=== PATIENT | male | born 1955 | race Caucasian/White ===

== ENCOUNTER 2017-04-14 12:42 | Inpatient (IN) | payer OTHER ==
[~2017-04-14] VITALS: Ht 170.2 cm; Wt 95.7 kg
[~2017-04-14 12:42] MED LIST: AMIT100T PO; AMIT50TA PO; ASPI-482 PO; ASPI325T8 PO; ATOR40TA PO; BUPR150T11 PO; CEFP100T PO; CLOP75TA PO; DIAZ5ORA PO; DOXY100T PO; ESOM40CA PO; FENO54TA6 PO; FURO-68 PO; GEMF600T3 PO; HYDR-2766 PO; METO50TA6 PO; MORP10DI10 PO; MORP30TA83 PO; Metoprolol Tartrate PO; OXYC10TA PO; PANT40TA3 PO; POTA20TA12 PO; PRAV40TA2 PO; PRED20TA PO; RAMI5CAP PO; SIMV80TA3 PO; SUCR1ORA11 PO; VALIUM10 MG PO; WARF-78 PO; WARF5TAB7 PO
[2017-04-14] MEDS ORDERED: NITROGLYCERIN SUBLINGUAL 0.4 MG BOTTLE OF 25. SL PRN (13:00)
[2017-04-14] MEDS ORDERED: ASPIRIN ENTERIC COATED 325 MG TABLET.DR. PO ONE (13:00)
[2017-04-14 13:04] LABS: BASO # 0.1 x10^3/uL (0.0-0.2); BASO % 1 % (0-3); EOS % 6 % (0-3); HEMATOCRIT 50.7 % (39.0-53.0); HEMOGLOBIN 16.8 g/dL (13.0-17.5); LYMPH # 2.8 x10^3/uL (1.0-4.8); LYMPH % 39 % (24-48); MEAN CORPUSCULAR HEMOGLOBIN 31 pg (25-35); MEAN CORPUSCULAR HGB CONC 33 g/dL (31-37); MEAN CORPUSCULAR VOLUME 94 fL (79-100); MONO % 12 % (0-9); NEUT % 41 % (31-73); PLATELET COUNT 219 x10^3/uL (140-400); RED BLOOD COUNT 5.41 x10^6/uL (4.30-5.70); RED CELL DISTRIBUTION WIDTH 13.1 % (11.5-14.5); WHITE BLOOD COUNT 7.2 x10^3/uL (4.0-11.0)
[2017-04-14 13:12] LABS: CALCIUM 9.9 mg/dL (8.5-10.1); CREATININE 0.9 mg/dL (0.7-1.3); GFR 86.1; POTASSIUM 3.5 mmol/L (3.5-5.1)
[2017-04-14 13:14] LABS: INR 3.3 (0.8-1.1); PROTHROMBIN TIME PATIENT 31.2 SEC (11.7-14.0)
[2017-04-14 13:18] LABS: MAGNESIUM 1.9 mg/dL (1.8-2.4); TOTAL BILIRUBIN 0.2 mg/dL (0.2-1.0)
--- NOTE | 2017-04-14 13:22 | RAD ---
PORTABLE CHEST 1V Clinical Indication: chest pain, SINCE THIS MORNING Comparison: Chest radiograph dated 07/31/2016 Findings: Low lung volume. No focal consolidation. Stable pulmonary vasculature. No pleural effusion or pneumothorax. Stable heart size. The great vessels of the thorax are stable. Median sternotomy. Incompletely visualized cervical fusion hardware. No acute osseous abnormality. IMPRESSION: No acute cardiopulmonary process.
--- NOTE | 2017-04-14 13:35 | EKG ---
[facility] [address] [place] [address] Test Date: 2017-04-14 Test Time: 12:49:47 Pat Name: JOHN AVILA Department: Room: Gender: M [employer] Worker: : 1955 Requested By: SAHRA DICK Order Number: [id number] Reading MD: Yandel Marsh Measurements Intervals [place] Rate: 76 P: 137 CO: 156 QRS: 152 QRSD: 106 T: -140 QT: 352 QTc: 400 Interpretive Statements SR SUSPECT LEAD MISPLACEMENT Electronically Signed On 05-06-2017 14:28:55 CDT by Yandel Marsh
[2017-04-14] MEDS ORDERED: MORPHINE SULFATE 4 MG/ML DISP.SYRIN. IV PRN (14:30)
--- NOTE | 2017-04-14 14:38 | PHYS DOC ---
Past Medical History Past Medical History: CAD, Cancer, COPD, High Cholesterol, Heart Disease, Hypertension, CT, Other Additional Past Medical Histor: TESTICLE CANCER, chronic back pain, PE Past Surgical History: Coronary Bypass Surgery, Other Additional Past Surgical Histo: ORECECTOMY,BACK, JAW, cardiac stents Alcohol Use: None Drug Use: None Adult General Chief Complaint Chief Complaint: CHEST PAIN HPI HPI Patient is a 61 year old male who presents with chest pain. It started yesterday evening, pressure like pain, radiating to left arm. Associated SOB, no diaphoresis. Similar pain in past when pt told "I need another stent". Pt with significant CAD and multiple MIs in the past. No recent cough or fevers. Symptoms are still occurring. Dolly Operator is Dr. Borja Review of Systems Review of Systems Constitutional: Denies fever or chills [] Eyes: Denies change in visual acuity, redness, or eye pain [] HENT: Denies nasal congestion or sore throat [] Respiratory: Denies cough Cardiovascular: No additional information not addressed in HPI [] GI: Denies abdominal pain, nausea, vomiting, bloody stools or diarrhea [] : Denies dysuria or hematuria [] Musculoskeletal: Denies back pain or joint pain [] Integument: Denies rash or skin lesions [] Neurologic: Denies headache, focal weakness or sensory changes [] Current Medications Current Medications Current Medications Medications (Trade) Dose Ordered Sig/Adan Start Time Stop Time Status Last Admin Dose Admin Aspirin (Ecotrin) 325 mg 1X ONCE 04/14/17 13:00 04/14/17 13:02 DC 04/14/17 13:20 325 MG Nitroglycerin (Nitrostat) 0.4 mg PRN Q5MIN PRN 04/14/17 13:00 04/15/17 19:23 DC 04/14/17 13:20 0.4 MG Allergies Allergies Allergies Coded Allergies Type Severity Reaction Last Updated Verified Iodinated Contrast- Oral and IV Dye Allergy Intermediate 03/07/14 Yes NSAIDS (Non-Steroidal Anti-Inflamma Allergy Intermediate GI 12/01/14 Yes ketorolac Allergy Intermediate GI 12/01/14 Yes tramadol Allergy Intermediate 11/11/15 Yes venom-honey bee Allergy Intermediate 03/07/14 Yes I S O L A T I O N *CONTACT* Allergy Unknown 12/01/14 Yes Physical Exam Physical Exam Constitutional: Well developed, well nourished, no acute distress, non-toxic appearance. [] HENT: Normocephalic, atraumatic, bilateral external ears normal, oropharynx moist, no oral exudates, nose normal. [] Eyes: PERRLA, EOMI, conjunctiva normal, no discharge. [] Neck: Normal range of motion, no tenderness, supple, no stridor. [] Cardiovascular:Heart rate regular with regular rhythm Lungs & Thorax: Bilateral breath sounds clear to auscultation , no wheeze or crackles Abdomen: Bowel sounds normal, soft, no tenderness, no masses, no pulsatile masses. [] Skin: Warm, dry, no erythema, no rash. [] Back: No tenderness, no CVA tenderness. [] Extremities: No tenderness, no cyanosis, no clubbing, ROM intact, no edema. neg homens' Neurologic: Alert and oriented X 3, normal motor function, normal sensory function, no focal deficits noted. [] Psychologic: Affect normal, judgement normal, mood normal. [] Current Patient Data Vital Signs Vital Signs Date Time Temp Pulse Resp B/P (MAP) Pulse Ox O2 Delivery O2 Flow Rate FiO2 04/14/17 13:48 68 105/57 (73) 94 Nasal Cannula 2.0 04/14/17 12:47 97.7 22 97.7 Lab Values Laboratory Tests Test 04/14/17 13:00 White Blood Count 7.2 x10^3/uL (4.0-11.0) Red Blood Count 5.41 x10^6/uL (4.30-5.70) Hemoglobin 16.8 g/dL (13.0-17.5) Hematocrit 50.7 % (39.0-53.0) Mean Corpuscular Volume 94 fL (79-100) Mean Corpuscular Hemoglobin 31 pg (25-35) Mean Corpuscular Hemoglobin Concent 33 g/dL (31-37) Red Cell Distribution Width 13.1 % (11.5-14.5) Platelet Count 219 x10^3/uL (140-400) Neutrophils (%) (Auto) 41 % (31-73) Lymphocytes (%) (Auto) 39 % (24-48) Monocytes (%) (Auto) 12 % (0-9) H Eosinophils (%) (Auto) 6 % (0-3) H Basophils (%) (Auto) 1 % (0-3) Neutrophils # (Auto) 3.0 x10^3uL (1.8-7.7) Lymphocytes # (Auto) 2.8 x10^3/uL (1.0-4.8) Monocytes # (Auto) 0.9 x10^3/uL (0.0-1.1) Eosinophils # (Auto) 0.4 x10^3/uL (0.0-0.7) Basophils # (Auto) 0.1 x10^3/uL (0.0-0.2) Prothrombin Time 31.2 SEC (11.7-14.0) H Prothrombin Time INR 3.3 (0.8-1.1) H Sodium Level 141 mmol/L (136-145) Potassium Level 3.5 mmol/L (3.5-5.1) Chloride Level 99 mmol/L (98-107) Carbon Dioxide Level 39 mmol/L (21-32) H Anion Gap 3 (6-14) L Blood Urea Nitrogen 8 mg/dL (8-26) Creatinine 0.9 mg/dL (0.7-1.3) Estimated GFR (Cockcroft-Gault) 86.1 BUN/Creatinine Ratio 9 (6-20) Glucose Level 123 mg/dL (70-99) H Calcium Level 9.9 mg/dL (8.5-10.1) Magnesium Level 1.9 mg/dL (1.8-2.4) Total Bilirubin 0.2 mg/dL (0.2-1.0) Aspartate Amino Transferase (AST) 20 U/L (15-37) Alanine Aminotransferase (ALT) 18 U/L (16-63) Alkaline Phosphatase 139 U/L (46-116) H Troponin I Quantitative < 0.017 ng/mL (0.000-0.055) Total Protein 8.0 g/dL (6.4-8.2) Albumin 4.0 g/dL (3.4-5.0) Albumin/Globulin Ratio 1.0 (1.0-1.7) Laboratory Tests 04/14/17 13:00 Laboratory Tests 04/14/17 13:00 EKG EKG []76 bpm, sinus, rightward axis but limb leads appear to be likely switch, normal intervals, no ST elevation or depression, biphasic T-wave in V5, inversion in V4 and aVF, 1, 2, 3 , interpreted by me Radiology/Procedures Radiology/Procedures cxr: IMPRESSION: No acute cardiopulmonary process. Course & Med Decision Making Course & Med Decision Making Pertinent Labs and Imaging studies reviewed. (See chart for details) pt given asp and nitro with some improvement. No acute findings on ED workup. Consulted Dr. Borja by phone, admitted to Dr. Vázquez. Porsche Disclaimer Porsche Disclaimer This electronic medical record was generated, in whole or in part, using a voice recognition dictation system. Departure Departure Impression: Primary Impression: Unstable angina Disposition: ADMITTED INPATIENT Condition: STABLE Referrals: YOSSI RECIO MD (PCP) SAHRA DICK MD Apr 14, 2017 14:38
--- NOTE | 2017-04-14 16:47 | PDOC2 ---
CONSULT Date of Consult Date of Consult DATE: 04/14/17 TIME: 16:43 Reason for Consult Reason for Consult: Chest pain Referring Physician Referring Physician: Dr Vázquez Identification/Chief Complaint Chief Complaint Chest pain Problems: History of Present Illness Reason for Visit: Patient is a 61-year-old gentleman that has a known history of coronary artery disease and bypass surgery. He also has hypertension COPD arthritis and a multitude of medical problems. He has had some problems with GERD in the past. The patient felt that he was having some heartburn and had some nausea and vomiting with it. No diarrhea, no fever. He has had a variety of chest pain syndrome past some related to angina some related to GERD some related to other issues. At the time that I saw him he was sent and they're comfortably and denies having any ongoing chest pains. The first set of enzymes was negative and the EKG did not show any acute abnormality. Past Medical History Cardiovascular: CAD, HTN, CT, Hyperlipidemia Pulmonary: COPD, Pulmonary embolus CENTRAL NERVOUS SYSTEM: Other GI: GERD Heme/Onc: Cancer Hepatobiliary: No pertinent hx Psych: Anxiety, Depression Musculoskeletal: low back pain, Osteoarthritis Rheumatologic: No pertinent hx Infectious disease: No pertinent hx Renal/: No pertinent hx Endocrine: No pertinent hx Past Surgical History Past Surgical History: CABG, Other Family History Family History: Heart Disease, Hypertension, Family History Unknown Social History ALCOHOL: none Drugs: None Lives: with Family Domestic Violence: Neg Current Problem List Problem List Problems Medical Problems: (1) Unstable angina Status: Acute Current Medications Current Medications Current Medications Aspirin (Ecotrin) 325 mg 1X ONCE PO Last administered on 04/14/17 13:20; Start 04/14/17 at 13:00; Stop 04/14/17 at 13:02; Status DC Nitroglycerin (Nitrostat) 0.4 mg PRN Q5MIN PRN SL chest pain Last administered on 04/14/17 13:20; Start 04/14/17 at 13:00 Morphine Sulfate 2 mg PRN Q2HR PRN IV PAIN; Start 04/14/17 at 14:30; Stop 04/15 at 14:29 Active Scripts Active Prednisone 20 Mg Tablet 40 Mg PO DAILY Doxycycline Hyclate 100 Mg Tablet 100 Mg PO BID 4 Days Reported Clopidogrel (Clopidogrel Bisulfate) 75 Mg Tablet 1 Tab PO DAILY Gave this morning Take tomorrow morning Aspir 81 (Aspirin) 81 Mg Tablet. 1 Tab PO DAILY Gave this morning Take tomorrow morning Amitriptyline Hcl 100 Mg Tablet 1 Tab PO QHS Gave last night Take tonight Coumadin (Warfarin Sodium) 5 Mg Tablet 1 Tab PO DAILY Gave yesterday Take this evening Metoprolol Tartrate 50 Mg Tablet 50 Mg PO BID Gave this morning Take tonight Valium (Diazepam) 10 Mg Tablet 10 Mg PO QID Not given on this admission Take when needed Oxycodone Hcl 10 Mg Tablet 1 Tab PO PRN QID PRN Gave dose at 10:10 May take again when you get home Bupropion Hcl Sr (Bupropion Hcl) 150 Mg Tablet.er 1 Tab PO BID Gave this morning Take tonight Ms Contin (Morphine Sulfate) 30 Mg Tablet.er 30 Mg PO TID Gave at 1:56 Take again tonight Potassium Chloride 20 Meq Tab.er.prt 20 Meq PO DAILY Gave this morning Take again tomorrow Lasix (Furosemide) 40 Mg Tablet 40 Mg PO DAILY Gave this morning Take tomorrow morning Allergies Allergies: Coded Allergies: Iodinated Contrast- Oral and IV Dye (Verified Allergy, Intermediate, ) NSAIDS (Non-Steroidal Anti-Inflamma (Verified Allergy, Intermediate, GI, ) ketorolac (Verified Allergy, Intermediate, GI, 12/01/14) tramadol (Verified Allergy, Intermediate, 11/11/15) tolerates oxycodone and morphine venom-honey bee (Verified Allergy, Intermediate, 03/07/14) I S O L A T I O N *CONTACT* (Verified Allergy, Unknown, 12/01/14) mrsa + Physical Exam General: Alert, Oriented X3, Cooperative HEENT: Atraumatic, PERRLA Lungs: Clear to auscultation Heart: Regular rate, Normal S1, Normal S2 Abdomen: Normal bowel sounds, Soft Extremities: Other (1+ edema) Psych/Mental Status: Mental status NL Vitals VITALS Vital Signs Date Time Temp Pulse Resp B/P (MAP) Pulse Ox O2 Delivery O2 Flow Rate FiO2 04/14/17 14:48 78 135/90 (105) 96 Nasal Cannula 2.0 04/14/17 12:47 97.7 22 97.7 Labs Labs Laboratory Tests Test 04/14/17 13:00 White Blood Count 7.2 x10^3/uL (4.0-11.0) Red Blood Count 5.41 x10^6/uL (4.30-5.70) Hemoglobin 16.8 g/dL (13.0-17.5) Hematocrit 50.7 % (39.0-53.0) Mean Corpuscular Volume 94 fL (79-100) Mean Corpuscular Hemoglobin 31 pg (25-35) Mean Corpuscular Hemoglobin Concent 33 g/dL (31-37) Red Cell Distribution Width 13.1 % (11.5-14.5) Platelet Count 219 x10^3/uL (140-400) Neutrophils (%) (Auto) 41 % (31-73) Lymphocytes (%) (Auto) 39 % (24-48) Monocytes (%) (Auto) 12 % (0-9) Eosinophils (%) (Auto) 6 % (0-3) Basophils (%) (Auto) 1 % (0-3) Neutrophils # (Auto) 3.0 x10^3uL (1.8-7.7) Lymphocytes # (Auto) 2.8 x10^3/uL (1.0-4.8) Monocytes # (Auto) 0.9 x10^3/uL (0.0-1.1) Eosinophils # (Auto) 0.4 x10^3/uL (0.0-0.7) Basophils # (Auto) 0.1 x10^3/uL (0.0-0.2) Prothrombin Time 31.2 SEC (11.7-14.0) Prothromb Time International Ratio 3.3 (0.8-1.1) Sodium Level 141 mmol/L (136-145) Potassium Level 3.5 mmol/L (3.5-5.1) Chloride Level 99 mmol/L (98-107) Carbon Dioxide Level 39 mmol/L (21-32) Anion Gap 3 (6-14) Blood Urea Nitrogen 8 mg/dL (8-26) Creatinine 0.9 mg/dL (0.7-1.3) Estimated GFR (Cockcroft-Gault) 86.1 BUN/Creatinine Ratio 9 (6-20) Glucose Level 123 mg/dL (70-99) Calcium Level 9.9 mg/dL (8.5-10.1) Magnesium Level 1.9 mg/dL (1.8-2.4) Total Bilirubin 0.2 mg/dL (0.2-1.0) Aspartate Amino Transf (AST/SGOT) 20 U/L (15-37) Alanine Aminotransferase (ALT/SGPT) 18 U/L (16-63) Alkaline Phosphatase 139 U/L (46-116) Troponin I Quantitative < 0.017 ng/mL (0.000-0.055) Total Protein 8.0 g/dL (6.4-8.2) Albumin 4.0 g/dL (3.4-5.0) Albumin/Globulin Ratio 1.0 (1.0-1.7) Laboratory Tests Test 04/14/17 13:00 White Blood Count 7.2 x10^3/uL (4.0-11.0) Red Blood Count 5.41 x10^6/uL (4.30-5.70) Hemoglobin 16.8 g/dL (13.0-17.5) Hematocrit 50.7 % (39.0-53.0) Mean Corpuscular Volume 94 fL (79-100) Mean Corpuscular Hemoglobin 31 pg (25-35) Mean Corpuscular Hemoglobin Concent 33 g/dL (31-37) Red Cell Distribution Width 13.1 % (11.5-14.5) Platelet Count 219 x10^3/uL (140-400) Neutrophils (%) (Auto) 41 % (31-73) Lymphocytes (%) (Auto) 39 % (24-48) Monocytes (%) (Auto) 12 % (0-9) Eosinophils (%) (Auto) 6 % (0-3) Basophils (%) (Auto) 1 % (0-3) Neutrophils # (Auto) 3.0 x10^3uL (1.8-7.7) Lymphocytes # (Auto) 2.8 x10^3/uL (1.0-4.8) Monocytes # (Auto) 0.9 x10^3/uL (0.0-1.1) Eosinophils # (Auto) 0.4 x10^3/uL (0.0-0.7) Basophils # (Auto) 0.1 x10^3/uL (0.0-0.2) Prothrombin Time 31.2 SEC (11.7-14.0) Prothromb Time International Ratio 3.3 (0.8-1.1) Sodium Level 141 mmol/L (136-145) Potassium Level 3.5 mmol/L (3.5-5.1) Chloride Level 99 mmol/L (98-107) Carbon Dioxide Level 39 mmol/L (21-32) Anion Gap 3 (6-14) Blood Urea Nitrogen 8 mg/dL (8-26) Creatinine 0.9 mg/dL (0.7-1.3) Estimated GFR (Cockcroft-Gault) 86.1 BUN/Creatinine Ratio 9 (6-20) Glucose Level 123 mg/dL (70-99) Calcium Level 9.9 mg/dL (8.5-10.1) Magnesium Level 1.9 mg/dL (1.8-2.4) Total Bilirubin 0.2 mg/dL (0.2-1.0) Aspartate Amino Transf (AST/SGOT) 20 U/L (15-37) Alanine Aminotransferase (ALT/SGPT) 18 U/L (16-63) Alkaline Phosphatase 139 U/L (46-116) Troponin I Quantitative < 0.017 ng/mL (0.000-0.055) Total Protein 8.0 g/dL (6.4-8.2) Albumin 4.0 g/dL (3.4-5.0) Albumin/Globulin Ratio 1.0 (1.0-1.7) Assessment/Plan Assessment/Plan This patient with a known history of coronary artery disease comes in with chest pains as well as nausea and vomiting. The present issues may be GI in nature but in view of his known history I would suggest to do a Lexiscan MPI on this patient. Depending on the results of the tests will then decide about further workup and treatment. Thank you very much for asking me to participate in the care of this patient JANINA ORTIZ MD Apr 14, 2017 16:47
--- NOTE | 2017-04-14 17:25 | PDOC1 ---
History and Physical Date of Admission Date of Admission 04/14/17 Identification/Chief Complaint Chief Complaint chest pain Problems: Source Source: Chart review, Patient History of Present Illness History of Present Illness HPI HPI Patient is a 61 year old male with h/o CABG who presents with chest pain today. Pt is very lethargic in ER when i saw him, arousable, but fell asleep during conversation. most history got from ERP. The chest pain started from yesterday evening, pressure like, radiating to left arm, no tenderness. Associated SOB, no diaphoresis. Similar pain in past when pt told "I need another stent". when i saw him in ER, chest pain almost gone, he c/o chronic severe back pain and hip pain. no N/V, fever, chills, cough ,diarrhea. troponin and EKG in ER neg. Past Medical History Cardiovascular: CAD, HTN, [place], Hyperlipidemia Pulmonary: COPD, Pulmonary embolus CENTRAL NERVOUS SYSTEM: Other GI: GERD Heme/Onc: Cancer Hepatobiliary: No pertinent hx Psych: Anxiety, Depression Rheumatologic: No pertinent hx Infectious disease: No pertinent hx Renal/: No pertinent hx Endocrine: No pertinent hx Past Surgical History Past Surgical History: CABG, Other Family History Family History: Heart Disease, Hypertension, Family History Unknown Social History Smoke: No ALCOHOL: none Drugs: None Current Problem List Problem List Problems Medical Problems: (1) Unstable angina Status: Acute Current Medications Current Medications Current Medications Medications (Trade) Dose Ordered Sig/Adan Start Time Stop Time Status Last Admin Dose Admin Aspirin (Ecotrin) 325 mg 1X ONCE 04/14/17 13:00 04/14/17 13:02 DC 04/14/17 13:20 325 MG Morphine Sulfate 2 mg PRN Q2HR PRN 04/14/17 14:30 04/15/17 14:29 Nitroglycerin (Nitrostat) 0.4 mg PRN Q5MIN PRN 04/14/17 13:00 04/14/17 13:20 0.4 MG Allergies Allergies Allergies Coded Allergies Type Severity Reaction Last Updated Verified Iodinated Contrast- Oral and IV Dye Allergy Intermediate 03/07/14 Yes NSAIDS (Non-Steroidal Anti-Inflamma Allergy Intermediate GI 12/01/14 Yes ketorolac Allergy Intermediate GI 12/01/14 Yes tramadol Allergy Intermediate 11/11/15 Yes venom-honey bee Allergy Intermediate 03/07/14 Yes I S O L A T I O N *CONTACT* Allergy Unknown 12/01/14 Yes ROS Review of System CONSTITUTIONAL: No fever or chills EYES: No recent changes SKIN: No rash or itching CARDIOVASCULAR: No chest pain, syncope, palpitations, or edema RESPIRATORY: No SOB or cough GASTROINTESTINAL: No nausea, vomiting or abdominal pain NEUROLOGICAL: No headaches or weakness ENDOCRINE: No cold or heat intolerance GENITOURINARY: No urgency or frequency of urination MUSCULOSKELETAL: No back pain or joint pain LYMPHATICS: No enlarged lymph nodes PSYCHIATRIC: No anxiety or depression Physical Exam Physical Exam GEN.: No apparent distress, very sleepy. HEENT: Head is normocephalic, atraumatic NECK: Supple. LUNGS: Clear to auscultation. no chest wall tenderness. HEART: RRR, S1, S2 present. Peripheral pulses intact ABDOMEN: Soft, nontender. Positive bowel sounds. EXTREMITIES: Without any cyanosis. NEUROLOGIC: Normal speech, normal tone PSYCHIATRIC: Normal affect, normal mood. SKIN: No ulcerations Vitals Vitals Vital Signs Date Time Temp Pulse Resp B/P (MAP) Pulse Ox O2 Delivery O2 Flow Rate FiO2 04/14/17 14:48 78 135/90 (105) 96 Nasal Cannula 2.0 04/14/17 12:47 97.7 22 97.7 Labs Labs Laboratory Tests Test 04/14/17 13:00 White Blood Count 7.2 x10^3/uL (4.0-11.0) Red Blood Count 5.41 x10^6/uL (4.30-5.70) Hemoglobin 16.8 g/dL (13.0-17.5) Hematocrit 50.7 % (39.0-53.0) Mean Corpuscular Volume 94 fL (79-100) Mean Corpuscular Hemoglobin 31 pg (25-35) Mean Corpuscular Hemoglobin Concent 33 g/dL (31-37) Red Cell Distribution Width 13.1 % (11.5-14.5) Platelet Count 219 x10^3/uL (140-400) Neutrophils (%) (Auto) 41 % (31-73) Lymphocytes (%) (Auto) 39 % (24-48) Monocytes (%) (Auto) 12 % (0-9) Eosinophils (%) (Auto) 6 % (0-3) Basophils (%) (Auto) 1 % (0-3) Neutrophils # (Auto) 3.0 x10^3uL (1.8-7.7) Lymphocytes # (Auto) 2.8 x10^3/uL (1.0-4.8) Monocytes # (Auto) 0.9 x10^3/uL (0.0-1.1) Eosinophils # (Auto) 0.4 x10^3/uL (0.0-0.7) Basophils # (Auto) 0.1 x10^3/uL (0.0-0.2) Prothrombin Time 31.2 SEC (11.7-14.0) Prothromb Time International Ratio 3.3 (0.8-1.1) Sodium Level 141 mmol/L (136-145) Potassium Level 3.5 mmol/L (3.5-5.1) Chloride Level 99 mmol/L (98-107) Carbon Dioxide Level 39 mmol/L (21-32) Anion Gap 3 (6-14) Blood Urea Nitrogen 8 mg/dL (8-26) Creatinine 0.9 mg/dL (0.7-1.3) Estimated GFR (Cockcroft-Gault) 86.1 BUN/Creatinine Ratio 9 (6-20) Glucose Level 123 mg/dL (70-99) Calcium Level 9.9 mg/dL (8.5-10.1) Magnesium Level 1.9 mg/dL (1.8-2.4) Total Bilirubin 0.2 mg/dL (0.2-1.0) Aspartate Amino Transf (AST/SGOT) 20 U/L (15-37) Alanine Aminotransferase (ALT/SGPT) 18 U/L (16-63) Alkaline Phosphatase 139 U/L (46-116) Troponin I Quantitative < 0.017 ng/mL (0.000-0.055) Total Protein 8.0 g/dL (6.4-8.2) Albumin 4.0 g/dL (3.4-5.0) Albumin/Globulin Ratio 1.0 (1.0-1.7) Laboratory Tests Test 04/14/17 13:00 White Blood Count 7.2 x10^3/uL (4.0-11.0) Red Blood Count 5.41 x10^6/uL (4.30-5.70) Hemoglobin 16.8 g/dL (13.0-17.5) Hematocrit 50.7 % (39.0-53.0) Mean Corpuscular Volume 94 fL (79-100) Mean Corpuscular Hemoglobin 31 pg (25-35) Mean Corpuscular Hemoglobin Concent 33 g/dL (31-37) Red Cell Distribution Width 13.1 % (11.5-14.5) Platelet Count 219 x10^3/uL (140-400) Neutrophils (%) (Auto) 41 % (31-73) Lymphocytes (%) (Auto) 39 % (24-48) Monocytes (%) (Auto) 12 % (0-9) Eosinophils (%) (Auto) 6 % (0-3) Basophils (%) (Auto) 1 % (0-3) Neutrophils # (Auto) 3.0 x10^3uL (1.8-7.7) Lymphocytes # (Auto) 2.8 x10^3/uL (1.0-4.8) Monocytes # (Auto) 0.9 x10^3/uL (0.0-1.1) Eosinophils # (Auto) 0.4 x10^3/uL (0.0-0.7) Basophils # (Auto) 0.1 x10^3/uL (0.0-0.2) Prothrombin Time 31.2 SEC (11.7-14.0) Prothromb Time International Ratio 3.3 (0.8-1.1) Sodium Level 141 mmol/L (136-145) Potassium Level 3.5 mmol/L (3.5-5.1) Chloride Level 99 mmol/L (98-107) Carbon Dioxide Level 39 mmol/L (21-32) Anion Gap 3 (6-14) Blood Urea Nitrogen 8 mg/dL (8-26) Creatinine 0.9 mg/dL (0.7-1.3) Estimated GFR (Cockcroft-Gault) 86.1 BUN/Creatinine Ratio 9 (6-20) Glucose Level 123 mg/dL (70-99) Calcium Level 9.9 mg/dL (8.5-10.1) Magnesium Level 1.9 mg/dL (1.8-2.4) Total Bilirubin 0.2 mg/dL (0.2-1.0) Aspartate Amino Transf (AST/SGOT) 20 U/L (15-37) Alanine Aminotransferase (ALT/SGPT) 18 U/L (16-63) Alkaline Phosphatase 139 U/L (46-116) Troponin I Quantitative < 0.017 ng/mL (0.000-0.055) Total Protein 8.0 g/dL (6.4-8.2) Albumin 4.0 g/dL (3.4-5.0) Albumin/Globulin Ratio 1.0 (1.0-1.7) VTE Prophylaxis Ordered VTE Prophylaxis Devices: Contraindicated VTE Pharmacological Prophylaxi: No Assessment/Plan Assessment/Plan chest pain, 2/2 unstable angina vs. GERD h/o CAD post CABG 2000 and PCI last year copd htn hld chronic back pain, hip pain, with OA h/o testicle Ca . h/o PE, vtach, not sure afib or not, on Coumadin metabolic encephalopathy, on pain meds, valium plan; fu with card cont home meds, change valium to prn ptot cycle CE add pepcid on warfarin, INR daily fu with pt's mental status tmr MPI as per Card admit 2nNISH Ridley MD Apr 14, 2017 17:25
[2017-04-14] MEDS ORDERED: hydrALAZINE 20 MG/ML VIAL. IVP PRN (17:30)
[2017-04-14] MEDS ORDERED: DOCUSATE SODIUM 100 MG CAPSULE. PO PRN (17:30)
[2017-04-14] MEDS ORDERED: ONDANSETRON PF 4 MG/2 ML VIAL. IV PRN (17:30)
[2017-04-14] MEDS ORDERED: ACETAMINOPHEN 325 MG TABLET. PO PRN (17:30)
[2017-04-14 18:06] VITALS: BP 121/72
[2017-04-14] MEDS: oxyCODONE IR 5 MG TABLET PO PRN (18:45)
[2017-04-14 19:37] VITALS: BP 119/78
[2017-04-14] MEDS: buPROPion SR 150 MG TABLET.SA PO SCH (20:42)
[2017-04-14] MEDS: METOPROLOL TART IMMED RELEASE 50 MG TABLET. PO SCH (20:42)
[2017-04-14] MEDS: FAMOTIDINE 20 MG TABLET. PO SCH (20:42)
[2017-04-14] MEDS: MORPHINE ER 30 MG TABLET.ER PO SCH (20:44)
[2017-04-14] MEDS ORDERED: AMITRIPTYLINE HCL 50 MG TABLET PO SCH (21:00)
[2017-04-14] MEDS ORDERED: diazePAM 5 MG TABLET PO SCH (21:00)
[2017-04-14] MEDS ORDERED: diazePAM 5 MG TABLET PO PRN (21:00)
[2017-04-14 22:20] VITALS: BP 114/68
[2017-04-15 03:24] VITALS: BP 101/52
[2017-04-15 04:35] LABS: BASO # 0.1 x10^3/uL (0.0-0.2); BASO % 1 % (0-3); EOS % 6 % (0-3); HEMATOCRIT 46.4 % (39.0-53.0); HEMOGLOBIN 15.7 g/dL (13.0-17.5); LYMPH # 2.5 x10^3/uL (1.0-4.8); LYMPH % 35 % (24-48); MEAN CORPUSCULAR HEMOGLOBIN 31 pg (25-35); MEAN CORPUSCULAR HGB CONC 34 g/dL (31-37); MEAN CORPUSCULAR VOLUME 93 fL (79-100); MONO % 9 % (0-9); NEUT % 50 % (31-73); PLATELET COUNT 200 x10^3/uL (140-400); RED BLOOD COUNT 4.99 x10^6/uL (4.30-5.70); RED CELL DISTRIBUTION WIDTH 13.7 % (11.5-14.5); WHITE BLOOD COUNT 7.3 x10^3/uL (4.0-11.0)
[2017-04-15 04:49] LABS: CREATININE 0.9 mg/dL (0.7-1.3); GFR 86.1; POTASSIUM 4.2 mmol/L (3.5-5.1)
[2017-04-15 06:36] LABS: PROTHROMBIN TIME PATIENT 29.6 SEC (11.7-14.0)
[2017-04-15 07:00] VITALS: BP 146/76
[2017-04-15] MEDS ORDERED: POTASSIUM CHLORIDE 20 MEQ TABLET.ER. PO SCH (08:00)
[2017-04-15] MEDS ORDERED: ASPIRIN ENTERIC COATED 81 MG TABLET.DR. PO SCH (09:00)
[2017-04-15] MEDS ORDERED: REGADENOSON 0.4 MG/5 ML DISP.SYRIN. IV ONE (09:00)
[2017-04-15] MEDS ORDERED: CLOPIDOGREL BISULFATE 75 MG TABLET PO SCH (09:00)
[2017-04-15] MEDS ORDERED: FUROSEMIDE 40 MG TABLET. PO SCH (09:00)
[2017-04-15] MEDS ORDERED: ACETAMINOPHEN 325 MG TABLET. PO PRN (09:30)
[2017-04-15] MEDS: FAMOTIDINE 20 MG TABLET. PO SCH (10:58)
[2017-04-15] MEDS: oxyCODONE IR 5 MG TABLET PO PRN (10:59)
[2017-04-15] MEDS: buPROPion SR 150 MG TABLET.SA PO SCH (10:59)
[2017-04-15] MEDS: MORPHINE ER 30 MG TABLET.ER PO SCH ×3 (10:59→17:36)
[2017-04-15 11:00] VITALS: BP 142/69
--- NOTE | 2017-04-15 11:56 | PDOC ---
PROGRESS NOTES Chief Complaint Chief Complaint chest pain, 2/2 unstable angina vs. GERD h/o CAD post CABG 2000 and PCI last year copd htn hld chronic back pain, hip pain, with OA h/o testicle Ca . h/o PE, vtach, not sure afib or not, on Coumadin metabolic encephalopathy, on pain meds, valium History of Present Illness History of Present Illness No CP, or SOA HAd the first part of stress test today Watching tv So far no changes in meds PLAN: Ok to dc later if MPI neg and ok also with cards Dw him my plan - he agrees Vitals Vitals Vital Signs Date Time Temp Pulse Resp B/P (MAP) Pulse Ox O2 Delivery O2 Flow Rate FiO2 04/15/17 11:00 98.3 82 20 142/69 (93) 93 Nasal Cannula 3.0 98.3 Physical Exam General: Alert, Oriented X3, Cooperative Heart: Regular rate, Normal S1, Normal S2 Lungs: Wheezing Abdomen: Normal bowel sounds, Soft Extremities: Other (1+ edema) Labs LABS Laboratory Tests Test 04/14/17 13:00 04/14/17 20:00 04/14/17 22:15 04/15/17 04:14 White Blood Count 7.2 x10^3/uL (4.0-11.0) 7.3 x10^3/uL (4.0-11.0) Red Blood Count 5.41 x10^6/uL (4.30-5.70) 4.99 x10^6/uL (4.30-5.70) Hemoglobin 16.8 g/dL (13.0-17.5) 15.7 g/dL (13.0-17.5) Hematocrit 50.7 % (39.0-53.0) 46.4 % (39.0-53.0) Mean Corpuscular Volume 94 fL (79-100) 93 fL (79-100) Mean Corpuscular Hemoglobin 31 pg (25-35) 31 pg (25-35) Mean Corpuscular Hemoglobin Concent 33 g/dL (31-37) 34 g/dL (31-37) Red Cell Distribution Width 13.1 % (11.5-14.5) 13.7 % (11.5-14.5) Platelet Count 219 x10^3/uL (140-400) 200 x10^3/uL (140-400) Neutrophils (%) (Auto) 41 % (31-73) 50 % (31-73) Lymphocytes (%) (Auto) 39 % (24-48) 35 % (24-48) Monocytes (%) (Auto) 12 % (0-9) 9 % (0-9) Eosinophils (%) (Auto) 6 % (0-3) 6 % (0-3) Basophils (%) (Auto) 1 % (0-3) 1 % (0-3) Neutrophils # (Auto) 3.0 x10^3uL (1.8-7.7) 3.6 x10^3uL (1.8-7.7) Lymphocytes # (Auto) 2.8 x10^3/uL (1.0-4.8) 2.5 x10^3/uL (1.0-4.8) Monocytes # (Auto) 0.9 x10^3/uL (0.0-1.1) 0.7 x10^3/uL (0.0-1.1) Eosinophils # (Auto) 0.4 x10^3/uL (0.0-0.7) 0.4 x10^3/uL (0.0-0.7) Basophils # (Auto) 0.1 x10^3/uL (0.0-0.2) 0.1 x10^3/uL (0.0-0.2) Prothrombin Time 31.2 SEC (11.7-14.0) Prothromb Time International Ratio 3.3 (0.8-1.1) Sodium Level 141 mmol/L (136-145) 140 mmol/L (136-145) Potassium Level 3.5 mmol/L (3.5-5.1) 4.2 mmol/L (3.5-5.1) Chloride Level 99 mmol/L (98-107) 100 mmol/L (98-107) Carbon Dioxide Level 39 mmol/L (21-32) 40 mmol/L (21-32) Anion Gap 3 (6-14) 0 (6-14) Blood Urea Nitrogen 8 mg/dL (8-26) 11 mg/dL (8-26) Creatinine 0.9 mg/dL (0.7-1.3) 0.9 mg/dL (0.7-1.3) Estimated GFR (Cockcroft-Gault) 86.1 86.1 BUN/Creatinine Ratio 9 (6-20) Glucose Level 123 mg/dL (70-99) 116 mg/dL (70-99) Calcium Level 9.9 mg/dL (8.5-10.1) 9.0 mg/dL (8.5-10.1) Magnesium Level 1.9 mg/dL (1.8-2.4) Total Bilirubin 0.2 mg/dL (0.2-1.0) Aspartate Amino Transf (AST/SGOT) 20 U/L (15-37) Alanine Aminotransferase (ALT/SGPT) 18 U/L (16-63) Alkaline Phosphatase 139 U/L (46-116) Troponin I Quantitative < 0.017 ng/mL (0.000-0.055) < 0.017 ng/mL (0.000-0.055) < 0.017 ng/mL (0.000-0.055) Total Protein 8.0 g/dL (6.4-8.2) Albumin 4.0 g/dL (3.4-5.0) Albumin/Globulin Ratio 1.0 (1.0-1.7) Test 04/15/17 05:56 Prothrombin Time 29.6 SEC (11.7-14.0) Prothromb Time International Ratio 3.0 (0.8-1.1) Review of Systems Review of Systems neg 14 pt reviewed Assessment and Plan Assessmemt and Plan Problems Medical Problems: (1) Unstable angina Status: Acute Problems: Comment Review of Relevant I have reviewed the following items arya (where applicable) has been applied. Labs Laboratory Tests Test 04/14/17 13:00 04/14/17 20:00 04/14/17 22:15 04/15/17 04:14 White Blood Count 7.2 x10^3/uL (4.0-11.0) 7.3 x10^3/uL (4.0-11.0) Red Blood Count 5.41 x10^6/uL (4.30-5.70) 4.99 x10^6/uL (4.30-5.70) Hemoglobin 16.8 g/dL (13.0-17.5) 15.7 g/dL (13.0-17.5) Hematocrit 50.7 % (39.0-53.0) 46.4 % (39.0-53.0) Mean Corpuscular Volume 94 fL (79-100) 93 fL (79-100) Mean Corpuscular Hemoglobin 31 pg (25-35) 31 pg (25-35) Mean Corpuscular Hemoglobin Concent 33 g/dL (31-37) 34 g/dL (31-37) Red Cell Distribution Width 13.1 % (11.5-14.5) 13.7 % (11.5-14.5) Platelet Count 219 x10^3/uL (140-400) 200 x10^3/uL (140-400) Neutrophils (%) (Auto) 41 % (31-73) 50 % (31-73) Lymphocytes (%) (Auto) 39 % (24-48) 35 % (24-48) Monocytes (%) (Auto) 12 % (0-9) 9 % (0-9) Eosinophils (%) (Auto) 6 % (0-3) 6 % (0-3) Basophils (%) (Auto) 1 % (0-3) 1 % (0-3) Neutrophils # (Auto) 3.0 x10^3uL (1.8-7.7) 3.6 x10^3uL (1.8-7.7) Lymphocytes # (Auto) 2.8 x10^3/uL (1.0-4.8) 2.5 x10^3/uL (1.0-4.8) Monocytes # (Auto) 0.9 x10^3/uL (0.0-1.1) 0.7 x10^3/uL (0.0-1.1) Eosinophils # (Auto) 0.4 x10^3/uL (0.0-0.7) 0.4 x10^3/uL (0.0-0.7) Basophils # (Auto) 0.1 x10^3/uL (0.0-0.2) 0.1 x10^3/uL (0.0-0.2) Prothrombin Time 31.2 SEC (11.7-14.0) Prothromb Time International Ratio 3.3 (0.8-1.1) Sodium Level 141 mmol/L (136-145) 140 mmol/L (136-145) Potassium Level 3.5 mmol/L (3.5-5.1) 4.2 mmol/L (3.5-5.1) Chloride Level 99 mmol/L (98-107) 100 mmol/L (98-107) Carbon Dioxide Level 39 mmol/L (21-32) 40 mmol/L (21-32) Anion Gap 3 (6-14) 0 (6-14) Blood Urea Nitrogen 8 mg/dL (8-26) 11 mg/dL (8-26) Creatinine 0.9 mg/dL (0.7-1.3) 0.9 mg/dL (0.7-1.3) Estimated GFR (Cockcroft-Gault) 86.1 86.1 BUN/Creatinine Ratio 9 (6-20) Glucose Level 123 mg/dL (70-99) 116 mg/dL (70-99) Calcium Level 9.9 mg/dL (8.5-10.1) 9.0 mg/dL (8.5-10.1) Magnesium Level 1.9 mg/dL (1.8-2.4) Total Bilirubin 0.2 mg/dL (0.2-1.0) Aspartate Amino Transf (AST/SGOT) 20 U/L (15-37) Alanine Aminotransferase (ALT/SGPT) 18 U/L (16-63) Alkaline Phosphatase 139 U/L (46-116) Troponin I Quantitative < 0.017 ng/mL (0.000-0.055) < 0.017 ng/mL (0.000-0.055) < 0.017 ng/mL (0.000-0.055) Total Protein 8.0 g/dL (6.4-8.2) Albumin 4.0 g/dL (3.4-5.0) Albumin/Globulin Ratio 1.0 (1.0-1.7) Test 04/15/17 05:56 Prothrombin Time 29.6 SEC (11.7-14.0) Prothromb Time International Ratio 3.0 (0.8-1.1) Laboratory Tests Test 04/14/17 13:00 04/14/17 20:00 04/14/17 22:15 10/3/17 04:14 White Blood Count 7.2 x10^3/uL (4.0-11.0) 7.3 x10^3/uL (4.0-11.0) Red Blood Count 5.41 x10^6/uL (4.30-5.70) 4.99 x10^6/uL (4.30-5.70) Hemoglobin 16.8 g/dL (13.0-17.5) 15.7 g/dL (13.0-17.5) Hematocrit 50.7 % (39.0-53.0) 46.4 % (39.0-53.0) Mean Corpuscular Volume 94 fL (79-100) 93 fL (79-100) Mean Corpuscular Hemoglobin 31 pg (25-35) 31 pg (25-35) Mean Corpuscular Hemoglobin Concent 33 g/dL (31-37) 34 g/dL (31-37) Red Cell Distribution Width 13.1 % (11.5-14.5) 13.7 % (11.5-14.5) Platelet Count 219 x10^3/uL (140-400) 200 x10^3/uL (140-400) Neutrophils (%) (Auto) 41 % (31-73) 50 % (31-73) Lymphocytes (%) (Auto) 39 % (24-48) 35 % (24-48) Monocytes (%) (Auto) 12 % (0-9) 9 % (0-9) Eosinophils (%) (Auto) 6 % (0-3) 6 % (0-3) Basophils (%) (Auto) 1 % (0-3) 1 % (0-3) Neutrophils # (Auto) 3.0 x10^3uL (1.8-7.7) 3.6 x10^3uL (1.8-7.7) Lymphocytes # (Auto) 2.8 x10^3/uL (1.0-4.8) 2.5 x10^3/uL (1.0-4.8) Monocytes # (Auto) 0.9 x10^3/uL (0.0-1.1) 0.7 x10^3/uL (0.0-1.1) Eosinophils # (Auto) 0.4 x10^3/uL (0.0-0.7) 0.4 x10^3/uL (0.0-0.7) Basophils # (Auto) 0.1 x10^3/uL (0.0-0.2) 0.1 x10^3/uL (0.0-0.2) Prothrombin Time 31.2 SEC (11.7-14.0) Prothromb Time International Ratio 3.3 (0.8-1.1) Sodium Level 141 mmol/L (136-145) 140 mmol/L (136-145) Potassium Level 3.5 mmol/L (3.5-5.1) 4.2 mmol/L (3.5-5.1) Chloride Level 99 mmol/L (98-107) 100 mmol/L (98-107) Carbon Dioxide Level 39 mmol/L (21-32) 40 mmol/L (21-32) Anion Gap 3 (6-14) 0 (6-14) Blood Urea Nitrogen 8 mg/dL (8-26) 11 mg/dL (8-26) Creatinine 0.9 mg/dL (0.7-1.3) 0.9 mg/dL (0.7-1.3) Estimated GFR (Cockcroft-Gault) 86.1 86.1 BUN/Creatinine Ratio 9 (6-20) Glucose Level 123 mg/dL (70-99) 116 mg/dL (70-99) Calcium Level 9.9 mg/dL (8.5-10.1) 9.0 mg/dL (8.5-10.1) Magnesium Level 1.9 mg/dL (1.8-2.4) Total Bilirubin 0.2 mg/dL (0.2-1.0) Aspartate Amino Transf (AST/SGOT) 20 U/L (15-37) Alanine Aminotransferase (ALT/SGPT) 18 U/L (16-63) Alkaline Phosphatase 139 U/L (46-116) Troponin I Quantitative < 0.017 ng/mL (0.000-0.055) < 0.017 ng/mL (0.000-0.055) < 0.017 ng/mL (0.000-0.055) Total Protein 8.0 g/dL (6.4-8.2) Albumin 4.0 g/dL (3.4-5.0) Albumin/Globulin Ratio 1.0 (1.0-1.7) Test 04/15/17 05:56 Prothrombin Time 29.6 SEC (11.7-14.0) Prothromb Time International Ratio 3.0 (0.8-1.1) Medications Current Medications Aspirin (Ecotrin) 325 mg 1X ONCE PO Last administered on 04/14/17 13:20; Start 04/14/17 at 13:00; Stop 04/14/17 at 13:02; Status DC Nitroglycerin (Nitrostat) 0.4 mg PRN Q5MIN PRN SL chest pain Last administered on 04/14/17 13:20; Start 04/14/17 at 13:00 Morphine Sulfate 2 mg PRN Q2HR PRN IV PAIN; Start 04/14/17 at 14:30; Stop 04/15 at 14:29 Aspirin (Ecotrin) 81 mg DAILY PO Last administered on 04/15/17 10:59; Start 04/15/17 at 09:00 Bupropion HCl (Wellbutrin Sr) 150 mg BID PO Last administered on 04/15/17 10: 59; Start 04/14/17 at 21:00 Clopidogrel Bisulfate (Plavix) 75 mg DAILY PO Last administered on 04/15/17 10 :59; Start 04/15/17 at 09:00 Furosemide (Lasix) 40 mg DAILY PO Last administered on 04/15/17 10:58; Start 04/15/17 at 09:00 Metoprolol Tartrate (Lopressor) 50 mg BID PO Last administered on 04/14/17 20: 42; Start 04/14/17 at 21:00 Morphine Sulfate (Ms Contin) 30 mg TID PO Last administered on 04/15/17 10:59 ; Start 04/14/17 at 21:00 Potassium Chloride (Klor-Con) 20 meq [id number] PO Last administered on 10:59; Start 04/15/17 at 08:00 Warfarin Sodium (Coumadin) 5 mg DAILY16 PO ; Start 04/15/17 at 16:00; Stop 04/15 at 16:00; Status DC Amitriptyline HCl (Amitriptyline HCl) 100 mg QHS PO Last administered on 10/2/ 17at 20:42; Start 04/14/17 at 21:00 Diazepam (Valium) 10 mg QID PO ; Start 04/14/17 at 21:00; Stop 04/14/17 at 21:00 ; Status DC Oxycodone HCl (Roxicodone) 10 mg PRN QID PRN PO PAIN Last administered on 10:59; Start 04/14/17 at 17:30 Acetaminophen (Tylenol) 650 mg PRN Q6HRS PRN PO FEVER; Start 04/14/17 at 17:30 ; Stop 04/15/17 at 10:19; Status DC Ondansetron HCl (Zofran) 4 mg PRN Q6HRS PRN IV NAUSEA/VOMITING; Start 04/14/17 at 17:30 Hydralazine HCl (Apresoline) 10 mg PRN Q4HRS PRN IVP ELEVATED BP, SEE COMMENTS ; Start 04/14/17 at 17:30 Docusate Sodium (Colace) 100 mg PRN DAILY PRN PO CONSTIPATION; Start 04/14/17 at 17:30 Warfarin Sodium (Coumadin Per Pharmacy) 1 each PRN DAILY PRN MC SEE COMMENTS Last administered on 04/15/17 10:24; Start 04/14/17 at 17:30 Diazepam (Valium) 10 mg PRN QID PRN PO ANXIETY / AGITATION; Start 04/14/17 at 21:00 Famotidine (Pepcid) 20 mg BID PO Last administered on 04/15/17 10:58; Start 04/14/17 at 21:00 Regadenoson (Lexiscan) 0.4 mg 1X ONCE IV Last administered on 04/15/17 10:40 ; Start 04/15/17 at 09:00; Stop 04/15/17 at 09:05; Status DC Acetaminophen (Tylenol) 650 mg PRN Q6HRS PRN PO pain; Start 04/15/17 at 09:30 Warfarin Sodium (Coumadin) 4 mg 1X WARF ONCE PO ; Start 04/15/17 at 16:00; Stop 04/15/17 at 16:01 Active Scripts Active Prednisone 20 Mg Tablet 40 Mg PO DAILY Doxycycline Hyclate 100 Mg Tablet 100 Mg PO BID 4 Days Reported Clopidogrel (Clopidogrel Bisulfate) 75 Mg Tablet 1 Tab PO DAILY Gave this morning Take tomorrow morning Aspir 81 (Aspirin) 81 Mg Tablet. 1 Tab PO DAILY Gave this morning Take tomorrow morning Amitriptyline Hcl 100 Mg Tablet 1 Tab PO QHS Gave last night Take tonight Coumadin (Warfarin Sodium) 5 Mg Tablet 1 Tab PO DAILY Gave yesterday Take this evening Metoprolol Tartrate 50 Mg Tablet 50 Mg PO BID Gave this morning Take tonight Valium (Diazepam) 10 Mg Tablet 10 Mg PO PRN QID PRN Not given on this admission Take when needed Oxycodone Hcl 10 Mg Tablet 1 Tab PO PRN QID PRN Gave dose at 10:10 May take again when you get home Bupropion Hcl Sr (Bupropion Hcl) 150 Mg Tablet.er 1 Tab PO BID Gave this morning Take tonight Ms Contin (Morphine Sulfate) 30 Mg Tablet.er 30 Mg PO TID Gave at 1:56 Take again tonight Potassium Chloride 20 Meq Tab.er.prt 20 Meq PO DAILY Gave this morning Take again tomorrow Lasix (Furosemide) 40 Mg Tablet 40 Mg PO DAILY Gave this morning Take tomorrow morning Vitals/I & O Vital Sign - Last 24 Hours 04/14/17 04/14/17 04/14/17 04/14/17 12:47 13:20 13:48 14:48 Temp 97.7 97.7 Pulse 76 78 68 78 Resp 22 B/P (MAP) 155/68 (97) 155/68 105/57 (73) 135/90 (105) Pulse Ox 98 94 96 O2 Delivery Nasal Cannula Nasal Cannula Nasal Cannula O2 Flow Rate 2.0 2.0 2.0 04/14/17 04/14/17 04/14/17 04/14/17 15:48 16:48 18:06 18:20 Temp 97.9 97.9 Pulse 76 74 72 Resp 20 B/P (MAP) 167/72 (103) 134/72 (92) 121/72 (88) Pulse Ox 96 94 92 O2 Delivery Nasal Cannula Nasal Cannula Room Air Nasal Cannula O2 Flow Rate 2.0 2.0 2.0 2.0 04/14/17 04/14/17 04/14/17 04/14/17 18:45 19:30 19:37 20:42 Temp 98.4 98.4 Pulse 81 78 Resp 16 B/P (MAP) 119/78 (92) 119/78 Pulse Ox 91 O2 Delivery Nasal Cannula Nasal Cannula Nasal Cannula O2 Flow Rate 2.0 2.0 2.0 04/14/17 04/14/17 04/15/17 04/15/17 20:44 22:20 03:24 07:00 Temp 98.4 99.5 98.7 98.4 99.5 98.7 Pulse 72 75 81 Resp 12 14 14 19 B/P (MAP) 114/68 (83) 101/52 (68) 146/76 (99) Pulse Ox 90 93 90 O2 Delivery Nasal Cannula Nasal Cannula Nasal Cannula Nasal Cannula O2 Flow Rate 2.0 2.0 2.0 3.0 04/15/17 04/15/17 04/15/17 04/15/17 08:00 10:59 10:59 11:00 Temp 98.3 98.3 Pulse 82 Resp 20 B/P (MAP) 142/69 (93) Pulse Ox 93 O2 Delivery Nasal Cannula Nasal Cannula Nasal Cannula Nasal Cannula O2 Flow Rate 3.0 3.0 3.0 3.0 HAMMAD WRIGHT MD Apr 15, 2017 11:56
--- NOTE | 2017-04-15 11:59 | PDOC3 ---
Discharge Summary Visit Information Date of Admission: Apr 14, 2017 Date of Discharge: Apr 15, 2017 Admitting Diagnosis Comment: chest pain, likely GERD vs [facility] h/o CAD post CABG 2000 and PCI last year copd htn hld chronic back pain, hip pain, with OA h/o testicle Ca . h/o PE, vtach, not sure afib or not, on Coumadin metabolic encephalopathy, on pain meds, valium Final Diagnosis Problems Medical Problems: (1) Unstable angina Status: Acute Brief Hospital Course Allergies Allergies Coded Allergies Type Severity Reaction Last Updated Verified Iodinated Contrast- Oral and IV Dye Allergy Intermediate 03/07/14 Yes NSAIDS (Non-Steroidal Anti-Inflamma Allergy Intermediate GI 12/01/14 Yes ketorolac Allergy Intermediate GI 12/01/14 Yes tramadol Allergy Intermediate 11/11/15 Yes venom-honey bee Allergy Intermediate 03/07/14 Yes I S O L A T I O N *CONTACT* Allergy Unknown 12/01/14 Yes Vital Signs Vital Signs Date Time Temp Pulse Resp B/P (MAP) Pulse Ox O2 Delivery O2 Flow Rate FiO2 04/15/17 11:00 98.3 82 20 142/69 (93) 93 Nasal Cannula 3.0 98.3 Lab Results Laboratory Tests Test 04/14/17 13:00 04/14/17 20:00 04/14/17 22:15 04/15/17 04:14 White Blood Count 7.2 x10^3/uL (4.0-11.0) 7.3 x10^3/uL (4.0-11.0) Red Blood Count 5.41 x10^6/uL (4.30-5.70) 4.99 x10^6/uL (4.30-5.70) Hemoglobin 16.8 g/dL (13.0-17.5) 15.7 g/dL (13.0-17.5) Hematocrit 50.7 % (39.0-53.0) 46.4 % (39.0-53.0) Mean Corpuscular Volume 94 fL (79-100) 93 fL (79-100) Mean Corpuscular Hemoglobin 31 pg (25-35) 31 pg (25-35) Mean Corpuscular Hemoglobin Concent 33 g/dL (31-37) 34 g/dL (31-37) Red Cell Distribution Width 13.1 % (11.5-14.5) 13.7 % (11.5-14.5) Platelet Count 219 x10^3/uL (140-400) 200 x10^3/uL (140-400) Neutrophils (%) (Auto) 41 % (31-73) 50 % (31-73) Lymphocytes (%) (Auto) 39 % (24-48) 35 % (24-48) Monocytes (%) (Auto) 12 % (0-9) 9 % (0-9) Eosinophils (%) (Auto) 6 % (0-3) 6 % (0-3) Basophils (%) (Auto) 1 % (0-3) 1 % (0-3) Neutrophils # (Auto) 3.0 x10^3uL (1.8-7.7) 3.6 x10^3uL (1.8-7.7) Lymphocytes # (Auto) 2.8 x10^3/uL (1.0-4.8) 2.5 x10^3/uL (1.0-4.8) Monocytes # (Auto) 0.9 x10^3/uL (0.0-1.1) 0.7 x10^3/uL (0.0-1.1) Eosinophils # (Auto) 0.4 x10^3/uL (0.0-0.7) 0.4 x10^3/uL (0.0-0.7) Basophils # (Auto) 0.1 x10^3/uL (0.0-0.2) 0.1 x10^3/uL (0.0-0.2) Prothrombin Time 31.2 SEC (11.7-14.0) Prothromb Time International Ratio 3.3 (0.8-1.1) Sodium Level 141 mmol/L (136-145) 140 mmol/L (136-145) Potassium Level 3.5 mmol/L (3.5-5.1) 4.2 mmol/L (3.5-5.1) Chloride Level 99 mmol/L (98-107) 100 mmol/L (98-107) Carbon Dioxide Level 39 mmol/L (21-32) 40 mmol/L (21-32) Anion Gap 3 (6-14) 0 (6-14) Blood Urea Nitrogen 8 mg/dL (8-26) 11 mg/dL (8-26) Creatinine 0.9 mg/dL (0.7-1.3) 0.9 mg/dL (0.7-1.3) Estimated GFR (Cockcroft-Gault) 86.1 86.1 BUN/Creatinine Ratio 9 (6-20) Glucose Level 123 mg/dL (70-99) 116 mg/dL (70-99) Calcium Level 9.9 mg/dL (8.5-10.1) 9.0 mg/dL (8.5-10.1) Magnesium Level 1.9 mg/dL (1.8-2.4) Total Bilirubin 0.2 mg/dL (0.2-1.0) Aspartate Amino Transf (AST/SGOT) 20 U/L (15-37) Alanine Aminotransferase (ALT/SGPT) 18 U/L (16-63) Alkaline Phosphatase 139 U/L (46-116) Troponin I Quantitative < 0.017 ng/mL (0.000-0.055) < 0.017 ng/mL (0.000-0.055) < 0.017 ng/mL (0.000-0.055) Total Protein 8.0 g/dL (6.4-8.2) Albumin 4.0 g/dL (3.4-5.0) Albumin/Globulin Ratio 1.0 (1.0-1.7) Test 04/15/17 05:56 Prothrombin Time 29.6 SEC (11.7-14.0) Prothromb Time International Ratio 3.0 (0.8-1.1) Laboratory Tests Test 04/14/17 13:00 04/14/17 20:00 04/14/17 22:15 04/15/17 04:14 White Blood Count 7.2 x10^3/uL (4.0-11.0) 7.3 x10^3/uL (4.0-11.0) Red Blood Count 5.41 x10^6/uL (4.30-5.70) 4.99 x10^6/uL (4.30-5.70) Hemoglobin 16.8 g/dL (13.0-17.5) 15.7 g/dL (13.0-17.5) Hematocrit 50.7 % (39.0-53.0) 46.4 % (39.0-53.0) Mean Corpuscular Volume 94 fL (79-100) 93 fL (79-100) Mean Corpuscular Hemoglobin 31 pg (25-35) 31 pg (25-35) Mean Corpuscular Hemoglobin Concent 33 g/dL (31-37) 34 g/dL (31-37) Red Cell Distribution Width 13.1 % (11.5-14.5) 13.7 % (11.5-14.5) Platelet Count 219 x10^3/uL (140-400) 200 x10^3/uL (140-400) Neutrophils (%) (Auto) 41 % (31-73) 50 % (31-73) Lymphocytes (%) (Auto) 39 % (24-48) 35 % (24-48) Monocytes (%) (Auto) 12 % (0-9) 9 % (0-9) Eosinophils (%) (Auto) 6 % (0-3) 6 % (0-3) Basophils (%) (Auto) 1 % (0-3) 1 % (0-3) Neutrophils # (Auto) 3.0 x10^3uL (1.8-7.7) 3.6 x10^3uL (1.8-7.7) Lymphocytes # (Auto) 2.8 x10^3/uL (1.0-4.8) 2.5 x10^3/uL (1.0-4.8) Monocytes # (Auto) 0.9 x10^3/uL (0.0-1.1) 0.7 x10^3/uL (0.0-1.1) Eosinophils # (Auto) 0.4 x10^3/uL (0.0-0.7) 0.4 x10^3/uL (0.0-0.7) Basophils # (Auto) 0.1 x10^3/uL (0.0-0.2) 0.1 x10^3/uL (0.0-0.2) Prothrombin Time 31.2 SEC (11.7-14.0) Prothromb Time International Ratio 3.3 (0.8-1.1) Sodium Level 141 mmol/L (136-145) 140 mmol/L (136-145) Potassium Level 3.5 mmol/L (3.5-5.1) 4.2 mmol/L (3.5-5.1) Chloride Level 99 mmol/L (98-107) 100 mmol/L (98-107) Carbon Dioxide Level 39 mmol/L (21-32) 40 mmol/L (21-32) Anion Gap 3 (6-14) 0 (6-14) Blood Urea Nitrogen 8 mg/dL (8-26) 11 mg/dL (8-26) Creatinine 0.9 mg/dL (0.7-1.3) 0.9 mg/dL (0.7-1.3) Estimated GFR (Cockcroft-Gault) 86.1 86.1 BUN/Creatinine Ratio 9 (6-20) Glucose Level 123 mg/dL (70-99) 116 mg/dL (70-99) Calcium Level 9.9 mg/dL (8.5-10.1) 9.0 mg/dL (8.5-10.1) Magnesium Level 1.9 mg/dL (1.8-2.4) Total Bilirubin 0.2 mg/dL (0.2-1.0) Aspartate Amino Transf (AST/SGOT) 20 U/L (15-37) Alanine Aminotransferase (ALT/SGPT) 18 U/L (16-63) Alkaline Phosphatase 139 U/L (46-116) Troponin I Quantitative < 0.017 ng/mL (0.000-0.055) < 0.017 ng/mL (0.000-0.055) < 0.017 ng/mL (0.000-0.055) Total Protein 8.0 g/dL (6.4-8.2) Albumin 4.0 g/dL (3.4-5.0) Albumin/Globulin Ratio 1.0 (1.0-1.7) Test 04/15/17 05:56 Prothrombin Time 29.6 SEC (11.7-14.0) Prothromb Time International Ratio 3.0 (0.8-1.1) Brief Hospital Course Mr. Medina is a 61 old with risk factors admitted for CP, NOn cardiac, MPI neg, His CP likely from GERD or MSK in nature NO change in meds On long and short acting narcs at home Seen and examined Dw RADHA Parmar Discharge Information Condition at Discharge: Improved, Stable Disposition/Orders: D/C to Home Scheduled Amitriptyline Hcl (Amitriptyline Hcl), 1 TAB PO QHS, (Reported) Aspirin (Aspir 81), 1 TAB PO DAILY, (Reported) Bupropion Hcl (Bupropion Hcl Sr), 1 TAB PO BID, (Reported) Clopidogrel Bisulfate (Clopidogrel), 1 TAB PO DAILY, (Reported) Doxycycline Hyclate (Doxycycline Hyclate), 100 MG PO BID Furosemide (Lasix), 40 MG PO DAILY, (Reported) Metoprolol Tartrate (Metoprolol Tartrate), 50 MG PO BID, (Reported) Morphine Sulfate Er (Ms Contin), 30 MG PO TID, (Reported) Potassium Chloride (Potassium Chloride), 20 MEQ PO DAILY, (Reported) Prednisone (Prednisone), 40 MG PO DAILY Warfarin Sodium (Coumadin), 1 TAB PO DAILY, (Reported) Scheduled PRN Diazepam (Valium), 10 MG PO PRN QID PRN for ANXIETY / AGITATION, (Reported) Oxycodone Hcl (Oxycodone Hcl), 1 TAB PO PRN QID PRN for P, (Reported) HAMMAD WRIGHT MD Apr 15, 2017 11:59
[2017-04-15] MEDS: METOPROLOL TART IMMED RELEASE 50 MG TABLET. PO SCH (14:31)
[2017-04-15 15:00] VITALS: BP 121/61
[2017-04-15] MEDS ORDERED: WARFARIN 5 MG TABLET. PO SCH (16:00)
[2017-04-15] MEDS ORDERED: WARFARIN 4 MG TABLET. PO ONE (16:00)
[2017-04-15] MEDS ORDERED: ISOS30TA4 PO (17:50)
--- NOTE | 2017-04-15 17:57 | PDOC ---
PROGRESS NOTES Subjective Subjective Episodes of chest pains. The MPI was done. It showed some areas of nonreversible ischemia, these appear to be old scars very mild reversibility. Objective Objective Vital Signs Date Time Temp Pulse Resp B/P (MAP) Pulse Ox O2 Delivery O2 Flow Rate FiO2 04/15/17 17:36 Nasal Cannula 2.0 04/15/17 15:00 97.5 86 19 121/61 (81) 90 97.5 Intake and Output 04/16/17 07:00 Intake Total 824 ml Balance 824 ml Intake Oral 824 ml # Voids 3 Physical Exam Physical Exam No significant changes in cardiac exam Assessment Assessment Discussed with the patient the results of the MPI and he wants to attempt medical treatment for now. If he has further problems he may then consider a heart catheterization. May go home to be followed as an outpatient. Problems Medical Problems: (1) Unstable angina Status: Acute Comment Review of Relevant I have reviewed the following items arya (where applicable) has been applied. Labs Laboratory Tests Test 04/14/17 13:00 04/14/17 20:00 04/14/17 22:15 04/15/17 04:14 White Blood Count 7.2 x10^3/uL (4.0-11.0) 7.3 x10^3/uL (4.0-11.0) Red Blood Count 5.41 x10^6/uL (4.30-5.70) 4.99 x10^6/uL (4.30-5.70) Hemoglobin 16.8 g/dL (13.0-17.5) 15.7 g/dL (13.0-17.5) Hematocrit 50.7 % (39.0-53.0) 46.4 % (39.0-53.0) Mean Corpuscular Volume 94 fL (79-100) 93 fL (79-100) Mean Corpuscular Hemoglobin 31 pg (25-35) 31 pg (25-35) Mean Corpuscular Hemoglobin Concent 33 g/dL (31-37) 34 g/dL (31-37) Red Cell Distribution Width 13.1 % (11.5-14.5) 13.7 % (11.5-14.5) Platelet Count 219 x10^3/uL (140-400) 200 x10^3/uL (140-400) Neutrophils (%) (Auto) 41 % (31-73) 50 % (31-73) Lymphocytes (%) (Auto) 39 % (24-48) 35 % (24-48) Monocytes (%) (Auto) 12 % (0-9) 9 % (0-9) Eosinophils (%) (Auto) 6 % (0-3) 6 % (0-3) Basophils (%) (Auto) 1 % (0-3) 1 % (0-3) Neutrophils # (Auto) 3.0 x10^3uL (1.8-7.7) 3.6 x10^3uL (1.8-7.7) Lymphocytes # (Auto) 2.8 x10^3/uL (1.0-4.8) 2.5 x10^3/uL (1.0-4.8) Monocytes # (Auto) 0.9 x10^3/uL (0.0-1.1) 0.7 x10^3/uL (0.0-1.1) Eosinophils # (Auto) 0.4 x10^3/uL (0.0-0.7) 0.4 x10^3/uL (0.0-0.7) Basophils # (Auto) 0.1 x10^3/uL (0.0-0.2) 0.1 x10^3/uL (0.0-0.2) Prothrombin Time 31.2 SEC (11.7-14.0) Prothromb Time International Ratio 3.3 (0.8-1.1) Sodium Level 141 mmol/L (136-145) 140 mmol/L (136-145) Potassium Level 3.5 mmol/L (3.5-5.1) 4.2 mmol/L (3.5-5.1) Chloride Level 99 mmol/L (98-107) 100 mmol/L (98-107) Carbon Dioxide Level 39 mmol/L (21-32) 40 mmol/L (21-32) Anion Gap 3 (6-14) 0 (6-14) Blood Urea Nitrogen 8 mg/dL (8-26) 11 mg/dL (8-26) Creatinine 0.9 mg/dL (0.7-1.3) 0.9 mg/dL (0.7-1.3) Estimated GFR (Cockcroft-Gault) 86.1 86.1 BUN/Creatinine Ratio 9 (6-20) Glucose Level 123 mg/dL (70-99) 116 mg/dL (70-99) Calcium Level 9.9 mg/dL (8.5-10.1) 9.0 mg/dL (8.5-10.1) Magnesium Level 1.9 mg/dL (1.8-2.4) Total Bilirubin 0.2 mg/dL (0.2-1.0) Aspartate Amino Transf (AST/SGOT) 20 U/L (15-37) Alanine Aminotransferase (ALT/SGPT) 18 U/L (16-63) Alkaline Phosphatase 139 U/L (46-116) Troponin I Quantitative < 0.017 ng/mL (0.000-0.055) < 0.017 ng/mL (0.000-0.055) < 0.017 ng/mL (0.000-0.055) Total Protein 8.0 g/dL (6.4-8.2) Albumin 4.0 g/dL (3.4-5.0) Albumin/Globulin Ratio 1.0 (1.0-1.7) Test 04/15/17 05:56 Prothrombin Time 29.6 SEC (11.7-14.0) Prothromb Time International Ratio 3.0 (0.8-1.1) Laboratory Tests Test 04/14/17 20:00 04/14/17 22:15 04/15/17 04:14 04/15/17 05:56 Troponin I Quantitative < 0.017 ng/mL (0.000-0.055) < 0.017 ng/mL (0.000-0.055) White Blood Count 7.3 x10^3/uL (4.0-11.0) Red Blood Count 4.99 x10^6/uL (4.30-5.70) Hemoglobin 15.7 g/dL (13.0-17.5) Hematocrit 46.4 % (39.0-53.0) Mean Corpuscular Volume 93 fL (79-100) Mean Corpuscular Hemoglobin 31 pg (25-35) Mean Corpuscular Hemoglobin Concent 34 g/dL (31-37) Red Cell Distribution Width 13.7 % (11.5-14.5) Platelet Count 200 x10^3/uL (140-400) Neutrophils (%) (Auto) 50 % (31-73) Lymphocytes (%) (Auto) 35 % (24-48) Monocytes (%) (Auto) 9 % (0-9) Eosinophils (%) (Auto) 6 % (0-3) Basophils (%) (Auto) 1 % (0-3) Neutrophils # (Auto) 3.6 x10^3uL (1.8-7.7) Lymphocytes # (Auto) 2.5 x10^3/uL (1.0-4.8) Monocytes # (Auto) 0.7 x10^3/uL (0.0-1.1) Eosinophils # (Auto) 0.4 x10^3/uL (0.0-0.7) Basophils # (Auto) 0.1 x10^3/uL (0.0-0.2) Sodium Level 140 mmol/L (136-145) Potassium Level 4.2 mmol/L (3.5-5.1) Chloride Level 100 mmol/L (98-107) Carbon Dioxide Level 40 mmol/L (21-32) Anion Gap 0 (6-14) Blood Urea Nitrogen 11 mg/dL (8-26) Creatinine 0.9 mg/dL (0.7-1.3) Estimated GFR (Cockcroft-Gault) 86.1 Glucose Level 116 mg/dL (70-99) Calcium Level 9.0 mg/dL (8.5-10.1) Prothrombin Time 29.6 SEC (11.7-14.0) Prothromb Time International Ratio 3.0 (0.8-1.1) Medications Current Medications Aspirin (Ecotrin) 325 mg 1X ONCE PO Last administered on 04/14/17 13:20; Start 04/14/17 at 13:00; Stop 04/14/17 at 13:02; Status DC Nitroglycerin (Nitrostat) 0.4 mg PRN Q5MIN PRN SL chest pain Last administered on 04/14/17 13:20; Start 04/14/17 at 13:00 Morphine Sulfate 2 mg PRN Q2HR PRN IV PAIN; Start 04/14/17 at 14:30; Stop 04/15 at 14:29; Status DC Aspirin (Ecotrin) 81 mg DAILY PO Last administered on 04/15/17 10:59; Start 04/15/17 at 09:00 Bupropion HCl (Wellbutrin Sr) 150 mg BID PO Last administered on 04/15/17 10: 59; Start 04/14/17 at 21:00 Clopidogrel Bisulfate (Plavix) 75 mg DAILY PO Last administered on 04/15/17 10 :59; Start 04/15/17 at 09:00 Furosemide (Lasix) 40 mg DAILY PO Last administered on 04/15/17 10:58; Start 04/15/17 at 09:00 Metoprolol Tartrate (Lopressor) 50 mg BID PO Last administered on 04/15/17 14: 31; Start 04/14/17 at 21:00 Morphine Sulfate (Ms Contin) 30 mg TID PO Last administered on 04/15/17 17:36 ; Start 04/14/17 at 21:00 Potassium Chloride (Klor-Con) 20 meq DAILYWBKFT PO Last administered on 10:59; Start 04/15/17 at 08:00 Warfarin Sodium (Coumadin) 5 mg DAILY16 PO ; Start 04/15/17 at 16:00; Stop 04/15 at 16:00; Status DC Amitriptyline HCl (Amitriptyline HCl) 100 mg QHS PO Last administered on 20:42; Start 04/14/17 at 21:00 Diazepam (Valium) 10 mg QID PO ; Start 04/14/17 at 21:00; Stop 04/14/17 at 21:00 ; Status DC Oxycodone HCl (Roxicodone) 10 mg PRN QID PRN PO PAIN Last administered on 10:59; Start 04/14/17 at 17:30 Acetaminophen (Tylenol) 650 mg PRN Q6HRS PRN PO FEVER; Start 04/14/17 at 17:30 ; Stop 04/15/17 at 10:19; Status DC Ondansetron HCl (Zofran) 4 mg PRN Q6HRS PRN IV NAUSEA/VOMITING; Start 04/14/17 at 17:30 Hydralazine HCl (Apresoline) 10 mg PRN Q4HRS PRN IVP ELEVATED BP, SEE COMMENTS ; Start 04/14/17 at 17:30 Docusate Sodium (Colace) 100 mg PRN DAILY PRN PO CONSTIPATION; Start 04/14/17 at 17:30 Warfarin Sodium (Coumadin Per Pharmacy) 1 each PRN DAILY PRN MC SEE COMMENTS Last administered on 04/15/17 10:24; Start 04/14/17 at 17:30 Diazepam (Valium) 10 mg PRN QID PRN PO ANXIETY / AGITATION; Start 04/14/17 at 21:00 Famotidine (Pepcid) 20 mg BID PO Last administered on 04/15/17 10:58; Start 04/14/17 at 21:00 Regadenoson (Lexiscan) 0.4 mg 1X ONCE IV Last administered on 04/15/17 10:40 ; Start 04/15/17 at 09:00; Stop 04/15/17 at 09:05; Status DC Acetaminophen (Tylenol) 650 mg PRN Q6HRS PRN PO pain; Start 04/15/17 at 09:30 Warfarin Sodium (Coumadin) 4 mg 1X WARF ONCE PO Last administered on 17:35; Start 04/15/17 at 16:00; Stop 04/15/17 at 16:01; Status DC Active Scripts Active Prednisone 20 Mg Tablet 40 Mg PO DAILY Doxycycline Hyclate 100 Mg Tablet 100 Mg PO BID 4 Days Reported Isosorbide Mononitrate Er (Isosorbide Mononitrate) 30 Mg Tab.er.24h 1 Tab PO DAILYWBKFT Clopidogrel (Clopidogrel Bisulfate) 75 Mg Tablet 1 Tab PO DAILY Gave this morning Take tomorrow morning Aspir 81 (Aspirin) 81 Mg Tablet.dr 1 Tab PO DAILY Gave this morning Take tomorrow morning Amitriptyline Hcl 100 Mg Tablet 1 Tab PO QHS Gave last night Take tonight Coumadin (Warfarin Sodium) 5 Mg Tablet 1 Tab PO DAILY Gave yesterday Take this evening Metoprolol Tartrate 50 Mg Tablet 50 Mg PO BID Gave this morning Take tonight Valium (Diazepam) 10 Mg Tablet 10 Mg PO PRN QID PRN Not given on this admission Take when needed Oxycodone Hcl 10 Mg Tablet 1 Tab PO PRN QID PRN Gave dose at 10:10 May take again when you get home Bupropion Hcl Sr (Bupropion Hcl) 150 Mg Tablet.er 1 Tab PO BID Gave this morning Take tonight Ms Contin (Morphine Sulfate) 30 Mg Tablet.er 30 Mg PO TID Gave at 1:56 Take again tonight Potassium Chloride 20 Meq Tab.er.prt 20 Meq PO DAILY Gave this morning Take again tomorrow Lasix (Furosemide) 40 Mg Tablet 40 Mg PO DAILY Gave this morning Take tomorrow morning Vitals/I & O Vital Sign - Last 24 Hours 04/14/17 04/14/17 04/14/17 04/14/17 18:06 18:20 18:45 19:30 Temp 97.9 97.9 Pulse 72 Resp 20 B/P (MAP) 121/72 (88) Pulse Ox 92 O2 Delivery Room Air Nasal Cannula Nasal Cannula Nasal Cannula O2 Flow Rate 2.0 2.0 2.0 2.0 04/14/17 04/14/17 04/14/17 04/14/17 19:37 20:42 20:44 22:20 Temp 98.4 98.4 98.4 98.4 Pulse 81 78 72 Resp 16 12 14 B/P (MAP) 119/78 (92) 119/78 114/68 (83) Pulse Ox 91 90 O2 Delivery Nasal Cannula Nasal Cannula Nasal Cannula O2 Flow Rate 2.0 2.0 2.0 04/15/17 04/15/17 04/15/17 04/15/17 03:24 07:00 08:00 10:59 Temp 99.5 98.7 99.5 98.7 Pulse 75 81 Resp 14 19 B/P (MAP) 101/52 (68) 146/76 (99) Pulse Ox 93 90 O2 Delivery Nasal Cannula Nasal Cannula Nasal Cannula Nasal Cannula O2 Flow Rate 2.0 3.0 3.0 3.0 04/15/17 04/15/17 04/15/17 04/15/17 10:59 11:00 14:02 14:30 Temp 98.3 98.3 Pulse 82 Resp 20 B/P (MAP) 142/69 (93) Pulse Ox 93 O2 Delivery Nasal Cannula Nasal Cannula Nasal Cannula Room Air O2 Flow Rate 3.0 3.0 3.0 04/15/17 04/15/17 04/15/17 04/15/17 14:31 15:00 15:16 17:36 Temp 97.5 97.5 Pulse 82 86 Resp 19 B/P (MAP) 142/69 121/61 (81) Pulse Ox 90 O2 Delivery Nasal Cannula Room Air Nasal Cannula O2 Flow Rate 2.0 2.0 Intake and Output 04/15/17 04/15/17 04/16/17 15:00 23:00 07:00 Intake Total 824 ml Balance 824 ml JANINA ORTIZ MD Apr 15, 2017 17:57
--- NOTE | 2017-04-15 18:42 | RAD ---
APPROVED REPORT Test Type: Pharmacological Stress Nurse/Tech: RADHA Lopez Test Indications: arrythmia Cardiac History: HTN, CAD, Stents, See EMR Medications: See EMR Medical History: COPD, current smoker 1 pack per week, home O2 Resting ECG: SR Resting Heart Rate: 79 bpm Resting Blood Pressure: 119/63mmHg Pretest Chest Pain: No chest pain Nurse/Tech Notes S1,S2, Lungs diminished @ bases, O2 @ 3L per NC, denies CP or SOA Consent: The procedure was explained to the patient in lay terms. Informed consent was witnessed. Kwan eout was entered into [employer]. History and Stress Test performed by [facility]. Details Pharmacologic stress testing was performed using 0.4mg per 5ml of regadenoson given intravenously ove r 7-10 seconds. Stress Symptoms Pt c/o SOA, subsided quickly, denied CP POST EXERCISE Reason for Termination: Infusion complete Max HR: 102 bpm Max Blood Pressure: 130/69mmHg Blood Pressure response to exercise: Normal blood pressure response during stress. Heart Rate response to exercise: WNL Chest Pain: No. Arrhythmia: No. ST Change: . Pt had slight ST depression on baseline, no significant changes noted INTERPRETATION Stress EKG Conclusion: No acute changes were noted. Imaging Protocol IMAGE PROTOCOL: Rest Tc-99m/stress Tc-99m 1 day Rest: Stress: Viability: Radiopharm.Tc99m [id number] Sestamibi Dose10.3mCi 32mCi Duration 15min. 10min. Img Date 04/15/2017 04/15/2017 Inj-Img [id number] 60min. Rest Admin Site:IV - Left AntecubitalAdministrator:REBEL Araya Stress Admin Site: IV - Left AntecubitalAdministrator: RT Kulwinder (R)(N) STRESS DATA End Diast. Vol.114.0mlAv. Heart Rate79.0bpm End Syst. Vol.32.0mlCO Index BSA0.0L/min Myocardial Stzq934.0gEject. Ygycwayf09.0% Stress Rates Pk. Fill Rate2.69EDV/secLVtime Pk. Fill 125.09msec Pk. Empty Rate3.47ESV/secLVtime Pk. Nuoac910.75msec 1/3 Pk. Fill1.69EDV/sec Stress Scores Regional WT0.00Summed WT7.00 Regional WM0.00Summed WM7.00 LV Perf. Quant 17 Seg. SSS11.00 17 Seg. SRS9.00 17 Seg. SDS4.00 Stress Defect Extent (% LAD)15.00Rest Defect Extent (% LAD)25.60Rev. Defect Extent (% LAD)5.60 Stress Defect Extent (% LCX) 20.00Rest Defect Extent (% LCX)8.80Rev. Defect Extent (% LCX)20.00 Stress Defect Extent (% RCA)31.10Rest Defect Extent (% RCA)20.00Rev. Defect Extent (% RCA)27.80 Stress Defect Extent (% CAMMIE)19.10Rest Defect Extent (% CAMMIE)18.00Rev. Defect Extent (% CAMMIE)15.00 Conclusion 1. The baseline electrocardiogram showed ST-T wave changes in the inferolateral leads. 2. There were no further changes with myocardial oncologic with stress 3. A moderate sized defect is seen in the inferior wall prominent with stress than with rest. 4. The small mixed defect is seen in the anteroapical wall again more prominent with stress than with rest. 5. The baseline cardiac electrocardiogram shows ST Twave changes over the inferolateral leads. 6. There were no further changes with pharmacological stress. 7. A moderate sized mixed perfusion defect was seen in the inferior wall more prominent with stress than with rest. 8. A small mixed perfusion defect was seen on the anteroapical wall again more prominent with stress than with rest. 9. The ejection fraction was calculated to be than 72%. 10. Scan indicates moderate risk for future cardiac events.
== END 2017-04-15 19:00 | disposition home or self-care (01) | DRG 391 ==
LOC: ER 12:42 → 2 NORTH 14:00
PROVIDERS: ADMIT Internal Medicine; ATTEND Internal Medicine
DX: K21.9 Gastro-esophageal reflux disease without esophagitis (principal); G93.41 Metabolic encephalopathy; J96.10 Chronic respiratory failure, unspecified whether with hypoxia or hypercapnia; I25.110 Atherosclerotic heart disease of native coronary artery with unstable angina pectoris; E78.00 Pure hypercholesterolemia, unspecified; E78.5 Hyperlipidemia, unspecified; F41.9 Anxiety disorder, unspecified; G89.29 Other chronic pain; I10 Essential (primary) hypertension; I25.2 Old myocardial infarction; J44.9 Chronic obstructive pulmonary disease, unspecified; M19.90 Unspecified osteoarthritis, unspecified site; Z85.47 Personal history of malignant neoplasm of testis; Z86.711 Personal history of pulmonary embolism; Z95.1 Presence of aortocoronary bypass graft; Z95.5 Presence of coronary angioplasty implant and graft; F32.9 Major depressive disorder, single episode, unspecified; Z88.8 Allergy status to other drugs, medicaments and biological substances; Z91.041 Radiographic dye allergy status; R07.89 Other chest pain
CPT/HCPCS: 36415; 71010; 78452; 80048; 80053; 83735; 84484; 85025; 85610; 93005; 93017; 96374; 96375; 96376; A9500; J2785; 99285-25

== ENCOUNTER 2018-05-07 16:20 | Inpatient (IN) | payer OTHER ==
[~2018-05-07] VITALS: Ht 170.2 cm; Wt 93.9 kg
[~2018-05-07 16:20] MED LIST changes: -GEMF600T3 PO; +GEMF600T4 PO; +ISOS30TA4 PO; -RAMI5CAP PO; +RAMI5CAP50 PO; -SIMV80TA3 PO; +SIMV80TA7 PO; +WARF-31 PO; -WARF5TAB7 PO
[2018-05-07 17:15] LABS: BASO # 0.1 x10^3/uL (0.0-0.2); BASO % 1 % (0-3); EOS # 0.2 x10^3/uL (0.0-0.7); EOS % 3 % (0-3); HEMATOCRIT 49.3 % (39.0-53.0); HEMOGLOBIN 16.7 g/dL (13.0-17.5); LYMPH # 1.4 x10^3/uL (1.0-4.8); LYMPH % 22 % (24-48); MEAN CORPUSCULAR HEMOGLOBIN 32 pg (25-35); MEAN CORPUSCULAR HGB CONC 34 g/dL (31-37); MEAN CORPUSCULAR VOLUME 96 fL (79-100); MONO # 0.7 x10^3/uL (0.0-1.1); MONO % 11 % (0-9); NEUT # 4.2 x10^3uL (1.8-7.7); NEUT % 64 % (31-73); PLATELET COUNT 253 x10^3/uL (140-400); RED BLOOD COUNT 5.16 x10^6/uL (4.30-5.70); RED CELL DISTRIBUTION WIDTH 14.4 % (11.5-14.5); WHITE BLOOD COUNT 6.5 x10^3/uL (4.0-11.0)
[2018-05-07 17:24] LABS: BLOOD UREA NITROGEN 11 mg/dL (8-26); BUN/CREATININE RATIO 12 (6-20); CALCIUM 9.6 mg/dL (8.5-10.1); CARBON DIOXIDE 38 mmol/L (21-32); CHLORIDE 100 mmol/L (98-107); CREATININE 0.9 mg/dL (0.7-1.3); GFR 85.8; GLUCOSE 118 mg/dL (70-99); POTASSIUM 3.8 mmol/L (3.5-5.1); SODIUM 136 mmol/L (136-145)
[2018-05-07 17:30] LABS: ALBUMIN 3.6 g/dL (3.4-5.0); ALBUMIN/GLOBULIN RATIO 0.9 (1.0-1.7); ALK PHOS 185 U/L (46-116); ALT (SGPT) 20 U/L (16-63); AST (SGOT) 22 U/L (15-37); TOTAL BILIRUBIN 0.7 mg/dL (0.2-1.0); TOTAL PROTEIN 7.7 g/dL (6.4-8.2)
--- NOTE | 2018-05-07 17:35 | RAD ---
PQRS Compliance statement: One or more of the following individualized dose reduction techniques were utilized for this examination: 1. Automated exposure control. 2. Adjustment of the mA and/or kV according to patient size. 3. Use of iterative reconstruction technique. Indication:AMS, PRIOR SENT TECHNIQUE: CT head without IV contrast COMPARISON:11/03/2013 FINDINGS: No pathologic extra-axial or intra-axial fluid collection. The ventricles and basal cisterns are within normal limits. No acute intracranial bleed. No focal loss of dasilva-white differentiation. Visualized orbits within normal limits. Atherosclerotic plaque seen in the bilateral cavernous segments of the ICA. No suspicious calvarial lesion. Visualized paranasal sinuses and mastoid air cells are clear. IMPRESSION: No acute intracranial process. If concern for acute ischemic stroke is high, please consider MRI brain. Electronically signed by: Isaiah Valles DO (05/07/2018 5:32 PM) [facility]
--- NOTE | 2018-05-07 17:40 | PHYS DOC ---
Past Medical History Past Medical History: CAD, Cancer, COPD, High Cholesterol, Heart Disease, Hypertension, NV, Other Additional Past Medical Histor: TESTICLE CANCER, chronic back pain, PE Past Surgical History: Coronary Bypass Surgery, Other Additional Past Surgical Histo: ORECECTOMY,BACK, JAW, cardiac stents Alcohol Use: None Drug Use: None Adult General Chief Complaint Chief Complaint: ALTERED MENTAL STATUS HPI HPI Patient is a 62 year old with history of CAD, NV, PE, chronic back pain, multiple back surgeries, COPD on oxygen you recall presents with altered mental status with decreased LOC since this morning. Patient reports patient is hypersomnolent, drooling, with mild slurring of speech and difficulty staying alert during conversation. Patient was seen at PCPs office prior to ED arrival. Blood sugar was checked and was normal. Patient referred to the ED for further evaluation. Headache, falls, recent traumas. No fever chills, nausea vomiting or sweats. No other acute symptoms or complaints. No new medications or recent change in medications. Patient takes morphine, oxycodone and Valium for his chronic neck and back pain. He takes Elavil at bedtime for sleep aid. Denies accidental or intentional overdose. No drugs or alcohol. Patient is a current smoker.[] Review of Systems Review of Systems Review symptoms as per history of present illness. All other review symptoms are negative. All other systems were reviewed and found to be within normal limits, except as documented in this note. Allergies Allergies Allergies Coded Allergies Type Severity Reaction Last Updated Verified Iodinated Contrast- Oral and IV Dye Allergy Intermediate 03/07/14 Yes NSAIDS (Non-Steroidal Anti-Inflamma Allergy Intermediate GI 12/01/14 Yes ketorolac Allergy Intermediate GI 12/01/14 Yes tramadol Allergy Intermediate 11/11/15 Yes venom-honey bee Allergy Intermediate 03/07/14 Yes I S O L A T I O N *CONTACT* Allergy Unknown 12/01/14 Yes Physical Exam Physical Exam Constitutional: Well developed, well nourished, no acute distress. [] HENT: Normocephalic, atraumatic, bilateral external ears normal, oropharynx moist, nose normal. [] Eyes: PERRLA, EOMI, conjunctiva normal. [] Neck: Normal range of motion, no tenderness. [] Cardiovascular:Heart rate regular rhythm, no murmur [] Lungs & Thorax: Bilateral breath sounds clear to auscultation [] Abdomen: Bowel sounds normal, soft, no tenderness. [] Skin: Warm, dry, no erythema, no rash. [] Back: No tenderness [] Extremities: No tenderness.[] Neurologic: Somnolent, alerts to tactile stimulation, answers 1-2 questions before going to sleep, and oriented 2, normal motor function, normal sensory function, no focal deficits noted. [] Current Patient Data Vital Signs Vital Signs Date Time Temp Pulse Resp B/P (MAP) Pulse Ox O2 Delivery O2 Flow Rate FiO2 05/07/18 16:41 97.5 60 16 124/59 (80) 94 97.5 Lab Values Laboratory Tests Test 05/07/18 16:48 White Blood Count 6.5 x10^3/uL (4.0-11.0) Red Blood Count 5.16 x10^6/uL (4.30-5.70) Hemoglobin 16.7 g/dL (13.0-17.5) Hematocrit 49.3 % (39.0-53.0) Mean Corpuscular Volume 96 fL (79-100) Mean Corpuscular Hemoglobin 32 pg (25-35) Mean Corpuscular Hemoglobin Concent 34 g/dL (31-37) Red Cell Distribution Width 14.4 % (11.5-14.5) Platelet Count 253 x10^3/uL (140-400) Neutrophils (%) (Auto) 64 % (31-73) Lymphocytes (%) (Auto) 22 % (24-48) L Monocytes (%) (Auto) 11 % (0-9) H Eosinophils (%) (Auto) 3 % (0-3) Basophils (%) (Auto) 1 % (0-3) Neutrophils # (Auto) 4.2 x10^3uL (1.8-7.7) Lymphocytes # (Auto) 1.4 x10^3/uL (1.0-4.8) Monocytes # (Auto) 0.7 x10^3/uL (0.0-1.1) Eosinophils # (Auto) 0.2 x10^3/uL (0.0-0.7) Basophils # (Auto) 0.1 x10^3/uL (0.0-0.2) Sodium Level 136 mmol/L (136-145) Potassium Level 3.8 mmol/L (3.5-5.1) Chloride Level 100 mmol/L (98-107) Carbon Dioxide Level 38 mmol/L (21-32) H Anion Gap (6-14) Blood Urea Nitrogen 11 mg/dL (8-26) Creatinine 0.9 mg/dL (0.7-1.3) Estimated GFR (Cockcroft-Gault) 85.8 BUN/Creatinine Ratio 12 (6-20) Glucose Level 118 mg/dL (70-99) H Calcium Level 9.6 mg/dL (8.5-10.1) Total Bilirubin 0.7 mg/dL (0.2-1.0) Aspartate Amino Transferase (AST) 22 U/L (15-37) Alanine Aminotransferase (ALT) 20 U/L (16-63) Alkaline Phosphatase 185 U/L (46-116) H Total Protein 7.7 g/dL (6.4-8.2) Albumin 3.6 g/dL (3.4-5.0) Albumin/Globulin Ratio 0.9 (1.0-1.7) L Ethyl Alcohol Level < 10 mg/dL (0-10) Laboratory Tests 05/07/18 16:48 Laboratory Tests 05/07/18 16:48 EKG EKG [] Radiology/Procedures Radiology/Procedures [CT head:] Course & Med Decision Making Course & Med Decision Making Pertinent Labs and Imaging studies reviewed. (See chart for details) [Altered mental status with increased somnolence, etiology unclear. Although, component of polypharmacy is suspected. Lab, CT head imaging pending. Anticipate hospital admission for further monitoring and anticipated neurology consult.] Dragon Disclaimer Dragon Disclaimer This electronic medical record was generated, in whole or in part, using a voice recognition dictation system. Departure Departure Impression: Primary Impression: Altered mental status Additional Impression: At risk for polypharmacy Admitting Physician: Ady Perez Condition: STABLE Referrals: YOSSI RECIO MD (PCP) Problem Qualifiers SONJA NGUYEN DO May 07, 2018 17:40
[2018-05-07] MEDS ORDERED: ONDANSETRON PF 4 MG/2 ML VIAL. IV PRN (17:45)
--- NOTE | 2018-05-07 17:57 | PDOC1 ---
History and Physical Date of Admission Date of Admission DATE: 05/07/18 TIME: 17:56 Identification/Chief Complaint Chief Complaint SEEN IN ER 62 year old with history of CAD, MN, PE, chronic back pain, multiple back surgeries, COPD on oxygen presents with altered mental status with decreased LOC since this morning. reports patient is hypersomnolent, drooling, with mild slurring of speech and difficulty staying alert during conversation. Patient was seen at PCPs office prior to ED arrival. Blood sugar was checked and was normal. Patient referred to the ED for further evaluation. NO Headache , falls, recent traumas. No fever chills, nausea vomiting or sweats. No other acute symptoms or complaints. No new medications or recent change in medications , takes morphine, oxycodone and Valium for his chronic neck and back pain. He takes Elavil at bedtime for sleep aid. Denies accidental or intentional overdose. DR Rodríguez feels pt unsafe for er discharge due to narcosis Past Medical History Past Medical History Past Medical History Past Medical History: CAD, Cancer, COPD, High Cholesterol, Heart Disease, Hypertension, MN, Other Additional Past Medical Histor: TESTICLE CANCER, chronic back pain, PE Past Surgical History: Coronary Bypass Surgery, Other Additional Past Surgical Histo: ORECECTOMY,BACK, JAW, cardiac stents Alcohol Use: None Drug Use: None family hcx copd, htn Cardiovascular: CAD, HTN, MN, Hyperlipidemia Pulmonary: COPD, Pulmonary embolus CENTRAL NERVOUS SYSTEM: Other GI: GERD Heme/Onc: Cancer Hepatobiliary: No pertinent hx Psych: Anxiety, Depression Musculoskeletal: low back pain, Osteoarthritis Rheumatologic: No pertinent hx Infectious disease: No pertinent hx Renal/: No pertinent hx Endocrine: No pertinent hx Past Surgical History Past Surgical History: CABG, Other Family History Family History: Chronic Bronchitis, Heart Disease, Hypertension, Family History Unknown Social History Smoke: <1 pack per day ALCOHOL: none Drugs: None Current Problem List Problem List Problems Medical Problems: (1) Altered mental status Status: Acute (2) At risk for polypharmacy Status: Acute Current Medications Current Medications Current Medications Ondansetron HCl (Zofran) 4 mg PRN Q8HRS PRN IV NAUSEA/VOMITING; Start at 17:45; Stop 05/08/18 at 17:44 Sodium Chloride 1,000 ml @ 75 mls/hr [id number] IV ; Start 05/07/18 at 17:40; Stop 05/08/18 at 17:39 Active Scripts Active Prednisone 20 Mg Tablet 40 Mg PO DAILY Doxycycline Hyclate 100 Mg Tablet 100 Mg PO BID 4 Days Reported Isosorbide Mononitrate Er (Isosorbide Mononitrate) 30 Mg Tab.er.24h 1 Tab PO DAILYWBKFT Clopidogrel (Clopidogrel Bisulfate) 75 Mg Tablet 1 Tab PO DAILY Gave this morning Take tomorrow morning Aspir 81 (Aspirin) 81 Mg Tablet.dr 1 Tab PO DAILY Gave this morning Take tomorrow morning Amitriptyline Hcl 100 Mg Tablet 1 Tab PO QHS Gave last night Take tonight Coumadin (Warfarin Sodium) 5 Mg Tablet 1 Tab PO DAILY Gave yesterday Take this evening Metoprolol Tartrate 50 Mg Tablet 50 Mg PO BID Gave this morning Take tonight Valium (Diazepam) 10 Mg Tablet 10 Mg PO PRN QID PRN Not given on this admission Take when needed Oxycodone Hcl 10 Mg Tablet 1 Tab PO PRN QID PRN Gave dose at 10:10 May take again when you get home Bupropion Hcl Sr (Bupropion Hcl) 150 Mg Tablet.er 1 Tab PO BID Gave this morning Take tonight Ms Contin (Morphine Sulfate) 30 Mg Tablet.er 30 Mg PO TID Gave at 1:56 Take again tonight Potassium Chloride 20 Meq Tab.er.prt 20 Meq PO DAILY Gave this morning Take again tomorrow Lasix (Furosemide) 40 Mg Tablet 40 Mg PO DAILY Gave this morning Take tomorrow morning Allergies Allergies: Coded Allergies: Iodinated Contrast- Oral and IV Dye (Verified Allergy, Intermediate, ) NSAIDS (Non-Steroidal Anti-Inflamma (Verified Allergy, Intermediate, GI, ) ketorolac (Verified Allergy, Intermediate, GI, 12/01/14) tramadol (Verified Allergy, Intermediate, 11/11/15) tolerates oxycodone and morphine venom-honey bee (Verified Allergy, Intermediate, 03/07/14) I S O L A T I O N *CONTACT* (Verified Allergy, Unknown, 12/01/14) mrsa + ROS Review of System 14 pt ros otherwise neg General: YES: Fatigue; No: Chills, Night Sweats, Malaise, Appetite, Other PSYCHOLOGICAL ROS: YES: Anxiety, Concentration difficultie Eyes: No Blurry vision, No Decreased vision, No Double vision, No Dry eyes, No Excessive tearing, No Eye Pain, No Itchy Eyes, No Loss of vision, No Photophobia , No Scotomata, No Uses contacts, No Uses glasses, No Other HEENT: No: Heacaches, Visual Changes, Hearing change, Nasal congestion, Nasal discharge, Oral lesions, Sinus pain, Sore Throat, Epistaxis, Sneezing, Snoring, Tinnitus, Vertigo, Vocal changes, Other Hematological and Lymphatic: No: Bleeding Problems, Blood Clots, Blood Transfusions, Brusing, Night Sweats, Pallor, Swollen Lymph Nodes, Other Respiratory: No: Cough, Hemoptysis, Orthopnea, Pleuritic Pain, Shortness of breath, SOB with excertion, Sputum Changes, Stridor, Tachypnea, Wheezing, Other Cardiovascular: No Chest Pain, No Palpitations, No Orthopnea, No Paroxysmal Noc. Dyspnea, No Edema, No Lt Headedness, No Other Neurological: Yes Confusion Vitals Vitals Vital Signs Date Time Temp Pulse Resp B/P (MAP) Pulse Ox O2 Delivery O2 Flow Rate FiO2 05/07/18 16:41 97.5 60 16 124/59 (80) 94 97.5 Labs Labs Laboratory Tests Test 05/07/18 16:48 White Blood Count 6.5 x10^3/uL (4.0-11.0) Red Blood Count 5.16 x10^6/uL (4.30-5.70) Hemoglobin 16.7 g/dL (13.0-17.5) Hematocrit 49.3 % (39.0-53.0) Mean Corpuscular Volume 96 fL (79-100) Mean Corpuscular Hemoglobin 32 pg (25-35) Mean Corpuscular Hemoglobin Concent 34 g/dL (31-37) Red Cell Distribution Width 14.4 % (11.5-14.5) Platelet Count 253 x10^3/uL (140-400) Neutrophils (%) (Auto) 64 % (31-73) Lymphocytes (%) (Auto) 22 % (24-48) Monocytes (%) (Auto) 11 % (0-9) Eosinophils (%) (Auto) 3 % (0-3) Basophils (%) (Auto) 1 % (0-3) Neutrophils # (Auto) 4.2 x10^3uL (1.8-7.7) Lymphocytes # (Auto) 1.4 x10^3/uL (1.0-4.8) Monocytes # (Auto) 0.7 x10^3/uL (0.0-1.1) Eosinophils # (Auto) 0.2 x10^3/uL (0.0-0.7) Basophils # (Auto) 0.1 x10^3/uL (0.0-0.2) Sodium Level 136 mmol/L (136-145) Potassium Level 3.8 mmol/L (3.5-5.1) Chloride Level 100 mmol/L (98-107) Carbon Dioxide Level 38 mmol/L (21-32) Anion Gap (6-14) Blood Urea Nitrogen 11 mg/dL (8-26) Creatinine 0.9 mg/dL (0.7-1.3) Estimated GFR (Cockcroft-Gault) 85.8 BUN/Creatinine Ratio 12 (6-20) Glucose Level 118 mg/dL (70-99) Calcium Level 9.6 mg/dL (8.5-10.1) Total Bilirubin 0.7 mg/dL (0.2-1.0) Aspartate Amino Transf (AST/SGOT) 22 U/L (15-37) Alanine Aminotransferase (ALT/SGPT) 20 U/L (16-63) Alkaline Phosphatase 185 U/L (46-116) Total Protein 7.7 g/dL (6.4-8.2) Albumin 3.6 g/dL (3.4-5.0) Albumin/Globulin Ratio 0.9 (1.0-1.7) Thyroid Stimulating Hormone (TSH) 1.165 uIU/mL (0.358-3.74) Ethyl Alcohol Level < 10 mg/dL (0-10) Laboratory Tests Test 05/07/18 16:48 White Blood Count 6.5 x10^3/uL (4.0-11.0) Red Blood Count 5.16 x10^6/uL (4.30-5.70) Hemoglobin 16.7 g/dL (13.0-17.5) Hematocrit 49.3 % (39.0-53.0) Mean Corpuscular Volume 96 fL (79-100) Mean Corpuscular Hemoglobin 32 pg (25-35) Mean Corpuscular Hemoglobin Concent 34 g/dL (31-37) Red Cell Distribution Width 14.4 % (11.5-14.5) Platelet Count 253 x10^3/uL (140-400) Neutrophils (%) (Auto) 64 % (31-73) Lymphocytes (%) (Auto) 22 % (24-48) Monocytes (%) (Auto) 11 % (0-9) Eosinophils (%) (Auto) 3 % (0-3) Basophils (%) (Auto) 1 % (0-3) Neutrophils # (Auto) 4.2 x10^3uL (1.8-7.7) Lymphocytes # (Auto) 1.4 x10^3/uL (1.0-4.8) Monocytes # (Auto) 0.7 x10^3/uL (0.0-1.1) Eosinophils # (Auto) 0.2 x10^3/uL (0.0-0.7) Basophils # (Auto) 0.1 x10^3/uL (0.0-0.2) Sodium Level 136 mmol/L (136-145) Potassium Level 3.8 mmol/L (3.5-5.1) Chloride Level 100 mmol/L (98-107) Carbon Dioxide Level 38 mmol/L (21-32) Anion Gap (6-14) Blood Urea Nitrogen 11 mg/dL (8-26) Creatinine 0.9 mg/dL (0.7-1.3) Estimated GFR (Cockcroft-Gault) 85.8 BUN/Creatinine Ratio 12 (6-20) Glucose Level 118 mg/dL (70-99) Calcium Level 9.6 mg/dL (8.5-10.1) Total Bilirubin 0.7 mg/dL (0.2-1.0) Aspartate Amino Transf (AST/SGOT) 22 U/L (15-37) Alanine Aminotransferase (ALT/SGPT) 20 U/L (16-63) Alkaline Phosphatase 185 U/L (46-116) Total Protein 7.7 g/dL (6.4-8.2) Albumin 3.6 g/dL (3.4-5.0) Albumin/Globulin Ratio 0.9 (1.0-1.7) Thyroid Stimulating Hormone (TSH) 1.165 uIU/mL (0.358-3.74) Ethyl Alcohol Level < 10 mg/dL (0-10) VTE Prophylaxis Ordered VTE Prophylaxis Devices: Yes VTE Pharmacological Prophylaxi: Yes Assessment/Plan Assessment/Plan impression 1. polypharmacy with excessive sedation 2. AMS sec #1 3. chronic pain syndrome plan admit hold sedating meds tele sq lovenox dvt prophylaxis ct head PATIENT: JOHN AVILA WACCOUNT: [id number]#: [id number] : 1955 LOCATION: ER AGE: 62 SEX: M EXAM STATUS: REG ER ORD. PHYSICIAN: SONJA RODRÍGUEZ DO REASON: AMS PROCEDURE: CT HEAD WO CONTRAST PQRS Compliance statement: One or more of the following individualized dose reduction techniques were utilized for this examination: 1. Automated exposure control. 2. Adjustment of the mA and/or kV according to patient size. 3. Use of iterative reconstruction technique. Indication:AMS, PRIOR SENT TECHNIQUE: CT head without IV contrast COMPARISON:11/03/2013 FINDINGS: No pathologic extra-axial or intra-axial fluid collection. The ventricles and basal cisterns are within normal limits. No acute intracranial bleed. No focal loss of dasilva-white differentiation. Visualized orbits within normal limits. Atherosclerotic plaque seen in the bilateral cavernous segments of the ICA. No suspicious calvarial lesion. Visualized paranasal sinuses and mastoid air cells are clear. IMPRESSION: No acute intracranial process. If concern for acute ischemic stroke is high, please consider MRI brain. Electronically signed by: Isaiah Valles DO (05/07/2018 5:32 PM) [facility] AMARJIT TERRY MD May 07, 2018 17:57
[2018-05-07 18:16] LABS: BASE EXCESS ABG 1 mmol/L (-3-3); HCO3 ABG 31 mmol/L (21-28); PO2 ABG 85 mmHg (65-108); SAT O2 ABG 95 % (92-99)
[2018-05-07 18:34] LABS: PCO2 ABG 79 mmHg (35-46)
[2018-05-07 19:55] VITALS: BP 110/67
[2018-05-07] MEDS ORDERED: DOXYCYCLINE HYCLATE 100 MG TABLET PO SCH (21:00)
[2018-05-07] MEDS: IV NORMAL SALINE 1000ML BAG 1,000 ML IV SCH (21:44)
[2018-05-07 22:31] VITALS: BP 116/66
--- NOTE | 2018-05-08 00:11 | EKG ---
[facility] [address] [place] [address] Test Date: 2018-05-07 Test Time: 17:10:32 Pat Name: JOHN AVILA Department: Room: 266 1 Gender: M [employer]st: : 1955 Requested By: SONJA NGUYEN Order Number: [id number] Reading MD: Yandel Marsh MD Measurements Intervals [place] Rate: 59 P: 43 TX: 164 QRS: 40 QRSD: 116 T: 3 QT: 552 QTc: 552 Interpretive Statements SINUS RHYTHM QRS(T) CONTOUR ABNORMALITY CONSISTENT WITH INFERIOR INFARCT PROBABLY OLD ABNORMAL ECG Electronically Signed On 05-11-2018 11:03:02 CDT by Yandel Marsh MD
[2018-05-08] MEDS ORDERED: GEMF600T4 PO (00:35)
[2018-05-08] MEDS ORDERED: OMEP40CA5 PO (00:35)
[2018-05-08] MEDS ORDERED: FLUT1DIS IH (00:35)
[2018-05-08] MEDS ORDERED: ATOR40TA PO (00:35)
[2018-05-08 03:20] VITALS: BP 112/64
[2018-05-08 07:00] VITALS: BP 123/60
[2018-05-08] MEDS: IV NORMAL SALINE 1000ML BAG 1,000 ML IV SCH (07:00)
[2018-05-08] MEDS ORDERED: ASPIRIN ENTERIC COATED 81 MG TABLET.DR. PO SCH (07:00)
[2018-05-08] MEDS ORDERED: CLOPIDOGREL BISULFATE 75 MG TABLET PO SCH (07:00)
[2018-05-08] MEDS ORDERED: ISOSORBIDE MONONITRATE ER 30 MG TAB.ER.24H PO SCH (08:00)
[2018-05-08] MEDS ORDERED: POTASSIUM CHLORIDE 20 MEQ TABLET.ER. PO SCH (08:00)
[2018-05-08] MEDS ORDERED: predniSONE 20 MG TABLET PO SCH (09:00)
[2018-05-08] MEDS ORDERED: ACETAMINOPHEN 500 MG TABLET PO PRN (10:00)
[2018-05-08] MEDS ORDERED: ONDANSETRON PF 4 MG/2 ML VIAL. IV PRN (10:00)
[2018-05-08 10:13] LABS: CALCIUM 8.8 mg/dL (8.5-10.1); CREATININE 0.8 mg/dL (0.7-1.3); GFR 98.3; POTASSIUM 3.8 mmol/L (3.5-5.1)
[2018-05-08 10:16] LABS: PROTHROMBIN TIME PATIENT 14.2 SEC (11.7-14.0)
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
[2018-05-08] MEDS ORDERED: oxyCODONE/APAP 10/325 1 TAB TABLET PO PRN (10:45)
[2018-05-08 11:00] VITALS: BP 107/51
[2018-05-08] MEDS ORDERED: FUROSEMIDE 40 MG TABLET. PO SCH (11:00)
[2018-05-08] MEDS ORDERED: BUDESONIDE 0.5 MG/2 ML NEBU. NEB SCH (11:00)
[2018-05-08] MEDS ORDERED: METOPROLOL TART IMMED RELEASE 50 MG TABLET. PO SCH (11:00)
[2018-05-08] MEDS ORDERED: GEMFIBROZIL 600 MG TABLET. PO SCH (11:00)
[2018-05-08] MEDS ORDERED: PANTOPRAZOLE 40 MG TABLET.DR. PO SCH (11:00)
[2018-05-08] MEDS ORDERED: buPROPion SR 150 MG TABLET.SA PO SCH (11:30)
[2018-05-08] MEDS ORDERED: MORPHINE ER 15 MG TABLET.ER PO SCH (11:30)
[2018-05-08 11:47] LABS: BASO # 0.1 x10^3/uL (0.0-0.2); BASO % 1 % (0-3); EOS # 0.1 x10^3/uL (0.0-0.7); EOS % 2 % (0-3); HEMATOCRIT 48.6 % (39.0-53.0); LYMPH # 1.4 x10^3/uL (1.0-4.8); LYMPH % 23 % (24-48); MEAN CORPUSCULAR HEMOGLOBIN 32 pg (25-35); MEAN CORPUSCULAR HGB CONC 33 g/dL (31-37); MEAN CORPUSCULAR VOLUME 96 fL (79-100); MONO # 0.5 x10^3/uL (0.0-1.1); MONO % 8 % (0-9); NEUT # 4.1 x10^3uL (1.8-7.7); NEUT % 66 % (31-73); PLATELET COUNT 231 x10^3/uL (140-400); RED BLOOD COUNT 5.08 x10^6/uL (4.30-5.70); RED CELL DISTRIBUTION WIDTH 14.6 % (11.5-14.5); WHITE BLOOD COUNT 6.2 x10^3/uL (4.0-11.0)
[2018-05-08] MEDS: ALBUTEROL SULFATE 2.5 MG/3 ML NEBU. NEB SCH ×2 (11:56→15:46)
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
--- NOTE | 2018-05-08 14:22 | RAD ---
MRI of the brain without contrast 05/08/2018 Clinical History: Mental status changes. Slurred speech. Weakness. Technique: Unenhanced T1-weighted sagittal and axial, T2-weighted axial and coronal and FLAIR, gradient echo and diffusion-weighted axial images of the brain were obtained. Findings: Comparison is made to the patient's CT scan of the head dated 05/07/2018. There is generalized parenchymal atrophy. Patchy and a few small scattered areas of increased signal intensity are seen within the periventricular and subcortical white matter of both cerebral hemispheres on the FLAIR and T2-weighted images consistent with areas of minimal small vessel ischemic disease. No acute parenchymal abnormality is seen. No extra-axial fluid collection is seen. There is no MRI evidence of acute ischemia/infarction. The paranasal sinuses are essentially clear. There is a small right mastoid effusion. Normal flow voids are seen within the major vascular structures surrounding the brain parenchyma. Impression: No acute parenchymal abnormality is seen. Electronically signed by: Rk Brown MD (05/08/2018 2:19 PM) [id number]
[2018-05-08 15:00] VITALS: BP 151/72
--- NOTE | 2018-05-08 15:06 | PDOC ---
PULMONARY PROGRESS NOTES Vitals Vital Signs Date Time Temp Pulse Resp B/P (MAP) Pulse Ox O2 Delivery O2 Flow Rate FiO2 05/08/18 14:32 88 127/63 05/08/18 14:31 18 Nasal Cannula 05/08/18 12:02 92 3.0 05/08/18 11:00 98.1 98.1 Labs Laboratory Tests Test 05/07/18 16:48 05/07/18 17:03 05/07/18 19:25 05/08/18 09:07 White Blood Count 6.5 x10^3/uL (4.0-11.0) 6.2 x10^3/uL (4.0-11.0) Red Blood Count 5.16 x10^6/uL (4.30-5.70) 5.08 x10^6/uL (4.30-5.70) Hemoglobin 16.7 g/dL (13.0-17.5) 16.0 g/dL (13.0-17.5) Hematocrit 49.3 % (39.0-53.0) 48.6 % (39.0-53.0) Mean Corpuscular Volume 96 fL (79-100) 96 fL (79-100) Mean Corpuscular Hemoglobin 32 pg (25-35) 32 pg (25-35) Mean Corpuscular Hemoglobin Concent 34 g/dL (31-37) 33 g/dL (31-37) Red Cell Distribution Width 14.4 % (11.5-14.5) 14.6 % (11.5-14.5) Platelet Count 253 x10^3/uL (140-400) 231 x10^3/uL (140-400) Neutrophils (%) (Auto) 64 % (31-73) 66 % (31-73) Lymphocytes (%) (Auto) 22 % (24-48) 23 % (24-48) Monocytes (%) (Auto) 11 % (0-9) 8 % (0-9) Eosinophils (%) (Auto) 3 % (0-3) 2 % (0-3) Basophils (%) (Auto) 1 % (0-3) 1 % (0-3) Neutrophils # (Auto) 4.2 x10^3uL (1.8-7.7) 4.1 x10^3uL (1.8-7.7) Lymphocytes # (Auto) 1.4 x10^3/uL (1.0-4.8) 1.4 x10^3/uL (1.0-4.8) Monocytes # (Auto) 0.7 x10^3/uL (0.0-1.1) 0.5 x10^3/uL (0.0-1.1) Eosinophils # (Auto) 0.2 x10^3/uL (0.0-0.7) 0.1 x10^3/uL (0.0-0.7) Basophils # (Auto) 0.1 x10^3/uL (0.0-0.2) 0.1 x10^3/uL (0.0-0.2) Sodium Level 136 mmol/L (136-145) 142 mmol/L (136-145) Potassium Level 3.8 mmol/L (3.5-5.1) 3.8 mmol/L (3.5-5.1) Chloride Level 100 mmol/L (98-107) 101 mmol/L (98-107) Carbon Dioxide Level 38 mmol/L (21-32) 36 mmol/L (21-32) Anion Gap (6-14) 5 (6-14) Blood Urea Nitrogen 11 mg/dL (8-26) 8 mg/dL (8-26) Creatinine 0.9 mg/dL (0.7-1.3) 0.8 mg/dL (0.7-1.3) Estimated GFR (Cockcroft-Gault) 85.8 98.3 BUN/Creatinine Ratio 12 (6-20) Glucose Level 118 mg/dL (70-99) 120 mg/dL (70-99) Calcium Level 9.6 mg/dL (8.5-10.1) 8.8 mg/dL (8.5-10.1) Total Bilirubin 0.7 mg/dL (0.2-1.0) Aspartate Amino Transf (AST/SGOT) 22 U/L (15-37) Alanine Aminotransferase (ALT/SGPT) 20 U/L (16-63) Alkaline Phosphatase 185 U/L (46-116) Total Protein 7.7 g/dL (6.4-8.2) Albumin 3.6 g/dL (3.4-5.0) Albumin/Globulin Ratio 0.9 (1.0-1.7) Thyroid Stimulating Hormone (TSH) 1.165 uIU/mL (0.358-3.74) Ethyl Alcohol Level < 10 mg/dL (0-10) O2 Saturation 95 % (92-99) Arterial Blood pH 7.22 (7.35-7.45) Arterial Blood pCO2 at Patient Temp 79 mmHg (35-46) Arterial Blood pO2 at Patient Temp 85 mmHg (65-108) Arterial Blood HCO3 31 mmol/L (21-28) Arterial Blood Base Excess 1 mmol/L (-3-3) FiO2 24.0 Ammonia 42 mcmol/L (11-34) Prothrombin Time 14.2 SEC (11.7-14.0) Prothromb Time International Ratio 1.2 (0.8-1.1) Vitamin B12 Level 463 pg/mL (247-911) Laboratory Tests Test 05/07/18 16:48 05/07/18 17:03 05/07/18 19:25 05/08/18 09:07 White Blood Count 6.5 x10^3/uL (4.0-11.0) 6.2 x10^3/uL (4.0-11.0) Red Blood Count 5.16 x10^6/uL (4.30-5.70) 5.08 x10^6/uL (4.30-5.70) Hemoglobin 16.7 g/dL (13.0-17.5) 16.0 g/dL (13.0-17.5) Hematocrit 49.3 % (39.0-53.0) 48.6 % (39.0-53.0) Mean Corpuscular Volume 96 fL (79-100) 96 fL (79-100) Mean Corpuscular Hemoglobin 32 pg (25-35) 32 pg (25-35) Mean Corpuscular Hemoglobin Concent 34 g/dL (31-37) 33 g/dL (31-37) Red Cell Distribution Width 14.4 % (11.5-14.5) 14.6 % (11.5-14.5) Platelet Count 253 x10^3/uL (140-400) 231 x10^3/uL (140-400) Neutrophils (%) (Auto) 64 % (31-73) 66 % (31-73) Lymphocytes (%) (Auto) 22 % (24-48) 23 % (24-48) Monocytes (%) (Auto) 11 % (0-9) 8 % (0-9) Eosinophils (%) (Auto) 3 % (0-3) 2 % (0-3) Basophils (%) (Auto) 1 % (0-3) 1 % (0-3) Neutrophils # (Auto) 4.2 x10^3uL (1.8-7.7) 4.1 x10^3uL (1.8-7.7) Lymphocytes # (Auto) 1.4 x10^3/uL (1.0-4.8) 1.4 x10^3/uL (1.0-4.8) Monocytes # (Auto) 0.7 x10^3/uL (0.0-1.1) 0.5 x10^3/uL (0.0-1.1) Eosinophils # (Auto) 0.2 x10^3/uL (0.0-0.7) 0.1 x10^3/uL (0.0-0.7) Basophils # (Auto) 0.1 x10^3/uL (0.0-0.2) 0.1 x10^3/uL (0.0-0.2) Sodium Level 136 mmol/L (136-145) 142 mmol/L (136-145) Potassium Level 3.8 mmol/L (3.5-5.1) 3.8 mmol/L (3.5-5.1) Chloride Level 100 mmol/L (98-107) 101 mmol/L (98-107) Carbon Dioxide Level 38 mmol/L (21-32) 36 mmol/L (21-32) Anion Gap (6-14) 5 (6-14) Blood Urea Nitrogen 11 mg/dL (8-26) 8 mg/dL (8-26) Creatinine 0.9 mg/dL (0.7-1.3) 0.8 mg/dL (0.7-1.3) Estimated GFR (Cockcroft-Gault) 85.8 98.3 BUN/Creatinine Ratio 12 (6-20) Glucose Level 118 mg/dL (70-99) 120 mg/dL (70-99) Calcium Level 9.6 mg/dL (8.5-10.1) 8.8 mg/dL (8.5-10.1) Total Bilirubin 0.7 mg/dL (0.2-1.0) Aspartate Amino Transf (AST/SGOT) 22 U/L (15-37) Alanine Aminotransferase (ALT/SGPT) 20 U/L (16-63) Alkaline Phosphatase 185 U/L (46-116) Total Protein 7.7 g/dL (6.4-8.2) Albumin 3.6 g/dL (3.4-5.0) Albumin/Globulin Ratio 0.9 (1.0-1.7) Thyroid Stimulating Hormone (TSH) 1.165 uIU/mL (0.358-3.74) Ethyl Alcohol Level < 10 mg/dL (0-10) O2 Saturation 95 % (92-99) Arterial Blood pH 7.22 (7.35-7.45) Arterial Blood pCO2 at Patient Temp 79 mmHg (35-46) Arterial Blood pO2 at Patient Temp 85 mmHg (65-108) Arterial Blood HCO3 31 mmol/L (21-28) Arterial Blood Base Excess 1 mmol/L (-3-3) FiO2 24.0 Ammonia 42 mcmol/L (11-34) Prothrombin Time 14.2 SEC (11.7-14.0) Prothromb Time International Ratio 1.2 (0.8-1.1) Vitamin B12 Level 463 pg/mL (247-911) Medications Active Scripts Medications Dose Route/Sig Max Daily Dose Days Date Category Dose Instructions Advair 100-50 Diskus (Fluticasone/Salmeterol) 1 Each Disk.w.dev 1 Puff IH BID 05/08/18 Reported Gemfibrozil 600 Mg Tablet 1 Tab PO BID 05/08/18 Reported Omeprazole 40 Mg Capsule.dr 1 Cap PO DAILY 05/08/18 Reported Lipitor (Atorvastatin Calcium) 40 Mg Tablet 1 Tab PO DAILY 05/08/18 Reported Isosorbide Mononitrate Er (Isosorbide Mononitrate) 30 Mg Tab.er.24h 1 Tab PO DAILYWBKFT 04/15/17 Reported Aspir 81 (Aspirin) 81 Mg Tablet.dr 1 Tab PO DAILY 05/17/16 Reported Gave this morning Take tomorrow morning Amitriptyline Hcl 100 Mg Tablet 1 Tab PO QHS 11/10/15 Reported Gave last night Take tonight Coumadin (Warfarin Sodium) 5 Mg Tablet 1 Tab PO DAILY 11/10/15 Reported Gave yesterday Take this evening Metoprolol Tartrate 50 Mg Tablet 50 Mg PO BID 03/29/15 Reported Gave this morning Take tonight Valium (Diazepam) 10 Mg Tablet 10 Mg PO PRN QID PRN 11/30/14 Reported Not given on this admission Take when needed Oxycodone Hcl 10 Mg Tablet 1 Tab PO Q6HRS PRN 11/30/14 Reported Gave dose at 10:10 May take again when you get home Bupropion Hcl Sr (Bupropion Hcl) 150 Mg Tablet.er 1 Tab PO BID 11/30/14 Reported Gave this morning Take tonight Ms Contin (Morphine Sulfate) 30 Mg Tablet.er 15 Mg PO BID 11/04/13 Reported Gave at 1:56 Take again tonight Potassium Chloride 20 Meq Tab.er.prt 20 Meq PO DAILY 11/03/13 Reported Gave this morning Take again tomorrow Lasix (Furosemide) 40 Mg Tablet 40 Mg PO DAILY 11/03/13 Reported Gave this morning Take tomorrow morning Impression . NOTE DICTATED ACUTE HYPERCAPNIA RESP FAILURE SEC TO MED OK TO D/C DECREASE VALIUM AND MS CONTIN THANKS DENICE GUSMAN MD May 08, 2018 15:06
[2018-05-08] MEDS ORDERED: WARFARIN 5 MG TABLET. PO SCH (16:00)
[2018-05-08 16:39] LABS: BILIRUBIN,URINE NEGATIVE (NEG); COLOR,URINE YELLOW; NITRITE,URINE NEGATIVE (NEG); PH,URINE 6.5; PROTEIN,URINE NEGATIVE (NEG-TRACE)
[2018-05-08 16:44] LABS: BARBITURATES NEG (NEG); BENZODIAZEPINES POS (NEG); CANNABINOIDS NEG (NEG); COCAINE NEG (NEG); METHADONE NEG (NEG); OPIATES POS (NEG); PHENCYCLIDINE NEG (NEG)
[2018-05-08 16:53] LABS: AMPHETAMINE/METHAMPHETAMINE NEG (NEG)
[2018-05-08 16:53] LABS: BACTERIA,URINE 0 /HPF (0-FEW); CLARITY,URINE CLEAR; RBC,URINE 0 /HPF (0-2); SQUAMOUS EPITHELIAL CELL,UR OCC /LPF; WBC,URINE 0 /HPF (0-4)
--- NOTE | 2018-05-08 17:12 | PDOC2 ---
NEUROLOGY CONSULT Date of Admission Date of Admission DATE: 05/08/18 TIME: 16:59 Reason for Consult Reason for Consult: IMPRESSION: Metabolic encephalopathy. Slurred speech. 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 CAD s/p CABG. TN Hx. HTN. HLD. Obesity. No evidence of acute stroke this time. RECOMMENDATIONS/PLAN: Continue Plavix 75 mg daily. Continue ASA 81 mg daily. Continue Lipitor HS. Brain MRI performed, negative. Avoid Narcotics as possible. Weight reduction. HISTORY OF THE PRESENT ILLNESS: 62-y-old male patient with above medical diseases was reportedly to have MS changes, drooling and slurred speech on 05/07/18. He stated he did not realize that. No focalized sensory of motor deficits. Past Medical History CAD, Cancer, COPD, High Cholesterol, Heart Disease, Hypertension, TN, TESTICLE CANCER, chronic back pain, PE Cardiovascular: CAD, HTN, TN, Hyperlipidemia Pulmonary: COPD, Pulmonary embolus CENTRAL NERVOUS SYSTEM: Other GI: GERD Heme/Onc: Cancer Hepatobiliary: No pertinent hx Psych: Anxiety, Depression Musculoskeletal: low back pain, Osteoarthritis Rheumatologic: No pertinent hx Infectious disease: No pertinent hx Renal/: No pertinent hx Endocrine: No pertinent hx Past Surgical History CABG, ORECECTOMY,BACK, JAW, cardiac stents Family History Chronic Bronchitis, Heart Disease, Hypertension Allergies Coded Allergies: Iodinated Contrast- Oral and IV Dye (Verified Allergy, Intermediate, ) NSAIDS (Non-Steroidal Anti-Inflamma (Verified Allergy, Intermediate, GI, ) ketorolac (Verified Allergy, Intermediate, GI, 12/01/14) tramadol (Verified Allergy, Intermediate, 11/11/15) tolerates oxycodone and morphine venom-honey bee (Verified Allergy, Intermediate, 03/07/14) I S O L A T I O N *CONTACT* (Verified Allergy, Unknown, 12/01/14) MEDICATIONS: Refer to [facility] SOCIAL HISTORY: Lives at home. Denies drinking, and illicit drug use. He smokes < 1 pack of cigarettes a day for many years. REVIEW OF SYSTEMS: Constitutional: Obesity. Head: No traumatic brain or head injury. Skin: No edema, or rash. Ear: No infection. Eyes: No vision loss or color blindness. Nose: No bleeding or purulent discharges. Hearing: No hearing decrease. Neck: No injury. Cardiac: TN, CAD, s/p CABG, HTN, HLD. Pulmonary: No COPD. GI: No GI ulcer, GI bleeding. Urinary/genital: No dysuria, incontinence, urinary retention. Endocrinologic: Obesity. Skeletomuscular: No muscular atrophy, deformity. Neurological: see HP. Psychiatric: Denies drug use/abuse. Otherwise, not [id number] review of systems. PHYSICAL EXAMINATION: General appearance is in subacute distress. HEENT: Normocephalic and nontraumatic. Eyes, nose, ears, and throat are unremarkable. Neck is supple. No lymphadenopathy. No crepitus. Cardiovascular: S1, S2, regular rate and rhythm. Pulmonary: Clear to auscultation bilaterally. Abdomen: Bowel sounds are positive. Abdomen is soft, nontender, and nondistended. Extremities: No rash, lesions, or edema. No restriction of range of motion NEUROLOGICAL EXAMINATION: Alert Oriented to time, place and person. PERRL. EOMI. CN: no focal findings. Muscle tone: within normal. Muscle strength: 5 DTR: 2 Plantar reflex: Flexor response bilaterally Gait: not examined in bed. Sensory exam: no abnormal findings. No cerebellar signs elicited. F-T-N test accurate. Current Medications Current Medications Current Medications Ondansetron HCl (Zofran) 4 mg PRN Q8HRS PRN IV NAUSEA/VOMITING; Start at 17:45; Stop 05/08/18 at 09:55; Status DC Sodium Chloride 1,000 ml @ 75 mls/hr [id number] IV Last administered on at 21:44; Start 05/07/18 at 17:40; Stop 05/08/18 at 17:39 Aspirin (Ecotrin) 81 mg DAILY07 PO Last administered on 05/08/18at 08:49; Start 05/08/18 at 07:00 Clopidogrel Bisulfate (Plavix) 75 mg DAILY07 PO ; Start 05/08/18 at 07:00 Doxycycline Hyclate (Vibra-Tab) 100 mg BID PO ; Start 05/07/18 at 21:00; Status UNV Isosorbide Mononitrate (Imdur) 30 mg DAILYWBKFT PO Last administered on at 08:50; Start 05/08/18 at 08:00 Potassium Chloride (Klor-Con) 20 meq DAILY08 PO Last administered on at 08:48; Start 05/08/18 at 08:00 Prednisone (Prednisone) 40 mg DAILY PO ; Start 05/08/18 at 09:00; Stop at 09:00; Status DC Warfarin Sodium (Coumadin) 5 mg DAILY16 PO Last administered on 05/08/18at 16: 13; Start 05/08/18 at 16:00 Warfarin Sodium (Coumadin Per Physician) 1 each PRN DAILY PRN MC SEE COMMENTS Last administered on 05/08/18at 10:58; Start 05/07/18 at 19:15 Ondansetron HCl (Zofran) 4 mg PRN Q6HRS PRN IV NAUSEA/VOMITING; Start at 10:00 Acetaminophen (Tylenol) 500 mg PRN Q6HRS PRN PO MILD PAIN / TEMP; Start at 10:00 Atorvastatin Calcium (Lipitor) 40 mg QHS PO ; Start 05/08/18 at 21:00 Furosemide (Lasix) 40 mg DAILY PO Last administered on 05/08/18at 14:32; Start 05/08/18 at 11:00 Gemfibrozil (Lopid) 600 mg BID PO Last administered on 05/08/18at 14:31; Start 05/08/18 at 11:00 Metoprolol Tartrate (Lopressor) 50 mg BID PO Last administered on 05/08/18at 14 :32; Start 05/08/18 at 11:00 Non-Formulary Medication (Fluticasone/ Salmeterol (Advair 100-50 Diskus)) 1 puff BID IH ; Start 05/08/18 at 21:00; Status UNV Pantoprazole Sodium (Protonix) 40 mg DAILYAC PO Last administered on at 14:31; Start 05/08/18 at 11:00 Budesonide (Pulmicort) 0.5 mg RTBID NEB Last administered on 05/08/18at 11:55; Start 05/08/18 at 11:00 Albuterol Sulfate (Ventolin Neb Soln) 2.5 mg RTQID NEB Last administered on at 15:46; Start 05/08/18 at 11:00 Bupropion HCl (Wellbutrin Sr) 150 mg BID PO Last administered on 05/08/18at 14: 31; Start 05/08/18 at 11:30 Morphine Sulfate (Ms Contin) 15 mg BID PO Last administered on 05/08/18at 14:31 ; Start 05/08/18 at 11:30 Amitriptyline HCl (Elavil) 100 mg QHS PO ; Start 05/08/18 at 21:00 Oxycodone/ Acetaminophen (Percocet 10/325) 1 tab PRN Q6HRS PRN PO MODERATE- SEVERE PAIN; Start 05/08/18 at 10:45 Active Scripts Active Reported Advair 100-50 Diskus (Fluticasone/Salmeterol) 1 Each Disk.w.dev 1 Puff IH BID Gemfibrozil 600 Mg Tablet 1 Tab PO BID Omeprazole 40 Mg Capsule.dr 1 Cap PO DAILY Lipitor (Atorvastatin Calcium) 40 Mg Tablet 1 Tab PO DAILY Isosorbide Mononitrate Er (Isosorbide Mononitrate) 30 Mg Tab.er.24h 1 Tab PO DAILYWBKFT Aspir 81 (Aspirin) 81 Mg Tablet.dr 1 Tab PO DAILY Gave this morning Take tomorrow morning Amitriptyline Hcl 100 Mg Tablet 1 Tab PO QHS Gave last night Take tonight Coumadin (Warfarin Sodium) 5 Mg Tablet 1 Tab PO DAILY Gave yesterday Take this evening Metoprolol Tartrate 50 Mg Tablet 50 Mg PO BID Gave this morning Take tonight Valium (Diazepam) 10 Mg Tablet 10 Mg PO PRN QID PRN Not given on this admission Take when needed Oxycodone Hcl 10 Mg Tablet 1 Tab PO Q6HRS PRN Gave dose at 10:10 May take again when you get home Bupropion Hcl Sr (Bupropion Hcl) 150 Mg Tablet.er 1 Tab PO BID Gave this morning Take tonight Ms Contin (Morphine Sulfate) 30 Mg Tablet.er 15 Mg PO BID Gave at 1:56 Take again tonight Potassium Chloride 20 Meq Tab.er.prt 20 Meq PO DAILY Gave this morning Take again tomorrow Lasix (Furosemide) 40 Mg Tablet 40 Mg PO DAILY Gave this morning Take tomorrow morning Allergies Allergies: Allergies Coded Allergies Type Severity Reaction Last Updated Verified Iodinated Contrast- Oral and IV Dye Allergy Intermediate 03/07/14 Yes NSAIDS (Non-Steroidal Anti-Inflamma Allergy Intermediate GI 12/01/14 Yes ketorolac Allergy Intermediate GI 12/01/14 Yes tramadol Allergy Intermediate 11/11/15 Yes venom-honey bee Allergy Intermediate 03/07/14 Yes I S O L A T I O N *CONTACT* Allergy Unknown 12/01/14 Yes ROS Review of System The patient denies any associated fevers, chills, headache, ear pain, rhinorrhea , sore throat, stiff neck, productive cough, chest pain, shortness of breath, back or flank pain, abdominal pain, nausea, vomiting, diarrhea, constipation, dysuria, rash, numbness, weakness, tingling, incontinence, difficulty ambulating, or diaphoresis. Physical Exam Physical Exam General: Well developed, well nourished, no acute distress, well appearing HEENT: Pupils equally round and reactive to light, EOMI, no discharge, normal conjunctiva Neck: Supple, no nuchal rigidity, no JVD, trachea midline, no tenderness Cardiac: RRR, no murmurs, no gallops, no rubs Chest/Lungs: CTAB, no wheeze, no rhonchi, no crackles Abdomen: soft, non-distended, no guarding, no peritoneal signs, non-tender Back: No tenderness Extremities: no edema, pulses intact, non-tender,capillary refill <3 sec bilateral upper and lower extremities, Neuro: Alert and oriented x 4, no focal deficits, normal speech Vitals Vitals: Vital Signs Date Time Temp Pulse Resp B/P (MAP) Pulse Ox O2 Delivery O2 Flow Rate FiO2 05/08/18 15:46 92 Nasal Cannula 3.0 05/08/18 15:00 98.7 85 20 151/72 (98) 98.7 Labs Labs Laboratory Tests Test 05/07/18 16:48 05/07/18 17:03 05/07/18 19:25 05/08/18 09:07 White Blood Count 6.5 x10^3/uL (4.0-11.0) 6.2 x10^3/uL (4.0-11.0) Red Blood Count 5.16 x10^6/uL (4.30-5.70) 5.08 x10^6/uL (4.30-5.70) Hemoglobin 16.7 g/dL (13.0-17.5) 16.0 g/dL (13.0-17.5) Hematocrit 49.3 % (39.0-53.0) 48.6 % (39.0-53.0) Mean Corpuscular Volume 96 fL (79-100) 96 fL (79-100) Mean Corpuscular Hemoglobin 32 pg (25-35) 32 pg (25-35) Mean Corpuscular Hemoglobin Concent 34 g/dL (31-37) 33 g/dL (31-37) Red Cell Distribution Width 14.4 % (11.5-14.5) 14.6 % (11.5-14.5) Platelet Count 253 x10^3/uL (140-400) 231 x10^3/uL (140-400) Neutrophils (%) (Auto) 64 % (31-73) 66 % (31-73) Lymphocytes (%) (Auto) 22 % (24-48) 23 % (24-48) Monocytes (%) (Auto) 11 % (0-9) 8 % (0-9) Eosinophils (%) (Auto) 3 % (0-3) 2 % (0-3) Basophils (%) (Auto) 1 % (0-3) 1 % (0-3) Neutrophils # (Auto) 4.2 x10^3uL (1.8-7.7) 4.1 x10^3uL (1.8-7.7) Lymphocytes # (Auto) 1.4 x10^3/uL (1.0-4.8) 1.4 x10^3/uL (1.0-4.8) Monocytes # (Auto) 0.7 x10^3/uL (0.0-1.1) 0.5 x10^3/uL (0.0-1.1) Eosinophils # (Auto) 0.2 x10^3/uL (0.0-0.7) 0.1 x10^3/uL (0.0-0.7) Basophils # (Auto) 0.1 x10^3/uL (0.0-0.2) 0.1 x10^3/uL (0.0-0.2) Sodium Level 136 mmol/L (136-145) 142 mmol/L (136-145) Potassium Level 3.8 mmol/L (3.5-5.1) 3.8 mmol/L (3.5-5.1) Chloride Level 100 mmol/L (98-107) 101 mmol/L (98-107) Carbon Dioxide Level 38 mmol/L (21-32) 36 mmol/L (21-32) Anion Gap (6-14) 5 (6-14) Blood Urea Nitrogen 11 mg/dL (8-26) 8 mg/dL (8-26) Creatinine 0.9 mg/dL (0.7-1.3) 0.8 mg/dL (0.7-1.3) Estimated GFR (Cockcroft-Gault) 85.8 98.3 BUN/Creatinine Ratio 12 (6-20) Glucose Level 118 mg/dL (70-99) 120 mg/dL (70-99) Calcium Level 9.6 mg/dL (8.5-10.1) 8.8 mg/dL (8.5-10.1) Total Bilirubin 0.7 mg/dL (0.2-1.0) Aspartate Amino Transf (AST/SGOT) 22 U/L (15-37) Alanine Aminotransferase (ALT/SGPT) 20 U/L (16-63) Alkaline Phosphatase 185 U/L (46-116) Total Protein 7.7 g/dL (6.4-8.2) Albumin 3.6 g/dL (3.4-5.0) Albumin/Globulin Ratio 0.9 (1.0-1.7) Thyroid Stimulating Hormone (TSH) 1.165 uIU/mL (0.358-3.74) Ethyl Alcohol Level < 10 mg/dL (0-10) O2 Saturation 95 % (92-99) Arterial Blood pH 7.22 (7.35-7.45) Arterial Blood pCO2 at Patient Temp 79 mmHg (35-46) Arterial Blood pO2 at Patient Temp 85 mmHg (65-108) Arterial Blood HCO3 31 mmol/L (21-28) Arterial Blood Base Excess 1 mmol/L (-3-3) FiO2 24.0 Ammonia 42 mcmol/L (11-34) Prothrombin Time 14.2 SEC (11.7-14.0) Prothromb Time International Ratio 1.2 (0.8-1.1) Vitamin B12 Level 463 pg/mL (247-911) Test 05/08/18 16:07 05/08/18 16:30 Urine Collection Type Unknown Urine Color Yellow Urine Clarity Clear Urine pH 6.5 Urine Specific [place] <=1.005 Urine Protein Negative mg/dL (NEG-TRACE) Urine Glucose (UA) Negative mg/dL (NEG) Urine Ketones (Stick) Negative mg/dL (NEG) Urine Blood Negative (NEG) Urine Nitrite Negative (NEG) Urine Bilirubin Negative (NEG) Urine Urobilinogen Dipstick 1.0 mg/dL (0.2 mg/dL) Urine Leukocyte Esterase Negative (NEG) Urine RBC 0 /HPF (0-2) Urine WBC 0 /HPF (0-4) Urine Squamous Epithelial Cells Occ /LPF Urine Bacteria 0 /HPF (0-FEW) Urine Opiates Screen Pos (NEG) Urine Methadone Screen Neg (NEG) Urine Barbiturates Neg (NEG) Urine Phencyclidine Screen Neg (NEG) Urine Amphetamine/Methamphetamine Neg (NEG) Urine Benzodiazepines Screen Pos (NEG) Urine Cocaine Screen Neg (NEG) Urine Cannabinoids Screen Neg (NEG) Urine Ethyl Alcohol Neg (NEG) Laboratory Tests Test 05/07/18 17:03 05/07/18 19:25 05/08/18 09:07 05/08/18 16:07 O2 Saturation 95 % (92-99) Arterial Blood pH 7.22 (7.35-7.45) Arterial Blood pCO2 at Patient Temp 79 mmHg (35-46) Arterial Blood pO2 at Patient Temp 85 mmHg (65-108) Arterial Blood HCO3 31 mmol/L (21-28) Arterial Blood Base Excess 1 mmol/L (-3-3) FiO2 24.0 Ammonia 42 mcmol/L (11-34) White Blood Count 6.2 x10^3/uL (4.0-11.0) Red Blood Count 5.08 x10^6/uL (4.30-5.70) Hemoglobin 16.0 g/dL (13.0-17.5) Hematocrit 48.6 % (39.0-53.0) Mean Corpuscular Volume 96 fL (79-100) Mean Corpuscular Hemoglobin 32 pg (25-35) Mean Corpuscular Hemoglobin Concent 33 g/dL (31-37) Red Cell Distribution Width 14.6 % (11.5-14.5) Platelet Count 231 x10^3/uL (140-400) Neutrophils (%) (Auto) 66 % (31-73) Lymphocytes (%) (Auto) 23 % (24-48) Monocytes (%) (Auto) 8 % (0-9) Eosinophils (%) (Auto) 2 % (0-3) Basophils (%) (Auto) 1 % (0-3) Neutrophils # (Auto) 4.1 x10^3uL (1.8-7.7) Lymphocytes # (Auto) 1.4 x10^3/uL (1.0-4.8) Monocytes # (Auto) 0.5 x10^3/uL (0.0-1.1) Eosinophils # (Auto) 0.1 x10^3/uL (0.0-0.7) Basophils # (Auto) 0.1 x10^3/uL (0.0-0.2) Prothrombin Time 14.2 SEC (11.7-14.0) Prothromb Time International Ratio 1.2 (0.8-1.1) Sodium Level 142 mmol/L (136-145) Potassium Level 3.8 mmol/L (3.5-5.1) Chloride Level 101 mmol/L (98-107) Carbon Dioxide Level 36 mmol/L (21-32) Anion Gap 5 (6-14) Blood Urea Nitrogen 8 mg/dL (8-26) Creatinine 0.8 mg/dL (0.7-1.3) Estimated GFR (Cockcroft-Gault) 98.3 Glucose Level 120 mg/dL (70-99) Calcium Level 8.8 mg/dL (8.5-10.1) Vitamin B12 Level 463 pg/mL (247-911) Urine Collection Type Unknown Urine Color Yellow Urine Clarity Clear Urine pH 6.5 Urine Specific [place] <=1.005 Urine Protein Negative mg/dL (NEG-TRACE) Urine Glucose (UA) Negative mg/dL (NEG) Urine Ketones (Stick) Negative mg/dL (NEG) Urine Blood Negative (NEG) Urine Nitrite Negative (NEG) Urine Bilirubin Negative (NEG) Urine Urobilinogen Dipstick 1.0 mg/dL (0.2 mg/dL) Urine Leukocyte Esterase Negative (NEG) Urine RBC 0 /HPF (0-2) Urine WBC 0 /HPF (0-4) Urine Squamous Epithelial Cells Occ /LPF Urine Bacteria 0 /HPF (0-FEW) Test 05/08/18 16:30 Urine Opiates Screen Pos (NEG) Urine Methadone Screen Neg (NEG) Urine Barbiturates Neg (NEG) Urine Phencyclidine Screen Neg (NEG) Urine Amphetamine/Methamphetamine Neg (NEG) Urine Benzodiazepines Screen Pos (NEG) Urine Cocaine Screen Neg (NEG) Urine Cannabinoids Screen Neg (NEG) Urine Ethyl Alcohol Neg (NEG) ROXANA KELLEY MD May 08, 2018 17:12
[2018-05-08] MEDS ORDERED: AMITRIPTYLINE HCL 50 MG TABLET PO SCH (21:00)
[2018-05-08] MEDS ORDERED: NON FORMULARY ITEM (Fluticasone/Salmeterol (Advair 100-50 Diskus) 1 PUFF) IH SCH (21:00)
[2018-05-08] MEDS ORDERED: ATORVASTATIN CALCIUM 40 MG TABLET. PO SCH (21:00)
--- NOTE | 2018-05-09 00:24 | CONS ---
DATE OF CONSULTATION: 05/08/2018 ATTENDING PHYSICIAN: Dr. Sellers. REASON FOR CONSULTATION: The patient seen in pulmonary consultation at the request of Dr. Banda for abnormal arterial blood gas revealing a pH of 7.22, PaCO2 of 79, paO2 of 85 on 24% FiO2. The patient is a 62-year-old with chronic pain normally takes Valium at home, MS Contin, hydrocodone and Elavil. He became sleepy at home. noticed some confusion. He presented to the Emergency Department. Arterial blood gas revealed a pH of 7.22, PaCO2 of 79. The patient was placed on BiPAP. I was asked to see him in consultation. He is currently off the BiPAP. He is awake, alert, following commands and has no complaints. He used to smoke, quit a year ago, normally wears 2 liters of oxygen at home. He has been on oxygen for the past 2 years, also. The patient denies any progressive dyspnea, tachypnea. No fever, chills or night sweats. Chest x-ray was reviewed. I do not appreciate any acute cardiopulmonary process. MRI of the brain was obtained, which revealed no acute abnormalities. Head CT likewise was normal. PAST MEDICAL HISTORY: Remarkable for coronary artery disease status post coronary artery bypass grafting, COPD, chronic respiratory failure, hyperlipidemia, hypertension, previous myocardial infarction, testicular cancer. He has had previous coronary artery bypass grafting, orchiectomy. There is a history of depression and anxiety. PAST SURGICAL HISTORY: As above. FAMILY HISTORY: Bronchitis, heart disease, hypertension. SOCIAL HISTORY: He states that he quit tobacco a year ago. MEDICATIONS: List was reviewed. ALLERGIES: Please see the list. REVIEW OF SYSTEMS: As indicated above, otherwise, a 10-point system was reviewed and negative. PHYSICAL EXAMINATION: GENERAL: The patient was awake, alert, following commands. No oxygen supplementation, sitting up in a chair. HEENT: Eyes, the sclerae were nonicteric. NECK: Jugular venous distention was not elevated. No lymphadenopathy. CHEST: Full expansion. LUNGS: Adequate airway flow, no wheezes. CARDIOVASCULAR: Regular rate and rhythm with S1, S2, no S3. ABDOMEN: Soft, nontender, nondistended. EXTREMITIES: No clubbing, cyanosis or edema. NEUROLOGIC: The patient was awake, alert, following commands. A detailed neuro exam was not performed. LABORATORY DATA: Labs were reviewed. Arterial blood gas noted. White count normal, hemoglobin and hematocrit were normal. Toxicology screen for ethyl alcohol was negative. IMPRESSION: 1. Acute hypercapnic respiratory failure. 2. Chronic hypoxemic respiratory failure. 3. Chronic obstructive pulmonary disease. 4. Acute encephalopathy secondary to #1. 5. Chronic pain syndrome. 6. Morbid obesity. 7. Coronary artery disease with previous coronary artery bypass grafting. PLAN: 1. The patient has done well with BiPAP. He is now back to baseline, okay to discharge home. 2. I would avoid sedating medication. 2. Decrease use of Valium. 3. Decrease MS Contin per Dr. Mahmood. 4. Continue nebulized treatments at home. I do appreciate the privilege in sharing this patient's care. DENICE GUSMAN MD DR: ALEJANDRO/palma JOB#: [id number] / [id number] John Low MD
[2018-05-25] MEDS ORDERED: AMIT50TA PO (08:12)
[2018-05-25] MEDS ORDERED: BUPR150T15 PO (08:13)
== END 2018-05-08 18:35 | disposition home or self-care (01) | DRG 91 ==
LOC: ER 16:20 → 6 SOUTH 17:35 → CVICU 18:50
PROVIDERS: ADMIT Family Medicine; ATTEND Family Medicine
PROC: 5A09357 Assistance with Respiratory Ventilation, Less than 24 Consecutive Hours, Continuous Positive Airway Pressure (ICD-10-PCS; principal; 2018-05-07)
DX: G92 Toxic encephalopathy (principal); J96.22 Acute and chronic respiratory failure with hypercapnia; J96.21 Acute and chronic respiratory failure with hypoxia; E66.01 Morbid (severe) obesity due to excess calories; E78.00 Pure hypercholesterolemia, unspecified; E78.5 Hyperlipidemia, unspecified; F17.210 Nicotine dependence, cigarettes, uncomplicated; G47.10 Hypersomnia, unspecified; G89.4 Chronic pain syndrome; T40.2X5A Adverse effect of other opioids, initial encounter; T43.015A Adverse effect of tricyclic antidepressants, initial encounter; I10 Essential (primary) hypertension; I25.10 Atherosclerotic heart disease of native coronary artery without angina pectoris; I25.2 Old myocardial infarction; F32.9 Major depressive disorder, single episode, unspecified; F41.9 Anxiety disorder, unspecified; M54.5 Low back pain; J44.9 Chronic obstructive pulmonary disease, unspecified; K21.9 Gastro-esophageal reflux disease without esophagitis; Z68.33 Body mass index [BMI] 33.0-33.9, adult; Z79.01 Long term (current) use of anticoagulants; Z79.02 Long term (current) use of antithrombotics/antiplatelets; Z79.82 Long term (current) use of aspirin; Z82.49 Family history of ischemic heart disease and other diseases of the circulatory system; Z82.5 Family history of asthma and other chronic lower respiratory diseases; Z85.47 Personal history of malignant neoplasm of testis; Z86.711 Personal history of pulmonary embolism; Z95.1 Presence of aortocoronary bypass graft; Z95.5 Presence of coronary angioplasty implant and graft; Z99.81 Dependence on supplemental oxygen; Y92.89 Other specified places as the place of occurrence of the external cause
CPT/HCPCS: 36415; 36600; 70450; 70551; 80048; 80053; 80307; 81001; 82140; 82607; 82805; 84443; 85025; 85610; 93005; 94640; 94660; 94760; G0480; J7030; J7613; J7626; 99285-25; G0479

== ENCOUNTER 2018-10-04 16:34 | Inpatient (IN) | payer OTHER ==
[~2018-10-04] VITALS: Ht 170.2 cm; Wt 82.3 kg
[~2018-10-04 16:34] MED LIST changes: +BUPR150T15 PO; +FLUT1DIS IH; -GEMF600T4 PO; +GEMF600T8 PO; -HYDR-2766 PO; +HYDR-2769 PO; +OMEP40CA5 PO; +SIMV80TA17 PO; -SIMV80TA7 PO
[2018-10-04 17:00] LABS: BASO % 0 % (0-3); EOS # 0.1 x10^3/uL (0.0-0.7); EOS % 1 % (0-3); HEMATOCRIT 56.5 % (39.0-53.0); HEMOGLOBIN 18.9 g/dL (13.0-17.5); LYMPH % 9 % (24-48); MEAN CORPUSCULAR HEMOGLOBIN 32 pg (25-35); MEAN CORPUSCULAR HGB CONC 34 g/dL (31-37); MEAN CORPUSCULAR VOLUME 95 fL (79-100); MONO # 0.5 x10^3/uL (0.0-1.1); MONO % 5 % (0-9); NEUT # 8.5 x10^3uL (1.8-7.7); NEUT % 84 % (31-73); PLATELET COUNT 266 x10^3/uL (140-400); RED BLOOD COUNT 5.97 x10^6/uL (4.30-5.70); RED CELL DISTRIBUTION WIDTH 13.8 % (11.5-14.5); WHITE BLOOD COUNT 10.2 x10^3/uL (4.0-11.0)
--- NOTE | 2018-10-04 17:07 | PHYS DOC ---
Past Medical History Past Medical History: CAD, Cancer, COPD, High Cholesterol, Heart Disease, Hypertension, TN, Other Additional Past Medical Histor: TESTICLE CANCER, chronic back pain, PE Past Surgical History: Coronary Bypass Surgery, Other Additional Past Surgical Histo: ORECECTOMY,BACK, JAW, cardiac stents Alcohol Use: None Drug Use: None Adult General Chief Complaint Chief Complaint: SHORTNESS OF BREATH HPI HPI 63-year-old male with a history of COPD and pulmonary embolism presenting the emergency department today with shortness of breath and productive cough for the past 3 days. His is sharp mild to moderate pain with his cough with exertional dyspnea associated. Review of systems is negative for abdominal pain nausea vomiting diaphoresis fevers or chills. All other review of systems is negative unless otherwise noted in history of present illness. ED course: 63-year-old male presenting with shortness of breath and dyspnea found to be hypoxic in the emergency department. He is placed on nasal cannula which improved his oxygen saturations. He has diffuse wheezing bilaterally with prolonged at for a phase. We will give the patient IV Solu-Medrol and nebulizers. He is allergic to IV contrast and thus we cannot pursue CT angiography. He is on warfarin therapy for his previous pulmonary embolisms. We will get blood work and studies along with a chest x-ray and EKG. EKG obtained and reviewed by myself shows sinus rhythm with a tachycardic rate. ST segments show mild repolarization abnormalities in lead V2. T wave inversions in the inferior leads. Mild ST depression in lead 5 and the high lateral leads 1 and aVL. These are new compared to previous. Blood work shows normal white blood cell count. INR is within therapeutic range. On reexamination after nebulizers and steroids the patient is breathing much more comfortably on nasal cannula. We will admit the patient for COPD exacerbation. I spoke with Dr. Garcia who accepts patient for admission. Review of Systems Review of Systems SEE ABOVE. Current Medications Current Medications Current Medications Medications (Trade) Dose Ordered Sig/Adan Start Time Stop Time Status Last Admin Dose Admin Albuterol/ Ipratropium (Duoneb) 3 ml 1X ONCE 10/04/18 17:30 10/04/18 17:31 DC 10/04/18 17:04 3 ML Methylprednisolone Sodium Succinate (SOLU-Medrol 125MG VIAL) 125 mg 1X ONCE 10/04/18 17:30 10/04/18 17:31 DC 10/04/18 17:25 125 MG Allergies Allergies Allergies Coded Allergies Type Severity Reaction Last Updated Verified Iodinated Contrast- Oral and IV Dye Allergy Intermediate 03/07/14 Yes NSAIDS (Non-Steroidal Anti-Inflamma Allergy Intermediate GI 12/01/14 Yes ketorolac Allergy Intermediate GI 12/01/14 Yes tramadol Allergy Intermediate 11/11/15 Yes venom-honey bee Allergy Intermediate 03/07/14 Yes I S O L A T I O N *CONTACT* Allergy Unknown 12/01/14 Yes Physical Exam Physical Exam SEE ABOVE Constitutional: Well developed, well nourished, mild increased work of breathing which improved with NC HENT: Normocephalic, atraumatic, bilateral external ears normal, oropharynx moist, no oral exudates, nose normal. [] Eyes: PERRLA, EOMI, conjunctiva normal, no discharge. Neck: Normal range of motion, no tenderness, supple, no stridor. [] Cardiovascular:Heart rate regular rhythm, no murmur Lungs & Thorax: diffuse wheezing as above. Abdomen: Bowel sounds normal, soft, no tenderness, no masses, no pulsatile masses. [] Skin: Warm, dry, no erythema, no rash. [] Back: No tenderness, no CVA tenderness. Extremities: No tenderness, no cyanosis, no clubbing, ROM intact, no edema. [] Neurologic: Alert and oriented X 3, normal motor function, normal sensory function, no focal deficits noted. [] Psychologic: Affect normal, judgement normal, mood normal. [] Current Patient Data Vital Signs Vital Signs Date Time Temp Pulse Resp B/P (MAP) Pulse Ox O2 Delivery O2 Flow Rate FiO2 10/04/18 17:04 93 10/04/18 16:40 97.8 103 22 140/77 (98) 2.0 97.8 Lab Values Laboratory Tests Test 10/04/18 16:50 White Blood Count 10.2 x10^3/uL (4.0-11.0) Red Blood Count 5.97 x10^6/uL (4.30-5.70) H Hemoglobin 18.9 g/dL (13.0-17.5) H Hematocrit 56.5 % (39.0-53.0) H Mean Corpuscular Volume 95 fL (79-100) Mean Corpuscular Hemoglobin 32 pg (25-35) Mean Corpuscular Hemoglobin Concent 34 g/dL (31-37) Red Cell Distribution Width 13.8 % (11.5-14.5) Platelet Count 266 x10^3/uL (140-400) Neutrophils (%) (Auto) 84 % (31-73) H Lymphocytes (%) (Auto) 9 % (24-48) L Monocytes (%) (Auto) 5 % (0-9) Eosinophils (%) (Auto) 1 % (0-3) Basophils (%) (Auto) 0 % (0-3) Neutrophils # (Auto) 8.5 x10^3uL (1.8-7.7) H Lymphocytes # (Auto) 1.0 x10^3/uL (1.0-4.8) Monocytes # (Auto) 0.5 x10^3/uL (0.0-1.1) Eosinophils # (Auto) 0.1 x10^3/uL (0.0-0.7) Basophils # (Auto) 0.0 x10^3/uL (0.0-0.2) Prothrombin Time 28.6 SEC (11.7-14.0) H Prothrombin Time INR 2.7 (0.8-1.1) H PTT 40 SEC (24-38) H Sodium Level 142 mmol/L (136-145) Potassium Level 3.6 mmol/L (3.5-5.1) Chloride Level 99 mmol/L (98-107) Carbon Dioxide Level 36 mmol/L (21-32) H Anion Gap 7 (6-14) Blood Urea Nitrogen 9 mg/dL (8-26) Creatinine 1.2 mg/dL (0.7-1.3) Estimated GFR (Cockcroft-Gault) 61.3 Glucose Level 131 mg/dL (70-99) H Calcium Level 9.5 mg/dL (8.5-10.1) Total Bilirubin 0.5 mg/dL (0.2-1.0) Direct Bilirubin 0.2 mg/dL (0.0-0.2) Aspartate Amino Transferase (AST) 33 U/L (15-37) Alanine Aminotransferase (ALT) 21 U/L (16-63) Alkaline Phosphatase 133 U/L (46-116) H Troponin I Quantitative 0.018 ng/mL (0.000-0.055) HV-Tiv-S-Type Natriuretic Peptide 686 pg/mL (0-124) H Total Protein 8.7 g/dL (6.4-8.2) H Albumin 4.1 g/dL (3.4-5.0) Lipase 65 U/L (73-393) L Laboratory Tests 10/04/18 16:50 Laboratory Tests 10/04/18 16:50 EKG EKG [] Radiology/Procedures Radiology/Procedures [] Course & Med Decision Making Course & Med Decision Making Pertinent Labs and Imaging studies reviewed. (See chart for details) [] Dragon Disclaimer Dragon Disclaimer This electronic medical record was generated, in whole or in part, using a voice recognition dictation system. Departure Departure Impression: Primary Impression: COPD exacerbation Additional Impression: Hypoxia Disposition: ADMITTED INPATIENT Admitting Physician: Ady Perez Condition: IMPROVED Referrals: YOSSI RECIO MD (PCP) Problem Qualifiers ANDRES NAVARRO MD Oct 04, 2018 17:07
[2018-10-04 17:10] LABS: PROTHROMBIN TIME PATIENT 28.6 SEC (11.7-14.0)
[2018-10-04 17:14] LABS: CALCIUM 9.5 mg/dL (8.5-10.1); CREATININE 1.2 mg/dL (0.7-1.3); GFR 61.3; POTASSIUM 3.6 mmol/L (3.5-5.1)
[2018-10-04 17:22] LABS: ALBUMIN 4.1 g/dL (3.4-5.0); DIRECT BILIRUBIN 0.2 mg/dL (0.0-0.2); TOTAL BILIRUBIN 0.5 mg/dL (0.2-1.0); TOTAL PROTEIN 8.7 g/dL (6.4-8.2)
[2018-10-04] MEDS ORDERED: methylPREDNISolone SOD SUCC PF 125 MG/2 ML VIAL. IV ONE (17:30)
[2018-10-04] MEDS ORDERED: IPRATRPIUM/ALBUTEROL 0.5/2.5MG 3 ML NEBU. NEB ONE (17:30)
[2018-10-04] MEDS ORDERED: IV NORMAL SALINE 1000ML BAG 1,000 ML IV SCH (17:46)
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
[2018-10-04] MEDS ORDERED: ONDANSETRON PF 4 MG/2 ML VIAL. IV PRN (18:00)
--- NOTE | 2018-10-04 18:43 | RAD ---
CHEST AP ONLY Clinical History: SOA Technique: AP view of the chest was obtained at 10/04/2018 4:46 PM. Comparison: None. Findings: The cardiomediastinal silhouette is normal. The pulmonary vasculature is normal. The lungs and pleural margins are clear. Median sternotomy wires are seen. Impression: No evidence of an acute cardiopulmonary process. Electronically signed by: Santiago Vang III, MD (10/04/2018 6:40 PM) [facility]
[2018-10-04] MEDS: MORPHINE SULFATE 2 MG/ML VIAL. IV PRN (19:23)
--- NOTE | 2018-10-04 21:00 | NUR ---
pt admitted to room 250 with exab copd. a/ox4, cont of pain will medicate. oriented to staff, room, unit and explained poc. call light in reach will cont to monitor. pmrn
[2018-10-04 21:07] VITALS: BP 146/90
[2018-10-04 22:24] VITALS: BP 133/79
[2018-10-04] MEDS ORDERED: diazePAM 5 MG TABLET PO ONE (22:30)
[2018-10-04] MEDS ORDERED: GEMFIBROZIL 600 MG TABLET. PO ONE (22:30)
[2018-10-04] MEDS ORDERED: WARFARIN 5 MG TABLET. PO ONE (22:30)
[2018-10-04] MEDS ORDERED: METOPROLOL TART IMMED RELEASE 50 MG TABLET. PO ONE (22:30)
[2018-10-04] MEDS ORDERED: AMITRIPTYLINE HCL 50 MG TABLET PO ONE (22:30)
[2018-10-04] MEDS ORDERED: MORPHINE ER 15 MG TABLET.ER PO ONE (22:30)
[2018-10-04] MEDS ORDERED: ATORVASTATIN CALCIUM 40 MG TABLET. PO ONE (22:30)
[2018-10-04] MEDS: DOXYCYCLINE HYCLATE 100 MG in IV DEXTROSE 5% 100ML 100 ML IV SCH (22:49)
[2018-10-04] MEDS: methylPREDNISolone SOD SUCC PF 40 MG/ML VIAL. IV SCH (22:54)
[2018-10-04] MEDS ORDERED: guaiFENesin DM 200MG/20MG 10 ML SYRUP PO PRN (23:45)
[2018-10-05 03:05] VITALS: BP 117/52
[2018-10-05] MEDS: methylPREDNISolone SOD SUCC PF 40 MG/ML VIAL. IV SCH ×3 (05:52→21:48)
[2018-10-05 07:00] VITALS: BP 124/73
[2018-10-05 07:25] LABS: BASO % 0 % (0-3); EOS % 0 % (0-3); HEMATOCRIT 52.9 % (39.0-53.0); HEMOGLOBIN 17.6 g/dL (13.0-17.5); LYMPH # 0.5 x10^3/uL (1.0-4.8); LYMPH % 5 % (24-48); MEAN CORPUSCULAR HEMOGLOBIN 32 pg (25-35); MEAN CORPUSCULAR HGB CONC 33 g/dL (31-37); MEAN CORPUSCULAR VOLUME 96 fL (79-100); MONO # 0.1 x10^3/uL (0.0-1.1); MONO % 1 % (0-9); NEUT # 8.6 x10^3uL (1.8-7.7); NEUT % 94 % (31-73); PLATELET COUNT 228 x10^3/uL (140-400); RED BLOOD COUNT 5.51 x10^6/uL (4.30-5.70); RED CELL DISTRIBUTION WIDTH 13.6 % (11.5-14.5); WHITE BLOOD COUNT 9.2 x10^3/uL (4.0-11.0)
[2018-10-05 07:40] LABS: CALCIUM 9.3 mg/dL (8.5-10.1); CREATININE 0.8 mg/dL (0.7-1.3); POTASSIUM 4.4 mmol/L (3.5-5.1)
[2018-10-05] MEDS: IPRATRPIUM/ALBUTEROL 0.5/2.5MG 3 ML NEBU. NEB SCH ×4 (07:57→20:19)
[2018-10-05] MEDS ORDERED: NON FORMULARY ITEM (Fluticasone/Salmeterol (Advair 100-50 Diskus) 1 PUFF) IH SCH (09:00)
[2018-10-05] MEDS: buPROPion XL 150 MG TAB.ER.24H. PO SCH (09:01)
[2018-10-05] MEDS: ASPIRIN ENTERIC COATED 81 MG TABLET.DR. PO SCH (09:01)
[2018-10-05] MEDS: GEMFIBROZIL 600 MG TABLET. PO SCH ×2 (09:01→21:49)
[2018-10-05] MEDS: FUROSEMIDE 40 MG TABLET. PO SCH (09:01)
[2018-10-05] MEDS: PANTOPRAZOLE 40 MG TABLET.DR. PO SCH (09:01)
[2018-10-05] MEDS: POTASSIUM CHLORIDE 20 MEQ TABLET.ER. PO SCH (09:02)
[2018-10-05] MEDS: METOPROLOL TART IMMED RELEASE 50 MG TABLET. PO SCH ×2 (09:02→21:00)
[2018-10-05] MEDS: MORPHINE ER 15 MG TABLET.ER PO SCH ×2 (09:03→21:49)
[2018-10-05] MEDS: ISOSORBIDE MONONITRATE ER 30 MG TAB.ER.24H PO SCH (09:03)
[2018-10-05] MEDS: DOXYCYCLINE HYCLATE 100 MG in IV DEXTROSE 5% 100ML 100 ML IV SCH ×2 (09:04→21:47)
--- NOTE | 2018-10-05 09:40 | PDOC2 ---
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 Hurt SOURCE Source: Chart review, Patient HISTORY OF PRESENT ILLNESS HISTORY OF PRESENT ILLNESS This is a 63 yo male, with a history of CAD s/p CABG and subsequent stents, ICM , hypertension, and PE on chronic warfarin, who presented secondary shortness of breath and cough. Patient reports having congestion and cough productive of yellow/whitish sputum for the last 2-3 weeks. Has progressively worsened. Has had some mild SOA for the last week and subjective fevers. No chest pain, palpitations, dizziness, diaphoresis, or nausea.vomiting. Was noted to by hypoxic and wheezy in ED. PAST MEDICAL HISTORY Cardiovascular: CAD, CHF, HTN, Hyperlipidemia Pulmonary: COPD, Other (PE, SILVINA) CENTRAL NERVOUS SYSTEM: Other (No pertinent hx) GI: GERD Heme/Onc: Cancer (testicluar ) Psych: Anxiety, Depression PAST SURGICAL HISTORY Past Surgical History: CABG, Other (cervical spine surgery, back surgery) FAMILY HISTORY Family History: Coronary Artery Disease, Hypertension SOCIAL HISTORY Smoke: Quit (2002) ALCOHOL: none Drugs: None Lives: with Family CURRENT MEDICATIONS CURRENT MEDICATIONS Current Medications Medications (Trade) Dose Ordered Sig/Adan Route PRN Reason Start Time Stop Time Status Last Admin Dose Admin Albuterol/ Ipratropium (Duoneb) 3 ml 1X ONCE NEB 10/04/18 17:30 10/04/18 17:31 DC 10/04/18 17:04 Methylprednisolone Sodium Succinate (SOLU-Medrol 125MG VIAL) 125 mg 1X ONCE IV 10/04/18 17:30 10/04/18 17:31 DC 10/04/18 17:25 Morphine Sulfate (Morphine Sulfate) 2 mg PRN Q2HR PRN IV PAIN 10/04/18 18:00 10/05/18 17:59 10/04/18 19:23 Aspirin (Ecotrin) 81 mg DAILYWBKFT PO 10/05/18 08:00 10/05/18 09:01 Bupropion HCl (Wellbutrin Xl) 150 mg DAILY PO 10/05/18 09:00 10/05/18 09:01 Furosemide (Lasix) 40 mg DAILY PO 10/05/18 09:00 10/05/18 09:01 Gemfibrozil (Lopid) 600 mg BID PO 10/05/18 09:00 10/05/18 09:01 Isosorbide Mononitrate (Imdur) 30 mg DAILYWBKFT PO 10/05/18 08:00 10/05/18 09:03 Metoprolol Tartrate (Lopressor) 50 mg BID PO 10/05/18 09:00 10/05/18 09:02 Morphine Sulfate (Ms Contin) 15 mg BID PO 10/05/18 09:00 10/05/18 09:03 Potassium Chloride (Klor-Con) 20 meq DAILY08 PO 10/05/18 08:00 10/05/18 09:02 Pantoprazole Sodium (Protonix) 40 mg DAILYAC PO 10/05/18 07:30 10/05/18 09:01 Albuterol/ Ipratropium (Duoneb) 3 ml RTQID NEB 10/05/18 08:00 10/05/18 07:57 Doxycycline Hyclate 100 mg/ Dextrose 100 ml @ 50 mls/hr Q12HR IV 10/04/18 22:00 10/05/18 09:04 Methylprednisolone Sodium Succinate (SOLU-Medrol 40MG VIAL) 80 mg Q8HRS IV 10/04/18 22:00 10/05/18 05:52 Warfarin Sodium (Coumadin) 5 mg 1X ONCE PO 10/04/18 22:30 10/04/18 22:31 DC 10/04/18 22:45 Amitriptyline HCl (Elavil) 100 mg 1X ONCE PO 10/04/18 22:30 10/04/18 22:31 DC 10/04/18 22:44 Diazepam (Valium) 5 mg 1X ONCE PO 10/04/18 22:30 10/04/18 22:31 DC 10/04/18 22:44 Gemfibrozil (Lopid) 600 mg 1X ONCE PO 10/04/18 22:30 10/04/18 22:31 DC 10/04/18 22:45 Atorvastatin Calcium (Lipitor) 40 mg 1X ONCE PO 10/04/18 22:30 10/04/18 22:31 DC 10/04/18 22:44 Metoprolol Tartrate (Lopressor) 50 mg 1X ONCE PO 10/04/18 22:30 10/04/18 22:31 DC 10/04/18 22:48 Morphine Sulfate (Ms Contin) 15 mg 1X ONCE PO 10/04/18 22:30 10/04/18 22:31 DC 10/04/18 22:47 ALLERGIES ALLERGIES: Coded Allergies: Iodinated Contrast- Oral and IV Dye (Verified Allergy, Intermediate, ) NSAIDS (Non-Steroidal Anti-Inflamma (Verified Allergy, Intermediate, GI, ) ketorolac (Verified Allergy, Intermediate, GI, 12/01/14) tramadol (Verified Allergy, Intermediate, 11/11/15) tolerates oxycodone and morphine venom-honey bee (Verified Allergy, Intermediate, 03/07/14) ROS Review of System 14 point ROS conducted with pertinent positives noted above in HPI. PHYSICAL EXAM General: Alert, Oriented X3, Cooperative HEENT: Atraumatic, Mucous membr. moist/pink Lungs: Other (rhonchi- improved with clearing of throat) Heart: Regular rate, Normal S1, Normal S2 Abdomen: Soft, No tenderness Extremities: Other (trace LE edema ) Skin: No significant lesion Neuro: Normal speech, Sensation intact Psych/Mental Status: Mental status NL, Mood NL MUSCULOSKELETAL: Osteoarthritic changes both hands VITALS VITALS Vital Signs Date Time Temp Pulse Resp B/P (MAP) Pulse Ox O2 Delivery O2 Flow Rate FiO2 10/05/18 09:03 20 93 Nasal Cannula 5.0 10/05/18 09:03 81 124/73 10/05/18 07:00 98.1 98.1 LABS Lab: Laboratory Tests Test 10/04/18 16:50 10/04/18 21:10 10/04/18 23:45 10/05/18 07:07 White Blood Count 10.2 x10^3/uL (4.0-11.0) 9.2 x10^3/uL (4.0-11.0) Red Blood Count 5.97 x10^6/uL (4.30-5.70) 5.51 x10^6/uL (4.30-5.70) Hemoglobin 18.9 g/dL (13.0-17.5) 17.6 g/dL (13.0-17.5) Hematocrit 56.5 % (39.0-53.0) 52.9 % (39.0-53.0) Mean Corpuscular Volume 95 fL (79-100) 96 fL (79-100) Mean Corpuscular Hemoglobin 32 pg (25-35) 32 pg (25-35) Mean Corpuscular Hemoglobin Concent 34 g/dL (31-37) 33 g/dL (31-37) Red Cell Distribution Width 13.8 % (11.5-14.5) 13.6 % (11.5-14.5) Platelet Count 266 x10^3/uL (140-400) 228 x10^3/uL (140-400) Neutrophils (%) (Auto) 84 % (31-73) 94 % (31-73) Lymphocytes (%) (Auto) 9 % (24-48) 5 % (24-48) Monocytes (%) (Auto) 5 % (0-9) 1 % (0-9) Eosinophils (%) (Auto) 1 % (0-3) 0 % (0-3) Basophils (%) (Auto) 0 % (0-3) 0 % (0-3) Neutrophils # (Auto) 8.5 x10^3uL (1.8-7.7) 8.6 x10^3uL (1.8-7.7) Lymphocytes # (Auto) 1.0 x10^3/uL (1.0-4.8) 0.5 x10^3/uL (1.0-4.8) Monocytes # (Auto) 0.5 x10^3/uL (0.0-1.1) 0.1 x10^3/uL (0.0-1.1) Eosinophils # (Auto) 0.1 x10^3/uL (0.0-0.7) 0.0 x10^3/uL (0.0-0.7) Basophils # (Auto) 0.0 x10^3/uL (0.0-0.2) 0.0 x10^3/uL (0.0-0.2) Prothrombin Time 28.6 SEC (11.7-14.0) Prothromb Time International Ratio 2.7 (0.8-1.1) Activated Partial Thromboplast Time 40 SEC (24-38) Sodium Level 142 mmol/L (136-145) 141 mmol/L (136-145) Potassium Level 3.6 mmol/L (3.5-5.1) 4.4 mmol/L (3.5-5.1) Chloride Level 99 mmol/L (98-107) 99 mmol/L (98-107) Carbon Dioxide Level 36 mmol/L (21-32) 36 mmol/L (21-32) Anion Gap 7 (6-14) 6 (6-14) Blood Urea Nitrogen 9 mg/dL (8-26) 13 mg/dL (8-26) Creatinine 1.2 mg/dL (0.7-1.3) 0.8 mg/dL (0.7-1.3) Estimated GFR (Cockcroft-Gault) 61.3 98.0 Glucose Level 131 mg/dL (70-99) 143 mg/dL (70-99) Calcium Level 9.5 mg/dL (8.5-10.1) 9.3 mg/dL (8.5-10.1) Total Bilirubin 0.5 mg/dL (0.2-1.0) Direct Bilirubin 0.2 mg/dL (0.0-0.2) Aspartate Amino Transf (AST/SGOT) 33 U/L (15-37) Alanine Aminotransferase (ALT/SGPT) 21 U/L (16-63) Alkaline Phosphatase 133 U/L (46-116) Troponin I Quantitative 0.018 ng/mL (0.000-0.055) 0.034 ng/mL (0.000-0.055) 0.027 ng/mL (0.000-0.055) YJ-Wsf-M-Type Natriuretic Peptide 686 pg/mL (0-124) Total Protein 8.7 g/dL (6.4-8.2) Albumin 4.1 g/dL (3.4-5.0) Lipase 65 U/L (73-393) ECHOCARDIOGRAM ECHOCARDIOGRAM <Conclusion> The left ventricle is normal size. There is normal left ventricular wall thickness. Left ventricle systolic function is normal. The Ejection Fraction is 55-60 %. The aortic valve is mildly thickened with minimal calcification noted. The mitral valve is normal in structure and function. Doppler and Color Flow revealed no significant tricuspid valve regurgitation noted. Doppler and Color Flow revealed trace pulmonic valvular regurgitation. DATE: 03/07/14 1557 STRESS TEST STRESS TEST Conclusion 1. Regadenoson cardioisotope stress test did not show any evidence of ischemia or infarct. 2. Normal left ventricular systolic function with ejection fraction calculated at 56%. 3. Low risk for cardiac events. DATE: 05/27/18 1306 HEART CATH HEART CATH Conclusion This pt has severe [place] vessel CAD and also graft disease. Only the BRUCE graft to the LAD is patent. Would get a surgical consult to evaluate for redoCABGS DATE: 05/21/16 1558 ASSESSMENT/PLAN ASSESSMENT/PLAN 1. Acute on chronic respiratory failure secondary to AECOPD 2. CAD s/p CABG x3 in 2002. Cath 2016 showed 1/3 grafts patent. Was considered for redo CABG, but patient declined. MPI 05/31 without any evidence of ischemia or infarct 3. Chronic diastolic CHF; LVEF 56% per recent MPI. NT Pro BNP mildly elevated, but CXR without vascular congestion. Doubt overt HF. 4. ICM; LVEF previously 35% per cath in 2016. LVEF recovery more recently as per MPI 5. Hypertension; controlled 6. Hyperlipidemia; statin 7. H/o PE and chronic warfarin therapy. INR 2.7 Recommendations Check lipids Obtain echo to assess LV systolic function. Secondary prevention measures; ASA, BB, statin Continue oral Lasix. Supportive care Lung optimization as per pulmonary Further recommendations pending above. OSVALDO SERNA MD 10/05/182021: CARDIAC CONSULT ASSESSMENT/PLAN ASSESSMENT/PLAN Patient seen and examined. Agree with QUILL SKINNER's assessment and plan. Acute resp failure secondary to acute COPD exacerbation. CAD s/p CABG with last cath results noted above - appears stable clinically Ischemic cardiomyopathy clinically well compensated Agree with 2D echo to assess LV function Thank you for your consultation QUYEN STEVE APRN Oct 05, 2018 09:40 OSVALDO SERNA MD Oct 05, 2018 20:22
--- NOTE | 2018-10-05 10:33 | EKG ---
[facility] [address] [place] [address] Test Date: 2018-10-04 Test Time: 16:44:48 Pat Name: JOHN AVILA Department: Room: 250 1 Gender: M Cost Recorder: ANIKET : 1955 Requested By: ANDRES NAVARRO Order Number: [id number] Reading MD: Yandel Marsh MD Measurements Intervals [place] Rate: 103 P: 38 TN: 178 QRS: 61 QRSD: 112 T: -51 QT: 322 QTc: 424 Interpretive Statements SINUS TACHYCARDIA CONSIDER PRIOR INFERIOR INFARCT NON-SPECIFIC ST/T CHANGES Electronically Signed On 10-05-2018 10:57:42 CDT by Yandel Marsh MD
[2018-10-05 11:00] VITALS: BP 130/64
--- NOTE | 2018-10-05 11:59 | NUR ---
SS following for discharge planning. SS reviewed pt chart. Pt is from home with spouse and is currently requiring oxygen and IV antibiotics. SS will continue to follow for discharge planning.
[2018-10-05] MEDS: MORPHINE SULFATE 2 MG/ML VIAL. IV PRN (12:22)
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
--- NOTE | 2018-10-05 14:29 | PDOC ---
PULMONARY PROGRESS NOTES Vitals Vital Signs Date Time Temp Pulse Resp B/P (MAP) Pulse Ox O2 Delivery O2 Flow Rate FiO2 10/05/18 12:39 96 Nasal Cannula 5.0 10/05/18 12:22 20 10/05/18 11:00 97.8 92 130/64 (86) 97.8 General: Alert, No acute distress Lungs: Clear Cardiovascular: S1 Abdomen: Soft Extremities: Other Labs Laboratory Tests Test 10/04/18 16:50 10/04/18 21:10 10/04/18 23:45 10/05/18 07:07 White Blood Count 10.2 x10^3/uL (4.0-11.0) 9.2 x10^3/uL (4.0-11.0) Red Blood Count 5.97 x10^6/uL (4.30-5.70) 5.51 x10^6/uL (4.30-5.70) Hemoglobin 18.9 g/dL (13.0-17.5) 17.6 g/dL (13.0-17.5) Hematocrit 56.5 % (39.0-53.0) 52.9 % (39.0-53.0) Mean Corpuscular Volume 95 fL (79-100) 96 fL (79-100) Mean Corpuscular Hemoglobin 32 pg (25-35) 32 pg (25-35) Mean Corpuscular Hemoglobin Concent 34 g/dL (31-37) 33 g/dL (31-37) Red Cell Distribution Width 13.8 % (11.5-14.5) 13.6 % (11.5-14.5) Platelet Count 266 x10^3/uL (140-400) 228 x10^3/uL (140-400) Neutrophils (%) (Auto) 84 % (31-73) 94 % (31-73) Lymphocytes (%) (Auto) 9 % (24-48) 5 % (24-48) Monocytes (%) (Auto) 5 % (0-9) 1 % (0-9) Eosinophils (%) (Auto) 1 % (0-3) 0 % (0-3) Basophils (%) (Auto) 0 % (0-3) 0 % (0-3) Neutrophils # (Auto) 8.5 x10^3uL (1.8-7.7) 8.6 x10^3uL (1.8-7.7) Lymphocytes # (Auto) 1.0 x10^3/uL (1.0-4.8) 0.5 x10^3/uL (1.0-4.8) Monocytes # (Auto) 0.5 x10^3/uL (0.0-1.1) 0.1 x10^3/uL (0.0-1.1) Eosinophils # (Auto) 0.1 x10^3/uL (0.0-0.7) 0.0 x10^3/uL (0.0-0.7) Basophils # (Auto) 0.0 x10^3/uL (0.0-0.2) 0.0 x10^3/uL (0.0-0.2) Prothrombin Time 28.6 SEC (11.7-14.0) Prothromb Time International Ratio 2.7 (0.8-1.1) Activated Partial Thromboplast Time 40 SEC (24-38) Sodium Level 142 mmol/L (136-145) 141 mmol/L (136-145) Potassium Level 3.6 mmol/L (3.5-5.1) 4.4 mmol/L (3.5-5.1) Chloride Level 99 mmol/L (98-107) 99 mmol/L (98-107) Carbon Dioxide Level 36 mmol/L (21-32) 36 mmol/L (21-32) Anion Gap 7 (6-14) 6 (6-14) Blood Urea Nitrogen 9 mg/dL (8-26) 13 mg/dL (8-26) Creatinine 1.2 mg/dL (0.7-1.3) 0.8 mg/dL (0.7-1.3) Estimated GFR (Cockcroft-Gault) 61.3 98.0 Glucose Level 131 mg/dL (70-99) 143 mg/dL (70-99) Calcium Level 9.5 mg/dL (8.5-10.1) 9.3 mg/dL (8.5-10.1) Total Bilirubin 0.5 mg/dL (0.2-1.0) Direct Bilirubin 0.2 mg/dL (0.0-0.2) Aspartate Amino Transf (AST/SGOT) 33 U/L (15-37) Alanine Aminotransferase (ALT/SGPT) 21 U/L (16-63) Alkaline Phosphatase 133 U/L (46-116) Troponin I Quantitative 0.018 ng/mL (0.000-0.055) 0.034 ng/mL (0.000-0.055) 0.027 ng/mL (0.000-0.055) XC-Fgw-C-Type Natriuretic Peptide 686 pg/mL (0-124) Total Protein 8.7 g/dL (6.4-8.2) Albumin 4.1 g/dL (3.4-5.0) Lipase 65 U/L (73-393) Laboratory Tests Test 10/04/18 16:50 10/04/18 21:10 10/04/18 23:45 10/05/18 07:07 White Blood Count 10.2 x10^3/uL (4.0-11.0) 9.2 x10^3/uL (4.0-11.0) Red Blood Count 5.97 x10^6/uL (4.30-5.70) 5.51 x10^6/uL (4.30-5.70) Hemoglobin 18.9 g/dL (13.0-17.5) 17.6 g/dL (13.0-17.5) Hematocrit 56.5 % (39.0-53.0) 52.9 % (39.0-53.0) Mean Corpuscular Volume 95 fL (79-100) 96 fL (79-100) Mean Corpuscular Hemoglobin 32 pg (25-35) 32 pg (25-35) Mean Corpuscular Hemoglobin Concent 34 g/dL (31-37) 33 g/dL (31-37) Red Cell Distribution Width 13.8 % (11.5-14.5) 13.6 % (11.5-14.5) Platelet Count 266 x10^3/uL (140-400) 228 x10^3/uL (140-400) Neutrophils (%) (Auto) 84 % (31-73) 94 % (31-73) Lymphocytes (%) (Auto) 9 % (24-48) 5 % (24-48) Monocytes (%) (Auto) 5 % (0-9) 1 % (0-9) Eosinophils (%) (Auto) 1 % (0-3) 0 % (0-3) Basophils (%) (Auto) 0 % (0-3) 0 % (0-3) Neutrophils # (Auto) 8.5 x10^3uL (1.8-7.7) 8.6 x10^3uL (1.8-7.7) Lymphocytes # (Auto) 1.0 x10^3/uL (1.0-4.8) 0.5 x10^3/uL (1.0-4.8) Monocytes # (Auto) 0.5 x10^3/uL (0.0-1.1) 0.1 x10^3/uL (0.0-1.1) Eosinophils # (Auto) 0.1 x10^3/uL (0.0-0.7) 0.0 x10^3/uL (0.0-0.7) Basophils # (Auto) 0.0 x10^3/uL (0.0-0.2) 0.0 x10^3/uL (0.0-0.2) Prothrombin Time 28.6 SEC (11.7-14.0) Prothromb Time International Ratio 2.7 (0.8-1.1) Activated Partial Thromboplast Time 40 SEC (24-38) Sodium Level 142 mmol/L (136-145) 141 mmol/L (136-145) Potassium Level 3.6 mmol/L (3.5-5.1) 4.4 mmol/L (3.5-5.1) Chloride Level 99 mmol/L (98-107) 99 mmol/L (98-107) Carbon Dioxide Level 36 mmol/L (21-32) 36 mmol/L (21-32) Anion Gap 7 (6-14) 6 (6-14) Blood Urea Nitrogen 9 mg/dL (8-26) 13 mg/dL (8-26) Creatinine 1.2 mg/dL (0.7-1.3) 0.8 mg/dL (0.7-1.3) Estimated GFR (Cockcroft-Gault) 61.3 98.0 Glucose Level 131 mg/dL (70-99) 143 mg/dL (70-99) Calcium Level 9.5 mg/dL (8.5-10.1) 9.3 mg/dL (8.5-10.1) Total Bilirubin 0.5 mg/dL (0.2-1.0) Direct Bilirubin 0.2 mg/dL (0.0-0.2) Aspartate Amino Transf (AST/SGOT) 33 U/L (15-37) Alanine Aminotransferase (ALT/SGPT) 21 U/L (16-63) Alkaline Phosphatase 133 U/L (46-116) Troponin I Quantitative 0.018 ng/mL (0.000-0.055) 0.034 ng/mL (0.000-0.055) 0.027 ng/mL (0.000-0.055) OJ-Qpy-P-Type Natriuretic Peptide 686 pg/mL (0-124) Total Protein 8.7 g/dL (6.4-8.2) Albumin 4.1 g/dL (3.4-5.0) Lipase 65 U/L (73-393) Medications Active Scripts Medications Dose Route/Sig Max Daily Dose Days Date Category Dose Instructions Wellbutrin Xl (Bupropion Hcl) 150 Mg Tab.er.24h 150 Mg PO DAILY 05/25/18 Reported Amitriptyline Hcl 50 Mg Tablet 1 Tab PO QHS 05/25/18 Reported Advair 100-50 Diskus (Fluticasone/Salmeterol) 1 Each Disk.w.dev 1 Puff IH BID 05/08/18 Reported Gemfibrozil 600 Mg Tablet 1 Tab PO BID 05/08/18 Reported Omeprazole 40 Mg Capsule. 1 Cap PO DAILY 05/08/18 Reported Lipitor (Atorvastatin Calcium) 40 Mg Tablet 1 Tab PO DAILY 05/08/18 Reported Isosorbide Mononitrate Er (Isosorbide Mononitrate) 30 Mg Tab.er.24h 1 Tab PO [id number] 04/15/17 Reported Aspir 81 (Aspirin) 81 Mg Tablet. 1 Tab PO DAILY 05/17/16 Reported Gave this morning Take tomorrow morning Coumadin (Warfarin Sodium) 5 Mg Tablet 1 Tab PO DAILY 11/10/15 Reported Gave yesterday Take this evening Metoprolol Tartrate 50 Mg Tablet 50 Mg PO BID 03/29/15 Reported Gave this morning Take tonight Ms Contin (Morphine Sulfate) 30 Mg Tablet.er 15 Mg PO BID 11/04/13 Reported Gave at 1:56 Take again tonight Potassium Chloride 20 Meq Tab.er.prt 20 Meq PO DAILY 11/03/13 Reported Gave this morning Take again tomorrow Lasix (Furosemide) 40 Mg Tablet 40 Mg PO DAILY 11/03/13 Reported Gave this morning Take tomorrow morning Impression . A/C RESP FAILURE AECOPD SEE ORDERS THANKS DENICE GUSMAN MD Oct 05, 2018 14:29
[2018-10-05 14:57] VITALS: BP 97/46
[2018-10-05] MEDS ORDERED: WARFARIN 5 MG TABLET. PO SCH (16:00)
[2018-10-05 19:00] VITALS: BP 87/52
[2018-10-05] MEDS: BUDESONIDE 0.5 MG/2 ML NEBU. NEB SCH ×2 (20:19→20:23)
--- NOTE | 2018-10-05 20:34 | CONS ---
DATE OF CONSULTATION: 10/05/2018 ATTENDING PHYSICIAN: Dr. Garcia. REASON FOR CONSULTATION: The patient seen in pulmonary consultation at the request of Dr. Garcia for increasing shortness of breath. The patient is a 63-year-old white male with a history of tobacco use, quit approximately a year or two ago, smoked for well over 40 years, presented with increasing shortness of breath, cough productive of discolored sputum. He has been more short of breath over the last 2-3 days. He normally wears 2 liters of oxygen at home. He is using some metered dose inhalers. He is not up-to-date on his flu vaccination. He denies fever, chills, nausea, vomiting, diarrhea. PAST MEDICAL HISTORY: COPD; tobacco dependence, in remission; coronary artery disease; chronic heart failure; hypertension; hyperlipidemia; obstructive sleep apnea; gastroesophageal reflux; anxiety; depression. PAST SURGICAL HISTORY: Coronary artery bypass grafting. CURRENT MEDICATIONS: List was reviewed. ALLERGIES: Please see the list. SOCIAL HISTORY: He quit tobacco several years ago. Denies daily use of alcohol. FAMILY HISTORY: No family history of lung disorders. PHYSICAL EXAMINATION: GENERAL: The patient appeared to be his stated age. He was in no respiratory distress, currently on 5 liters of oxygen supplementation. HEENT: Eyes, the sclerae were nonicteric. NECK: Jugular venous distention could not be assessed secondary to body habitus. CHEST: Full expansion. LUNGS: Positive for expiratory wheeze, rhonchi. CARDIOVASCULAR: Regular rate and rhythm with S1, S2, no S3. ABDOMEN: Soft, nontender, nondistended. EXTREMITIES: No clubbing, cyanosis or edema. NEUROLOGIC: The patient was awake, alert, following commands. A detailed neuro exam was not performed. LABORATORY DATA: Reviewed. INR was 2.7. White count was normal. Troponin level was not elevated. Chest x-ray revealed no acute infiltrates. IMPRESSION: 1. Acute on chronic respiratory failure. 2. Acute exacerbation of chronic obstructive pulmonary disease. 3. Tobacco dependence, in remission. 4. Coronary artery disease with previous coronary artery bypass grafting. 5. History of pulmonary embolism. 6. Chronic pain. PLAN: 1. Agree with current medical management and IV steroids, IV antibiotics. 2. Oxygen supplementation. 3. Continue anticoagulation. 4. If the patient has not had a CT chest in the past 12 months, we will obtain one. I do appreciate the privilege in sharing in this patient's care. DENICE GUSMAN MD DR: Angeles JOB#: [id number] / [id number]
[2018-10-05] MEDS ORDERED: AMITRIPTYLINE HCL 50 MG TABLET PO SCH (21:00)
[2018-10-05] MEDS ORDERED: ATORVASTATIN CALCIUM 40 MG TABLET. PO SCH (21:00)
[2018-10-05 23:00] VITALS: BP 102/57
[2018-10-06] MEDS: MORPHINE SULFATE 2 MG/ML VIAL. IV PRN ×3 (01:34→12:03)
[2018-10-06 03:00] VITALS: BP 80/34
[2018-10-06] MEDS: methylPREDNISolone SOD SUCC PF 40 MG/ML VIAL. IV SCH ×2 (06:12→14:09)
[2018-10-06 06:23] LABS: BASO % 0 % (0-3); EOS % 0 % (0-3); HEMATOCRIT 44.9 % (39.0-53.0); HEMOGLOBIN 14.8 g/dL (13.0-17.5); LYMPH # 0.6 x10^3/uL (1.0-4.8); LYMPH % 5 % (24-48); MEAN CORPUSCULAR HEMOGLOBIN 32 pg (25-35); MEAN CORPUSCULAR HGB CONC 33 g/dL (31-37); MEAN CORPUSCULAR VOLUME 96 fL (79-100); MONO # 0.6 x10^3/uL (0.0-1.1); MONO % 4 % (0-9); NEUT # 12.4 x10^3uL (1.8-7.7); NEUT % 91 % (31-73); PLATELET COUNT 223 x10^3/uL (140-400); RED BLOOD COUNT 4.68 x10^6/uL (4.30-5.70); RED CELL DISTRIBUTION WIDTH 13.4 % (11.5-14.5); WHITE BLOOD COUNT 13.6 x10^3/uL (4.0-11.0)
[2018-10-06 06:53] LABS: CALCIUM 9.3 mg/dL (8.5-10.1); CREATININE 0.9 mg/dL (0.7-1.3); GFR 85.5; POTASSIUM 4.3 mmol/L (3.5-5.1)
[2018-10-06 06:56] LABS: PROTHROMBIN TIME PATIENT 46.4 SEC (11.7-14.0)
[2018-10-06 06:59] LABS: CHOLESTEROL/HDL RATIO 4.5
[2018-10-06 07:00] VITALS: BP 93/44
[2018-10-06] MEDS: ISOSORBIDE MONONITRATE ER 30 MG TAB.ER.24H PO SCH (08:00)
[2018-10-06 08:22] LABS: % BANDS 6 % (0-9); % LYMPHS 8 % (24-48); % MONOS 5 % (0-10); % SEGS 81 % (35-66); PLT ESTIMATE ADEQUATE (ADEQUATE)
[2018-10-06] MEDS ORDERED: PHYTONADIONE 10 MG/ML ORAL SOLUTION. PO ONE (08:30)
--- NOTE | 2018-10-06 08:59 | CARD ---
MR#: [id number] Date of Study: 10/06/2018 Ordering Physician: QUYEN TSEVE, Referring Physician: AMARJIT TERRY Tech: Shirley Lynne GISELA APPROVED REPORT EXAM: Two-dimensional and M-mode echocardiogram with Doppler and color Doppler. Other Information Quality : AverageHR: 80bpm Rhythm : NSR INDICATION CAD 2D DIMENSIONS RVDd2.9 (2.9-3.5cm)Left Atrium(2D)3.7 (1.6-4.0cm) IVSd1.5 (0.7-1.1cm)Aortic Root(2D)2.8 (2.0-3.7cm) LVDd4.9 (3.9-5.9cm)LVOT Diameter1.8 (1.8-2.4cm) PWd1.1 (0.7-1.1cm)LVDs3.6 (2.5-4.0cm) FS (%) 26.0 %SV56.9 ml LVEF(%)51.0 (>50%) M-Mode DIMENSIONS Left Atrium(MM)3.68 (2.5-4.0cm)Aortic Root3.03 (2.2-3.7cm) Aortic Valve AoV Peak Andrés.172.0cm/sAoV VTI35.2cm AO Peak GR.11.8mmHgLVOT Peak Andrés.94.8cm/s AO Mean GR.6mmHgAVA (VMAX)1.44cm2 KHOI (VTI)1.50cm2 Mitral Valve MV E Sdedmyqz753.1cm/sMV E Peak Gr.6mmHg MV DECEL [id number] A Ypuqpief51.3cm/s MV E Mean Gr.3mmHgE/A Ratio1.3 MV A Jvxulgmn103bq Pulmonary Valve PV Peak Gewdplvg660.9cm/s Tricuspid Valve TR P. Xrphrcus176sd/sRAP UVYVCYMW2izQi TR Peak Gr.54udRqDOAL63keJz Pulmonary Vein S1 Ozjikbqy28.8cm/sD2 Eqsvumil72.5cm/s PVa qfihetcc94rlmk LEFT VENTRICLE The left ventricle is normal size. Proximal septal thickening is noted. Left ventricle systolic funct ion is low normal. The Ejection Fraction is 50%. There is normal LV segmental wall motion. Transmitra l Doppler flow pattern is Grade II-pseudonormal filling dynamics. RIGHT VENTRICLE The right ventricle is mildly to moderately dilated. There is normal right ventricular wall thickness . The right ventricular systolic function is normal. ATRIA The left atrium size is normal. The right atrium size is normal. The interatrial septum is intact wit h no evidence for an atrial septal defect or patent foramen ovale as noted on 2-D or Doppler imaging. AORTIC VALVE The aortic valve is moderately calcified. The aortic valve is probably trileaflet. Doppler and Color Flow revealed no significant aortic regurgitation. There is mild aortic stenosis visually. Calculated aortic valve area is 1.5 cm2 with maximum pressure gradient of 12 mmHg and mean pressure gradient of 6 mmHg. MITRAL VALVE Mitral annular calcification is mild. There is no evidence of mitral valve prolapse. There is no mitr al valve stenosis. Doppler and Color-flow revealed trace mitral regurgitation. TRICUSPID VALVE The tricuspid valve is normal in structure and function. Doppler and Color Flow revealed trace tricus pid regurgitation. The PA pressure was estimated at 28 mmHg. There is no tricuspid valve prolapse or vegetation. There is no tricuspid valve stenosis. PULMONIC VALVE Doppler and Color Flow revealed trace pulmonic valvular regurgitation. There is no pulmonic valvular stenosis. GREAT VESSELS The aortic root is normal in size. The ascending aorta is normal in size. The IVC is dilated and jayda apses >50% with inspiration. PERICARDIAL EFFUSION There is no evidence of significant pericardial effusion. Critical Notification Critical Value: No <Conclusion> Left ventricle systolic function is low normal. The Ejection Fraction is 50%. There is normal LV segmental wall motion. The right ventricle is mildly to moderately dilated. There is mild aortic stenosis visually. Calculated aortic valve area is 1.5 cm2 with maximum pressure gradient of 12 mmHg and mean pressure gradient of 6 mmHg. Signed by : Yandel Marsh, Electronically Approved : 10/06/2018 08:58:17
[2018-10-06] MEDS: BUDESONIDE 0.5 MG/2 ML NEBU. NEB SCH (09:00)
[2018-10-06] MEDS: IPRATRPIUM/ALBUTEROL 0.5/2.5MG 3 ML NEBU. NEB SCH ×3 (09:00→16:25)
[2018-10-06] MEDS: METOPROLOL TART IMMED RELEASE 50 MG TABLET. PO SCH (09:00)
--- NOTE | 2018-10-06 09:24 | PDOC ---
PULMONARY PROGRESS NOTES Subjective PT FEEL BETTER LESS SOA Vitals Vital Signs Date Time Temp Pulse Resp B/P (MAP) Pulse Ox O2 Delivery O2 Flow Rate FiO2 10/06/18 08:00 Nasal Cannula 5.0 10/06/18 07:00 97.3 73 18 93/44 (60) 95 97.3 ROS: No Nausea, No Chest Pain, No Abdominal Pain, No Increase Cough General: Alert, No acute distress Lungs: Clear Cardiovascular: S1 Abdomen: Soft Neuro Exam: Alert Extremities: No Edema Skin: Warm Labs Laboratory Tests Test 10/04/18 16:50 10/04/18 21:10 10/04/18 23:45 10/05/18 07:07 White Blood Count 10.2 x10^3/uL (4.0-11.0) 9.2 x10^3/uL (4.0-11.0) Red Blood Count 5.97 x10^6/uL (4.30-5.70) 5.51 x10^6/uL (4.30-5.70) Hemoglobin 18.9 g/dL (13.0-17.5) 17.6 g/dL (13.0-17.5) Hematocrit 56.5 % (39.0-53.0) 52.9 % (39.0-53.0) Mean Corpuscular Volume 95 fL (79-100) 96 fL (79-100) Mean Corpuscular Hemoglobin 32 pg (25-35) 32 pg (25-35) Mean Corpuscular Hemoglobin Concent 34 g/dL (31-37) 33 g/dL (31-37) Red Cell Distribution Width 13.8 % (11.5-14.5) 13.6 % (11.5-14.5) Platelet Count 266 x10^3/uL (140-400) 228 x10^3/uL (140-400) Neutrophils (%) (Auto) 84 % (31-73) 94 % (31-73) Lymphocytes (%) (Auto) 9 % (24-48) 5 % (24-48) Monocytes (%) (Auto) 5 % (0-9) 1 % (0-9) Eosinophils (%) (Auto) 1 % (0-3) 0 % (0-3) Basophils (%) (Auto) 0 % (0-3) 0 % (0-3) Neutrophils # (Auto) 8.5 x10^3uL (1.8-7.7) 8.6 x10^3uL (1.8-7.7) Lymphocytes # (Auto) 1.0 x10^3/uL (1.0-4.8) 0.5 x10^3/uL (1.0-4.8) Monocytes # (Auto) 0.5 x10^3/uL (0.0-1.1) 0.1 x10^3/uL (0.0-1.1) Eosinophils # (Auto) 0.1 x10^3/uL (0.0-0.7) 0.0 x10^3/uL (0.0-0.7) Basophils # (Auto) 0.0 x10^3/uL (0.0-0.2) 0.0 x10^3/uL (0.0-0.2) Prothrombin Time 28.6 SEC (11.7-14.0) Prothromb Time International Ratio 2.7 (0.8-1.1) Activated Partial Thromboplast Time 40 SEC (24-38) Sodium Level 142 mmol/L (136-145) 141 mmol/L (136-145) Potassium Level 3.6 mmol/L (3.5-5.1) 4.4 mmol/L (3.5-5.1) Chloride Level 99 mmol/L (98-107) 99 mmol/L (98-107) Carbon Dioxide Level 36 mmol/L (21-32) 36 mmol/L (21-32) Anion Gap 7 (6-14) 6 (6-14) Blood Urea Nitrogen 9 mg/dL (8-26) 13 mg/dL (8-26) Creatinine 1.2 mg/dL (0.7-1.3) 0.8 mg/dL (0.7-1.3) Estimated GFR (Cockcroft-Gault) 61.3 98.0 Glucose Level 131 mg/dL (70-99) 143 mg/dL (70-99) Calcium Level 9.5 mg/dL (8.5-10.1) 9.3 mg/dL (8.5-10.1) Total Bilirubin 0.5 mg/dL (0.2-1.0) Direct Bilirubin 0.2 mg/dL (0.0-0.2) Aspartate Amino Transf (AST/SGOT) 33 U/L (15-37) Alanine Aminotransferase (ALT/SGPT) 21 U/L (16-63) Alkaline Phosphatase 133 U/L (46-116) Troponin I Quantitative 0.018 ng/mL (0.000-0.055) 0.034 ng/mL (0.000-0.055) 0.027 ng/mL (0.000-0.055) XR-Oxp-Z-Type Natriuretic Peptide 686 pg/mL (0-124) Total Protein 8.7 g/dL (6.4-8.2) Albumin 4.1 g/dL (3.4-5.0) Lipase 65 U/L (73-393) Test 10/06/18 05:27 White Blood Count 13.6 x10^3/uL (4.0-11.0) Red Blood Count 4.68 x10^6/uL (4.30-5.70) Hemoglobin 14.8 g/dL (13.0-17.5) Hematocrit 44.9 % (39.0-53.0) Mean Corpuscular Volume 96 fL (79-100) Mean Corpuscular Hemoglobin 32 pg (25-35) Mean Corpuscular Hemoglobin Concent 33 g/dL (31-37) Red Cell Distribution Width 13.4 % (11.5-14.5) Platelet Count 223 x10^3/uL (140-400) Neutrophils (%) (Auto) 91 % (31-73) Lymphocytes (%) (Auto) 5 % (24-48) Monocytes (%) (Auto) 4 % (0-9) Eosinophils (%) (Auto) 0 % (0-3) Basophils (%) (Auto) 0 % (0-3) Neutrophils # (Auto) 12.4 x10^3uL (1.8-7.7) Lymphocytes # (Auto) 0.6 x10^3/uL (1.0-4.8) Monocytes # (Auto) 0.6 x10^3/uL (0.0-1.1) Eosinophils # (Auto) 0.0 x10^3/uL (0.0-0.7) Basophils # (Auto) 0.0 x10^3/uL (0.0-0.2) Segmented Neutrophils % 81 % (35-66) Band Neutrophils % 6 % (0-9) Lymphocytes % 8 % (24-48) Monocytes % 5 % (0-10) Platelet Estimate Adequate (ADEQUATE) Prothrombin Time 46.4 SEC (11.7-14.0) Prothromb Time International Ratio 5.0 (0.8-1.1) Sodium Level 139 mmol/L (136-145) Potassium Level 4.3 mmol/L (3.5-5.1) Chloride Level 99 mmol/L (98-107) Carbon Dioxide Level 36 mmol/L (21-32) Anion Gap 4 (6-14) Blood Urea Nitrogen 17 mg/dL (8-26) Creatinine 0.9 mg/dL (0.7-1.3) Estimated GFR (Cockcroft-Gault) 85.5 Glucose Level 140 mg/dL (70-99) Calcium Level 9.3 mg/dL (8.5-10.1) Triglycerides Level 66 mg/dL (0-150) Cholesterol Level 147 mg/dL (0-200) LDL Cholesterol, Calculated 101 mg/dL (0-100) VLDL Cholesterol, Calculated 13 mg/dL (0-40) Non-HDL Cholesterol Calculated 114 mg/dL (0-129) HDL Cholesterol 33 mg/dL (40-60) Cholesterol/HDL Ratio 4.5 Laboratory Tests Test 10/06/18 05:27 White Blood Count 13.6 x10^3/uL (4.0-11.0) Red Blood Count 4.68 x10^6/uL (4.30-5.70) Hemoglobin 14.8 g/dL (13.0-17.5) Hematocrit 44.9 % (39.0-53.0) Mean Corpuscular Volume 96 fL (79-100) Mean Corpuscular Hemoglobin 32 pg (25-35) Mean Corpuscular Hemoglobin Concent 33 g/dL (31-37) Red Cell Distribution Width 13.4 % (11.5-14.5) Platelet Count 223 x10^3/uL (140-400) Neutrophils (%) (Auto) 91 % (31-73) Lymphocytes (%) (Auto) 5 % (24-48) Monocytes (%) (Auto) 4 % (0-9) Eosinophils (%) (Auto) 0 % (0-3) Basophils (%) (Auto) 0 % (0-3) Neutrophils # (Auto) 12.4 x10^3uL (1.8-7.7) Lymphocytes # (Auto) 0.6 x10^3/uL (1.0-4.8) Monocytes # (Auto) 0.6 x10^3/uL (0.0-1.1) Eosinophils # (Auto) 0.0 x10^3/uL (0.0-0.7) Basophils # (Auto) 0.0 x10^3/uL (0.0-0.2) Segmented Neutrophils % 81 % (35-66) Band Neutrophils % 6 % (0-9) Lymphocytes % 8 % (24-48) Monocytes % 5 % (0-10) Platelet Estimate Adequate (ADEQUATE) Prothrombin Time 46.4 SEC (11.7-14.0) Prothromb Time International Ratio 5.0 (0.8-1.1) Sodium Level 139 mmol/L (136-145) Potassium Level 4.3 mmol/L (3.5-5.1) Chloride Level 99 mmol/L (98-107) Carbon Dioxide Level 36 mmol/L (21-32) Anion Gap 4 (6-14) Blood Urea Nitrogen 17 mg/dL (8-26) Creatinine 0.9 mg/dL (0.7-1.3) Estimated GFR (Cockcroft-Gault) 85.5 Glucose Level 140 mg/dL (70-99) Calcium Level 9.3 mg/dL (8.5-10.1) Triglycerides Level 66 mg/dL (0-150) Cholesterol Level 147 mg/dL (0-200) LDL Cholesterol, Calculated 101 mg/dL (0-100) VLDL Cholesterol, Calculated 13 mg/dL (0-40) Non-HDL Cholesterol Calculated 114 mg/dL (0-129) HDL Cholesterol 33 mg/dL (40-60) Cholesterol/HDL Ratio 4.5 Medications Active Scripts Medications Dose Route/Sig Max Daily Dose Days Date Category Dose Instructions Wellbutrin Xl (Bupropion Hcl) 150 Mg Tab.er.24h 150 Mg PO DAILY 05/25/18 Reported Amitriptyline Hcl 50 Mg Tablet 1 Tab PO QHS 05/25/18 Reported Advair 100-50 Diskus (Fluticasone/Salmeterol) 1 Each Disk.w.dev 1 Puff IH BID 05/08/18 Reported Gemfibrozil 600 Mg Tablet 1 Tab PO BID 05/08/18 Reported Omeprazole 40 Mg Capsule. 1 Cap PO DAILY 05/08/18 Reported Lipitor (Atorvastatin Calcium) 40 Mg Tablet 1 Tab PO DAILY 05/08/18 Reported Isosorbide Mononitrate Er (Isosorbide Mononitrate) 30 Mg Tab.er.24h 1 Tab PO DAILYWBKFT 04/15/17 Reported Aspir 81 (Aspirin) 81 Mg Tablet. 1 Tab PO DAILY 05/17/16 Reported Gave this morning Take tomorrow morning Coumadin (Warfarin Sodium) 5 Mg Tablet 1 Tab PO DAILY 11/10/15 Reported Gave yesterday Take this evening Metoprolol Tartrate 50 Mg Tablet 50 Mg PO BID 03/29/15 Reported Gave this morning Take tonight Ms Contin (Morphine Sulfate) 30 Mg Tablet.er 15 Mg PO BID 11/04/13 Reported Gave at 1:56 Take again tonight Potassium Chloride 20 Meq Tab.er.prt 20 Meq PO DAILY 11/03/13 Reported Gave this morning Take again tomorrow Lasix (Furosemide) 40 Mg Tablet 40 Mg PO DAILY 11/03/13 Reported Gave this morning Take tomorrow morning Impression . IMPRESSION: 1. Acute on chronic respiratory failure. 2. Acute exacerbation of chronic obstructive pulmonary disease. 3. Tobacco dependence, in remission. 4. Coronary artery disease with previous coronary artery bypass grafting. 5. History of pulmonary embolism. 6. Chronic pain. Plan . D/W DR TERRY WILL D/C HOME FOLLOW UP WITH ME IN OFFICE CT CHEST OUT PT DENICE GUSMAN MD Oct 06, 2018 09:24
[2018-10-06] MEDS: PANTOPRAZOLE 40 MG TABLET.DR. PO SCH (09:45)
[2018-10-06] MEDS: MORPHINE ER 15 MG TABLET.ER PO SCH (09:46)
[2018-10-06] MEDS: buPROPion XL 150 MG TAB.ER.24H. PO SCH (09:46)
[2018-10-06] MEDS: GEMFIBROZIL 600 MG TABLET. PO SCH (09:46)
[2018-10-06] MEDS: POTASSIUM CHLORIDE 20 MEQ TABLET.ER. PO SCH (09:47)
[2018-10-06] MEDS: ASPIRIN ENTERIC COATED 81 MG TABLET.DR. PO SCH (09:47)
[2018-10-06] MEDS: FUROSEMIDE 40 MG TABLET. PO SCH (09:47)
[2018-10-06] MEDS: DOXYCYCLINE HYCLATE 100 MG in IV DEXTROSE 5% 100ML 100 ML IV SCH (09:54)
--- NOTE | 2018-10-06 10:30 | NUR ---
METOPROLOL AND ISORSOBIDE HELD AT THIS TIME, PATIENTS' B/P /, WILL INFORM MD AND MONITOR.
[2018-10-06 11:00] VITALS: BP 99/55
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
--- NOTE | 2018-10-06 13:12 | PDOC ---
FABIÁN CROW FUR STORAGE CLERK 10/06/18 1312: CARDIO Progress Notes Date and Time Date of Service 10/06/2018 Time of Evaluation 1220 Subjective Subjective: No Chest Pain, No shortness of breath, No Palpitations, Other ( feels better today) Vitals Vitals Vital Signs Date Time Temp Pulse Resp B/P (MAP) Pulse Ox O2 Delivery O2 Flow Rate FiO2 10/06/18 12:44 Nasal Cannula 5.0 10/06/18 12:03 20 93 10/06/18 11:00 98.4 82 99/55 (70) 98.4 Weight Weight [ ] Input and Output Intake and Output Intake and Output 10/06/18 07:00 Intake Total 2820 ml Output Total 2450 ml Balance 370 ml Intake Oral 2820 ml Output Urine Total 2450 ml Laboratory Labs Laboratory Tests Test 10/06/18 05:27 White Blood Count 13.6 x10^3/uL (4.0-11.0) Red Blood Count 4.68 x10^6/uL (4.30-5.70) Hemoglobin 14.8 g/dL (13.0-17.5) Hematocrit 44.9 % (39.0-53.0) Mean Corpuscular Volume 96 fL (79-100) Mean Corpuscular Hemoglobin 32 pg (25-35) Mean Corpuscular Hemoglobin Concent 33 g/dL (31-37) Red Cell Distribution Width 13.4 % (11.5-14.5) Platelet Count 223 x10^3/uL (140-400) Neutrophils (%) (Auto) 91 % (31-73) Lymphocytes (%) (Auto) 5 % (24-48) Monocytes (%) (Auto) 4 % (0-9) Eosinophils (%) (Auto) 0 % (0-3) Basophils (%) (Auto) 0 % (0-3) Neutrophils # (Auto) 12.4 x10^3uL (1.8-7.7) Lymphocytes # (Auto) 0.6 x10^3/uL (1.0-4.8) Monocytes # (Auto) 0.6 x10^3/uL (0.0-1.1) Eosinophils # (Auto) 0.0 x10^3/uL (0.0-0.7) Basophils # (Auto) 0.0 x10^3/uL (0.0-0.2) Segmented Neutrophils % 81 % (35-66) Band Neutrophils % 6 % (0-9) Lymphocytes % 8 % (24-48) Monocytes % 5 % (0-10) Platelet Estimate Adequate (ADEQUATE) Prothrombin Time 46.4 SEC (11.7-14.0) Prothromb Time International Ratio 5.0 (0.8-1.1) Sodium Level 139 mmol/L (136-145) Potassium Level 4.3 mmol/L (3.5-5.1) Chloride Level 99 mmol/L (98-107) Carbon Dioxide Level 36 mmol/L (21-32) Anion Gap 4 (6-14) Blood Urea Nitrogen 17 mg/dL (8-26) Creatinine 0.9 mg/dL (0.7-1.3) Estimated GFR (Cockcroft-Gault) 85.5 Glucose Level 140 mg/dL (70-99) Calcium Level 9.3 mg/dL (8.5-10.1) Triglycerides Level 66 mg/dL (0-150) Cholesterol Level 147 mg/dL (0-200) LDL Cholesterol, Calculated 101 mg/dL (0-100) VLDL Cholesterol, Calculated 13 mg/dL (0-40) Non-HDL Cholesterol Calculated 114 mg/dL (0-129) HDL Cholesterol 33 mg/dL (40-60) Cholesterol/HDL Ratio 4.5 Physical Exam HEENT: Neck Supple W Full Motion Chest: Symmetric LUNGS: Other (diminished) Heart: S1S2, RRR (SR) Abdomen: Soft N/T Extremities: No Calf Tenderness, Other (trace LE edema) Neurology: alert, oriented, follow commands Assessment Assessment 1. Acute on chronic respiratory failure secondary to AECOPD 2. CAD s/p CABG x3 in 2002. Cath 2016 showed 1/3 grafts patent. Was considered for redo CABG, but patient declined. MPI 05/31 without any evidence of ischemia or infarct 3. Chronic diastolic CHF; compensated 4. ICM; LVEF previously 35% per cath in 2016. LVEF recovered at 50% 5. Hypertension; marginal 6. Hyperlipidemia; statin, close to goal 7. H/o PE and chronic warfarin therapy. INR 5.0, coumadin on hold, Vit K given Recommendations 1,.Continue with secondary prevention measures. May hold lasix and BP meds per BP trend. 2. Follow pulmonary input 3. May need to consider stopping lopid and optimizing statin. Will reeval as an outpt. Follow up in office in 4 weeks. OSVALDO SERNA MD 10/06/18 1602: CARDIO Progress Notes Assessment Assessment Patient seen and examined. Agree with SIGN PAINTER HELPER's assessment and plan. 2-D echo showed LVEF 50%, improved from prior echocardiogram - clinically well compensated CAD status stable Continue current treatment for acute COPD exacerbation per pulmonary team Follow-up with our office in 1 month FABIÁN CROW APRN Oct 06, 2018 13:12 OSVALDO SERNA MD Oct 06, 2018 16:02
[2018-10-06 13:39] LABS: PROTHROMBIN TIME PATIENT 41.9 SEC (11.7-14.0)
[2018-10-06 15:00] VITALS: BP 127/61
[2018-10-06] MEDS ORDERED: PHYTONADIONE 10 MG/ML AMPUL. SQ ONE (15:30)
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
[2018-10-06] MEDS ORDERED: DOXY100C2 PO (16:31)
[2018-10-06] MEDS ORDERED: IPRA3AMP29 NEB (16:31)
[2018-10-06] MEDS ORDERED: PRED50TA PO (16:32)
--- NOTE | 2018-10-06 16:33 | DISCH ---
DISCHARGE INSTRUCTIONS Condition on Discharge Condition on Discharge: Stable Activity After Discharge Activity Instructions for Disc: Activity as tolerated Lifting Instructions after Dis: No heavy lifting Exercise Instruction after Dis: Progress as tolerated Driving Instructions after Dis: Do not drive today Weight Bearing Status after Di: As tolerated Diet after Discharge Diet after Discharge: Cardiac Diet Texture: Regular Liquid Texture: Thin Liquid Swallowing Supervision: None needed Wound Incision Care Wound/Incision Care: Other, see below Checks after Discharge Checks after discharge: Check blood press - daily Contacting the DR. after DC Call your doctor for: If your condition worsens Treatment/Equipment after DC Adaptive Equipment Issued: Cane Discharge Respiratory Equipmen: Oxygen Warfarin Follow-Up Warfarin Follow UP: no smoke exposure AMARJIT TERRY MD Oct 06, 2018 16:33
--- NOTE | 2018-10-06 17:00 | NUR ---
DISCHARGE INSTRUCTIONS GIVEN, QUESTIONS AND CONCERNS ANSWERED, PATIENT VERBALIZED UNDERSTANDING OF DISCHARGE INFORMATION INCLUDING TAKING ALL MEDICATIONS INSTRUCTED AND FOLLOWING UP WITH HIS PRIMARY PROVIDER ON 10/07/18 TO HAVE HIS INR LEVEL CHECKED HE INFORMED THIS TRUCK SAFETY INSPECTOR THAT HE HAS AN APPOINTMENT ON 10/07/18. ALL PERSONAL BELONGINGS GATHERED BY THE PATIENT AND PLACED IN BAGS FOR DISCHARGE, SALINE LOCK REMOVED PRIOR TO DISCHARGE, PRESCRIPTIONS GIVEN TO PATIENT.
--- NOTE | 2018-10-06 17:30 | NUR ---
PATIENT LEAVES THE UNIT PER W/C, EMOTIONAL SUPPORT GIVEN, FOLLOW UP APPOINTMENTS ENCOURAGED.
== END 2018-10-06 17:30 | disposition home or self-care (01) | DRG 189 ==
LOC: ER 16:34 → 1 WEST ICU 17:46 → 2 SOUTH 20:37
PROVIDERS: ADMIT Family Medicine; ATTEND Family Medicine
DX: J96.21 Acute and chronic respiratory failure with hypoxia (principal); N17.0 Acute kidney failure with tubular necrosis; J44.1 Chronic obstructive pulmonary disease with (acute) exacerbation; I50.32 Chronic diastolic (congestive) heart failure; I13.0 Hypertensive heart and chronic kidney disease with heart failure and stage 1 through stage 4 chronic kidney disease, or unspecified chronic kidney disease; N18.2 Chronic kidney disease, stage 2 (mild); I25.10 Atherosclerotic heart disease of native coronary artery without angina pectoris; E78.00 Pure hypercholesterolemia, unspecified; I25.2 Old myocardial infarction; G89.4 Chronic pain syndrome; E78.5 Hyperlipidemia, unspecified; K21.9 Gastro-esophageal reflux disease without esophagitis; M19.90 Unspecified osteoarthritis, unspecified site; E66.9 Obesity, unspecified; F17.211 Nicotine dependence, cigarettes, in remission; I25.5 Ischemic cardiomyopathy; G47.33 Obstructive sleep apnea (adult) (pediatric); I11.0 Hypertensive heart disease with heart failure; F41.9 Anxiety disorder, unspecified; F32.9 Major depressive disorder, single episode, unspecified; R79.1 Abnormal coagulation profile; Z95.1 Presence of aortocoronary bypass graft; Z85.47 Personal history of malignant neoplasm of testis; Z86.711 Personal history of pulmonary embolism; Z95.5 Presence of coronary angioplasty implant and graft; Z88.6 Allergy status to analgesic agent; Z91.030 Bee allergy status; Z91.041 Radiographic dye allergy status; Z79.01 Long term (current) use of anticoagulants; Z68.32 Body mass index [BMI] 32.0-32.9, adult; Z82.5 Family history of asthma and other chronic lower respiratory diseases; Z82.49 Family history of ischemic heart disease and other diseases of the circulatory system; Z99.81 Dependence on supplemental oxygen
CPT/HCPCS: 36415; 71045; 80048; 80061; 80076; 83690; 83880; 84484; 85007; 85025; 85610; 85730; 93005; 93306; 94640; 94760; 96374; J2270; J2920; J2930; J3430; J3490; J7620; J7626; 99285-25

== ENCOUNTER 2018-10-09 16:58 | Inpatient (IN) | payer OTHER ==
[~2018-10-09] VITALS: Ht 170.2 cm; Wt 85.9 kg
[~2018-10-09 16:58] MED LIST changes: +DOXY100C2 PO; +IPRA3AMP29 NEB; +PRED50TA PO
[2018-10-09] MEDS ORDERED: IPRATRPIUM/ALBUTEROL 0.5/2.5MG 3 ML NEBU. NEB ONE (17:45)
--- NOTE | 2018-10-09 17:54 | PHYS DOC ---
Past Medical History Past Medical History: CAD, Cancer, COPD, High Cholesterol, Heart Disease, Hypertension, MO, Other Additional Past Medical Histor: TESTICLE CANCER, chronic back pain, PE Past Surgical History: Coronary Bypass Surgery, Other Additional Past Surgical Histo: ORECECTOMY,BACK, JAW, cardiac stents Alcohol Use: None Drug Use: None Adult General Chief Complaint Chief Complaint: SHORTNESS OF BREATH HPI HPI Patient is a 63 year old male who presents with was discharged on Friday for a COPD exacerbation. Patient states that he "sweet talked" the doctor to release him home. Patient is back today because this morning he cannot catch his breath even while he was just sitting. Patient states he had his oxygen on at 4 L still could not catch his breath. Patient states he also got dizzy once today. Patient has a cough and it causes him mid chest sternal pain and scapular pain. Patient is coughing up yellow dasilva mucus. Patient states that he did take prednisone 50 mg morning and doxycycline and HIS other medications. Patient is currently 95% on 3 L, 73 heart rate, 159/97 and 20 respirations. Patient was 86% on room air when he arrived to the hospital. Patient has a history of a PE, CAD, COPD, MO, high cholesterol, hypertension, heart disease, bypass. Review of Systems Review of Systems Constitutional: Denies fever or chills [] Eyes: Denies change in visual acuity, redness, or eye pain [] HENT: Denies nasal congestion or sore throat [] Respiratory: cough or shortness of breath [] Cardiovascular: Mid sternal chest pain GI: Denies abdominal pain, nausea, vomiting, bloody stools or diarrhea [] : Denies dysuria or hematuria [] Musculoskeletal: Denies back pain or joint pain [] Integument: Denies rash or skin lesions [] Neurologic: Denies headache, focal weakness or sensory changes [] Endocrine: Denies polyuria or polydipsia [] All other systems were reviewed and found to be within normal limits, except as documented in this note. Current Medications Current Medications Current Medications Medications (Trade) Dose Ordered Sig/Adan Start Time Stop Time Status Last Admin Dose Admin Albuterol/ Ipratropium (Duoneb) 3 ml 1X ONCE 10/09/18 17:45 10/09/18 17:46 DC 10/09/18 17:59 3 ML Allergies Allergies Allergies Coded Allergies Type Severity Reaction Last Updated Verified Iodinated Contrast- Oral and IV Dye Allergy Intermediate 03/07/14 Yes ketorolac Allergy Intermediate GI 12/01/14 Yes tramadol Allergy Intermediate 11/11/15 Yes venom-honey bee Allergy Intermediate 03/07/14 Yes Physical Exam Physical Exam Constitutional: Well developed, well nourished, no acute distress, non-toxic appearance. [] HENT: Normocephalic, atraumatic, bilateral external ears normal, oropharynx moist, no oral exudates, nose normal. [] Eyes: PERRLA, EOMI, conjunctiva normal, no discharge. [] Neck: Normal range of motion, no tenderness, supple, no stridor. [] Cardiovascular:Heart rate regular rhythm, no murmur [] Lungs & Thorax: Bilateral upper and lower breath sounds inspiratory expiratory wheezes to auscultation [] Abdomen: Bowel sounds normal, soft, no tenderness, no masses, no pulsatile masses. [] Skin: Warm, dry, no erythema, no rash. [] Back: No tenderness, no CVA tenderness. [] Extremities: No tenderness, no cyanosis, no clubbing, ROM intact, bilateral pedals 1+ edema. [] Neurologic: Alert and oriented X 3, normal motor function, normal sensory function, no focal deficits noted. [] Psychologic: Affect normal, judgement normal, mood normal. [] Current Patient Data Vital Signs Vital Signs Date Time Temp Pulse Resp B/P (MAP) Pulse Ox O2 Delivery O2 Flow Rate FiO2 10/09/18 18:01 95 Nasal Cannula 3.0 10/09/18 17:09 98.3 74 14 159/97 (117) 98.3 Lab Values Laboratory Tests Test 10/09/18 17:40 White Blood Count 9.3 x10^3/uL (4.0-11.0) Red Blood Count 5.59 x10^6/uL (4.30-5.70) Hemoglobin 17.8 g/dL (13.0-17.5) H Hematocrit 53.7 % (39.0-53.0) H Mean Corpuscular Volume 96 fL (79-100) Mean Corpuscular Hemoglobin 32 pg (25-35) Mean Corpuscular Hemoglobin Concent 33 g/dL (31-37) Red Cell Distribution Width 14.0 % (11.5-14.5) Platelet Count 294 x10^3/uL (140-400) Neutrophils (%) (Auto) 52 % (31-73) Lymphocytes (%) (Auto) 35 % (24-48) Monocytes (%) (Auto) 11 % (0-9) H Eosinophils (%) (Auto) 2 % (0-3) Basophils (%) (Auto) 0 % (0-3) Neutrophils # (Auto) 4.9 x10^3uL (1.8-7.7) Lymphocytes # (Auto) 3.3 x10^3/uL (1.0-4.8) Monocytes # (Auto) 1.0 x10^3/uL (0.0-1.1) Eosinophils # (Auto) 0.2 x10^3/uL (0.0-0.7) Basophils # (Auto) 0.0 x10^3/uL (0.0-0.2) Prothrombin Time 13.0 SEC (11.7-14.0) Prothrombin Time INR 1.0 (0.8-1.1) Sodium Level 142 mmol/L (136-145) Potassium Level 3.3 mmol/L (3.5-5.1) L Chloride Level 94 mmol/L (98-107) L Carbon Dioxide Level mmol/L (21-32) Anion Gap (6-14) Blood Urea Nitrogen 16 mg/dL (8-26) Creatinine 0.8 mg/dL (0.7-1.3) Estimated GFR (Cockcroft-Gault) 98.0 BUN/Creatinine Ratio 20 (6-20) Glucose Level 101 mg/dL (70-99) H Calcium Level 9.4 mg/dL (8.5-10.1) Total Bilirubin 0.5 mg/dL (0.2-1.0) Aspartate Amino Transferase (AST) 21 U/L (15-37) Alanine Aminotransferase (ALT) 20 U/L (16-63) Alkaline Phosphatase 120 U/L (46-116) H Troponin I Quantitative 1.111 ng/mL (0.000-0.055) EY-Anz-Q-Type Natriuretic Peptide 1161 pg/mL (0-124) H Total Protein 8.0 g/dL (6.4-8.2) Albumin 3.5 g/dL (3.4-5.0) Albumin/Globulin Ratio 0.8 (1.0-1.7) L Laboratory Tests 10/09/18 17:40 Laboratory Tests 10/09/18 17:40 EKG EKG Sinus Rhythm and no STEMI Interpretation Time: [address] Berry Radiology/Procedures Radiology/Procedures [] Impressions: [facility] [address] [place] [address] IMAGING REPORT Signed PATIENT: JOHN AVILA ACCOUNT: [id number] : 1955 LOCATION: [address] [place] [address] AGE: 63 SEX: M EXAM STATUS: ADM IN ORD. PHYSICIAN: ISABEL AMOS APRN REASON: SOA PROCEDURE: PORTABLE CHEST 1V EXAM: AP View of the chest DATE: 10/09/2018 5:41 PM INDICATION: ER PATIENT. SHORTNESS OF AIR. Hx CABG, CORONARY STENTS. PRIOR XRAY COMPARISON: 10/04/2018 FINDINGS: The heart is not enlarged. Mediastinal and hilar contours are normal. Patchy nodular left perihilar parenchymal opacity measures approximately 1.3 cm. This may represent focal consolidation, summation artifact or solid or groundglass lung nodule. Otherwise no definite parenchymal airspace opacity. No pleural effusion or pneumothorax. Sternotomy wires are seen. IMPRESSION: 1. Focal patchy/nodular opacity in the left perihilar region. This can be further evaluated by short interval chest radiograph to evaluate for resolution or CT Electronically signed by: Salvador Gomez MD (10/09/2018 7:22 PM) [facility] DICTATED and SIGNED BY: SALVADOR GOMEZ MD DATE: 10/09/181921 Course & Med Decision Making Course & Med Decision Making Patient is a 63 year old male who presents with was discharged on Friday for a COPD exacerbation. Patient states that he "sweet talked" the doctor to release him home. Patient is back today because this morning he cannot catch his breath even while he was just sitting. Patient states he had his oxygen on at 4 L still could not catch his breath. Patient states he also got dizzy once today. Patient has a cough and it causes him mid chest sternal pain and scapular pain. Patient is coughing up yellow dasilva mucus. Patient states that he did take prednisone 50 mg this morning and doxycycline and all of his other medications. Patient is currently 95% on 3 L, 73 heart rate, 159/97 and 20 respirations. Patient was 86% on room air when he arrived to the hospital. Patient has a history of a PE, CAD, COPD, MO, high cholesterol, hypertension, heart disease, bypass. Alert and oriented. Speaks in full clear sentences. Afebrile. Skin is pink warm and dry. Abdomen is soft and nontender. Patient has 1+ edema peripherally. PERRLA. Neurologically intact. Lungs have inspiratory and expiratory wheezes throughout all lobes. EKG shows sinus rhythm and no STEMI. Chest xray shows 1. Focal patchy/nodular opacity in the left perihilar region. This can be further evaluated by short interval chest radiograph to evaluate for resolution or CT. I have spoken to Dr Villela for admission. I have also spoken to Dr Ding who states to start heparin drip and he will see him tomorrow. Dragon Disclaimer Dragon Disclaimer This electronic medical record was generated, in whole or in part, using a voice recognition dictation system. Departure Departure Impression: Primary Impression: COPD exacerbation Disposition: ADMITTED INPATIENT Admitting Physician: Katherine Villela Condition: STABLE Referrals: YOSSI RECIO MD (PCP) ISABEL AMOS APRN Oct 09, 2018 17:54
[2018-10-09 17:56] LABS: BASO % 0 % (0-3); EOS # 0.2 x10^3/uL (0.0-0.7); EOS % 2 % (0-3); HEMATOCRIT 53.7 % (39.0-53.0); HEMOGLOBIN 17.8 g/dL (13.0-17.5); LYMPH # 3.3 x10^3/uL (1.0-4.8); LYMPH % 35 % (24-48); MEAN CORPUSCULAR HEMOGLOBIN 32 pg (25-35); MEAN CORPUSCULAR HGB CONC 33 g/dL (31-37); MEAN CORPUSCULAR VOLUME 96 fL (79-100); MONO % 11 % (0-9); NEUT # 4.9 x10^3uL (1.8-7.7); NEUT % 52 % (31-73); PLATELET COUNT 294 x10^3/uL (140-400); RED BLOOD COUNT 5.59 x10^6/uL (4.30-5.70); WHITE BLOOD COUNT 9.3 x10^3/uL (4.0-11.0)
[2018-10-09 18:07] LABS: BLOOD UREA NITROGEN 16 mg/dL (8-26); BUN/CREATININE RATIO 20 (6-20); CALCIUM 9.4 mg/dL (8.5-10.1); CHLORIDE 94 mmol/L (98-107); CREATININE 0.8 mg/dL (0.7-1.3); GLUCOSE 101 mg/dL (70-99); POTASSIUM 3.3 mmol/L (3.5-5.1); SODIUM 142 mmol/L (136-145)
[2018-10-09 18:19] LABS: ALBUMIN 3.5 g/dL (3.4-5.0); ALBUMIN/GLOBULIN RATIO 0.8 (1.0-1.7)
[2018-10-09 18:20] LABS: ALK PHOS 120 U/L (46-116); ALT (SGPT) 20 U/L (16-63); AST (SGOT) 21 U/L (15-37); TOTAL BILIRUBIN 0.5 mg/dL (0.2-1.0)
[2018-10-09] MEDS ORDERED: fentaNYL PF VIAL 100 MCG/2 ML VIAL IV ONE (18:30)
[2018-10-09] MEDS ORDERED: HEPARIN for IV BOLUS 10,000 UNIT/10 ML VIAL. IV ONE (18:45)
[2018-10-09] MEDS ORDERED: fentaNYL PF VIAL 100 MCG/2 ML VIAL IV PRN (18:45)
[2018-10-09] MEDS ORDERED: NITROGLYCERIN SUBLINGUAL 0.4 MG BOTTLE OF 25. SL PRN (18:45)
[2018-10-09] MEDS ORDERED: ONDANSETRON PF 4 MG/2 ML VIAL. IV PRN ×2 (18:45→23:50)
[2018-10-09] MEDS ORDERED: ASPIRIN 325 MG TABLET PO ONE (18:45)
[2018-10-09] MEDS ORDERED: ACETAMINOPHEN 325 MG TABLET. PO PRN (18:45)
[2018-10-09] MEDS ORDERED: HEPARIN for IV BOLUS 10,000 UNIT/10 ML VIAL. IV PRN (18:45)
[2018-10-09] MEDS: HEPARIN 25,000UTS/500ML PREMIX 500 ML IV PRN (19:18)
--- NOTE | 2018-10-09 19:25 | RAD ---
EXAM: AP View of the chest DATE: 10/09/2018 5:41 PM INDICATION: ER PATIENT. SHORTNESS OF AIR. Hx CABG, CORONARY STENTS. PRIOR XRAY COMPARISON: 10/04/2018 FINDINGS: The heart is not enlarged. Mediastinal and hilar contours are normal. Patchy nodular left perihilar parenchymal opacity measures approximately 1.3 cm. This may represent focal consolidation, summation artifact or solid or groundglass lung nodule. Otherwise no definite parenchymal airspace opacity. No pleural effusion or pneumothorax. Sternotomy wires are seen. IMPRESSION: 1. Focal patchy/nodular opacity in the left perihilar region. This can be further evaluated by short interval chest radiograph to evaluate for resolution or CT Electronically signed by: Salvador Avila MD (10/09/2018 7:22 PM) [facility]
[2018-10-09] MEDS ORDERED: IPRATRPIUM/ALBUTEROL 0.5/2.5MG 3 ML NEBU. NEB SCH (20:00)
[2018-10-09 20:07] VITALS: BP 127/58
[2018-10-09] MEDS ORDERED: VALIUM10 MG PO (21:01)
[2018-10-09] MEDS ORDERED: OXYC1TAB22 PO (21:01)
[2018-10-09] MEDS ORDERED: OMEP20TA63 PO (21:02)
[2018-10-09] MEDS: GEMFIBROZIL 600 MG TABLET. PO SCH (21:25)
[2018-10-09] MEDS: ATORVASTATIN CALCIUM 40 MG TABLET. PO SCH (21:26)
[2018-10-09] MEDS: METOPROLOL TART IMMED RELEASE 50 MG TABLET. PO SCH (21:26)
[2018-10-09] MEDS: DOXYCYCLINE HYCLATE 100 MG TABLET PO SCH (21:26)
[2018-10-09] MEDS: diazePAM 5 MG TABLET PO PRN (21:27)
[2018-10-09] MEDS: oxyCODONE/APAP 10/325 1 TAB TABLET PO PRN (21:27)
[2018-10-09] MEDS: AMITRIPTYLINE HCL 50 MG TABLET PO SCH (21:28)
[2018-10-09] MEDS: MORPHINE ER 15 MG TABLET.ER PO SCH (21:32)
--- NOTE | 2018-10-09 21:33 | PDOC1 ---
History and Physical Date of Admission Date of Admission DATE: 10/09/18 TIME: 21:33 Source Source: Chart review, Patient History of Present Illness History of Present Illness Mr. Medina, is a 63 year old male who presents with was discharged on Friday for a COPD exacerbation. He has been short of breath at home, and feels he has not improved over the past few days, He cough is worse, and he has more back pain, and cannot catch his breath well. Pain 7/10 he has been taking his doxy and prednisone at home. Sa02 87% in the ER Past Medical History Cardiovascular: CAD, CHF, HTN, Hyperlipidemia Pulmonary: COPD, Other CENTRAL NERVOUS SYSTEM: Other GI: GERD Heme/Onc: Cancer Hepatobiliary: No pertinent hx Psych: Anxiety, Depression Musculoskeletal: low back pain, Osteoarthritis Rheumatologic: No pertinent hx Infectious disease: No pertinent hx Renal/: No pertinent hx Endocrine: No pertinent hx Past Surgical History Past Surgical History: CABG, Other Family History Family History: Coronary Artery Disease, Hypertension Social History Smoke: <1 pack per day ALCOHOL: none Drugs: None Current Problem List Problem List Problems Medical Problems: (1) COPD exacerbation Status: Acute Current Medications Current Medications Current Medications Albuterol/ Ipratropium (Duoneb) 3 ml 1X ONCE NEB Last administered on at 17:59; Start 10/09/18 at 17:45; Stop 10/09/18 at 17:46; Status DC Fentanyl Citrate (Fentanyl 2ml Vial) 50 mcg 1X ONCE IV Last administered on at 19:03; Start 10/09/18 at 18:30; Stop 10/09/18 at 18:31; Status DC Aspirin (Johnny Aspirin) 325 mg 1X ONCE PO Last administered on 10/09/18at 19:00 ; Start 10/09/18 at 18:45; Stop 10/09/18 at 18:46; Status DC Ondansetron HCl (Zofran) 4 mg PRN Q8HRS PRN IV NAUSEA/VOMITING Last administered on 10/09/18at 19:01; Start 10/09/18 at 18:45; Stop 10/10/18 at 18:44 Fentanyl Citrate (Fentanyl 2ml Vial) 50 mcg PRN Q1HR PRN IV PAIN; Start at 18:45; Stop 10/10/18 at 18:44 Acetaminophen (Tylenol) 650 mg PRN Q4HRS PRN PO FEVER Last administered on 10/09 19:00; Start 10/09/18 at 18:45; Stop 10/10/18 at 18:44 Nitroglycerin (Nitrostat) 0.4 mg PRN Q5MIN PRN SL CHEST PAIN; Start 10/09/18 at 18:45; Stop 10/10/18 at 18:44 Albuterol/ Ipratropium (Duoneb) 3 ml RTQID NEB Last administered on 10/09/18 19:28; Start 10/09/18 at 20:00; Stop 10/09/18 at 21:15; Status DC Heparin Sodium (Porcine) (Heparin Sodium) 4,000 unit 1X ONCE IV Last administered on 10/09/18 19:17; Start 10/09/18 at 18:45; Stop 10/09/18 at 18:59 ; Status DC Heparin Sodium/ Dextrose 500 ml @ 0 mls/hr CONT PRN IV SEE I/O RECORD Last administered on 10/09/18 19:18; Start 10/09/18 at 18:45 Heparin Sodium (Porcine) (Heparin Sodium) 2,050 unit PRN Q6HRS PRN IV FOR UFH LEVEL LESS THAN 0.2; Start 10/09/18 at 18:45 Amitriptyline HCl (Elavil) 100 mg QHS PO Last administered on 10/09/18 21:28; Start 10/09/18 at 21:00 Aspirin (Ecotrin) 81 mg DAILY08 PO ; Start 10/10/18 at 08:00 Atorvastatin Calcium (Lipitor) 40 mg QHS PO Last administered on 10/09/18at 21: 26; Start 10/09/18 at 21:30 Bupropion HCl (Wellbutrin Xl) 150 mg DAILY PO ; Start 10/10/18 at 09:00 Furosemide (Lasix) 40 mg DAILY PO ; Start 10/10/18 at 09:00 Gemfibrozil (Lopid) 600 mg BID PO Last administered on 10/09/18at 21:25; Start 10/09/18 at 21:00 Albuterol/ Ipratropium (Duoneb) 3 ml RTQID NEB ; Start 10/10/18 at 08:00 Isosorbide Mononitrate (Imdur) 30 mg DAILYWBKFT PO ; Start 10/10/18 at 08:00 Metoprolol Tartrate (Lopressor) 50 mg BID PO Last administered on 10/09/18 21: 26; Start 10/09/18 at 21:00 Morphine Sulfate (Ms Contin) 15 mg BID PO Last administered on 10/09/18at 21:32 ; Start 10/09/18 at 21:00 Oxycodone/ Acetaminophen (Percocet 10/325) 1 tab PRN Q6HRS PRN PO PAIN SEVERE Last administered on 10/09/18at 21:27; Start 10/09/18 at 21:00 Potassium Chloride (Klor-Con) 20 meq DAILY08 PO ; Start 10/10/18 at 08:00 Diazepam (Valium) 10 mg PRN Q6HRS PRN PO ANXIETY Last administered on 21:27; Start 10/09/18 at 21:30 Doxycycline Hyclate (Vibra-Tab) 100 mg BID PO Last administered on 10/09/18at 21 :26; Start 10/09/18 at 21:00; Stop 10/15/18 at 21:01 Budesonide (Pulmicort) 0.5 mg RTBID NEB ; Start 10/10/18 at 08:00 Pantoprazole Sodium (Protonix) 40 mg DAILYAC PO ; Start 10/10/18 at 07:30 Non-Formulary Medication (Omeprazole Magnesium (Prilosec Otc)) 40 mg DAILY PO ; Start 10/10/18 at 09:00; Status UNV Non-Formulary Medication (Warfarin Sodium (Coumadin)) 1 tab DAILY PO ; Start at 09:00; Status UNV Warfarin Sodium (Coumadin Per Pharmacy) 1 each PRN DAILY PRN MC SEE COMMENTS; Start 10/09/18 at 21:15 Active Scripts Active Prednisone 50 Mg Tablet 1 Tab PO DAILY 5 Days Doxycycline Hyclate 100 Mg Capsule 1 Cap PO BID 10 Days Duoneb 0.5-3(2.5) Mg/3 Ml (Albuterol/Ipratropium) 3 Ml Ampul.neb 3 Ml NEB RTQID 30 Days Reported Prilosec Otc (Omeprazole Magnesium) 20 Mg Tablet.dr 40 Mg PO DAILY Valium (Diazepam) 10 Mg Tablet 10 Mg PO Q6HRS PRN Percocet 10-325 Mg Tablet (Oxycodone/Acetaminophen) 1 Each Tablet 1 Tab PO PRN Q6HRS PRN Wellbutrin Xl (Bupropion Hcl) 150 Mg Tab.er.24h 150 Mg PO DAILY Amitriptyline Hcl 50 Mg Tablet 2 Tab PO QHS Advair 100-50 Diskus (Fluticasone/Salmeterol) 1 Each Disk.w.dev 1 Puff IH BID Gemfibrozil 600 Mg Tablet 1 Tab PO BID Omeprazole 40 Mg Capsule.dr 1 Cap PO DAILY Lipitor (Atorvastatin Calcium) 40 Mg Tablet 1 Tab PO DAILY Isosorbide Mononitrate Er (Isosorbide Mononitrate) 30 Mg Tab.er.24h 1 Tab PO DAILYWBKFT Aspir 81 (Aspirin) 81 Mg Tablet.dr 1 Tab PO DAILY Gave this morning Take tomorrow morning Coumadin (Warfarin Sodium) 5 Mg Tablet 1 Tab PO DAILY Gave yesterday Take this evening Metoprolol Tartrate 50 Mg Tablet 50 Mg PO BID Gave this morning Take tonight Ms Contin (Morphine Sulfate) 30 Mg Tablet.er 15 Mg PO BID Gave at 1:56 Take again tonight Potassium Chloride 20 Meq Tab.er.prt 20 Meq PO DAILY Gave this morning Take again tomorrow Lasix (Furosemide) 40 Mg Tablet 40 Mg PO DAILY Gave this morning Take tomorrow morning Allergies Allergies: Coded Allergies: Iodinated Contrast- Oral and IV Dye (Verified Allergy, Intermediate, ) ketorolac (Verified Allergy, Intermediate, GI, 12/01/14) tramadol (Verified Allergy, Intermediate, 11/11/15) tolerates oxycodone and morphine venom-honey bee (Verified Allergy, Intermediate, 03/07/14) NSAIDS (Non-Steroidal Anti-Inflamma (Verified Adverse Reaction, Intermediate, GI, 10/09/18) ROS General: YES: Fatigue, Malaise; No: Chills, Night Sweats, Appetite, Other PSYCHOLOGICAL ROS: YES: Sleep disturbances; No: Anxiety, Behavioral Disorder, Concentration difficultie, Decreased libido , Depression, Disorientation, Hallucinations, Hostility, Irritablity, Memory difficulties, Mood Swings, Obsessive thoughts, Other Eyes: No Blurry vision, No Decreased vision, No Double vision, No Dry eyes, No Excessive tearing, No Eye Pain, No Itchy Eyes, No Loss of vision, No Photophobia , No Scotomata, No Uses contacts, No Uses glasses, No Other HEENT: No: Heacaches, Visual Changes, Hearing change, Nasal congestion, Nasal discharge, Oral lesions, Sinus pain, Sore Throat, Epistaxis, Sneezing, Snoring, Tinnitus, Vertigo, Vocal changes, Other Respiratory: YES: Cough, Shortness of breath, SOB with excertion, Tachypnea Cardiovascular: No Chest Pain, No Palpitations, No Orthopnea, No Paroxysmal Noc. Dyspnea, No Edema, No Lt Headedness, No Other Gastrointestinal: Yes Nausea; No Vomiting, No Abdominal Pain, No Diarrhea, No Constipation, No Melena, No Hematochezia, No Other Genitourinary: No Dysuria, No Frequency, No Incontinence, No Hematuria, No Retention, No Discharge, No Urgency, No Pain, No Flank Pain, No Other, No , No , No , No , No , No , No Musculoskeletal: No Gait Disturbance, No Joint Pain, No Joint Stiffness, No Joint Swelling, No Muscle Pain, No Muscular Weakness, No Pain In:, No Swelling In:, No Other Neurological: No Behavorial Changes, No Bowel/Bladder ControlChng, No Confusion , No Dizziness, No Gait Disturbance, No Headaches, No Impaired Coord/balance, No Memory Loss, No Numbness/Tingling, No Seizures, No Speech Problems, No Tremors, No Visual Changes, No Weakness, No Other Skin: Yes Dry Skin; No Eczema, No Hair Changes, No Lumps, No Mole Changes, No Mottling, No Nail Changes, No Pruritus, No Rash, No Skin Lesion Changes, No Other, No Acne Physical Exam General: Alert, Oriented X3, Cooperative, mild distress HEENT: Atraumatic, PERRLA Lungs: Other (limited volume, rales, end exp wheeze, ) Heart: S1S2, no murmurs Abdomen: Soft, No tenderness Extremities: No cyanosis, Normal pulses Skin: No rashes Neuro: Sensation intact, Cranial nerves 3-12 NL Psych/Mental Status: Mood NL Vitals Vitals Vital Signs Date Time Temp Pulse Resp B/P (MAP) Pulse Ox O2 Delivery O2 Flow Rate FiO2 10/09/18 21:32 Nasal Cannula 10/09/18 21:27 22 10/09/18 21:26 96 127/58 10/09/18 20:07 97.8 95 5.0 97.8 Labs Labs Laboratory Tests Test 10/09/18 17:40 White Blood Count 9.3 x10^3/uL (4.0-11.0) Red Blood Count 5.59 x10^6/uL (4.30-5.70) Hemoglobin 17.8 g/dL (13.0-17.5) Hematocrit 53.7 % (39.0-53.0) Mean Corpuscular Volume 96 fL (79-100) Mean Corpuscular Hemoglobin 32 pg (25-35) Mean Corpuscular Hemoglobin Concent 33 g/dL (31-37) Red Cell Distribution Width 14.0 % (11.5-14.5) Platelet Count 294 x10^3/uL (140-400) Neutrophils (%) (Auto) 52 % (31-73) Lymphocytes (%) (Auto) 35 % (24-48) Monocytes (%) (Auto) 11 % (0-9) Eosinophils (%) (Auto) 2 % (0-3) Basophils (%) (Auto) 0 % (0-3) Neutrophils # (Auto) 4.9 x10^3uL (1.8-7.7) Lymphocytes # (Auto) 3.3 x10^3/uL (1.0-4.8) Monocytes # (Auto) 1.0 x10^3/uL (0.0-1.1) Eosinophils # (Auto) 0.2 x10^3/uL (0.0-0.7) Basophils # (Auto) 0.0 x10^3/uL (0.0-0.2) Prothrombin Time 13.0 SEC (11.7-14.0) Prothromb Time International Ratio 1.0 (0.8-1.1) Sodium Level 142 mmol/L (136-145) Potassium Level 3.3 mmol/L (3.5-5.1) Chloride Level 94 mmol/L (98-107) Carbon Dioxide Level mmol/L (21-32) Anion Gap (6-14) Blood Urea Nitrogen 16 mg/dL (8-26) Creatinine 0.8 mg/dL (0.7-1.3) Estimated GFR (Cockcroft-Gault) 98.0 BUN/Creatinine Ratio 20 (6-20) Glucose Level 101 mg/dL (70-99) Calcium Level 9.4 mg/dL (8.5-10.1) Total Bilirubin 0.5 mg/dL (0.2-1.0) Aspartate Amino Transf (AST/SGOT) 21 U/L (15-37) Alanine Aminotransferase (ALT/SGPT) 20 U/L (16-63) Alkaline Phosphatase 120 U/L (46-116) Troponin I Quantitative 1.111 ng/mL (0.000-0.055) CK-Fto-Z-Type Natriuretic Peptide 1161 pg/mL (0-124) Total Protein 8.0 g/dL (6.4-8.2) Albumin 3.5 g/dL (3.4-5.0) Albumin/Globulin Ratio 0.8 (1.0-1.7) Laboratory Tests Test 10/09/18 17:40 White Blood Count 9.3 x10^3/uL (4.0-11.0) Red Blood Count 5.59 x10^6/uL (4.30-5.70) Hemoglobin 17.8 g/dL (13.0-17.5) Hematocrit 53.7 % (39.0-53.0) Mean Corpuscular Volume 96 fL (79-100) Mean Corpuscular Hemoglobin 32 pg (25-35) Mean Corpuscular Hemoglobin Concent 33 g/dL (31-37) Red Cell Distribution Width 14.0 % (11.5-14.5) Platelet Count 294 x10^3/uL (140-400) Neutrophils (%) (Auto) 52 % (31-73) Lymphocytes (%) (Auto) 35 % (24-48) Monocytes (%) (Auto) 11 % (0-9) Eosinophils (%) (Auto) 2 % (0-3) Basophils (%) (Auto) 0 % (0-3) Neutrophils # (Auto) 4.9 x10^3uL (1.8-7.7) Lymphocytes # (Auto) 3.3 x10^3/uL (1.0-4.8) Monocytes # (Auto) 1.0 x10^3/uL (0.0-1.1) Eosinophils # (Auto) 0.2 x10^3/uL (0.0-0.7) Basophils # (Auto) 0.0 x10^3/uL (0.0-0.2) Prothrombin Time 13.0 SEC (11.7-14.0) Prothromb Time International Ratio 1.0 (0.8-1.1) Sodium Level 142 mmol/L (136-145) Potassium Level 3.3 mmol/L (3.5-5.1) Chloride Level 94 mmol/L (98-107) Carbon Dioxide Level mmol/L (21-32) Anion Gap (6-14) Blood Urea Nitrogen 16 mg/dL (8-26) Creatinine 0.8 mg/dL (0.7-1.3) Estimated GFR (Cockcroft-Gault) 98.0 BUN/Creatinine Ratio 20 (6-20) Glucose Level 101 mg/dL (70-99) Calcium Level 9.4 mg/dL (8.5-10.1) Total Bilirubin 0.5 mg/dL (0.2-1.0) Aspartate Amino Transf (AST/SGOT) 21 U/L (15-37) Alanine Aminotransferase (ALT/SGPT) 20 U/L (16-63) Alkaline Phosphatase 120 U/L (46-116) Troponin I Quantitative 1.111 ng/mL (0.000-0.055) KF-Gov-L-Type Natriuretic Peptide 1161 pg/mL (0-124) Total Protein 8.0 g/dL (6.4-8.2) Albumin 3.5 g/dL (3.4-5.0) Albumin/Globulin Ratio 0.8 (1.0-1.7) VTE Prophylaxis Ordered VTE Prophylaxis Devices: No VTE Pharmacological Prophylaxi: Yes Assessment/Plan Assessment/Plan Acute shortness of breath Troponinemia, heparin gtt, treat as NSTEMI, poss type 2, consult CV,\ acute on chronic systolic CHF COPD with recent excerbation, cont the steroids, nebs, and doxy, add antitussives tobacco use disorder Hx PE, on coumadin chronic leg/back pain Obese BM [id number] SHELBI JOHN MD Oct 09, 2018 21:33
[2018-10-09] MEDS ORDERED: guaiFENesin DM 200MG/20MG 10 ML SYRUP PO PRN (21:45)
[2018-10-09] MEDS ORDERED: POTASSIUM CHLORIDE 20 MEQ TABLET.ER. PO ONE (22:00)
[2018-10-09] MEDS ORDERED: BENZONATATE 100 MG CAPSULE. PO ONE (22:00)
[2018-10-09] MEDS: IPRATRPIUM/ALBUTEROL 0.5/2.5MG 3 ML NEBU. NEB SCH (22:00)
[2018-10-09] MEDS ORDERED: HYDR5SUS PO (23:30)
[2018-10-09 23:35] VITALS: BP 114/64
[2018-10-09] MEDS ORDERED: guaiFENesin/CODEINE 100mg/10mg 5 ML LIQUID PO PRN (23:45)
[2018-10-10] MEDS: fentaNYL PF VIAL 100 MCG/2 ML VIAL IV PRN ×4 (00:09→16:26)
[2018-10-10 03:05] VITALS: BP 100/55
[2018-10-10 03:55] LABS: BASO % 0 % (0-3); EOS # 0.2 x10^3/uL (0.0-0.7); EOS % 3 % (0-3); HEMATOCRIT 49.1 % (39.0-53.0); HEMOGLOBIN 16.1 g/dL (13.0-17.5); LYMPH # 3.1 x10^3/uL (1.0-4.8); LYMPH % 35 % (24-48); MEAN CORPUSCULAR HEMOGLOBIN 32 pg (25-35); MEAN CORPUSCULAR HGB CONC 33 g/dL (31-37); MEAN CORPUSCULAR VOLUME 97 fL (79-100); MONO # 1.1 x10^3/uL (0.0-1.1); MONO % 13 % (0-9); NEUT # 4.4 x10^3uL (1.8-7.7); NEUT % 49 % (31-73); PLATELET COUNT 273 x10^3/uL (140-400); RED BLOOD COUNT 5.07 x10^6/uL (4.30-5.70); RED CELL DISTRIBUTION WIDTH 14.4 % (11.5-14.5); WHITE BLOOD COUNT 8.9 x10^3/uL (4.0-11.0)
[2018-10-10] MEDS: IPRATRPIUM/ALBUTEROL 0.5/2.5MG 3 ML NEBU. NEB SCH ×5 (07:45→22:00)
[2018-10-10] MEDS: BUDESONIDE 0.5 MG/2 ML NEBU. NEB SCH ×2 (07:45→20:36)
[2018-10-10 08:00] VITALS: BP 108/56
[2018-10-10] MEDS ORDERED: ASPIRIN ENTERIC COATED 81 MG TABLET.DR. PO SCH (08:00)
[2018-10-10] MEDS ORDERED: IPRATRPIUM/ALBUTEROL 0.5/2.5MG 3 ML NEBU. NEB SCH (08:00)
[2018-10-10] MEDS: buPROPion XL 150 MG TAB.ER.24H. PO SCH (08:09)
[2018-10-10] MEDS: GEMFIBROZIL 600 MG TABLET. PO SCH ×2 (08:10→21:51)
[2018-10-10] MEDS: DOXYCYCLINE HYCLATE 100 MG TABLET PO SCH ×2 (08:10→21:51)
[2018-10-10] MEDS: METOPROLOL TART IMMED RELEASE 50 MG TABLET. PO SCH ×2 (08:10→21:52)
[2018-10-10] MEDS: ISOSORBIDE MONONITRATE ER 30 MG TAB.ER.24H PO SCH (08:11)
[2018-10-10] MEDS: PANTOPRAZOLE 40 MG TABLET.DR. PO SCH (08:11)
[2018-10-10] MEDS: BENZONATATE 100 MG CAPSULE. PO SCH ×3 (08:11→21:51)
[2018-10-10] MEDS: FUROSEMIDE 40 MG TABLET. PO SCH (08:12)
[2018-10-10] MEDS: POTASSIUM CHLORIDE 20 MEQ TABLET.ER. PO SCH (08:12)
[2018-10-10] MEDS: ASPIRIN ENTERIC COATED 81 MG TABLET.DR. PO SCH (08:12)
[2018-10-10] MEDS: MORPHINE ER 15 MG TABLET.ER PO SCH ×2 (08:13→21:51)
[2018-10-10] MEDS ORDERED: NON FORMULARY ITEM (Warfarin Sodium (Coumadin) 1 TAB) PO SCH (09:00)
[2018-10-10] MEDS ORDERED: NON FORMULARY ITEM (Omeprazole Magnesium (Prilosec Otc) 40 MG) PO SCH (09:00)
--- NOTE | 2018-10-10 09:21 | EKG ---
[id number] [place] [id number] Test Date: 2018-10-09 Test Time: 17:15:31 Pat Name: JOHN AVILA Department: Room: 210 1 Gender: M Stave Grader: : [id number] Requested By: ISABEL AMOS Order Number: [id number] Reading MD: Yandel Marsh MD Measurements Intervals [place] Rate: 75 P: 58 DC: 158 QRS: 38 QRSD: 114 T: -20 QT: 366 QTc: 411 Interpretive Statements SINUS RHYTHM CONSIDER PRIOR INFERIOR INFARCT Electronically Signed On 10-12-2018 14:26:03 CDT by Yandel Marsh MD
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
--- NOTE | 2018-10-10 11:11 | PDOC2 ---
CONSULT Date of Consult Date of Consult DATE: 10/10/18 TIME: 11:10 Reason for Consult Reason for Consult: Shortness of breath Referring Physician Referring Physician: Dr. Villela Identification/Chief Complaint Chief Complaint Shortness of breath Source Source: Chart review, Patient History of Present Illness Reason for Visit: 63-year-old male with history of coronary artery disease s/p CABG and COPD who was recently treated at [facility] for COPD exacerbation presented with progressive shortness of breath and cough. He complained of chest pain with coughing but denied any palpitations or syncope. Past Medical History Cardiovascular: CAD, CHF, HTN, Hyperlipidemia Pulmonary: COPD, Other CENTRAL NERVOUS SYSTEM: Other GI: GERD Heme/Onc: Cancer Hepatobiliary: No pertinent hx Psych: Anxiety, Depression Musculoskeletal: low back pain, Osteoarthritis Rheumatologic: No pertinent hx Infectious disease: No pertinent hx Renal/: No pertinent hx Endocrine: No pertinent hx Past Surgical History Past Surgical History: CABG, Other Family History Family History: Coronary Artery Disease, Hypertension Social History <1 pack per day ALCOHOL: none Drugs: None Lives: with Family Domestic Violence: Neg Current Problem List Problem List Problems Medical Problems: (1) COPD exacerbation Status: Acute Current Medications Current Medications Current Medications Albuterol/ Ipratropium (Duoneb) 3 ml 1X ONCE NEB Last administered on at 17:59; Start 10/09/18 at 17:45; Stop 10/09/18 at 17:46; Status DC Fentanyl Citrate (Fentanyl 2ml Vial) 50 mcg 1X ONCE IV Last administered on at 19:03; Start 10/09/18 at 18:30; Stop 10/09/18 at 21:45; Status DC Aspirin (Johnny Aspirin) 325 mg 1X ONCE PO Last administered on 10/09/18at 19:00 ; Start 10/09/18 at 18:45; Stop 10/09/18 at 18:46; Status DC Ondansetron HCl (Zofran) 4 mg PRN Q8HRS PRN IV NAUSEA/VOMITING Last administered on 10/09/18at 19:01; Start 10/09/18 at 18:45; Stop 10/10/18 at 00:00 ; Status DC Fentanyl Citrate (Fentanyl 2ml Vial) 50 mcg PRN Q1HR PRN IV PAIN; Start at 18:45; Stop 10/09/18 at 21:45; Status DC Acetaminophen (Tylenol) 650 mg PRN Q4HRS PRN PO FEVER Last administered on 10/09 19:00; Start 10/09/18 at 18:45; Stop 10/10/18 at 18:44 Nitroglycerin (Nitrostat) 0.4 mg PRN Q5MIN PRN SL CHEST PAIN; Start 10/09/18 at 18:45; Stop 10/10/18 at 18:44 Albuterol/ Ipratropium (Duoneb) 3 ml RTQID NEB Last administered on 10/09/18 19:28; Start 10/09/18 at 20:00; Stop 10/09/18 at 21:15; Status DC Heparin Sodium (Porcine) (Heparin Sodium) 4,000 unit 1X ONCE IV Last administered on 10/09/18 19:17; Start 10/09/18 at 18:45; Stop 10/09/18 at 18:59 ; Status DC Heparin Sodium/ Dextrose 500 ml @ 0 mls/hr CONT PRN IV SEE I/O RECORD Last administered on 10/09/18 19:18; Start 10/09/18 at 18:45 Heparin Sodium (Porcine) (Heparin Sodium) 2,050 unit PRN Q6HRS PRN IV FOR UFH LEVEL LESS THAN 0.2 Last administered on 10/10/18 03:28; Start 10/09/18 at 18: 45 Amitriptyline HCl (Elavil) 100 mg QHS PO Last administered on 10/09/18 21:28; Start 10/09/18 at 21:00 Aspirin (Ecotrin) 81 mg DAILY08 PO ; Start 10/10/18 at 08:00; Stop 10/10/18 at 08:00; Status DC Atorvastatin Calcium (Lipitor) 40 mg QHS PO Last administered on 10/09/18 21: 26; Start 10/09/18 at 21:30 Bupropion HCl (Wellbutrin Xl) 150 mg DAILY PO Last administered on 10/10/18 08 :09; Start 10/10/18 at 09:00 Furosemide (Lasix) 40 mg DAILY PO Last administered on 10/10/18 08:12; Start 10/10/18 at 09:00 Gemfibrozil (Lopid) 600 mg BID PO Last administered on 10/10/18 08:10; Start 10/09/18 at 21:00 Albuterol/ Ipratropium (Duoneb) 3 ml RTQID NEB ; Start 10/10/18 at 08:00; Stop 10/10/18 at 08:00; Status DC Isosorbide Mononitrate (Imdur) 30 mg DAILYWBKFT PO Last administered on 08:11; Start 10/10/18 at 08:00 Metoprolol Tartrate (Lopressor) 50 mg BID PO Last administered on 10/10/18 08: 10; Start 10/09/18 at 21:00 Morphine Sulfate (Ms Contin) 15 mg BID PO Last administered on 10/10/18 08:13 ; Start 10/09/18 at 21:00 Oxycodone/ Acetaminophen (Percocet 10/325) 1 tab PRN Q6HRS PRN PO PAIN SEVERE Last administered on 10/09/18 21:27; Start 10/09/18 at 21:00 Potassium Chloride (Klor-Con) 20 meq DAILY08 PO Last administered on 10/10/18 08:12; Start 10/10/18 at 08:00 Diazepam (Valium) 10 mg PRN Q6HRS PRN PO ANXIETY Last administered on 21:27; Start 10/09/18 at 21:30 Doxycycline Hyclate (Vibra-Tab) 100 mg BID PO Last administered on 10/10/18 08 :10; Start 10/09/18 at 21:00; Stop 10/15/18 at 21:01 Budesonide (Pulmicort) 0.5 mg RTBID NEB Last administered on 10/10/18 07:45; Start 10/10/18 at 08:00 Pantoprazole Sodium (Protonix) 40 mg DAILYAC PO Last administered on 10/10/18 08:11; Start 10/10/18 at 07:30 Non-Formulary Medication (Omeprazole Magnesium (Prilosec Otc)) 40 mg DAILY PO ; Start 10/10/18 at 09:00; Status UNV Non-Formulary Medication (Warfarin Sodium (Coumadin)) 1 tab DAILY PO ; Start at 09:00; Status UNV Warfarin Sodium (Coumadin Per Pharmacy) 1 each PRN DAILY PRN MC SEE COMMENTS; Start 10/09/18 at 21:15 Potassium Chloride (Klor-Con) 40 meq 1X ONCE PO Last administered on at 21:53; Start 10/09/18 at 22:00; Stop 10/09/18 at 22:01; Status DC Aspirin (Ecotrin) 81 mg DAILYWBKFT PO Last administered on 10/10/18at 08:12; Start 10/10/18 at 08:00 Albuterol/ Ipratropium (Duoneb) 3 ml Q4HRS W/A NEB Last administered on at 07:45; Start 10/09/18 at 22:00 Benzonatate (Tessalon Perle) 100 mg [id number] PO Last administered on 10/10/18at 08 :11; Start 10/10/18 at 09:00 Benzonatate (Tessalon Perle) 100 mg 1X ONCE PO ; Start 10/09/18 at 22:00; Stop 10/09/18 at 22:01; Status DC Guaifenesin (Robitussin Dm) 10 ml PRN Q6HRS PRN PO COUGH 1ST CHOICE; Start at 21:45 Fentanyl Citrate (Fentanyl 2ml Vial) 75 mcg PRN Q2HR PRN IV SEVERE PAIN Last administered on 10/10/18at 08:13; Start 10/09/18 at 21:45 Guaifenesin/ Codeine Phosphate (Robitussin Ac) 5 ml PRN Q6HRS PRN PO COUGH 2ND CHOICE; Start 10/09/18 at 23:45 Ondansetron HCl (Zofran) 4 mg PRN Q6HRS PRN IV NAUSEA/VOMITING 1ST CHOICE; Start 10/09/18 at 23:50 Lactobacillus Rhamnosus (Culturelle) 1 cap BID PO ; Start 10/10/18 at 09:00 Active Scripts Active Prednisone 50 Mg Tablet 1 Tab PO DAILY 5 Days Doxycycline Hyclate 100 Mg Capsule 1 Cap PO BID 10 Days Duoneb 0.5-3(2.5) Mg/3 Ml (Albuterol/Ipratropium) 3 Ml Ampul.neb 3 Ml NEB RTQID 30 Days Reported Hydrocodone-Chlorpheniram Susp (Hydrocodone/Chlorphen Polis) 5 Ml Gena.er.12h 5 Ml PO PRN Q12HR PRN Prilosec Otc (Omeprazole Magnesium) 20 Mg Tablet.dr 40 Mg PO DAILY Valium (Diazepam) 10 Mg Tablet 10 Mg PO Q6HRS PRN Percocet 10-325 Mg Tablet (Oxycodone/Acetaminophen) 1 Each Tablet 1 Tab PO PRN Q6HRS PRN Wellbutrin Xl (Bupropion Hcl) 150 Mg Tab.er.24h 150 Mg PO DAILY Amitriptyline Hcl 50 Mg Tablet 2 Tab PO QHS Advair 100-50 Diskus (Fluticasone/Salmeterol) 1 Each Disk.w.dev 1 Puff IH BID Gemfibrozil 600 Mg Tablet 1 Tab PO BID Omeprazole 40 Mg Capsule.dr 1 Cap PO DAILY Lipitor (Atorvastatin Calcium) 40 Mg Tablet 1 Tab PO DAILY Isosorbide Mononitrate Er (Isosorbide Mononitrate) 30 Mg Tab.er.24h 1 Tab PO DAILYWBKFT Aspir 81 (Aspirin) 81 Mg Tablet.dr 1 Tab PO DAILY Gave this morning Take tomorrow morning Coumadin (Warfarin Sodium) 5 Mg Tablet 1 Tab PO DAILY Gave yesterday Take this evening Metoprolol Tartrate 50 Mg Tablet 50 Mg PO BID Gave this morning Take tonight Ms Contin (Morphine Sulfate) 30 Mg Tablet.er 15 Mg PO BID Gave at 1:56 Take again tonight Potassium Chloride 20 Meq Tab.er.prt 20 Meq PO DAILY Gave this morning Take again tomorrow Lasix (Furosemide) 40 Mg Tablet 40 Mg PO DAILY Gave this morning Take tomorrow morning Allergies Allergies: Coded Allergies: Iodinated Contrast- Oral and IV Dye (Verified Allergy, Intermediate, ) ketorolac (Verified Allergy, Intermediate, GI, 12/01/14) tramadol (Verified Allergy, Intermediate, 11/11/15) tolerates oxycodone and morphine venom-honey bee (Verified Allergy, Intermediate, 03/07/14) NSAIDS (Non-Steroidal Anti-Inflamma (Verified Adverse Reaction, Intermediate, GI, 10/09/18) ROS PSYCHOLOGICAL ROS: No: Hallucinations Eyes: No Loss of vision HEENT: No: Epistaxis Respiratory: YES: Cough, Shortness of breath Cardiovascular: yes Chest Pain Gastrointestinal: No Diarrhea Genitourinary: No Hematuria Neurological: No Seizures Skin: No Rash Physical Exam General: Alert, mild distress HEENT: Atraumatic, PERRLA Lungs: Other (bilateral expiratory rhonchi) Heart: Regular rate Abdomen: Soft, No tenderness Extremities: No edema Psych/Mental Status: Mood NL Vitals VITALS Vital Signs Date Time Temp Pulse Resp B/P (MAP) Pulse Ox O2 Delivery O2 Flow Rate FiO2 10/10/18 08:13 18 96 Nasal Cannula 3.0 10/10/18 08:11 68 108/56 10/10/18 08:00 97.3 97.3 Labs Labs Laboratory Tests Test 10/09/18 17:40 10/09/18 21:35 10/10/18 01:40 White Blood Count 9.3 x10^3/uL (4.0-11.0) 8.9 x10^3/uL (4.0-11.0) Red Blood Count 5.59 x10^6/uL (4.30-5.70) 5.07 x10^6/uL (4.30-5.70) Hemoglobin 17.8 g/dL (13.0-17.5) 16.1 g/dL (13.0-17.5) Hematocrit 53.7 % (39.0-53.0) 49.1 % (39.0-53.0) Mean Corpuscular Volume 96 fL (79-100) 97 fL (79-100) Mean Corpuscular Hemoglobin 32 pg (25-35) 32 pg (25-35) Mean Corpuscular Hemoglobin Concent 33 g/dL (31-37) 33 g/dL (31-37) Red Cell Distribution Width 14.0 % (11.5-14.5) 14.4 % (11.5-14.5) Platelet Count 294 x10^3/uL (140-400) 273 x10^3/uL (140-400) Neutrophils (%) (Auto) 52 % (31-73) 49 % (31-73) Lymphocytes (%) (Auto) 35 % (24-48) 35 % (24-48) Monocytes (%) (Auto) 11 % (0-9) 13 % (0-9) Eosinophils (%) (Auto) 2 % (0-3) 3 % (0-3) Basophils (%) (Auto) 0 % (0-3) 0 % (0-3) Neutrophils # (Auto) 4.9 x10^3uL (1.8-7.7) 4.4 x10^3uL (1.8-7.7) Lymphocytes # (Auto) 3.3 x10^3/uL (1.0-4.8) 3.1 x10^3/uL (1.0-4.8) Monocytes # (Auto) 1.0 x10^3/uL (0.0-1.1) 1.1 x10^3/uL (0.0-1.1) Eosinophils # (Auto) 0.2 x10^3/uL (0.0-0.7) 0.2 x10^3/uL (0.0-0.7) Basophils # (Auto) 0.0 x10^3/uL (0.0-0.2) 0.0 x10^3/uL (0.0-0.2) Prothrombin Time 13.0 SEC (11.7-14.0) Prothromb Time International Ratio 1.0 (0.8-1.1) Sodium Level 142 mmol/L (136-145) Potassium Level 3.3 mmol/L (3.5-5.1) Chloride Level 94 mmol/L (98-107) Carbon Dioxide Level mmol/L (21-32) Anion Gap (6-14) Blood Urea Nitrogen 16 mg/dL (8-26) Creatinine 0.8 mg/dL (0.7-1.3) Estimated GFR (Cockcroft-Gault) 98.0 BUN/Creatinine Ratio 20 (6-20) Glucose Level 101 mg/dL (70-99) Calcium Level 9.4 mg/dL (8.5-10.1) Total Bilirubin 0.5 mg/dL (0.2-1.0) Aspartate Amino Transf (AST/SGOT) 21 U/L (15-37) Alanine Aminotransferase (ALT/SGPT) 20 U/L (16-63) Alkaline Phosphatase 120 U/L (46-116) Troponin I Quantitative 1.111 ng/mL (0.000-0.055) 0.933 ng/mL (0.000-0.055) 0.927 ng/mL (0.000-0.055) DE-Otq-W-Type Natriuretic Peptide 1161 pg/mL (0-124) Total Protein 8.0 g/dL (6.4-8.2) Albumin 3.5 g/dL (3.4-5.0) Albumin/Globulin Ratio 0.8 (1.0-1.7) Heparin Anti-Xa Act, Unfractionated < 0.10 IU/mL (0.30-0.70) Laboratory Tests Test 10/09/18 17:40 10/09/18 21:35 10/10/18 01:40 White Blood Count 9.3 x10^3/uL (4.0-11.0) 8.9 x10^3/uL (4.0-11.0) Red Blood Count 5.59 x10^6/uL (4.30-5.70) 5.07 x10^6/uL (4.30-5.70) Hemoglobin 17.8 g/dL (13.0-17.5) 16.1 g/dL (13.0-17.5) Hematocrit 53.7 % (39.0-53.0) 49.1 % (39.0-53.0) Mean Corpuscular Volume 96 fL (79-100) 97 fL (79-100) Mean Corpuscular Hemoglobin 32 pg (25-35) 32 pg (25-35) Mean Corpuscular Hemoglobin Concent 33 g/dL (31-37) 33 g/dL (31-37) Red Cell Distribution Width 14.0 % (11.5-14.5) 14.4 % (11.5-14.5) Platelet Count 294 x10^3/uL (140-400) 273 x10^3/uL (140-400) Neutrophils (%) (Auto) 52 % (31-73) 49 % (31-73) Lymphocytes (%) (Auto) 35 % (24-48) 35 % (24-48) Monocytes (%) (Auto) 11 % (0-9) 13 % (0-9) Eosinophils (%) (Auto) 2 % (0-3) 3 % (0-3) Basophils (%) (Auto) 0 % (0-3) 0 % (0-3) Neutrophils # (Auto) 4.9 x10^3uL (1.8-7.7) 4.4 x10^3uL (1.8-7.7) Lymphocytes # (Auto) 3.3 x10^3/uL (1.0-4.8) 3.1 x10^3/uL (1.0-4.8) Monocytes # (Auto) 1.0 x10^3/uL (0.0-1.1) 1.1 x10^3/uL (0.0-1.1) Eosinophils # (Auto) 0.2 x10^3/uL (0.0-0.7) 0.2 x10^3/uL (0.0-0.7) Basophils # (Auto) 0.0 x10^3/uL (0.0-0.2) 0.0 x10^3/uL (0.0-0.2) Prothrombin Time 13.0 SEC (11.7-14.0) Prothromb Time International Ratio 1.0 (0.8-1.1) Sodium Level 142 mmol/L (136-145) Potassium Level 3.3 mmol/L (3.5-5.1) Chloride Level 94 mmol/L (98-107) Carbon Dioxide Level mmol/L (21-32) Anion Gap (6-14) Blood Urea Nitrogen 16 mg/dL (8-26) Creatinine 0.8 mg/dL (0.7-1.3) Estimated GFR (Cockcroft-Gault) 98.0 BUN/Creatinine Ratio 20 (6-20) Glucose Level 101 mg/dL (70-99) Calcium Level 9.4 mg/dL (8.5-10.1) Total Bilirubin 0.5 mg/dL (0.2-1.0) Aspartate Amino Transf (AST/SGOT) 21 U/L (15-37) Alanine Aminotransferase (ALT/SGPT) 20 U/L (16-63) Alkaline Phosphatase 120 U/L (46-116) Troponin I Quantitative 1.111 ng/mL (0.000-0.055) 0.933 ng/mL (0.000-0.055) 0.927 ng/mL (0.000-0.055) VO-Wbi-O-Type Natriuretic Peptide 1161 pg/mL (0-124) Total Protein 8.0 g/dL (6.4-8.2) Albumin 3.5 g/dL (3.4-5.0) Albumin/Globulin Ratio 0.8 (1.0-1.7) Heparin Anti-Xa Act, Unfractionated < 0.10 IU/mL (0.30-0.70) Assessment/Plan Assessment/Plan 1. Acute on chronic respiratory failure secondary to AECOPD possibly from pneumonia. Pulmonary team following. 2. Non-STEMI in a patient with CAD s/p CABG x3 in 2002. MPI 05/31 without any evidence of ischemia. Troponin level 1.1. Continue heparin infusion per protocol. Plan for cardiac catheterization once respiratory status improves, possibly on Friday. 3. Chronic diastolic CHF; compensated. Recent 2-D echo showed LVEF 50% with mild aortic stenosis. 4. H/o PE and chronic warfarin therapy. INR subtherapeutic. Adjust warfarin for therapeutic INR 5. Hypertension: Blood pressure borderline low 6. Hyperlipidemia: Statins Thank you for your consultation SOVALDO SERNA MD Oct 10, 2018 11:11
[2018-10-10] MEDS ORDERED: PIP/TAZO PER PHARMACY MC PRN (11:15)
--- NOTE | 2018-10-10 11:15 | PDOC ---
PULMONARY PROGRESS NOTES Vitals Vital Signs Date Time Temp Pulse Resp B/P (MAP) Pulse Ox O2 Delivery O2 Flow Rate FiO2 10/10/18 08:13 18 96 Nasal Cannula 3.0 10/10/18 08:11 68 108/56 10/10/18 08:00 97.3 97.3 General: Alert, No acute distress Lungs: Clear Cardiovascular: S1 Abdomen: Soft Extremities: No Edema Labs Laboratory Tests Test 10/09/18 17:40 10/09/18 21:35 10/10/18 01:40 White Blood Count 9.3 x10^3/uL (4.0-11.0) 8.9 x10^3/uL (4.0-11.0) Red Blood Count 5.59 x10^6/uL (4.30-5.70) 5.07 x10^6/uL (4.30-5.70) Hemoglobin 17.8 g/dL (13.0-17.5) 16.1 g/dL (13.0-17.5) Hematocrit 53.7 % (39.0-53.0) 49.1 % (39.0-53.0) Mean Corpuscular Volume 96 fL (79-100) 97 fL (79-100) Mean Corpuscular Hemoglobin 32 pg (25-35) 32 pg (25-35) Mean Corpuscular Hemoglobin Concent 33 g/dL (31-37) 33 g/dL (31-37) Red Cell Distribution Width 14.0 % (11.5-14.5) 14.4 % (11.5-14.5) Platelet Count 294 x10^3/uL (140-400) 273 x10^3/uL (140-400) Neutrophils (%) (Auto) 52 % (31-73) 49 % (31-73) Lymphocytes (%) (Auto) 35 % (24-48) 35 % (24-48) Monocytes (%) (Auto) 11 % (0-9) 13 % (0-9) Eosinophils (%) (Auto) 2 % (0-3) 3 % (0-3) Basophils (%) (Auto) 0 % (0-3) 0 % (0-3) Neutrophils # (Auto) 4.9 x10^3uL (1.8-7.7) 4.4 x10^3uL (1.8-7.7) Lymphocytes # (Auto) 3.3 x10^3/uL (1.0-4.8) 3.1 x10^3/uL (1.0-4.8) Monocytes # (Auto) 1.0 x10^3/uL (0.0-1.1) 1.1 x10^3/uL (0.0-1.1) Eosinophils # (Auto) 0.2 x10^3/uL (0.0-0.7) 0.2 x10^3/uL (0.0-0.7) Basophils # (Auto) 0.0 x10^3/uL (0.0-0.2) 0.0 x10^3/uL (0.0-0.2) Prothrombin Time 13.0 SEC (11.7-14.0) Prothromb Time International Ratio 1.0 (0.8-1.1) Sodium Level 142 mmol/L (136-145) Potassium Level 3.3 mmol/L (3.5-5.1) Chloride Level 94 mmol/L (98-107) Carbon Dioxide Level mmol/L (21-32) Anion Gap (6-14) Blood Urea Nitrogen 16 mg/dL (8-26) Creatinine 0.8 mg/dL (0.7-1.3) Estimated GFR (Cockcroft-Gault) 98.0 BUN/Creatinine Ratio 20 (6-20) Glucose Level 101 mg/dL (70-99) Calcium Level 9.4 mg/dL (8.5-10.1) Total Bilirubin 0.5 mg/dL (0.2-1.0) Aspartate Amino Transf (AST/SGOT) 21 U/L (15-37) Alanine Aminotransferase (ALT/SGPT) 20 U/L (16-63) Alkaline Phosphatase 120 U/L (46-116) Troponin I Quantitative 1.111 ng/mL (0.000-0.055) 0.933 ng/mL (0.000-0.055) 0.927 ng/mL (0.000-0.055) WY-Ipv-O-Type Natriuretic Peptide 1161 pg/mL (0-124) Total Protein 8.0 g/dL (6.4-8.2) Albumin 3.5 g/dL (3.4-5.0) Albumin/Globulin Ratio 0.8 (1.0-1.7) Heparin Anti-Xa Act, Unfractionated < 0.10 IU/mL (0.30-0.70) Laboratory Tests Test 10/09/18 17:40 10/09/18 21:35 10/10/18 01:40 White Blood Count 9.3 x10^3/uL (4.0-11.0) 8.9 x10^3/uL (4.0-11.0) Red Blood Count 5.59 x10^6/uL (4.30-5.70) 5.07 x10^6/uL (4.30-5.70) Hemoglobin 17.8 g/dL (13.0-17.5) 16.1 g/dL (13.0-17.5) Hematocrit 53.7 % (39.0-53.0) 49.1 % (39.0-53.0) Mean Corpuscular Volume 96 fL (79-100) 97 fL (79-100) Mean Corpuscular Hemoglobin 32 pg (25-35) 32 pg (25-35) Mean Corpuscular Hemoglobin Concent 33 g/dL (31-37) 33 g/dL (31-37) Red Cell Distribution Width 14.0 % (11.5-14.5) 14.4 % (11.5-14.5) Platelet Count 294 x10^3/uL (140-400) 273 x10^3/uL (140-400) Neutrophils (%) (Auto) 52 % (31-73) 49 % (31-73) Lymphocytes (%) (Auto) 35 % (24-48) 35 % (24-48) Monocytes (%) (Auto) 11 % (0-9) 13 % (0-9) Eosinophils (%) (Auto) 2 % (0-3) 3 % (0-3) Basophils (%) (Auto) 0 % (0-3) 0 % (0-3) Neutrophils # (Auto) 4.9 x10^3uL (1.8-7.7) 4.4 x10^3uL (1.8-7.7) Lymphocytes # (Auto) 3.3 x10^3/uL (1.0-4.8) 3.1 x10^3/uL (1.0-4.8) Monocytes # (Auto) 1.0 x10^3/uL (0.0-1.1) 1.1 x10^3/uL (0.0-1.1) Eosinophils # (Auto) 0.2 x10^3/uL (0.0-0.7) 0.2 x10^3/uL (0.0-0.7) Basophils # (Auto) 0.0 x10^3/uL (0.0-0.2) 0.0 x10^3/uL (0.0-0.2) Prothrombin Time 13.0 SEC (11.7-14.0) Prothromb Time International Ratio 1.0 (0.8-1.1) Sodium Level 142 mmol/L (136-145) Potassium Level 3.3 mmol/L (3.5-5.1) Chloride Level 94 mmol/L (98-107) Carbon Dioxide Level mmol/L (21-32) Anion Gap (6-14) Blood Urea Nitrogen 16 mg/dL (8-26) Creatinine 0.8 mg/dL (0.7-1.3) Estimated GFR (Cockcroft-Gault) 98.0 BUN/Creatinine Ratio 20 (6-20) Glucose Level 101 mg/dL (70-99) Calcium Level 9.4 mg/dL (8.5-10.1) Total Bilirubin 0.5 mg/dL (0.2-1.0) Aspartate Amino Transf (AST/SGOT) 21 U/L (15-37) Alanine Aminotransferase (ALT/SGPT) 20 U/L (16-63) Alkaline Phosphatase 120 U/L (46-116) Troponin I Quantitative 1.111 ng/mL (0.000-0.055) 0.933 ng/mL (0.000-0.055) 0.927 ng/mL (0.000-0.055) PL-Qts-O-Type Natriuretic Peptide 1161 pg/mL (0-124) Total Protein 8.0 g/dL (6.4-8.2) Albumin 3.5 g/dL (3.4-5.0) Albumin/Globulin Ratio 0.8 (1.0-1.7) Heparin Anti-Xa Act, Unfractionated < 0.10 IU/mL (0.30-0.70) Medications Active Scripts Medications Dose Route/Sig Max Daily Dose Days Date Category Dose Instructions Hydrocodone-Chlorpheniram Susp (Hydrocodone/Chlorphen Polis) 5 Ml Gena.er.12h 5 Ml PO PRN Q12HR PRN 10/09/18 Reported Prilosec Otc (Omeprazole Magnesium) 20 Mg Tablet.dr 40 Mg PO DAILY 10/09/18 Reported Valium (Diazepam) 10 Mg Tablet 10 Mg PO Q6HRS PRN 10/09/18 Reported Percocet 10-325 Mg Tablet (Oxycodone/Acetaminophen) 1 Each Tablet 1 Tab PO PRN Q6HRS PRN 10/09/18 Reported Prednisone 50 Mg Tablet 1 Tab PO DAILY 5 10/06/18 Rx Doxycycline Hyclate 100 Mg Capsule 1 Cap PO BID 10 10/06/18 Rx Duoneb 0.5-3(2.5) Mg/3 Ml (Albuterol/Ipratropium) 3 Ml Ampul.neb 3 Ml NEB RTQID 30 10/06/18 Rx Wellbutrin Xl (Bupropion Hcl) 150 Mg Tab.er.24h 150 Mg PO DAILY 05/25/18 Reported Amitriptyline Hcl 50 Mg Tablet 2 Tab PO QHS 05/25/18 Reported Advair 100-50 Diskus (Fluticasone/Salmeterol) 1 Each Disk.w.dev 1 Puff IH BID 05/08/18 Reported Gemfibrozil 600 Mg Tablet 1 Tab PO BID 05/08/18 Reported Omeprazole 40 Mg Capsule. 1 Cap PO DAILY 05/08/18 Reported Lipitor (Atorvastatin Calcium) 40 Mg Tablet 1 Tab PO DAILY 05/08/18 Reported Isosorbide Mononitrate Er (Isosorbide Mononitrate) 30 Mg Tab.er.24h 1 Tab PO DAILYWBKFT 04/15/17 Reported Aspir 81 (Aspirin) 81 Mg Tablet. 1 Tab PO DAILY 05/17/16 Reported Gave this morning Take tomorrow morning Coumadin (Warfarin Sodium) 5 Mg Tablet 1 Tab PO DAILY 11/10/15 Reported Gave yesterday Take this evening Metoprolol Tartrate 50 Mg Tablet 50 Mg PO BID 9/16/15 Reported Gave this morning Take tonight Ms Contin (Morphine Sulfate) 30 Mg Tablet.er 15 Mg PO BID 11/04/13 Reported Gave at 1:56 Take again tonight Potassium Chloride 20 Meq Tab.er.prt 20 Meq PO DAILY 11/03/13 Reported Gave this morning Take again tomorrow Lasix (Furosemide) 40 Mg Tablet 40 Mg PO DAILY 11/03/13 Reported Gave this morning Take tomorrow morning Impression . note dictated see orders a/c rf pneumonia aecopd thanks DENICE GUSMAN MD Oct 10, 2018 11:15
[2018-10-10] MEDS: LACTOBACILLUS RHAMNOSUS GG 1 CAPSULE. PO SCH ×2 (11:28→21:51)
[2018-10-10] MEDS: oxyCODONE/APAP 10/325 1 TAB TABLET PO PRN ×2 (11:29→21:52)
[2018-10-10] MEDS: PIPERACILLIN/TAZOBACTAM 3.375 GM in IV NORMAL SALINE 50ML 50 ML IV SCH ×2 (11:37→17:37)
[2018-10-10 11:45] VITALS: BP 88/53
[2018-10-10 12:16] LABS: PROTHROMBIN TIME PATIENT 12.8 SEC (11.7-14.0)
[2018-10-10 12:26] LABS: ALBUMIN 2.9 g/dL (3.4-5.0); ALBUMIN/GLOBULIN RATIO 0.8 (1.0-1.7); CALCIUM 9.2 mg/dL (8.5-10.1); CREATININE 0.7 mg/dL (0.7-1.3); GFR 114.3; POTASSIUM 4.5 mmol/L (3.5-5.1); TOTAL BILIRUBIN 0.4 mg/dL (0.2-1.0); TOTAL PROTEIN 6.7 g/dL (6.4-8.2)
--- NOTE | 2018-10-10 12:34 | NUR ---
Pharmacy Warfarin Dosing Note S:Pharmacy consulted to assist with anticoagulation therapy with target INR: 2 -3 O:JOHN AVILA is a 63 year old M with HX OF PE LABS: Last INR: 1 Last HGB: 16.1 Last HCT: 49.1 Last PLT: 273 A:INR of 1 is below desired range. Target range for this patient is: 2 -3 P: Warfarin dose: 5 mg Today at [address] [facility]: Heparin Therapeutic Next INR due tomorrow Pharmacy anticoagulation service will continue to follow. Yumiko Guadarrama RPH, 10/10/18 [id number]
[2018-10-10 15:30] VITALS: BP 96/53
[2018-10-10] MEDS ORDERED: WARFARIN 5 MG TABLET. PO ONE (16:00)
[2018-10-10] MEDS: diazePAM 5 MG TABLET PO PRN (16:25)
[2018-10-10] MEDS: HEPARIN 25,000UTS/500ML PREMIX 500 ML IV PRN (16:30)
[2018-10-10 19:25] VITALS: BP 90/50
[2018-10-10] MEDS: MONTELUKAST SODIUM 10 MG TABLET. PO SCH (21:50)
[2018-10-10] MEDS: ATORVASTATIN CALCIUM 40 MG TABLET. PO SCH (21:51)
[2018-10-10] MEDS: AMITRIPTYLINE HCL 50 MG TABLET PO SCH (21:51)
[2018-10-10 22:01] VITALS: BP 111/55
--- NOTE | 2018-10-10 23:23 | CONS ---
DATE OF CONSULTATION: 10/10/2018 ATTENDING PHYSICIAN: Dr. Villela. REASON FOR CONSULTATION: The patient seen in pulmonary consultation at the request of Dr. Villela for acute hypoxemic respiratory failure. HISTORY OF PRESENT ILLNESS: The patient is a 63-year-old that has chronic respiratory failure, was recently hospitalized with chronic obstructive pulmonary disease exacerbation, discharged home. He normally wears 2 liters of oxygen supplementation. He presented to the Emergency Room with O2 sats of 87% on 2 liters. He was discharged home on doxycycline and prednisone. He has no prior history of allergies. He does have 2 pets at home. He takes no allergy medication. No nasal steroid spray. He has some shaking chills. He did have a chest x-ray, which revealed a new left perihilar infiltrate. He is currently being treated for the above. He is on oxygen supplementation. He was given nebulized treatments. PAST MEDICAL HISTORY: Chronic respiratory failure, COPD, tobacco dependent, coronary artery disease, chronic heart failure, hypertension, hyperlipidemia, obstructive sleep apnea, gastroesophageal reflux, anxiety and depression. PAST SURGICAL HISTORY: Status post coronary artery bypass grafting. ALLERGIES: He is allergic to NONSTEROIDALS, TRAMADOL, ORAL AND IV CONTRAST DYE. SOCIAL HISTORY: He quit tobacco several years ago. Denies any alcohol intake. FAMILY HISTORY: No family history of lung disorders. REVIEW OF SYSTEMS: CONSTITUTIONAL: Subjective fever. EYES: No change in visual acuity. HEENT: No nasal congestion or sore throat. PULMONARY: As indicated above. CARDIOVASCULAR: No chest pain. No pressure. GASTROINTESTINAL: No nausea, vomiting, diarrhea. GENITOURINARY: No dysuria or frequency. MUSCULOSKELETAL: No localized muscle aches or joint pains. SKIN: No new skin rashes. NEUROLOGIC: No headaches, diplopia or blurred vision. PHYSICAL EXAMINATION: VITAL SIGNS: The patient was on 5 liters, he is now back down to 3 liters, O2 saturation is greater than 92%, temperature was 97.3. HEENT: Eyes, the sclerae were nonicteric. NECK: Jugular venous distention was not elevated. No lymphadenopathy. CHEST: Full expansion. LUNGS: Coarse breath sounds, expiratory wheeze, rhonchi bilaterally. CARDIOVASCULAR: Regular rate and rhythm with S1, S2, no S3. ABDOMEN: Soft, obese. EXTREMITIES: No clubbing, cyanosis or edema. NEUROLOGIC: The patient was awake, alert, following commands. A detailed neuro exam was not performed. LABORATORY DATA: Reviewed. White count was normal. Troponin level was elevated. Chest x-ray as indicated above. IMPRESSION: 1. [id number] respiratory failure. 2. Elevated troponin level. 3. Acute exacerbation of chronic obstructive pulmonary disease. 4. Pneumonia, left perihilar infiltrate. 5. Obesity. 6. Tobacco dependence, in remission. PLAN: 1. Antibiotics. 2. Steroids. 3. Oxygen supplementation. 4. Add Singulair. 5. Discharge home with nebulizer machine and prescription for DuoNeb. I do appreciate the privilege in sharing in the patient's care. DENICE GUSMAN MD DR: ALEJANDRO/palma JOB#: [id number] / [id number]
[2018-10-11] MEDS: PIPERACILLIN/TAZOBACTAM 3.375 GM in IV NORMAL SALINE 50ML 50 ML IV SCH ×4 (00:28→18:19)
[2018-10-11] MEDS: diazePAM 5 MG TABLET PO PRN ×3 (00:31→23:03)
[2018-10-11 02:01] VITALS: BP 103/48
[2018-10-11 04:53] LABS: BASO # 0.1 x10^3/uL (0.0-0.2); BASO % 1 % (0-3); EOS # 0.4 x10^3/uL (0.0-0.7); EOS % 4 % (0-3); HEMATOCRIT 45.7 % (39.0-53.0); HEMOGLOBIN 14.9 g/dL (13.0-17.5); LYMPH # 3.1 x10^3/uL (1.0-4.8); LYMPH % 37 % (24-48); MEAN CORPUSCULAR HEMOGLOBIN 32 pg (25-35); MEAN CORPUSCULAR HGB CONC 33 g/dL (31-37); MEAN CORPUSCULAR VOLUME 98 fL (79-100); MONO # 0.9 x10^3/uL (0.0-1.1); MONO % 11 % (0-9); NEUT % 48 % (31-73); PLATELET COUNT 242 x10^3/uL (140-400); RED BLOOD COUNT 4.69 x10^6/uL (4.30-5.70); RED CELL DISTRIBUTION WIDTH 14.2 % (11.5-14.5); WHITE BLOOD COUNT 8.4 x10^3/uL (4.0-11.0)
[2018-10-11 05:26] LABS: BLOOD UREA NITROGEN 17 mg/dL (8-26); CALCIUM 9.2 mg/dL (8.5-10.1); CHLORIDE 94 mmol/L (98-107); CREATININE 0.9 mg/dL (0.7-1.3); GFR 85.5; GLUCOSE 140 mg/dL (70-99); POTASSIUM 4.3 mmol/L (3.5-5.1); SODIUM 138 mmol/L (136-145)
[2018-10-11 05:29] LABS: CARBON DIOXIDE > 45 mmol/L (21-32)
[2018-10-11 05:51] LABS: PROTHROMBIN TIME PATIENT 12.9 SEC (11.7-14.0)
[2018-10-11] MEDS: oxyCODONE/APAP 10/325 1 TAB TABLET PO PRN ×3 (06:07→23:00)
[2018-10-11 07:45] VITALS: BP 99/56
[2018-10-11] MEDS: BUDESONIDE 0.5 MG/2 ML NEBU. NEB SCH ×2 (08:00→19:39)
[2018-10-11] MEDS: ASPIRIN ENTERIC COATED 81 MG TABLET.DR. PO SCH (08:29)
[2018-10-11] MEDS: BENZONATATE 100 MG CAPSULE. PO SCH ×3 (08:29→19:50)
[2018-10-11] MEDS: GEMFIBROZIL 600 MG TABLET. PO SCH ×2 (08:30→19:51)
[2018-10-11] MEDS: DOXYCYCLINE HYCLATE 100 MG TABLET PO SCH ×2 (08:30→19:50)
[2018-10-11] MEDS: FUROSEMIDE 40 MG TABLET. PO SCH (08:30)
[2018-10-11] MEDS: LACTOBACILLUS RHAMNOSUS GG 1 CAPSULE. PO SCH ×2 (08:30→19:50)
[2018-10-11] MEDS: buPROPion XL 150 MG TAB.ER.24H. PO SCH (08:30)
[2018-10-11] MEDS: POTASSIUM CHLORIDE 20 MEQ TABLET.ER. PO SCH (08:30)
[2018-10-11] MEDS: ISOSORBIDE MONONITRATE ER 30 MG TAB.ER.24H PO SCH (08:31)
[2018-10-11] MEDS: PANTOPRAZOLE 40 MG TABLET.DR. PO SCH (08:31)
[2018-10-11] MEDS: METOPROLOL TART IMMED RELEASE 50 MG TABLET. PO SCH ×2 (08:33→19:51)
[2018-10-11] MEDS: MORPHINE ER 15 MG TABLET.ER PO SCH ×2 (08:33→19:51)
[2018-10-11] MEDS: IPRATRPIUM/ALBUTEROL 0.5/2.5MG 3 ML NEBU. NEB SCH ×4 (08:59→19:39)
--- NOTE | 2018-10-11 09:55 | PDOC ---
PROGRESS NOTES Subjective Subjective Patient feeling better today with improvement in dyspnea Objective Objective Vital Signs Date Time Temp Pulse Resp B/P (MAP) Pulse Ox O2 Delivery O2 Flow Rate FiO2 10/11/18 09:00 95 Nasal Cannula 3.0 10/11/18 08:33 18 10/11/18 08:33 63 99/56 10/11/18 07:45 98.0 98.0 Intake and Output 10/11/18 06:59 Intake Total 2100 ml Output Total 2100 ml Balance 0 ml Intake Oral 2100 ml Output Urine Total 2100 ml Physical Exam Abdomen: Soft, No tenderness Heart: Regular rate, Normal S1, Normal S2 Extremities: No edema General: Alert, mild distress HEENT: Atraumatic, PERRLA Lungs: Other (bilateral expiratory rhonchi) MUSCULOSKELETAL: Osteoarthritic changes both hands Neuro: Sensation intact, Cranial nerves 3-12 NL Psych/Mental Status: Mood NL Skin: No rashes Assessment Assessment 1. Acute on chronic respiratory failure secondary to AECOPD possibly from pneumonia. Pulmonary team following. 2. Non-STEMI in a patient with CAD s/p CABG x3 in 2002. MPI 05/31 without any evidence of ischemia. Troponin level 1.1. Continue heparin infusion per protocol. Plan for cardiac catheterization tomorrow. Risks and benefits were explained. 3. Chronic diastolic CHF; compensated. Recent 2-D echo showed LVEF 50% with mild aortic stenosis. 4. H/o PE and chronic warfarin therapy. INR subtherapeutic. Adjust warfarin for therapeutic INR 5. Hypertension: Blood pressure borderline low 6. Hyperlipidemia: Statins Plan Plan of Care Problems Medical Problems: (1) COPD exacerbation Status: Acute Comment Review of Relevant I have reviewed the following items arya (where applicable) has been applied. Labs Laboratory Tests Test 10/10/18 15:29 10/10/18 19:30 10/11/18 04:35 Heparin Anti-Xa Act, Unfractionated 0.51 IU/mL (0.30-0.70) 0.37 IU/mL (0.30-0.70) 0.37 IU/mL (0.30-0.70) White Blood Count 8.4 x10^3/uL (4.0-11.0) Red Blood Count 4.69 x10^6/uL (4.30-5.70) Hemoglobin 14.9 g/dL (13.0-17.5) Hematocrit 45.7 % (39.0-53.0) Mean Corpuscular Volume 98 fL (79-100) Mean Corpuscular Hemoglobin 32 pg (25-35) Mean Corpuscular Hemoglobin Concent 33 g/dL (31-37) Red Cell Distribution Width 14.2 % (11.5-14.5) Platelet Count 242 x10^3/uL (140-400) Neutrophils (%) (Auto) 48 % (31-73) Lymphocytes (%) (Auto) 37 % (24-48) Monocytes (%) (Auto) 11 % (0-9) Eosinophils (%) (Auto) 4 % (0-3) Basophils (%) (Auto) 1 % (0-3) Neutrophils # (Auto) 4.0 x10^3uL (1.8-7.7) Lymphocytes # (Auto) 3.1 x10^3/uL (1.0-4.8) Monocytes # (Auto) 0.9 x10^3/uL (0.0-1.1) Eosinophils # (Auto) 0.4 x10^3/uL (0.0-0.7) Basophils # (Auto) 0.1 x10^3/uL (0.0-0.2) Prothrombin Time 12.9 SEC (11.7-14.0) Prothromb Time International Ratio 1.0 (0.8-1.1) Sodium Level 138 mmol/L (136-145) Potassium Level 4.3 mmol/L (3.5-5.1) Chloride Level 94 mmol/L (98-107) Carbon Dioxide Level > 45 mmol/L (21-32) Anion Gap (6-14) Blood Urea Nitrogen 17 mg/dL (8-26) Creatinine 0.9 mg/dL (0.7-1.3) Estimated GFR (Cockcroft-Gault) 85.5 Glucose Level 140 mg/dL (70-99) Calcium Level 9.2 mg/dL (8.5-10.1) Troponin I Quantitative 0.535 ng/mL (0.000-0.055) Medications Current Medications Montelukast Sodium (Singulair) 10 mg QHS PO Last administered on 10/10/18at 21: 50; Start 10/10/18 at 21:00 Piperacillin Sod/ Tazobactam Sod (Zosyn Per Pharmacy) 1 each PRN DAILY PRN MC SEE COMMENTS; Start 10/10/18 at 11:15 Piperacillin Sod/ Tazobactam Sod 3.375 gm/Sodium Chloride 50 ml @ 100 mls/hr Q6HRS IV Last administered on 10/11/18at 06:08; Start 10/10/18 at 12:00 Warfarin Sodium (Coumadin) 5 mg 1X WARF ONCE PO Last administered on at 16:19; Start 10/10/18 at 16:00; Stop 10/10/18 at 16:01; Status DC Vitals/I & O Vital Sign - Last 24 Hours 10/10/18 10/10/18 10/10/18 10/10/18 11:29 11:29 11:45 11:55 Pulse 68 Resp 18 B/P (MAP) 88/53 (65) Pulse Ox 96 96 93 O2 Delivery Nasal Cannula Nasal Cannula Nasal Cannula Nasal Cannula O2 Flow Rate 3.0 3.0 2.0 3.0 10/10/18 10/10/18 10/10/18 10/10/18 14:01 15:30 16:26 16:31 Temp 97.5 97.5 Pulse 73 Resp 18 18 22 B/P (MAP) 96/53 (67) Pulse Ox 93 91 93 O2 Delivery Nasal Cannula Nasal Cannula Nasal Cannula Nasal Cannula O2 Flow Rate 3.0 3.0 3.0 3.0 10/10/18 10/10/18 10/10/18 10/10/18 17:40 19:25 20:00 20:30 Temp 98.1 98.1 Pulse 80 Resp 20 16 B/P (MAP) 90/50 (63) Pulse Ox 93 91 95 O2 Delivery Nasal Cannula Nasal Cannula Nasal Cannula Nasal Cannula O2 Flow Rate 3.0 2.0 3.0 3.0 10/10/18 10/10/18 10/10/18 10/10/18 21:51 21:52 21:52 22:01 Temp 97.6 97.6 Pulse 80 75 Resp 18 16 B/P (MAP) 90/50 111/55 (73) Pulse Ox 95 O2 Delivery Room Air Room Air Nasal Cannula O2 Flow Rate 3.0 10/11/18 10/11/18 10/11/18 10/11/18 02:01 06:07 07:45 08:31 Temp 98.3 98.0 98.3 98.0 Pulse 66 61 66 Resp 16 22 18 B/P (MAP) 103/48 (66) 99/56 (70) 99/56 Pulse Ox 92 97 O2 Delivery Nasal Cannula Room Air Nasal Cannula O2 Flow Rate 3.0 3.0 10/11/18 10/11/18 10/11/18 10/11/18 08:33 08:33 08:33 09:00 Pulse 63 Resp 18 18 B/P (MAP) 99/56 Pulse Ox 92 92 95 O2 Delivery Nasal Cannula Nasal Cannula Nasal Cannula O2 Flow Rate 3.0 3.0 3.0 Intake and Output 10/10/18 10/10/18 10/11/18 14:59 22:59 06:59 Intake Total 900 ml 1200 ml Output Total 400 ml 925 ml 775 ml Balance -400 ml -25 ml 425 ml OSVALDO SERNA MD Oct 11, 2018 09:55
--- NOTE | 2018-10-11 11:11 | NUR ---
Pharmacy Warfarin Dosing Note S: Pharmacy consulted to assist with anticoagulation therapy O: JOHN AVILA is a 63 year old M with HX OF PE LABS: Last INR: 1 Last HGB: 14.9 Last HCT: 45.7 Last PLT: 242 Last dose of 5 mg given on 10/10/18 at 1619 A:INR of 1 is below desired range. Target range for this patient is: 2 -3 P: Warfarin dose: 7.5 mg Today at 1600 Bridge Therapy: Heparin Therapeutic Next INR due tomorrow Pharmacy anticoagulation service will continue to follow. Yumiko Guadarrama Estephania, 10/11/18 [id number]
[2018-10-11 11:16] VITALS: BP 112/58
--- NOTE | 2018-10-11 11:18 | PDOC ---
PULMONARY PROGRESS NOTES Subjective PT LESS SOA Vitals Vital Signs Date Time Temp Pulse Resp B/P (MAP) Pulse Ox O2 Delivery O2 Flow Rate FiO2 10/11/18 09:00 95 Nasal Cannula 3.0 10/11/18 08:33 18 10/11/18 08:33 63 99/56 10/11/18 07:45 98.0 98.0 General: Alert Lungs: Clear, Other (POOR AIR FLOW) Cardiovascular: S1, S2 Abdomen: Soft, Non-tender Neuro Exam: Alert Extremities: No Edema Skin: Warm Labs Laboratory Tests Test 10/09/18 17:40 10/09/18 21:35 10/10/18 01:40 10/10/18 09:35 White Blood Count 9.3 x10^3/uL (4.0-11.0) 8.9 x10^3/uL (4.0-11.0) Red Blood Count 5.59 x10^6/uL (4.30-5.70) 5.07 x10^6/uL (4.30-5.70) Hemoglobin 17.8 g/dL (13.0-17.5) 16.1 g/dL (13.0-17.5) Hematocrit 53.7 % (39.0-53.0) 49.1 % (39.0-53.0) Mean Corpuscular Volume 96 fL (79-100) 97 fL (79-100) Mean Corpuscular Hemoglobin 32 pg (25-35) 32 pg (25-35) Mean Corpuscular Hemoglobin Concent 33 g/dL (31-37) 33 g/dL (31-37) Red Cell Distribution Width 14.0 % (11.5-14.5) 14.4 % (11.5-14.5) Platelet Count 294 x10^3/uL (140-400) 273 x10^3/uL (140-400) Neutrophils (%) (Auto) 52 % (31-73) 49 % (31-73) Lymphocytes (%) (Auto) 35 % (24-48) 35 % (24-48) Monocytes (%) (Auto) 11 % (0-9) 13 % (0-9) Eosinophils (%) (Auto) 2 % (0-3) 3 % (0-3) Basophils (%) (Auto) 0 % (0-3) 0 % (0-3) Neutrophils # (Auto) 4.9 x10^3uL (1.8-7.7) 4.4 x10^3uL (1.8-7.7) Lymphocytes # (Auto) 3.3 x10^3/uL (1.0-4.8) 3.1 x10^3/uL (1.0-4.8) Monocytes # (Auto) 1.0 x10^3/uL (0.0-1.1) 1.1 x10^3/uL (0.0-1.1) Eosinophils # (Auto) 0.2 x10^3/uL (0.0-0.7) 0.2 x10^3/uL (0.0-0.7) Basophils # (Auto) 0.0 x10^3/uL (0.0-0.2) 0.0 x10^3/uL (0.0-0.2) Prothrombin Time 13.0 SEC (11.7-14.0) 12.8 SEC (11.7-14.0) Prothromb Time International Ratio 1.0 (0.8-1.1) 1.0 (0.8-1.1) Sodium Level 142 mmol/L (136-145) 141 mmol/L (136-145) Potassium Level 3.3 mmol/L (3.5-5.1) 4.5 mmol/L (3.5-5.1) Chloride Level 94 mmol/L (98-107) 97 mmol/L (98-107) Carbon Dioxide Level mmol/L (21-32) 44 mmol/L (21-32) Anion Gap (6-14) 0 (6-14) Blood Urea Nitrogen 16 mg/dL (8-26) 15 mg/dL (8-26) Creatinine 0.8 mg/dL (0.7-1.3) 0.7 mg/dL (0.7-1.3) Estimated GFR (Cockcroft-Gault) 98.0 114.3 BUN/Creatinine Ratio 20 (6-20) 21 (6-20) Glucose Level 101 mg/dL (70-99) 115 mg/dL (70-99) Calcium Level 9.4 mg/dL (8.5-10.1) 9.2 mg/dL (8.5-10.1) Total Bilirubin 0.5 mg/dL (0.2-1.0) 0.4 mg/dL (0.2-1.0) Aspartate Amino Transf (AST/SGOT) 21 U/L (15-37) 21 U/L (15-37) Alanine Aminotransferase (ALT/SGPT) 20 U/L (16-63) 21 U/L (16-63) Alkaline Phosphatase 120 U/L (46-116) 102 U/L (46-116) Troponin I Quantitative 1.111 ng/mL (0.000-0.055) 0.933 ng/mL (0.000-0.055) 0.927 ng/mL (0.000-0.055) KY-Yxc-N-Type Natriuretic Peptide 1161 pg/mL (0-124) Total Protein 8.0 g/dL (6.4-8.2) 6.7 g/dL (6.4-8.2) Albumin 3.5 g/dL (3.4-5.0) 2.9 g/dL (3.4-5.0) Albumin/Globulin Ratio 0.8 (1.0-1.7) 0.8 (1.0-1.7) Heparin Anti-Xa Act, Unfractionated < 0.10 IU/mL (0.30-0.70) 0.75 IU/mL (0.30-0.70) Test 10/10/18 15:29 10/10/18 19:30 10/11/18 04:35 Heparin Anti-Xa Act, Unfractionated 0.51 IU/mL (0.30-0.70) 0.37 IU/mL (0.30-0.70) 0.37 IU/mL (0.30-0.70) White Blood Count 8.4 x10^3/uL (4.0-11.0) Red Blood Count 4.69 x10^6/uL (4.30-5.70) Hemoglobin 14.9 g/dL (13.0-17.5) Hematocrit 45.7 % (39.0-53.0) Mean Corpuscular Volume 98 fL (79-100) Mean Corpuscular Hemoglobin 32 pg (25-35) Mean Corpuscular Hemoglobin Concent 33 g/dL (31-37) Red Cell Distribution Width 14.2 % (11.5-14.5) Platelet Count 242 x10^3/uL (140-400) Neutrophils (%) (Auto) 48 % (31-73) Lymphocytes (%) (Auto) 37 % (24-48) Monocytes (%) (Auto) 11 % (0-9) Eosinophils (%) (Auto) 4 % (0-3) Basophils (%) (Auto) 1 % (0-3) Neutrophils # (Auto) 4.0 x10^3uL (1.8-7.7) Lymphocytes # (Auto) 3.1 x10^3/uL (1.0-4.8) Monocytes # (Auto) 0.9 x10^3/uL (0.0-1.1) Eosinophils # (Auto) 0.4 x10^3/uL (0.0-0.7) Basophils # (Auto) 0.1 x10^3/uL (0.0-0.2) Prothrombin Time 12.9 SEC (11.7-14.0) Prothromb Time International Ratio 1.0 (0.8-1.1) Sodium Level 138 mmol/L (136-145) Potassium Level 4.3 mmol/L (3.5-5.1) Chloride Level 94 mmol/L (98-107) Carbon Dioxide Level > 45 mmol/L (21-32) Anion Gap (6-14) Blood Urea Nitrogen 17 mg/dL (8-26) Creatinine 0.9 mg/dL (0.7-1.3) Estimated GFR (Cockcroft-Gault) 85.5 Glucose Level 140 mg/dL (70-99) Calcium Level 9.2 mg/dL (8.5-10.1) Troponin I Quantitative 0.535 ng/mL (0.000-0.055) Laboratory Tests Test 10/10/18 15:29 10/10/18 19:30 10/11/18 04:35 Heparin Anti-Xa Act, Unfractionated 0.51 IU/mL (0.30-0.70) 0.37 IU/mL (0.30-0.70) 0.37 IU/mL (0.30-0.70) White Blood Count 8.4 x10^3/uL (4.0-11.0) Red Blood Count 4.69 x10^6/uL (4.30-5.70) Hemoglobin 14.9 g/dL (13.0-17.5) Hematocrit 45.7 % (39.0-53.0) Mean Corpuscular Volume 98 fL (79-100) Mean Corpuscular Hemoglobin 32 pg (25-35) Mean Corpuscular Hemoglobin Concent 33 g/dL (31-37) Red Cell Distribution Width 14.2 % (11.5-14.5) Platelet Count 242 x10^3/uL (140-400) Neutrophils (%) (Auto) 48 % (31-73) Lymphocytes (%) (Auto) 37 % (24-48) Monocytes (%) (Auto) 11 % (0-9) Eosinophils (%) (Auto) 4 % (0-3) Basophils (%) (Auto) 1 % (0-3) Neutrophils # (Auto) 4.0 x10^3uL (1.8-7.7) Lymphocytes # (Auto) 3.1 x10^3/uL (1.0-4.8) Monocytes # (Auto) 0.9 x10^3/uL (0.0-1.1) Eosinophils # (Auto) 0.4 x10^3/uL (0.0-0.7) Basophils # (Auto) 0.1 x10^3/uL (0.0-0.2) Prothrombin Time 12.9 SEC (11.7-14.0) Prothromb Time International Ratio 1.0 (0.8-1.1) Sodium Level 138 mmol/L (136-145) Potassium Level 4.3 mmol/L (3.5-5.1) Chloride Level 94 mmol/L (98-107) Carbon Dioxide Level > 45 mmol/L (21-32) Anion Gap (6-14) Blood Urea Nitrogen 17 mg/dL (8-26) Creatinine 0.9 mg/dL (0.7-1.3) Estimated GFR (Cockcroft-Gault) 85.5 Glucose Level 140 mg/dL (70-99) Calcium Level 9.2 mg/dL (8.5-10.1) Troponin I Quantitative 0.535 ng/mL (0.000-0.055) Medications Active Scripts Medications Dose Route/Sig Max Daily Dose Days Date Category Dose Instructions Hydrocodone-Chlorpheniram Susp (Hydrocodone/Chlorphen Polis) 5 Ml Gena.er.12h 5 Ml PO PRN Q12HR PRN 10/09/18 Reported Prilosec Otc (Omeprazole Magnesium) 20 Mg Tablet.dr 40 Mg PO DAILY 10/09/18 Reported Valium (Diazepam) 10 Mg Tablet 10 Mg PO Q6HRS PRN 10/09/18 Reported Percocet 10-325 Mg Tablet (Oxycodone/Acetaminophen) 1 Each Tablet 1 Tab PO PRN Q6HRS PRN 10/09/18 Reported Prednisone 50 Mg Tablet 1 Tab PO DAILY 5 10/06/18 Rx Doxycycline Hyclate 100 Mg Capsule 1 Cap PO BID 10 10/06/18 Rx Duoneb 0.5-3(2.5) Mg/3 Ml (Albuterol/Ipratropium) 3 Ml Ampul.neb 3 Ml NEB RTQID 30 10/06/18 Rx Wellbutrin Xl (Bupropion Hcl) 150 Mg Tab.er.24h 150 Mg PO DAILY 05/25/18 Reported Amitriptyline Hcl 50 Mg Tablet 2 Tab PO QHS 05/25/18 Reported Advair 100-50 Diskus (Fluticasone/Salmeterol) 1 Each Disk.w.dev 1 Puff IH BID 05/08/18 Reported Gemfibrozil 600 Mg Tablet 1 Tab PO BID 05/08/18 Reported Omeprazole 40 Mg Capsule. 1 Cap PO DAILY 05/08/18 Reported Lipitor (Atorvastatin Calcium) 40 Mg Tablet 1 Tab PO DAILY 05/08/18 Reported Isosorbide Mononitrate Er (Isosorbide Mononitrate) 30 Mg Tab.er.24h 1 Tab PO DAILYWBKFT 04/15/17 Reported Aspir 81 (Aspirin) 81 Mg Tablet. 1 Tab PO DAILY 05/17/16 Reported Gave this morning Take tomorrow morning Coumadin (Warfarin Sodium) 5 Mg Tablet 1 Tab PO DAILY 11/10/15 Reported Gave yesterday Take this evening Metoprolol Tartrate 50 Mg Tablet 50 Mg PO BID 03/29/15 Reported Gave this morning Take tonight Ms Contin (Morphine Sulfate) 30 Mg Tablet.er 15 Mg PO BID 11/04/13 Reported Gave at 1:56 Take again tonight Potassium Chloride 20 Meq Tab.er.prt 20 Meq PO DAILY 11/03/13 Reported Gave this morning Take again tomorrow Lasix (Furosemide) 40 Mg Tablet 40 Mg PO DAILY 11/03/13 Reported Gave this morning Take tomorrow morning Impression . IMPRESSION: 1. Kwnpo-rs-tbxtodi respiratory failure. 2. Elevated troponin level. 3. Acute exacerbation of chronic obstructive pulmonary disease. 4. Pneumonia, left perihilar infiltrate. 5. Obesity. 6. Tobacco dependence, in remission. Plan . WILL CONTINUE SUPPORT BETTER TODAY 1. Antibiotics. 2. Steroids. 3. Oxygen supplementation. 4. Add Singulair. 5. Discharge home with nebulizer machine and prescription for DuoNeb. DENICE GUSMAN MD Oct 11, 2018 11:18
[2018-10-11] MEDS: HEPARIN 25,000UTS/500ML PREMIX 500 ML IV PRN (14:18)
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
[2018-10-11 15:34] VITALS: BP 119/56
[2018-10-11] MEDS: fentaNYL PF VIAL 100 MCG/2 ML VIAL IV PRN (15:49)
[2018-10-11] MEDS ORDERED: WARFARIN 7.5 MG TABLET. PO ONE (16:00)
[2018-10-11 19:25] VITALS: BP 108/59
[2018-10-11] MEDS: MONTELUKAST SODIUM 10 MG TABLET. PO SCH (19:51)
[2018-10-11] MEDS: AMITRIPTYLINE HCL 50 MG TABLET PO SCH (19:52)
[2018-10-11] MEDS: ATORVASTATIN CALCIUM 40 MG TABLET. PO SCH (19:52)
[2018-10-11 23:15] VITALS: BP 131/60
[2018-10-12] VITALS (15 sets, daily range): BP systolic 100–169; BP diastolic 55–79
[2018-10-12 04:53] LABS: BASO % 0 % (0-3); EOS # 0.3 x10^3/uL (0.0-0.7); EOS % 4 % (0-3); HEMATOCRIT 45.9 % (39.0-53.0); HEMOGLOBIN 14.8 g/dL (13.0-17.5); LYMPH # 2.8 x10^3/uL (1.0-4.8); LYMPH % 35 % (24-48); MEAN CORPUSCULAR HEMOGLOBIN 32 pg (25-35); MEAN CORPUSCULAR HGB CONC 32 g/dL (31-37); MEAN CORPUSCULAR VOLUME 98 fL (79-100); MONO # 0.9 x10^3/uL (0.0-1.1); MONO % 11 % (0-9); NEUT % 50 % (31-73); PLATELET COUNT 247 x10^3/uL (140-400); RED BLOOD COUNT 4.69 x10^6/uL (4.30-5.70); RED CELL DISTRIBUTION WIDTH 14.2 % (11.5-14.5)
[2018-10-12 05:03] LABS: PROTHROMBIN TIME PATIENT 12.9 SEC (11.7-14.0)
[2018-10-12 05:40] LABS: ALBUMIN 3.1 g/dL (3.4-5.0); ALBUMIN/GLOBULIN RATIO 0.9 (1.0-1.7); ALK PHOS 124 U/L (46-116); ALT (SGPT) 19 U/L (16-63); AST (SGOT) 19 U/L (15-37); BLOOD UREA NITROGEN 15 mg/dL (8-26); BUN/CREATININE RATIO 17 (6-20); CALCIUM 9.5 mg/dL (8.5-10.1); CHLORIDE 95 mmol/L (98-107); CREATININE 0.9 mg/dL (0.7-1.3); GFR 85.5; GLUCOSE 136 mg/dL (70-99); POTASSIUM 4.2 mmol/L (3.5-5.1); SODIUM 139 mmol/L (136-145); TOTAL BILIRUBIN 0.4 mg/dL (0.2-1.0); TOTAL PROTEIN 6.7 g/dL (6.4-8.2)
[2018-10-12 05:42] LABS: CARBON DIOXIDE > 45 mmol/L (21-32)
[2018-10-12] MEDS: PIPERACILLIN/TAZOBACTAM 3.375 GM in IV NORMAL SALINE 50ML 50 ML IV SCH ×6 (06:00→23:56)
[2018-10-12] MEDS: IPRATRPIUM/ALBUTEROL 0.5/2.5MG 3 ML NEBU. NEB SCH ×5 (07:18→20:30)
[2018-10-12] MEDS: BUDESONIDE 0.5 MG/2 ML NEBU. NEB SCH ×2 (07:18→19:19)
[2018-10-12] MEDS ORDERED: IOHEXOL 300 MG/ML 100ML VIAL. ONE (07:47)
[2018-10-12] MEDS ORDERED: LIDOCAINE 1% Multi-Dose 20 ML VIAL. ONE (07:47)
[2018-10-12] MEDS: ISOSORBIDE MONONITRATE ER 30 MG TAB.ER.24H PO SCH (08:02)
[2018-10-12] MEDS: ASPIRIN ENTERIC COATED 81 MG TABLET.DR. PO SCH (08:02)
[2018-10-12] MEDS: METOPROLOL TART IMMED RELEASE 50 MG TABLET. PO SCH ×2 (08:03→20:28)
[2018-10-12] MEDS: FUROSEMIDE 40 MG TABLET. PO SCH (08:03)
[2018-10-12] MEDS ORDERED: methylPREDNISolone SOD SUCC PF 125 MG/2 ML VIAL. ONE (08:27)
[2018-10-12] MEDS ORDERED: HEPARIN for IV BOLUS 10,000 UNIT/10 ML VIAL. ONE (08:28)
[2018-10-12] MEDS ORDERED: NITROGLYCERIN 200 MCG/2 ML SYRINGE FOR CATH/VASC LAB. ONE (08:28)
[2018-10-12] MEDS ORDERED: diphenhydrAMINE 50 MG/ML VIAL ONE (08:28)
[2018-10-12] MEDS ORDERED: VERAPAMIL 5 MG/2 ML VIAL. ONE (08:28)
[2018-10-12] MEDS ORDERED: FAMOTIDINE 20 MG/2 ML VIAL ONE (08:28)
[2018-10-12] MEDS ORDERED: MIDAZOLAM HCL/PF 2 MG/2 ML VIAL. ONE (08:28)
[2018-10-12] MEDS ORDERED: fentaNYL PF VIAL 100 MCG/2 ML VIAL ONE (08:28)
[2018-10-12] MEDS: MORPHINE ER 15 MG TABLET.ER PO SCH ×2 (09:00→20:29)
--- NOTE | 2018-10-12 09:00 | PDOC ---
PULMONARY PROGRESS NOTES Subjective SLEEPING Vitals Vital Signs Date Time Temp Pulse Resp B/P (MAP) Pulse Ox O2 Delivery O2 Flow Rate FiO2 10/12/18 08:03 58 169/79 10/12/18 07:23 98.0 20 95 Nasal Cannula 3.0 98.0 General: Alert Lungs: Clear, Other (POOR AIR FLOW) Cardiovascular: S1, S2 Abdomen: Soft, Non-tender Neuro Exam: Alert Extremities: No Edema Skin: Warm Labs Laboratory Tests Test 10/10/18 09:35 10/10/18 15:29 10/10/18 19:30 10/11/18 04:35 Prothrombin Time 12.8 SEC (11.7-14.0) 12.9 SEC (11.7-14.0) Prothromb Time International Ratio 1.0 (0.8-1.1) 1.0 (0.8-1.1) Heparin Anti-Xa Act, Unfractionated 0.75 IU/mL (0.30-0.70) 0.51 IU/mL (0.30-0.70) 0.37 IU/mL (0.30-0.70) 0.37 IU/mL (0.30-0.70) Sodium Level 141 mmol/L (136-145) 138 mmol/L (136-145) Potassium Level 4.5 mmol/L (3.5-5.1) 4.3 mmol/L (3.5-5.1) Chloride Level 97 mmol/L (98-107) 94 mmol/L (98-107) Carbon Dioxide Level 44 mmol/L (21-32) > 45 mmol/L (21-32) Anion Gap 0 (6-14) (6-14) Blood Urea Nitrogen 15 mg/dL (8-26) 17 mg/dL (8-26) Creatinine 0.7 mg/dL (0.7-1.3) 0.9 mg/dL (0.7-1.3) Estimated GFR (Cockcroft-Gault) 114.3 85.5 BUN/Creatinine Ratio 21 (6-20) Glucose Level 115 mg/dL (70-99) 140 mg/dL (70-99) Calcium Level 9.2 mg/dL (8.5-10.1) 9.2 mg/dL (8.5-10.1) Total Bilirubin 0.4 mg/dL (0.2-1.0) Aspartate Amino Transf (AST/SGOT) 21 U/L (15-37) Alanine Aminotransferase (ALT/SGPT) 21 U/L (16-63) Alkaline Phosphatase 102 U/L (46-116) Total Protein 6.7 g/dL (6.4-8.2) Albumin 2.9 g/dL (3.4-5.0) Albumin/Globulin Ratio 0.8 (1.0-1.7) White Blood Count 8.4 x10^3/uL (4.0-11.0) Red Blood Count 4.69 x10^6/uL (4.30-5.70) Hemoglobin 14.9 g/dL (13.0-17.5) Hematocrit 45.7 % (39.0-53.0) Mean Corpuscular Volume 98 fL (79-100) Mean Corpuscular Hemoglobin 32 pg (25-35) Mean Corpuscular Hemoglobin Concent 33 g/dL (31-37) Red Cell Distribution Width 14.2 % (11.5-14.5) Platelet Count 242 x10^3/uL (140-400) Neutrophils (%) (Auto) 48 % (31-73) Lymphocytes (%) (Auto) 37 % (24-48) Monocytes (%) (Auto) 11 % (0-9) Eosinophils (%) (Auto) 4 % (0-3) Basophils (%) (Auto) 1 % (0-3) Neutrophils # (Auto) 4.0 x10^3uL (1.8-7.7) Lymphocytes # (Auto) 3.1 x10^3/uL (1.0-4.8) Monocytes # (Auto) 0.9 x10^3/uL (0.0-1.1) Eosinophils # (Auto) 0.4 x10^3/uL (0.0-0.7) Basophils # (Auto) 0.1 x10^3/uL (0.0-0.2) Troponin I Quantitative 0.535 ng/mL (0.000-0.055) Test 10/12/18 04:00 White Blood Count 8.0 x10^3/uL (4.0-11.0) Red Blood Count 4.69 x10^6/uL (4.30-5.70) Hemoglobin 14.8 g/dL (13.0-17.5) Hematocrit 45.9 % (39.0-53.0) Mean Corpuscular Volume 98 fL (79-100) Mean Corpuscular Hemoglobin 32 pg (25-35) Mean Corpuscular Hemoglobin Concent 32 g/dL (31-37) Red Cell Distribution Width 14.2 % (11.5-14.5) Platelet Count 247 x10^3/uL (140-400) Neutrophils (%) (Auto) 50 % (31-73) Lymphocytes (%) (Auto) 35 % (24-48) Monocytes (%) (Auto) 11 % (0-9) Eosinophils (%) (Auto) 4 % (0-3) Basophils (%) (Auto) 0 % (0-3) Neutrophils # (Auto) 4.0 x10^3uL (1.8-7.7) Lymphocytes # (Auto) 2.8 x10^3/uL (1.0-4.8) Monocytes # (Auto) 0.9 x10^3/uL (0.0-1.1) Eosinophils # (Auto) 0.3 x10^3/uL (0.0-0.7) Basophils # (Auto) 0.0 x10^3/uL (0.0-0.2) Prothrombin Time 12.9 SEC (11.7-14.0) Prothromb Time International Ratio 1.0 (0.8-1.1) Sodium Level 139 mmol/L (136-145) Potassium Level 4.2 mmol/L (3.5-5.1) Chloride Level 95 mmol/L (98-107) Carbon Dioxide Level > 45 mmol/L (21-32) Anion Gap (6-14) Blood Urea Nitrogen 15 mg/dL (8-26) Creatinine 0.9 mg/dL (0.7-1.3) Estimated GFR (Cockcroft-Gault) 85.5 BUN/Creatinine Ratio 17 (6-20) Glucose Level 136 mg/dL (70-99) Calcium Level 9.5 mg/dL (8.5-10.1) Total Bilirubin 0.4 mg/dL (0.2-1.0) Aspartate Amino Transf (AST/SGOT) 19 U/L (15-37) Alanine Aminotransferase (ALT/SGPT) 19 U/L (16-63) Alkaline Phosphatase 124 U/L (46-116) Total Protein 6.7 g/dL (6.4-8.2) Albumin 3.1 g/dL (3.4-5.0) Albumin/Globulin Ratio 0.9 (1.0-1.7) Laboratory Tests Test 10/12/18 04:00 White Blood Count 8.0 x10^3/uL (4.0-11.0) Red Blood Count 4.69 x10^6/uL (4.30-5.70) Hemoglobin 14.8 g/dL (13.0-17.5) Hematocrit 45.9 % (39.0-53.0) Mean Corpuscular Volume 98 fL (79-100) Mean Corpuscular Hemoglobin 32 pg (25-35) Mean Corpuscular Hemoglobin Concent 32 g/dL (31-37) Red Cell Distribution Width 14.2 % (11.5-14.5) Platelet Count 247 x10^3/uL (140-400) Neutrophils (%) (Auto) 50 % (31-73) Lymphocytes (%) (Auto) 35 % (24-48) Monocytes (%) (Auto) 11 % (0-9) Eosinophils (%) (Auto) 4 % (0-3) Basophils (%) (Auto) 0 % (0-3) Neutrophils # (Auto) 4.0 x10^3uL (1.8-7.7) Lymphocytes # (Auto) 2.8 x10^3/uL (1.0-4.8) Monocytes # (Auto) 0.9 x10^3/uL (0.0-1.1) Eosinophils # (Auto) 0.3 x10^3/uL (0.0-0.7) Basophils # (Auto) 0.0 x10^3/uL (0.0-0.2) Prothrombin Time 12.9 SEC (11.7-14.0) Prothromb Time International Ratio 1.0 (0.8-1.1) Sodium Level 139 mmol/L (136-145) Potassium Level 4.2 mmol/L (3.5-5.1) Chloride Level 95 mmol/L (98-107) Carbon Dioxide Level > 45 mmol/L (21-32) Anion Gap (6-14) Blood Urea Nitrogen 15 mg/dL (8-26) Creatinine 0.9 mg/dL (0.7-1.3) Estimated GFR (Cockcroft-Gault) 85.5 BUN/Creatinine Ratio 17 (6-20) Glucose Level 136 mg/dL (70-99) Calcium Level 9.5 mg/dL (8.5-10.1) Total Bilirubin 0.4 mg/dL (0.2-1.0) Aspartate Amino Transf (AST/SGOT) 19 U/L (15-37) Alanine Aminotransferase (ALT/SGPT) 19 U/L (16-63) Alkaline Phosphatase 124 U/L (46-116) Total Protein 6.7 g/dL (6.4-8.2) Albumin 3.1 g/dL (3.4-5.0) Albumin/Globulin Ratio 0.9 (1.0-1.7) Medications Active Scripts Medications Dose Route/Sig Max Daily Dose Days Date Category Dose Instructions Hydrocodone-Chlorpheniram Susp (Hydrocodone/Chlorphen Polis) 5 Ml Gena.er.12h 5 Ml PO PRN Q12HR PRN 10/09/18 Reported Prilosec Otc (Omeprazole Magnesium) 20 Mg Tablet.dr 40 Mg PO DAILY 10/09/18 Reported Valium (Diazepam) 10 Mg Tablet 10 Mg PO Q6HRS PRN 10/09/18 Reported Percocet 10-325 Mg Tablet (Oxycodone/Acetaminophen) 1 Each Tablet 1 Tab PO PRN Q6HRS PRN 10/09/18 Reported Prednisone 50 Mg Tablet 1 Tab PO DAILY 5 10/06/18 Rx Doxycycline Hyclate 100 Mg Capsule 1 Cap PO BID 10 10/06/18 Rx Duoneb 0.5-3(2.5) Mg/3 Ml (Albuterol/Ipratropium) 3 Ml Ampul.neb 3 Ml NEB RTQID 30 10/06/18 Rx Wellbutrin Xl (Bupropion Hcl) 150 Mg Tab.er.24h 150 Mg PO DAILY 05/25/18 Reported Amitriptyline Hcl 50 Mg Tablet 2 Tab PO QHS 05/25/18 Reported Advair 100-50 Diskus (Fluticasone/Salmeterol) 1 Each Disk.w.dev 1 Puff IH BID 05/08/18 Reported Gemfibrozil 600 Mg Tablet 1 Tab PO BID 05/08/18 Reported Omeprazole 40 Mg Capsule. 1 Cap PO DAILY 05/08/18 Reported Lipitor (Atorvastatin Calcium) 40 Mg Tablet 1 Tab PO DAILY 05/08/18 Reported Isosorbide Mononitrate Er (Isosorbide Mononitrate) 30 Mg Tab.er.24h 1 Tab PO DAILYWBKFT 04/15/17 Reported Aspir 81 (Aspirin) 81 Mg Tablet.dr 1 Tab PO DAILY 05/17/16 Reported Gave this morning Take tomorrow morning Coumadin (Warfarin Sodium) 5 Mg Tablet 1 Tab PO DAILY 11/10/15 Reported Gave yesterday Take this evening Metoprolol Tartrate 50 Mg Tablet 50 Mg PO BID 03/29/15 Reported Gave this morning Take tonight Ms Contin (Morphine Sulfate) 30 Mg Tablet.er 15 Mg PO BID 11/04/13 Reported Gave at 1:56 Take again tonight Potassium Chloride 20 Meq Tab.er.prt 20 Meq PO DAILY 11/03/13 Reported Gave this morning Take again tomorrow Lasix (Furosemide) 40 Mg Tablet 40 Mg PO DAILY 11/03/13 Reported Gave this morning Take tomorrow morning Impression . IMPRESSION: 1. Qtgpf-[id number]-[id number] respiratory failure. 2. Elevated troponin level. 3. Acute exacerbation of chronic obstructive pulmonary disease. 4. Pneumonia, left perihilar infiltrate. 5. Obesity. 6. Tobacco dependence, in remission. Plan . WILL CONTINUE SUPPORT ANTIBX HOME IN AM 4/2 DENICE BHARDWAJ MD Oct 12, 2018 09:00
[2018-10-12] MEDS ORDERED: CONTRAST GIVEN. MC PRN (09:15)
[2018-10-12] MEDS ORDERED: methylPREDNISolone SOD SUCC PF 125 MG/2 ML VIAL. IV ONE (09:15)
[2018-10-12] MEDS ORDERED: diphenhydrAMINE 50 MG/ML VIAL IVP ONE (09:15)
[2018-10-12] MEDS ORDERED: MIDAZOLAM HCL/PF 2 MG/2 ML VIAL. IV ONE (09:15)
[2018-10-12] MEDS ORDERED: LIDOCAINE 1% Multi-Dose 20 ML VIAL. INJ ONE (09:15)
[2018-10-12] MEDS ORDERED: IOHEXOL 300 MG/ML 100ML VIAL. IART ONE (09:15)
[2018-10-12] MEDS ORDERED: fentaNYL PF VIAL 100 MCG/2 ML VIAL IV ONE (09:15)
[2018-10-12] MEDS ORDERED: FAMOTIDINE 20 MG/2 ML VIAL IVP ONE (09:15)
--- NOTE | 2018-10-12 09:29 | PDOC ---
MODERATE SEDATION ASSESSMENT RISKS/ALTERNATIVES Risks/Alternatives Risks and alternatives of this type of sedation and procedure discussed with: RISK/ALTERNATIVES: Patient H & P ON CHART H & P H & P on chart and reviewed for co-morbid conditions and appropriate labs. H&P ON CHART: Yes STATUS PREG STATUS ASSESSED: N/A MEDS/ALLERGIES REVIEWED Meds/Allergies Reviewed Medications and Allergies including time and route of recently administered narcotics and sedatives. MEDS/ALLERGIES REVIEWED: Yes ASA RATING ASA RATING: III AIRWAY ASSESSMENT Airway Assessment Airway patency, oral function limitations, presence of caps, crowns, dentures, partials, and ability to extend neck assessed. AIRWAY ASSESSMENT: Yes MALLAMPATI SCORE MALLAMPATI SCORE: II PRE-SEDATION ASSESSMENT PRE-SEDATION ASSESSMENT: Yes OSVALDO SERNA MD Oct 12, 2018 09:29
--- NOTE | 2018-10-12 10:00 | CARD ---
MR#: [id number] Date of Study: 10/12/2018 Ordering Physician: OSVALDO SERNA, Referring Physician: SHELBI JOHN Tech: RT Huber (R) JACK APPROVED REPORT Technologist: RT Huber (R) JACK Nurse: Aby Hussein R.N. Procedure(s) performed: Left heart catheterization, selective coronary angiography, selective angiogr aphy of the bypass graft Moderate Sedation: 36 mins Fluoro time 3.9 mins Dose: .O6 GYCM2 Contrast 69 ml INDICATION The indication(s) include : non-STEMI . [facility] Clinical Frailty Scale [facility] Clinical Frailty Scale: Managing Well Heart Failure Heart Failure: Yes If Yes, Newly Diagnosed: No If Yes, HF Type: Diastolic If Yes, NYHA Class: Class III PROCEDURE NARRATIVE After explaining the risks, benefits and alternative options, informed consent was obtained from angel ent. Patient was brought to the cardiac Software Build Engineer and his left wrist and right groin were prepped and draped in the usual fashion. Initial attempts to obtain left radial artery access were unsuccessful p robably due to small caliber vessel. 10 mL of 2% lidocaine was then infiltrated into the skin and sub cutaneous tissues of the right groin for local anesthesia. Arterial access was obtained in the right common femoral artery and 6 Scottish sheath inserted. 6 Scottish IM catheter was used to perform selectiv e angiography of the left internal mammary artery graft to the left anterior descending artery and al so the [place] right coronary artery. 6 Scottish JL4 catheter was used to perform selective angiography of the left coronary artery. The saphenous vein graft to the right coronary artery and the saphenous vein graft to the second diagonal branch were known to be occluded from prior cardiac catheterization s and hence was not engaged. LVEDP and transaortic gradients were measured. Left ventriculography was not performed due to availability of recent 2-D echocardiogram. Patient tolerated the procedure well . Hemostasis was achieved using mynx closure device. There were no immediate complications. The follo wing findings were noted. FINDINGS 1. The left main coronary artery arose from the left sinus of Valsalva, gave rise to the left anteri or descending and left circumflex arteries and did not show any significant stenosis. 2. The left anterior descending artery showed 100% chronic occlusion in the midsegment. The first di agonal branch which is a moderate caliber vessel did not show any significant stenosis. 3. The left circumflex artery showed 100% chronic total occlusion in the midsegment. The first obtus e marginal branch showed 40-50% stenosis in the proximal segment. 4. The right coronary artery arose from the right sinus of Valsalva and showed 90% stenosis in the p roximal segment followed by 100% chronic total occlusion in the proximal to midsegment. There is dist al reconstitution of the posterior descending and posterior lateral branches from left to right colla terals. 5. The left internal mammary artery graft to the left anterior descending artery was widely patent. Distal to the anastomosis, the [place] left anterior descending artery did not show any significant st enosis. 6. The saphenous vein grafts to the right coronary artery and also the second diagonal branch of LAD were known to be occluded from prior cardiac catheterizations. 7. LVEDP 20 mmHg. No pullback gradient across the aortic valve. Conclusion Severe [place] vessel coronary artery disease s/p CABG with patent BRUCE to LAD. The vein grafts to the right coronary artery and the second diagonal branch were known to be occluded from prior cardiac ca theterization. No significant lesions needing intervention were noted. Recommendations Patient's non-STEMI is most probably type 2/demand ischemia. Recommend medical management. Signed by : Osvaldo Serna, Electronically Approved : 10/12/2018 09:59:32
[2018-10-12] MEDS: IV 1/2 NORMAL SALINE 1,000 ML IV SCH ×2 (11:27→23:59)
[2018-10-12] MEDS: DOXYCYCLINE HYCLATE 100 MG TABLET PO SCH ×2 (12:02→20:28)
[2018-10-12] MEDS: PANTOPRAZOLE 40 MG TABLET.DR. PO SCH (12:02)
[2018-10-12] MEDS: BENZONATATE 100 MG CAPSULE. PO SCH ×3 (12:02→20:28)
[2018-10-12] MEDS: LACTOBACILLUS RHAMNOSUS GG 1 CAPSULE. PO SCH ×2 (12:02→20:28)
[2018-10-12] MEDS: GEMFIBROZIL 600 MG TABLET. PO SCH ×2 (12:02→20:28)
[2018-10-12] MEDS: POTASSIUM CHLORIDE 20 MEQ TABLET.ER. PO SCH (12:03)
[2018-10-12] MEDS: buPROPion XL 150 MG TAB.ER.24H. PO SCH (12:03)
--- NOTE | 2018-10-12 12:42 | NUR ---
SS following for discharge planning. SS reviewed pt chart. Pt is from home with spouse and is currently requiring oxygen. No discharge needs noted at this time. SS will continue to follow for pending discharge needs.
[2018-10-12] MEDS ORDERED: ANTI-COAG MONITOR BY PHARMACY. MC PRN (13:00)
--- NOTE | 2018-10-12 13:16 | NUR ---
Pharmacy Warfarin Dosing Note S:Pharmacy consulted to assist with anticoagulation therapy started with target INR: 2 -3 O:JOHN AVILA is a 63 year old M with HX OF PE LABS: Last INR: 1 Last HGB: 14.9 Last HCT: 45.7 Last PLT: 242 Last dose of 7.5 mg given on 10/11/18 at 1619 Previous Regimen: Vitamin K given: Drug Interaction Changes: Ongoing Drug Interactions: A:INR of 1 is below desired range. Target range for this patient is: 2 -3 P: Warfarin dose: 7.5 mg Today at 1600 Bridge Therapy: NONE Next INR due TOMORROW. Pharmacy anticoagulation service will continue to follow. [facility], 10/12/18 [id number]
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
[2018-10-12] MEDS ORDERED: WARFARIN 7.5 MG TABLET. PO ONE (16:00)
[2018-10-12] MEDS: oxyCODONE/APAP 10/325 1 TAB TABLET PO PRN (19:07)
[2018-10-12] MEDS: AMITRIPTYLINE HCL 50 MG TABLET PO SCH (20:28)
[2018-10-12] MEDS: ATORVASTATIN CALCIUM 40 MG TABLET. PO SCH (20:28)
[2018-10-12] MEDS: MONTELUKAST SODIUM 10 MG TABLET. PO SCH (20:32)
[2018-10-12] MEDS: diazePAM 5 MG TABLET PO PRN (21:28)
[2018-10-13 04:16] LABS: PROTHROMBIN TIME PATIENT 14.8 SEC (11.7-14.0)
[2018-10-13] MEDS: PIPERACILLIN/TAZOBACTAM 3.375 GM in IV NORMAL SALINE 50ML 50 ML IV SCH ×2 (05:10→12:42)
[2018-10-13 07:00] VITALS: BP 115/64
[2018-10-13] MEDS: IPRATRPIUM/ALBUTEROL 0.5/2.5MG 3 ML NEBU. NEB SCH ×2 (07:20→11:50)
[2018-10-13] MEDS: BUDESONIDE 0.5 MG/2 ML NEBU. NEB SCH (07:21)
[2018-10-13] MEDS: PANTOPRAZOLE 40 MG TABLET.DR. PO SCH (07:22)
[2018-10-13] MEDS: oxyCODONE/APAP 10/325 1 TAB TABLET PO PRN (07:23)
--- NOTE | 2018-10-13 09:16 | RAD ---
Portable chest, 10/13/2018: HISTORY: Possible lung nodule Comparison is made to a study from 10/09/2018. There has been a previous median sternotomy. The heart is within normal limits in size. A coronary artery stent overlies the left side of the heart. There is minimal linear atelectasis in the lingular region. The right lung is clear. No pleural fluid is evident. Postsurgical changes are again noted in the lower cervical spine. IMPRESSION: Minimal linear atelectasis in the lingula. Electronically signed by: Gt Valderrama MD (10/13/2018 9:13 AM) [facility]
[2018-10-13] MEDS: POTASSIUM CHLORIDE 20 MEQ TABLET.ER. PO SCH (09:21)
[2018-10-13] MEDS: GEMFIBROZIL 600 MG TABLET. PO SCH (09:21)
[2018-10-13] MEDS: BENZONATATE 100 MG CAPSULE. PO SCH ×2 (09:22→15:29)
[2018-10-13] MEDS: buPROPion XL 150 MG TAB.ER.24H. PO SCH (09:22)
[2018-10-13] MEDS: LACTOBACILLUS RHAMNOSUS GG 1 CAPSULE. PO SCH (09:22)
[2018-10-13] MEDS: FUROSEMIDE 40 MG TABLET. PO SCH (09:23)
[2018-10-13] MEDS: ASPIRIN ENTERIC COATED 81 MG TABLET.DR. PO SCH (09:23)
[2018-10-13] MEDS: MORPHINE ER 15 MG TABLET.ER PO SCH (09:23)
[2018-10-13] MEDS: DOXYCYCLINE HYCLATE 100 MG TABLET PO SCH (09:24)
[2018-10-13] MEDS: ISOSORBIDE MONONITRATE ER 30 MG TAB.ER.24H PO SCH (09:26)
[2018-10-13] MEDS: METOPROLOL TART IMMED RELEASE 50 MG TABLET. PO SCH (09:26)
--- NOTE | 2018-10-13 09:45 | PDOC ---
PULMONARY PROGRESS NOTES Subjective NO SOA Vitals Vital Signs Date Time Temp Pulse Resp B/P (MAP) Pulse Ox O2 Delivery O2 Flow Rate FiO2 10/13/18 09:26 69 113/56 10/13/18 09:23 Nasal Cannula 3.0 10/13/18 07:23 97 10/13/18 07:00 98.0 18 98.0 General: Alert, No acute distress Lungs: Clear Cardiovascular: S1, S2 Abdomen: Soft, Non-tender Neuro Exam: Alert Extremities: No Edema Skin: Warm Labs Laboratory Tests Test 10/12/18 04:00 10/13/18 03:45 White Blood Count 8.0 x10^3/uL (4.0-11.0) Red Blood Count 4.69 x10^6/uL (4.30-5.70) Hemoglobin 14.8 g/dL (13.0-17.5) Hematocrit 45.9 % (39.0-53.0) Mean Corpuscular Volume 98 fL (79-100) Mean Corpuscular Hemoglobin 32 pg (25-35) Mean Corpuscular Hemoglobin Concent 32 g/dL (31-37) Red Cell Distribution Width 14.2 % (11.5-14.5) Platelet Count 247 x10^3/uL (140-400) Neutrophils (%) (Auto) 50 % (31-73) Lymphocytes (%) (Auto) 35 % (24-48) Monocytes (%) (Auto) 11 % (0-9) Eosinophils (%) (Auto) 4 % (0-3) Basophils (%) (Auto) 0 % (0-3) Neutrophils # (Auto) 4.0 x10^3uL (1.8-7.7) Lymphocytes # (Auto) 2.8 x10^3/uL (1.0-4.8) Monocytes # (Auto) 0.9 x10^3/uL (0.0-1.1) Eosinophils # (Auto) 0.3 x10^3/uL (0.0-0.7) Basophils # (Auto) 0.0 x10^3/uL (0.0-0.2) Prothrombin Time 12.9 SEC (11.7-14.0) 14.8 SEC (11.7-14.0) Prothromb Time International Ratio 1.0 (0.8-1.1) 1.2 (0.8-1.1) Sodium Level 139 mmol/L (136-145) Potassium Level 4.2 mmol/L (3.5-5.1) Chloride Level 95 mmol/L (98-107) Carbon Dioxide Level > 45 mmol/L (21-32) Anion Gap (6-14) Blood Urea Nitrogen 15 mg/dL (8-26) Creatinine 0.9 mg/dL (0.7-1.3) Estimated GFR (Cockcroft-Gault) 85.5 BUN/Creatinine Ratio 17 (6-20) Glucose Level 136 mg/dL (70-99) Calcium Level 9.5 mg/dL (8.5-10.1) Total Bilirubin 0.4 mg/dL (0.2-1.0) Aspartate Amino Transf (AST/SGOT) 19 U/L (15-37) Alanine Aminotransferase (ALT/SGPT) 19 U/L (16-63) Alkaline Phosphatase 124 U/L (46-116) Total Protein 6.7 g/dL (6.4-8.2) Albumin 3.1 g/dL (3.4-5.0) Albumin/Globulin Ratio 0.9 (1.0-1.7) Laboratory Tests Test 10/13/18 03:45 Prothrombin Time 14.8 SEC (11.7-14.0) Prothromb Time International Ratio 1.2 (0.8-1.1) Medications Active Scripts Medications Dose Route/Sig Max Daily Dose Days Date Category Dose Instructions Hydrocodone-Chlorpheniram Susp (Hydrocodone/Chlorphen Polis) 5 Ml Gena.er.12h 5 Ml PO PRN Q12HR PRN 10/09/18 Reported Prilosec Otc (Omeprazole Magnesium) 20 Mg Tablet.dr 40 Mg PO DAILY 10/09/18 Reported Valium (Diazepam) 10 Mg Tablet 10 Mg PO Q6HRS PRN 10/09/18 Reported Percocet 10-325 Mg Tablet (Oxycodone/Acetaminophen) 1 Each Tablet 1 Tab PO PRN Q6HRS PRN 10/09/18 Reported Prednisone 50 Mg Tablet 1 Tab PO DAILY 5 10/06/18 Rx Doxycycline Hyclate 100 Mg Capsule 1 Cap PO BID 10 10/06/18 Rx Duoneb 0.5-3(2.5) Mg/3 Ml (Albuterol/Ipratropium) 3 Ml Ampul.neb 3 Ml NEB RTQID 30 10/06/18 Rx Wellbutrin Xl (Bupropion Hcl) 150 Mg Tab.er.24h 150 Mg PO DAILY 05/25/18 Reported Amitriptyline Hcl 50 Mg Tablet 2 Tab PO QHS 05/25/18 Reported Advair 100-50 Diskus (Fluticasone/Salmeterol) 1 Each Disk.w.dev 1 Puff IH BID 05/08/18 Reported Gemfibrozil 600 Mg Tablet 1 Tab PO BID 05/08/18 Reported Omeprazole 40 Mg Capsule.dr 1 Cap PO DAILY 05/08/18 Reported Lipitor (Atorvastatin Calcium) 40 Mg Tablet 1 Tab PO DAILY 05/08/18 Reported Isosorbide Mononitrate Er (Isosorbide Mononitrate) 30 Mg Tab.er.24h 1 Tab PO [id number] 04/15/17 Reported Aspir 81 (Aspirin) 81 Mg Tablet. 1 Tab PO DAILY 05/17/16 Reported Gave this morning Take tomorrow morning Coumadin (Warfarin Sodium) 5 Mg Tablet 1 Tab PO DAILY 11/10/15 Reported Gave yesterday Take this evening Metoprolol Tartrate 50 Mg Tablet 50 Mg PO BID 03/29/15 Reported Gave this morning Take tonight Ms Contin (Morphine Sulfate) 30 Mg Tablet.er 15 Mg PO BID 11/04/13 Reported Gave at 1:56 Take again tonight Potassium Chloride 20 Meq Tab.er.prt 20 Meq PO DAILY 11/03/13 Reported Gave this morning Take again tomorrow Lasix (Furosemide) 40 Mg Tablet 40 Mg PO DAILY 11/03/13 Reported Gave this morning Take tomorrow morning Impression . IMPRESSION: 1. Pjdbi-pw-oturndd respiratory failure. 2. Elevated troponin level. 3. Acute exacerbation of chronic obstructive pulmonary disease. 4. Pneumonia, left perihilar infiltrate./ RESOLVED 10/13 5. Obesity. 6. Tobacco dependence, in remission. Plan . WILL CONTINUE SUPPORT HOME OXYGEN ANTIBX HOME TODAY CXR REVIEWED 10/13. NO NODULE SHALINI MONTES MD Oct 13, 2018 09:45
--- NOTE | 2018-10-13 09:58 | NUR ---
IP: Pt's hs of mrsa was in 2104 and has had several negative screens since. Pt does not need contact precautions at this time.
[2018-10-13 11:00] VITALS: BP 108/60
--- NOTE | 2018-10-13 11:20 | PDOC ---
FABIÁN CROW LOSS PREVENTION SUPERVISOR 10/13/18 1120: CARDIO Progress Notes Date and Time Date of Service 10/13/2018 Time of Evaluation 1100 Subjective Subjective: No Chest Pain, No shortness of breath, No Palpitations Vitals Vitals Vital Signs Date Time Temp Pulse Resp B/P (MAP) Pulse Ox O2 Delivery O2 Flow Rate FiO2 10/13/18 09:26 69 113/56 10/13/18 09:23 Nasal Cannula 3.0 10/13/18 07:23 97 10/13/18 07:00 98.0 18 98.0 Weight Weight [ ] Input and Output Intake and Output Intake and Output 10/13/18 07:00 Intake Total 1470 ml Output Total 1350 ml Balance 120 ml Intake Oral 700 ml IV Total 770 ml Output Urine Total 1350 ml Laboratory Labs Laboratory Tests Test 10/13/18 03:45 Prothrombin Time 14.8 SEC (11.7-14.0) Prothromb Time International Ratio 1.2 (0.8-1.1) Physical Exam HEENT: Neck Supple W Full Motion Chest: Symmetric LUNGS: Other (expiratory wheeze) Heart: S1S2, RRR (SR) Abdomen: Soft N/T Extremities: No Edema, No Calf Tenderness Neurology: alert, oriented, follow commands Other Exams right groin arteriotomy site intact, no erythema, swelling, neurovascular status to bilateral LE intact. Assessment Assessment 1. Acute on chronic respiratory failure secondary to AECOPD/pneumonia. Pulmonary following. 2. NSTEMI: LHC revealed findings below, no intervention. demand mediated, type 2. Patent BRUCE to LAD, SVG to RCA/D2 known to be occluded from past [facility] no significant lesions otherwise 3. CAD s/p CABG x3 in 2002 4. Chronic diastolic CHF; compensated. EF 50% 5. Mild 6. H/o PE and chronic warfarin therapy 7. HTN: controlled 8. HLP: lipids pending Recommendations 1. Continue with pulmonary recommendations. 2. Continue with secondary prevention and warfarin for past PE. 3. Follow up as an outpt with Dr. Serna on Nov 18 1314 4. May Dc per cardiac standpoint. OSVALDO SERNA MD 10/13/18 1510: CARDIO Progress Notes Assessment Assessment Patient seen and examined. Agree with BURGLAR ALARM MECHANIC's assessment and plan. Cardiac catheterization yesterday did not show any lesions needing intervention Continue current medical regimen and follow-up with our office in 1 month FABIÁN CROW APRN Oct 13, 2018 11:20 OSVALDO SERNA MD Oct 13, 2018 15:10
[2018-10-13] MEDS ORDERED: WARFARIN 7.5 MG TABLET. PO ONE (16:00)
[2018-10-13] MEDS ORDERED: MONT10TA9 PO (16:06)
--- NOTE | 2018-10-13 16:07 | SNU/HH DC ---
DISCHARGE WITH HOME HEALTH DISCHARGE INFORMATION: Discharge Date: Oct 13, 2018 Final Diagnosis: Problems Medical Problems: (1) COPD exacerbation Status: Acute Condition on Discharge: Stable CODE STATUS: Code Status: Full HOME HEALTH: Face to Face: I certify this patient is under my care and that I, or a nurse practitioner or physician's assistant activities director working with me, had a face to face encounter that meets the physician face to face encounter requirements with this patient on []. Medical Complications: COPD RN For Eval/Treatment: Yes Physical Therapy For: Evalulation/Treatment Occupational Therapy For: Evaluation/Treatment Pt Meets Homebound Status: Unsteady balance w/ amb, POST DISCHARGE ORDERS: Activity Instructions for Disc: Activity as tolerated Weight Bearing Status after Di: As tolerated Wound/Incision Care: Other, see below CHECKS AFTER DISCHARGE: Checks after discharge: Check blood press - daily TREATMENT/EQUIPMENT ORDERS: Adaptive Equipment Issued: Cane Discharge Respiratory Equipmen: Oxygen CERTIFICATION STATEMENT: Certification Statement: Certification Statement: Based on the above finding, I certify that this patient is confined to the home and needs intermittent fpc care, physical therapy and/or speech therapy, or continues to need occupational therapy.~ This patient is under my care, and I have initiated the establishment of the plan of care.~ This patient will be followed by myself or a community physician who will periodically review the plan of care. Home Meds Active Scripts Montelukast Sodium (MONTELUKAST SODIUM TABLET) 10 Mg Tablet, 10 MG PO QHS for reactive airway disease for 30 Days, #30 TAB Prov:JANINA FERNANDEZ MD 10/13/18 Prednisone (PREDNISONE) 50 Mg Tablet, 1 TAB PO DAILY for copd for 5 Days, #5 TAB Prov:AMARJIT TERRY MD 10/06/18 Doxycycline Hyclate (DOXYCYCLINE HYCLATE) 100 Mg Capsule, 1 CAP PO BID for bronchitis for 10 Days, #20 CAP Prov:AMARJIT TERRY MD 10/06/18 Ipratropium/Albuterol Sulfate (DUONEB 0.5-3(2.5) MG/3 ML) 3 Ml Ampul.neb, 3 ML NEB RTQID for copd for 30 Days, #120 EACH Prov:AMARJIT TERRY MD 10/06/18 Reported Medications Hydrocodone/Chlorphen Polis (HYDROCODONE-CHLORPHENIRAM SUSP) 5 Ml Gena.er.12h, 5 ML PO PRN Q12HR PRN for COUGH, ML 0 Refills 10/09/18 Omeprazole Magnesium (PRILOSEC OTC) 20 Mg Tablet.dr, 40 MG PO DAILY for heart burn, TAB 10/09/18 Diazepam (VALIUM) 10 Mg Tablet, 10 MG PO Q6HRS PRN for MUSCLE SPASMS, TAB 10/09/18 Oxycodone/Apap 10-325 (PERCOCET 10-325 MG TABLET ) 1 Each Tablet, 1 TAB PO PRN Q6HRS PRN for PAIN, TAB 0 Refills 10/09/18 Bupropion Hcl (WELLBUTRIN XL) 150 Mg Tab.er.24h, 150 MG PO DAILY for anxiety, TAB.SR 05/25/18 Amitriptyline Hcl (AMITRIPTYLINE HCL) 50 Mg Tablet, 2 TAB PO QHS for sleep, #30 TAB 1 Refill 05/25/18 Fluticasone/Salmeterol (ADVAIR 100-50 DISKUS) 1 Each Disk.w.dev, 1 PUFF IH BID, #1 INHALER 5 Refills 05/08/18 Gemfibrozil (GEMFIBROZIL) 600 Mg Tablet, 1 TAB PO BID, #60 TAB 5 Refills 05/08/18 Omeprazole (OMEPRAZOLE) 40 Mg Capsule.dr, 1 CAP PO DAILY, #30 CAP 3 Refills 05/08/18 Atorvastatin Calcium (LIPITOR) 40 Mg Tablet, 1 TAB PO DAILY, #30 TAB 5 Refills 05/08/18 Isosorbide Mononitrate (ISOSORBIDE MONONITRATE ER) 30 Mg Tab.er.24h, 1 TAB PO DAILYWBKFT, #30 TAB 5 Refills 04/15/17 Aspirin (ASPIR 81) 81 Mg Tablet.dr, 1 TAB PO DAILY, #30 TAB 5 Refills Gave this morning Take tomorrow morning 05/17/16 Warfarin Sodium (COUMADIN) 5 Mg Tablet, 1 TAB PO DAILY, #90 TAB 1 Refill Gave yesterday Take this evening 11/10/15 Metoprolol Tartrate (METOPROLOL TARTRATE) 50 Mg Tablet, 50 MG PO BID for FOR HYPERTENSION, #60 TAB 0 Refills Gave this morning Take tonight 03/29/15 Morphine Sulfate Er (MS CONTIN) 30 Mg Tablet.er, 15 MG PO BID for PAIN, TAB Gave at 1:56 Take again tonight 11/04/13 Potassium Chloride (POTASSIUM CHLORIDE) 20 Meq Tab.er.prt, 20 MEQ PO DAILY Gave this morning Take again tomorrow 11/03/13 Furosemide (LASIX) 40 Mg Tablet, 40 MG PO DAILY Gave this morning Take tomorrow morning 11/03/13 JANINA FERNANDEZ MD Oct 13, 2018 16:07
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
--- NOTE | 2018-10-13 16:16 | NUR ---
SS following up with discharge planning. Discharge orders received for home healthcare. Pt met with Araceli from [facility] earlier in the day and pt agreeable to home healthcare with [facility]. SS phoned and faxed referral to [facility], ; fax [phone]. Pt's RN notified.
--- NOTE | 2018-10-13 17:10 | NUR ---
Discharge Note: JOHN AVILA W [address] [place] [address] Discharge instructions and discharge home medications reviewed with Spouse and a copy given. All questions have been answered and understanding verbalized. The following instructions and handouts were given: cardiac diet, discharge instructions, singular info, COPD info, CP info Discontinued lines and drains: Peripheral IV intact. Patient discharged to Home w/services with Spouse via wheelchair at 1710.
== END 2018-10-13 17:10 | disposition home health service (06) | DRG 280 ==
LOC: ER 16:58 → 2 NORTH 18:27
PROVIDERS: ADMIT Internal Medicine; ATTEND Internal Medicine
PROC: 4A023N7 Measurement of Cardiac Sampling and Pressure, Left Heart, Percutaneous Approach (ICD-10-PCS; principal; 2018-10-12)
PROC: B2111ZZ Fluoroscopy of Multiple Coronary Arteries using Low Osmolar Contrast (ICD-10-PCS; 2018-10-12)
PROC: B2131ZZ Fluoroscopy of Multiple Coronary Artery Bypass Grafts using Low Osmolar Contrast (ICD-10-PCS; 2018-10-12)
PROC: 03JY3ZZ Inspection of Upper Artery, Percutaneous Approach (ICD-10-PCS; 2018-10-12)
DX: I21.A1 Myocardial infarction type 2 (principal); I50.43 Acute on chronic combined systolic (congestive) and diastolic (congestive) heart failure; J96.21 Acute and chronic respiratory failure with hypoxia; J18.9 Pneumonia, unspecified organism; J44.0 Chronic obstructive pulmonary disease with (acute) lower respiratory infection; J44.1 Chronic obstructive pulmonary disease with (acute) exacerbation; J96.12 Chronic respiratory failure with hypercapnia; F41.9 Anxiety disorder, unspecified; F32.9 Major depressive disorder, single episode, unspecified; E66.9 Obesity, unspecified; E78.00 Pure hypercholesterolemia, unspecified; E78.5 Hyperlipidemia, unspecified; F17.211 Nicotine dependence, cigarettes, in remission; G47.33 Obstructive sleep apnea (adult) (pediatric); G89.4 Chronic pain syndrome; I11.0 Hypertensive heart disease with heart failure; I25.10 Atherosclerotic heart disease of native coronary artery without angina pectoris; I25.5 Ischemic cardiomyopathy; K21.9 Gastro-esophageal reflux disease without esophagitis; I35.0 Nonrheumatic aortic (valve) stenosis; M19.90 Unspecified osteoarthritis, unspecified site; I25.2 Old myocardial infarction; Z79.01 Long term (current) use of anticoagulants; Z95.5 Presence of coronary angioplasty implant and graft; Z95.1 Presence of aortocoronary bypass graft; Z88.8 Allergy status to other drugs, medicaments and biological substances; Z91.030 Bee allergy status; Z91.041 Radiographic dye allergy status; Z86.711 Personal history of pulmonary embolism; Z85.47 Personal history of malignant neoplasm of testis; Z82.49 Family history of ischemic heart disease and other diseases of the circulatory system; Z68.29 Body mass index [BMI] 29.0-29.9, adult
CPT/HCPCS: 93459; G0269; 36415; 71045; 80048; 80053; 80061; 83880; 84484; 85025; 85520; 85610; 93005; 94640; 94760; 96374; 96375; 99152; 99153; C1713; C1769; C1892; J1200; J1644; J2250; J2405; J2543; J2930; J3010; J3490; J7620; J7626; Q9967; 99285-25

== ENCOUNTER 2019-10-05 13:05 | Emergency (ER) | payer OTHER ==
[~2019-10-05] VITALS: Ht 165.1 cm; Wt 105.0 kg
[~2019-10-05 13:05] MED LIST changes: +HYDR5SUS PO; +MONT10TA49 PO; +OMEP20TA63 PO; +OMEP40CA45 PO; -OMEP40CA5 PO; +OXYC1TAB22 PO; -PANT40TA3 PO; +PANT40TA77 PO; -SUCR1ORA11 PO; +SUCR1ORA14 PO
--- NOTE | 2019-10-05 14:29 | RAD ---
EXAM: CHEST 1 VIEW History: Shortness of breath COMPARISON: 10/13/2018 TECHNIQUE: Single portable radiograph of the chest FINDINGS: The cardiac silhouette is unremarkable. The lungs are clear bilaterally. The costophrenic sulci are clear and well demarcated. IMPRESSION: No radiographic evidence of an acute cardiopulmonary process. Electronically signed by: Anthony Varela MD (10/05/2019 2:26 PM) [id number]
[2019-10-05 14:32] LABS: INFLUENZA A PATIENT NEGATIVE (NEGATIVE); INFLUENZA B PATIENT NEGATIVE (NEGATIVE)
--- NOTE | 2019-10-05 14:58 | PHYS DOC ---
Past Medical History Past Medical History: CAD, Cancer, COPD, High Cholesterol, Heart Disease, Hypertension, MT, Other Additional Past Medical Histor: TESTICLE CANCER, chronic back pain, PE Past Surgical History: Coronary Bypass Surgery, Other Additional Past Surgical Histo: ORECECTOMY,BACK, JAW, cardiac stents Smoking Status: Former Smoker Alcohol Use: None Drug Use: None Adult General Chief Complaint Chief Complaint: SHORTNESS OF BREATH HPI HPI Patient is a 64 year old male with history of COPD on home oxygen who presents with pain of shortness of breath and fever. Patient states he ran out of the oxygen and her shortness of breath yesterday and had a fever of 103.8 last night and took Tylenol today about checking his temperature and then to his primary care physician office and was told will come to ER for COVID 19. Patient was afebrile at arrival to ER without taking Tylenol and ibuprofen and denied chest pain, sore throat, focal neuro deficit, shortness of breath, productive cough, vomiting and diarrhea, sick contact, recent travel. Patient came without oxygen and had O2 sat of 95% at room air. Review of Systems Review of Systems Constitutional: Denies fever or chills [] Eyes: Denies change in visual acuity, redness, or eye pain [] HENT: Denies nasal congestion or sore throat [] Respiratory: Reports cough and shortness of breath Cardiovascular: No additional information not addressed in HPI [] GI: Denies abdominal pain, nausea, vomiting, bloody stools or diarrhea [] : Denies dysuria or hematuria [] Musculoskeletal: Denies back pain or joint pain [] Integument: Denies rash or skin lesions [] Neurologic: Denies headache, focal weakness or sensory changes [] Endocrine: Denies polyuria or polydipsia [] All other systems were reviewed and found to be within normal limits, except as documented in this note. Allergies Allergies Allergies Coded Allergies Type Severity Reaction Last Updated Verified Iodinated Contrast Media Allergy Intermediate 03/07/14 Yes ketorolac Allergy Intermediate GI 12/01/14 Yes tramadol Allergy Intermediate 11/11/15 Yes venom-honey bee Allergy Intermediate 03/07/14 Yes NSAIDS (Non-Steroidal Anti-Inflamma Adverse Reaction Intermediate GI 10/09/18 Yes Physical Exam Physical Exam Constitutional: Well developed, well nourished, no acute distress, non-toxic appearance. [] HENT: Normocephalic, atraumatic, bilateral external ears normal, oropharynx moist, no oral exudates, nose normal. [] Eyes: PERRLA, EOMI, conjunctiva normal, no discharge. [] Neck: Normal range of motion, no tenderness, supple, no stridor. [] Cardiovascular:Heart rate regular rhythm, no murmur [] Lungs & Thorax: Bilateral breath sounds clear to auscultation [] Abdomen: Bowel sounds normal, soft, no tenderness, no masses, no pulsatile masses. [] Skin: Warm, dry, no erythema, no rash. [] Back: No tenderness, no CVA tenderness. [] Extremities: No tenderness, no cyanosis, no clubbing, ROM intact, no edema. [] Neurologic: Alert and oriented X 3, normal motor function, normal sensory function, no focal deficits noted. [] Psychologic: Affect normal, judgement normal, mood normal. [] Current Patient Data Vital Signs Vital Signs Date Time Temp Pulse Resp B/P (MAP) Pulse Ox O2 Delivery O2 Flow Rate FiO2 10/05/19 15:17 18 136/63 (87) 98 Nasal Cannula 2.0 10/05/19 13:25 98.3 87 98.3 Lab Values Laboratory Tests Test 10/05/19 13:25 Influenza Type A Antigen Negative (NEGATIVE) Influenza Type B Antigen Negative (NEGATIVE) EKG EKG [] Radiology/Procedures Radiology/Procedures [facility] [address] [place] [address] IMAGING REPORT Signed PATIENT: JOHN AVILA ACCOUNT: [id number] : 1955 LOCATION: ER AGE: 64 SEX: M EXAM STATUS: REG ER ORD. PHYSICIAN: ADINA SHULTZ MD REASON: Shortness of breath PROCEDURE: CHEST AP ONLY EXAM: CHEST 1 VIEW History: Shortness of breath COMPARISON: 10/13/2018 TECHNIQUE: Single portable radiograph of the chest FINDINGS: The cardiac silhouette is unremarkable. The lungs are clear bilaterally. The costophrenic sulci are clear and well demarcated. IMPRESSION: No radiographic evidence of an acute cardiopulmonary process. Electronically signed by: Anthony Varela MD (10/05/2019 2:26 PM) [id number] DICTATED and SIGNED BY: ANTHONY VARELA MD DATE: 10/05/19 1426 Course & Med Decision Making Course & Med Decision Making Pertinent Labs and Imaging studies reviewed. (See chart for details) Evaluation of patient in ER showed 64-year-old male patient who became shortness of breath when he ran out of the oxygen and seen by primary care physician office and sent to ER for evaluation of coronavirus. Patient was afebrile without taking Tylenol and ibuprofen and O2 sat was 95% at room air at arrival to ER. Patient had unremarkable chest x-ray and flu test and was advised to continue home 24 hours oxygen and treatment and check his temperature and stay at home. I've spoken with the patient and/or caregivers. I've explained the patient's condition, diagnosis and treatment plan based on information available to me at this time. I've answered the patient's and/or caregivers questions and addressed any concerns. The patient and/or caregivers have a good understanding the patient's diagnosis, condition and treatment plan as can be expected at this point. Vital signs have been stabilized. The patient's condition is stable for discharge from the emergency department. The patient will pursue further outpatient evaluation with her primary care provider or other designated consulting physician as outlined in the discharge instructions. Patient and/or caregivers are agreeable to this plan of care and follow-up instructions have been explained in detail. The patient and/or caregivers have received these instructions in written format and expressed understanding of these discharge instructions. The patient and her caregivers are aware that if any significant change in condition or worsening of symptoms should prompt him to immediately return to this of the closest emergency department. If an emergent department is not readily available I would encourage him to call 911. Porsche Disclaimer Porsche Disclaimer This electronic medical record was generated, in whole or in part, using a voice recognition dictation system. Departure Departure Impression: Primary Impression: SOB (shortness of breath) Disposition: 01 HOME, SELF-CARE (At 1508) Condition: STABLE Referrals: YOSSI RECIO MD (PCP) Patient Instructions: Shortness of Breath Additional Instructions: Continue home 24 hours oxygen Check and record your temperature frequency Follow-up with your primary care physician in 3-5 days Return to ER if not getting better Scripts [Covid19] No Conflict Check Prov: ADINA SHULTZ MD 10/05/19 ADINA SHULTZ MD Oct 05, 2019 14:58
[2019-10-05] MEDS ORDERED: [UNRECOGNIZED DRUG - OTHER] (15:13)
[2019-10-05 15:17] VITALS: BP 136/63
== END 2019-10-05 15:35 | disposition home or self-care (01) ==
LOC: ER 13:05
DX: R06.02 Shortness of breath (principal); R50.9 Fever, unspecified; R05 Cough; I11.9 Hypertensive heart disease without heart failure; E78.00 Pure hypercholesterolemia, unspecified; J44.9 Chronic obstructive pulmonary disease, unspecified; I25.10 Atherosclerotic heart disease of native coronary artery without angina pectoris; G89.29 Other chronic pain; I25.2 Old myocardial infarction; Z95.1 Presence of aortocoronary bypass graft; Z95.5 Presence of coronary angioplasty implant and graft; Z87.891 Personal history of nicotine dependence; Z88.8 Allergy status to other drugs, medicaments and biological substances; Z88.6 Allergy status to analgesic agent; Z91.041 Radiographic dye allergy status
CPT/HCPCS: 71045; 87804; 99284

== ENCOUNTER → 2020-02-09 | Outpatient (CLI) | payer OTHER ==
[~2020-02-09] MED LIST changes: +ASPI-630 PO; +BUSP10TA PO; +CRESTOR5 MG PO; +DIAZ5TAB PO; +FLUT1DIS3 IH; +LINZESS145 MCG PO; +MORP15TA80 PO; +OXYC1TAB20 PO; +POTA20TA4 PO; -WARF-78 PO; +WARF5TAB2 PO; +[UNRECOGNIZED DRUG - OTHER]
--- NOTE | 2020-02-09 17:00 | RAD ---
MR#: [id number] Date of Study: 02/09/2020 Ordering Physician: OSVALDO SERNA, Referring Physician: OSVALDO SERNA, Tech: APPROVED REPORT Indications Rest Pain:Bilaterally VELOCITY AND DOPPLER WAVEFORM ANALYSIS RIGHT cm/secWaveformSeverity LEFT cm/secWaveform Severity dCFA 211.0MonophasicdCFA 109.0Triphasic Prof Fem Art. 105.0TriphasicProf Fem Art. 86.0Triphasic Fem Art Prox. 201.0MonophasicFem Art Prox. 117.0Triphasic Fem Art Mid. 131.0MonophasicFem Art Mid. 187.0Triphasic Fem Art Dist. 218.0MonophasicFem Art Dist. 178.0Triphasic Pop Art(Fossa) 61.0MonophasicPop Art(AK) 77.0Triphasic CERTIFIED HEARING INSTRUMENT DISPENSER Prox. 75.0MonophasicPTA Prox. 59.0Biphasic CERTIFIED HEARING INSTRUMENT DISPENSER Dist. 27.0MonophasicPTA Dist. 65.0Biphasic Per Art Mid. 35.0MonophasicPer Art Mid. CORINNA Prox. 81.0MonophasicATA Prox. 77.0Biphasic DPA 59MonophasicDPA 40Biphasic Findings On the right side the velocities are monophasic likely suggestive of more proximal stenosis. Nonethe less, no significant flow-limiting stenosis identified in the common femoral artery. Probable modera te disease noted in the superficial femoral artery in the mid and distal segment. There is three-ves alisia runoff below the knee with diminished velocities in the posterior tibial artery and peroneal enedina ry suggestive of mild to moderate disease. On the left side there are mostly triphasic and biphasic waveforms with two-vessel runoff below the k nee. Likely mild disease in the SFA. No significant occlusions noted in the posterior tibial or ant erior tibial vessels. The left peroneal artery was not well visualized. Critical Notification Critical Value: No <Conclusion> 1. Although no focal stenosis is identified on the right side there are mostly monophasic waveforms extending from the common femoral artery to the below-knee vessels this is suggestive of more proxima l aortoiliac disease versus arterial calcification. Clinical correlation recommended 2. No significant left-sided disease with two-vessel runoff. Signed by : Yandel Marsh, Electronically Approved : 02/09/2020 17:00:12
== END | disposition home or self-care (01) ==
LOC: US 15:27
PROVIDERS: ATTEND Internal Medicine Cardiovascular Disease
DX: M79.604 Pain in right leg (principal); M79.605 Pain in left leg; M79.661 Pain in right lower leg; M79.662 Pain in left lower leg
CPT/HCPCS: 93925

== ENCOUNTER 2020-03-06 07:45 | Outpatient (CLI) | payer OTHER ==
[~2020-03-06] VITALS: Ht 172.7 cm; Wt 97.1 kg
[2020-03-06] VITALS (12 sets, daily range): BP systolic 131–172; BP diastolic 61–80
[~2020-03-06 07:45] MED LIST changes: -ASPI-630 PO; -BUSP10TA PO; -CRESTOR5 MG PO; -DIAZ5TAB PO; -FLUT1DIS3 IH; +IODIXANOL 320 MG/ML 100 ML VIAL. ONE; +LIDOCAINE 1% Multi-Dose 20 ML VIAL. ONE; -LINZESS145 MCG PO; -MORP15TA80 PO; -OXYC1TAB20 PO; -POTA20TA4 PO
[2020-03-06 08:21] LABS: HEMOGLOBIN 18.8 g/dL (13.0-17.5); RED BLOOD COUNT 5.74 x10^6/uL (4.30-5.70); RED CELL DISTRIBUTION WIDTH 12.4 % (11.5-14.5); WHITE BLOOD COUNT 5.5 x10^3/uL (4.0-11.0)
[2020-03-06 08:33] LABS: PROTHROMBIN TIME PATIENT 12.7 SEC (11.7-14.0)
[2020-03-06 08:38] LABS: CALCIUM 9.5 mg/dL (8.5-10.1); GFR 75.5; POTASSIUM 3.9 mmol/L (3.5-5.1)
[2020-03-06] MEDS ORDERED: METO50TA6 PO (08:51)
[2020-03-06] MEDS ORDERED: FURO-68 PO (08:51)
[2020-03-06] MEDS ORDERED: PANT40TA77 PO (08:51)
[2020-03-06] MEDS ORDERED: ASPI-630 PO (08:51)
[2020-03-06] MEDS ORDERED: FLUT1DIS3 IH (08:51)
[2020-03-06] MEDS ORDERED: MORP15TA80 PO (08:51)
[2020-03-06] MEDS ORDERED: WARF-31 PO (08:51)
[2020-03-06] MEDS ORDERED: LINZESS145 MCG PO (08:51)
[2020-03-06] MEDS ORDERED: CRESTOR5 MG PO (08:51)
[2020-03-06] MEDS ORDERED: OXYC1TAB20 PO (08:51)
[2020-03-06] MEDS ORDERED: POTA20TA4 PO (08:51)
[2020-03-06] MEDS ORDERED: DIAZ5TAB PO (08:51)
[2020-03-06] MEDS ORDERED: BUSP10TA PO (08:51)
[2020-03-06] MEDS ORDERED: methylPREDNISolone SOD SUCC PF 125 MG/2 ML VIAL. IV ONE (09:30)
[2020-03-06] MEDS ORDERED: FAMOTIDINE 20 MG/2 ML VIAL IVP ONE (09:30)
[2020-03-06] MEDS ORDERED: diphenhydrAMINE 50 MG/ML VIAL IV ONE (09:30)
[2020-03-06] MEDS ORDERED: MIDAZOLAM HCL/PF 5 MG/5 ML VIAL. ONE (09:52)
[2020-03-06] MEDS ORDERED: fentaNYL PF VIAL 250 MCG/5 ML VIAL ONE (09:53)
[2020-03-06] MEDS ORDERED: HEPARIN for IV BOLUS 10,000 UNIT/10 ML VIAL. ONE (09:53)
[2020-03-06] MEDS ORDERED: IODIXANOL 320 MG/ML 100 ML VIAL. IART ONE (10:15)
[2020-03-06] MEDS ORDERED: fentaNYL PF VIAL 100 MCG/2 ML VIAL IV ONE (10:15)
[2020-03-06] MEDS ORDERED: MIDAZOLAM HCL/PF 5 MG/5 ML VIAL. IV ONE (10:15)
[2020-03-06] MEDS ORDERED: LIDOCAINE 1% Multi-Dose 20 ML VIAL. INJ ONE (10:15)
[2020-03-06] MEDS ORDERED: fentaNYL PF VIAL 250 MCG/5 ML VIAL IV ONE (10:45)
[2020-03-06] MEDS ORDERED: IV 1/2 NORMAL SALINE 1,000 ML IV SCH (10:51)
--- NOTE | 2020-03-06 10:51 | PDOC ---
MODERATE SEDATION ASSESSMENT RISKS/ALTERNATIVES Risks/Alternatives Risks and alternatives of this type of sedation and procedure discussed with: RISK/ALTERNATIVES: Patient H & P ON CHART H & P H & P on chart and reviewed for co-morbid conditions and appropriate labs. H&P ON CHART: Yes STATUS PREG STATUS ASSESSED: N/A MEDS/ALLERGIES REVIEWED Meds/Allergies Reviewed Medications and Allergies including time and route of recently administered narcotics and sedatives. MEDS/ALLERGIES REVIEWED: Yes ASA RATING ASA RATING: III AIRWAY ASSESSMENT Airway Assessment Airway patency, oral function limitations, presence of caps, crowns, dentures, partials, and ability to extend neck assessed. AIRWAY ASSESSMENT: Yes MALLAMPATI SCORE MALLAMPATI SCORE: II PRE-SEDATION ASSESSMENT PRE-SEDATION ASSESSMENT: Yes OSVALDO SERNA MD Mar 06, 2020 10:51
--- NOTE | 2020-03-06 11:10 | CARD ---
MR#: [id number] Date of Study: 03/06/2020 Ordering Physician: OSVALDO DING, Referring Physician: OSVALDO DING, Tech: Fara Canela Rt(R) APPROVED REPORT Patient StatusOUT-PATIENT Cytotechnologist/Cytology Supervisor: Fara Canela Rt(R) Procedure(s) performed: Aortogram with bilateral lower extremity runoff Sedation Time: 45 Minutes Dose: 77.88 Gycm2 Contrast: 88.5 mL Visispaque Fluoro Time: 6.7 Minutes INDICATION FOR PROCEDURE The indication(s) include : Claudication and abnormal arterial duplex scan. PROCEDURE NARRATIVE After explaining the risks, benefits and alternative options, informed consent was obtained from angel ent. Patient was brought to the cardiac Asset Protection Specialist and both his groins were prepped and draped in the usual fashion. 20 cc of 2% lidocaine was infiltrated into the skin and subcutaneous tissues of right groin for local anesthesia. Arterial access was obtained in the right common femoral artery and a 5 Salvadorean sheath was inserted. 5 Salvadorean Omni Flush catheter was then used to perform aortoiliac angiog michael. The aortic yanci was crossed over using a 5 Salvadorean crossover catheter and with the tip posit ioned in the left external iliac artery, selective left lower extremity angiography was performed. C ontrast injections were performed through the sheath in the right groin for right lower extremity ang iography. Patient tolerated the procedure well. Hemostasis was achieved using Mynx closure device. There were no immediate complications. FINDINGS 1. The distal descending aorta is aneurysmal with shelf like plaques and without any significant marilou nosis. 2. No significant stenosis involving bilateral common and external iliac arteries. 3. No significant stenosis involving bilateral common femoral arteries. 4. The right superficial femoral artery showed a long 30 to 40% stenosis in the distal segment. The left superficial femoral artery showed a discrete 30% stenosis in the distal segment. 5. No significant stenosis involving bilateral popliteal arteries. 6. There is three-vessel runoff below the knee bilaterally. Of note, there was sluggish flow distal ly probably from microvascular disease. Conclusion No significant peripheral artery stenosis Recommendations Patient's leg pain is most probably musculoskeletal. Continue vascular risk factor modification and regular exercise regimen Signed by : Osvaldo Ding, Electronically Approved : 03/06/2020 11:09:39
--- NOTE | 2020-03-06 13:00 | NUR ---
Pt awake, HOB to 45 degrees after completing 2 hour flat recovery. No bleeding noted, pt tolerating without new c/o. KATRIN RN
--- NOTE | 2020-03-06 14:00 | NUR ---
Discharge Note: JOHN AVILA Discharge instructions and discharge home medications reviewed with Patient and a copy given. All questions have been answered and understanding verbalized. Dressing site remains clean and dry, no bleeding or swelling noted. No signs of allergic reaction to contrast dye. The following instructions and handouts were given: groin site care, sedation, smoking cessation Discontinued lines and drains: Peripheral IV intact. Patient discharged to Home or Self Care with Spouse via Wheelchair KATRIN RN Addendum: 03/06/20 at 1425 by MAURA PINEDO RN Amended: Links added.
== END 2020-03-06 14:00 | disposition home or self-care (01) ==
LOC: CCL 07:45
PROVIDERS: ATTEND Internal Medicine Cardiovascular Disease
DX: I73.9 Peripheral vascular disease, unspecified (principal); Z20.828 Contact with and (suspected) exposure to other viral communicable diseases; I11.0 Hypertensive heart disease with heart failure; I50.9 Heart failure, unspecified; J44.9 Chronic obstructive pulmonary disease, unspecified; Z88.8 Allergy status to other drugs, medicaments and biological substances; Z79.82 Long term (current) use of aspirin; Z79.899 Other long term (current) drug therapy; Z87.891 Personal history of nicotine dependence; Z72.89 Other problems related to lifestyle
CPT/HCPCS: 36246; 36415; 75625; 75716; 80048; 85027; 85610; 99152; 99153; C1713; C1769; C1892; G0269; J1200; J1644; J2250; J2930; J3010; J3490; Q9967; U0003

== ENCOUNTER 2020-04-28 17:51 | Inpatient (IN) | payer OTHER ==
[~2020-04-28] VITALS: Ht 170.2 cm; Wt 101.2 kg
[~2020-04-28 17:51] MED LIST changes: +ASPI-630 PO; +BUSP10TA PO; +CRESTOR5 MG PO; +DIAZ5TAB PO; +FLUT1DIS3 IH; -IODIXANOL 320 MG/ML 100 ML VIAL. ONE; -LIDOCAINE 1% Multi-Dose 20 ML VIAL. ONE; +LINZESS145 MCG PO; +MORP15TA80 PO; +OXYC1TAB20 PO; +POTA20TA4 PO
--- NOTE | 2020-04-28 18:23 | PHYS DOC ---
Past Medical History Past Medical History: CAD, Cancer, COPD, High Cholesterol, Heart Disease, Hypertension, [place], Other Additional Past Medical Histor: TESTICLE CANCER, chronic back pain, PE Past Surgical History: Coronary Bypass Surgery, Other Additional Past Surgical Histo: ORECECTOMY,BACK, JAW, cardiac stents Smoking Status: Current Every Day Smoker Alcohol Use: None Drug Use: None General Adult EDM: Chief Complaint: RECTAL BLEED HPI: HPI: 64-year-old male past medical history significant for CAD, PE on Coumadin, COPD on 2L NC, hypertension, hyperlipidemia, and history of testicular cancer with right orchiectomy, and HFrEF, presents to the ED with BRBPR (200-500cc), for the past 3 days, states " I think I need to have a bowel movement and nothing for bright red blood comes out." Last INR was 1.3. Questionable transfusion after his triple bypass. Reports colonoscopy more than 10 years ago due to melena, GI report was concerning for polyps versus hemorrhoids. Only past surgical history was his right orchiectomy 1986. Does complain of exertional dyspnea for the past day. No history of upper GI bleeding or ulcers. EMR reviewed -pt admitted 03/2020 (covid negative 04/05) for acute hypoxic respiratory failure, negative cardiac cath on 10/12/2018. Patient had a VQ scan in March 2020 that showed no perfusion defect. Review of Systems: Review of Systems: Constitutional: Denies fever or chills. [] Eyes: Denies change in visual acuity. [] HENT: Denies nasal congestion or sore throat. [] Respiratory: Denies cough or shortness of breath. [] Cardiovascular: Denies chest pain or edema. [] GI: Denies nausea, vomiting, melena, hematemesis : Denies dysuria. [] Musculoskeletal: Denies back pain or joint pain. [] Integument: Denies rash. [] Neurologic: Denies headache, focal weakness or sensory changes. [] Endocrine: Denies polyuria or polydipsia. [] Lymphatic: Denies swollen glands. [] Psychiatric: Denies depression or anxiety. [] Heart Score: Risk Factors: Risk Factors: DM, Current or recent (<one month) smoker, HTN, HLP, family history of CAD, obesity. Risk Scores: Score 0 - 3: 2.5% MACE over next 6 weeks - Discharge Home Score 4 - 6: 20.3% MACE over next 6 weeks - Admit for Clinical Observation Score 7 - 10: 72.7% MACE over next 6 weeks - Early Invasive Strategies Allergies: Allergies: Allergies Coded Allergies Type Severity Reaction Last Updated Verified Iodinated Contrast Media Allergy Intermediate 03/07/14 Yes ketorolac Allergy Intermediate GI 12/01/14 Yes tramadol Allergy Intermediate 11/11/15 Yes venom-honey bee Allergy Intermediate 03/07/14 Yes NSAIDS (Non-Steroidal Anti-Inflamma Adverse Reaction Intermediate GI 10/09/18 Yes Physical Exam: PE: Constitutional: Obese, embarrassed, non-toxic appearance. [] HENT: Normocephalic, atraumatic, Eyes: EOMI, conjunctiva normal, no discharge. [] Neck: Normal range of motion, supple, Cardiovascular: Tachycardic, no murmur [] Lungs & Thorax: Bilateral breath sounds clear to auscultation [] Abdomen: Bowel sounds normal, soft, +ttp LLQ, no masses, no pulsatile masses. [] Skin: Warm, dry, no erythema, no rash. [] Back: No tenderness, no CVA tenderness. [] Extremities: No tenderness, no cyanosis, no clubbing, Neurologic: Alert and oriented X 3, normal motor function, normal sensory function, no focal deficits noted. [] Psychologic: Affect normal, judgement normal, mood normal. [] : No active rectal bleeding, minimal stool in rectal vault, hematochezia with RODRIGUEZ, no palpated internal hemorrhoids, no visualized external hemorrhoids, tolerated exam well EKG: EKG: Sinus tachycardia at 109 bpm, no axis deviation, normal intervals, T wave inversion inferior lateral leads, no ST elevations or ST depressions, compared to prior EKG from March 2020, new T wave inversions V4, V5 and V6 Radiology/Procedures: Radiology/Procedures: IMAGING REPORT Signed PATIENT: JOHN AVILA ACCOUNT: [id number] : 1955 LOCATION: ER AGE: 64 SEX: M EXAM STATUS: REG ER ORD. PHYSICIAN: GLENDA MONTEZ DO REASON: llq pain PROCEDURE: CT ABDOMEN PELVIS WO CONTRAST CT ABDOMEN PELVIS WO CONTRAST History: Reason: llq pain / Spl. Instructions: / History: Technique: Noncontrast examination of the abdomen and pelvis. Coronal and sagittal reconstructions were performed. Exposure: One or more of the following individualized dose reduction techniques were utilized for this examination: 1. Automated exposure control 2. Adjustment of the mA and/or kV according to patient size 3. Use of iterative reconstruction technique. Comparison: May 17, 2015 Findings: Lower chest: No consolidation or pleural effusion. Abdomen and pelvis: The liver and spleen are unremarkable. Bilateral adrenal adenomas, unchanged. Pancreatic fatty infiltration. Contracted gallbladder. Unremarkable noncontrast appearance of the kidneys. No hydronephrosis. Severe long segment descending colonic wall thickening with adjacent inflammatory changes. No perforation or pneumatosis. No abscess. Normal appendix. No evidence of bowel obstruction. No pathologic lymphadenopathy. No ascites. Calcified plaque throughout the aorta with focal ectasia distally. Bones: Postoperative changes L4-5 and L5-S1. Multilevel lumbar spondylosis most prominent L3-L4 with canal narrowing. Neuroforaminal narrowing most prominent and L2-L3 and L3-L4. Impression: 1. Severe long segment descending colonic wall thickening with adjacent inflammatory changes, may represent infectious or inflammatory colitis and ischemic colitis is possible in the appropriate clinical setting. 2. Postoperative changes lumbar spine with superior junctional spondylosis contributing canal narrowing at L3-L4. Electronically signed by: Bo Khan DO (04/28/2020 8:23 PM) [facility] DICTATED and SIGNED BY: BO KHAN DO DATE: 04/28/202022 IMAGING REPORT Signed PATIENT: JOHN AVILA ACCOUNT: [id number] : 1955 LOCATION: ER AGE: 64 SEX: M EXAM STATUS: REG ER ORD. PHYSICIAN: GLENDA MONTEZ DO REASON: fall yestreday on coumadin PROCEDURE: CT HEAD AND CERVICAL SPINE WO CT HEAD AND CERVICAL SPINE WO History: Reason: fall yestreday on coumadin / Spl. Instructions: / History: . Pain Comparison: May 07, 2018 Technique: Noncontrast CT imaging was performed of the head and cervical spine. Coronal and sagittal reconstructions were performed. Exposure: One or more of the following individualized dose reduction techniques were utilized for this examination: 1. Automated exposure control 2. Adjustment of the mA and/or kV according to patient size 3. Use of iterative reconstruction technique. Findings: Head CT: No intracranial hemorrhage. No mass effect. No hydrocephalus. Mild brain parenchymal volume loss. Mild foci of decreased attenuation within the hemispheric white matter, most often due to chronic microvascular ischemia. Imaged orbits are unremarkable. Imaged paranasal sinuses and mastoid air cells are clear. No acute calvarial fracture. Cervical spine CT: Posterior stabilization and decompression C3-C7. Normal vertebral body height. No fracture. Multilevel degenerative disc changes. Large left posterior osteophyte C3-C4. Multilevel neuroforaminal narrowing. No high-grade canal narrowing. Soft tissues unremarkable. Impression: Head CT: 1. No acute intracranial abnormality. Cervical spine CT: 1. No acute fracture or subluxation of the cervical spine. 2. Extensive postoperative changes of the cervical spine. Electronically signed by: Bo Khan DO (04/28/2020 8:31 PM) [facility] DICTATED and SIGNED BY: BO KHAN DO DATE: 04/28/202030 IMAGING REPORT Signed PATIENT: JOHN AVILA ACCOUNT: [id number] : 1955 LOCATION: ER AGE: 64 SEX: M EXAM STATUS: REG ER ORD. PHYSICIAN: GLENDA MONTEZ DO REASON: on 2L PROCEDURE: PORTABLE CHEST 1V PORTABLE CHEST 1V History: Hypoxia Reason: on 2L / Spl. Instructions: / History: Comparison: April 03, 2020 Findings: No consolidation or pleural effusion. Normal heart size. No pneumothorax. Prior median sternotomy. Postop changes lower cervical spine. Impression: 1. No acute cardiopulmonary process. Electronically signed by: Bo Khan DO (04/28/2020 7:29 PM) [facility] DICTATED and SIGNED BY: BO KHAN DO DATE: 04/28/201928 Course & Med Decision Making: Course & Med Decision Making Pertinent Labs and Imaging studies reviewed. (See chart for details) Concern for hematochezia in the setting of inflammatory colitis and supratherapeutic INR, no anemia. Patient meets sepsis criteria due to leukocytosis and heart rate, started on broad-spectrum antibiotics. Will admit to medicine for further medical management. I have spoken with the patient and his . I have explained the patient's condition, diagnosis and treatment plan based on the information available to me at this time. I have answered the patient's and/or caregivers questions and answered any concerns. The patient and/or caregivers have as good an understanding of the patient's diagnosis, condition and treatment plan as can be expected at this point. The patient has been stabilized within the capability of the emergency department. The patient will be transported for further care and management or will be moved to an observation or inpatient service. I have communicated with the staff or medical practitioner taking over this patient's care. Critical Care: Authorized and Performed by: Glenda Montez DO Total critical care time: approximately 40 minutes Due to a high probability of clinically significant, life threatening deterioration, the patient required my highest level of preparedness to intervene emergently and I personally spent this critical care time directly and personally managing the patient. This critical care time included obtaining a history; examining the patient; pulse oximetry; ventilator management if necessary; ordering and review of studies; arranging urgent treatment with development of a management plan; evaluation of patient's response to treatment; frequent reassessment; discussion with patient/family; and, discussions with other providers. This critical care time was performed to assess and manage the high probability of imminent, life-threatening deterioration that could result in multi-organ failure. It was exclusive of separately billable procedures and treating other patients and teaching time. Please see MDM section and the rest of the note for further information on patient assessment and treatment. Dragon Disclaimer: Dragon Disclaimer: This electronic medical record was generated, in whole or in part, using a voice recognition dictation system. Departure Departure Impression: Primary Impression: Sepsis Additional Impressions: Supratherapeutic INR Colitis Hematochezia Disposition: ADMITTED INPT THIS HOSP Admitting Physician: AMBIKA (Dr. Chan) Condition: GUARDED Referrals: NO PCP (PCP) Scripts Metronidazole (FLAGYL) 500 Mg Tablet 500 MG PO TID for colitis for 10 Days, #30 TAB Prov: AMARJIT TERRY MD 05/03/20 Acetaminophen (TYLENOL) 325 Mg Tablet 650 MG PO PRN Q4HRS PRN for FEVER > 100.3'F for 28 Days, #60 TAB Prov: AMARJIT TERRY MD 05/03/20 Warfarin Sodium (WARFARIN SODIUM) 5 Mg Tablet 4 MG PO DAILY for blood thinner MDD 4 mg based on inr for 30 Days, #24 TAB Restart Wednesday 03/07 Prov: AMARJIT TERRY MD 05/03/20 GLENDA MONTEZ DO Apr 28, 2020 18:23
[2020-04-28] MEDS ORDERED: IV NORMAL SALINE 250ML 250 ML IV ONE (18:45)
[2020-04-28 18:56] LABS: BASO # 0.1 x10^3/uL (0.0-0.2); BASO % 0 % (0-3); EOS # 0.1 x10^3/uL (0.0-0.7); EOS % 0 % (0-3); HEMATOCRIT 50.7 % (39.0-53.0); HEMOGLOBIN 16.8 g/dL (13.0-17.5); LYMPH # 1.6 x10^3/uL (1.0-4.8); LYMPH % 7 % (24-48); MEAN CORPUSCULAR HEMOGLOBIN 31 pg (25-35); MEAN CORPUSCULAR HGB CONC 33 g/dL (31-37); MEAN CORPUSCULAR VOLUME 93 fL (79-100); MONO # 1.8 x10^3/uL (0.0-1.1); MONO % 8 % (0-9); NEUT # 18.8 x10^3/uL (1.8-7.7); NEUT % 84 % (31-73); PLATELET COUNT 201 x10^3/uL (140-400); RED BLOOD COUNT 5.44 x10^6/uL (4.30-5.70); RED CELL DISTRIBUTION WIDTH 13.4 % (11.5-14.5); WHITE BLOOD COUNT 22.4 x10^3/uL (4.0-11.0)
[2020-04-28 19:11] LABS: PROTHROMBIN TIME PATIENT 47.6 SEC (11.7-14.0)
[2020-04-28 19:12] LABS: CALCIUM 9.5 mg/dL (8.5-10.1); CREATININE 1.1 mg/dL (0.7-1.3); GFR 67.6; POTASSIUM 3.5 mmol/L (3.5-5.1)
[2020-04-28 19:19] LABS: ALBUMIN 3.4 g/dL (3.4-5.0); ALBUMIN/GLOBULIN RATIO 0.8 (1.0-1.7); TOTAL BILIRUBIN 0.9 mg/dL (0.2-1.0); TOTAL PROTEIN 7.6 g/dL (6.4-8.2)
--- NOTE | 2020-04-28 19:32 | RAD ---
PORTABLE CHEST 1V History: Hypoxia Reason: on 2L / Spl. Instructions: / History: Comparison: April 03, 2020 Findings: No consolidation or pleural effusion. Normal heart size. No pneumothorax. Prior median sternotomy. Postop changes lower cervical spine. Impression: 1. No acute cardiopulmonary process. Electronically signed by: Bo Khan DO (04/28/2020 7:29 PM) [facility] [place]
[2020-04-28 19:53] LABS: % BANDS 4 % (0-9); % EOS 1 % (0-5); % LYMPHS 9 % (24-48); % MONOS 2 % (0-10); % SEGS 84 % (35-66)
[2020-04-28 19:54] LABS: PLT ESTIMATE ADEQUATE (ADEQUATE); TOXIC GRANULATION MOD
[2020-04-28] MEDS ORDERED: VANCOMYCIN PER PHARMACY MC PRN (20:00)
[2020-04-28] MEDS ORDERED: VANCOMYCIN 2 GM in IV NORMAL SALINE 500ML BAG 500 ML IV ONE (20:15)
[2020-04-28] MEDS ORDERED: HYDROmorphone 2 MG/ML VIAL IVP ONE (20:15)
[2020-04-28] MEDS ORDERED: PIPERACILLIN/TAZOBACTAM 4.5 GM in IV NORMAL SALINE 100ML 100 ML IV ONE (20:15)
--- NOTE | 2020-04-28 20:26 | RAD ---
CT ABDOMEN PELVIS WO CONTRAST History: Reason: llq pain / Spl. Instructions: / History: Technique: Noncontrast examination of the abdomen and pelvis. Coronal and sagittal reconstructions were performed. Exposure: One or more of the following individualized dose reduction techniques were utilized for this examination: 1. Automated exposure control 2. Adjustment of the mA and/or kV according to patient size 3. Use of iterative reconstruction technique. Comparison: May 17, 2015 Findings: Lower chest: No consolidation or pleural effusion. Abdomen and pelvis: The liver and spleen are unremarkable. Bilateral adrenal adenomas, unchanged. Pancreatic fatty infiltration. Contracted gallbladder. Unremarkable noncontrast appearance of the kidneys. No hydronephrosis. Severe long segment descending colonic wall thickening with adjacent inflammatory changes. No perforation or pneumatosis. No abscess. Normal appendix. No evidence of bowel obstruction. No pathologic lymphadenopathy. No ascites. Calcified plaque throughout the aorta with focal ectasia distally. Bones: Postoperative changes L4-5 and L5-S1. Multilevel lumbar spondylosis most prominent L3-L4 with canal narrowing. Neuroforaminal narrowing most prominent and L2-L3 and L3-L4. Impression: 1. Severe long segment descending colonic wall thickening with adjacent inflammatory changes, may represent infectious or inflammatory colitis and ischemic colitis is possible in the appropriate clinical setting. 2. Postoperative changes lumbar spine with superior junctional spondylosis contributing canal narrowing at L3-L4. Electronically signed by: Bo Khan DO (04/28/2020 8:23 PM) [facility]
--- NOTE | 2020-04-28 20:34 | RAD ---
CT HEAD AND CERVICAL SPINE WO History: Reason: fall yestreday on coumadin / Spl. Instructions: / History: . Pain Comparison: May 07, 2018 Technique: Noncontrast CT imaging was performed of the head and cervical spine. Coronal and sagittal reconstructions were performed. Exposure: One or more of the following individualized dose reduction techniques were utilized for this examination: 1. Automated exposure control 2. Adjustment of the mA and/or kV according to patient size 3. Use of iterative reconstruction technique. Findings: Head CT: No intracranial hemorrhage. No mass effect. No hydrocephalus. Mild brain parenchymal volume loss. Mild foci of decreased attenuation within the hemispheric white matter, most often due to chronic microvascular ischemia. Imaged orbits are unremarkable. Imaged paranasal sinuses and mastoid air cells are clear. No acute calvarial fracture. Cervical spine CT: Posterior stabilization and decompression C3-C7. Normal vertebral body height. No fracture. Multilevel degenerative disc changes. Large left posterior osteophyte C3-C4. Multilevel neuroforaminal narrowing. No high-grade canal narrowing. Soft tissues unremarkable. Impression: Head CT: 1. No acute intracranial abnormality. Cervical spine CT: 1. No acute fracture or subluxation of the cervical spine. 2. Extensive postoperative changes of the cervical spine. Electronically signed by: Bo Khan DO (04/28/2020 8:31 PM) [facility]
[2020-04-28 21:00] LABS: FECAL OB PT POSITIVE (NEG)
[2020-04-28] MEDS ORDERED: ONDANSETRON PF 4 MG/2 ML VIAL. IV PRN ×2 (21:30→21:45)
[2020-04-28] MEDS ORDERED: ACETAMINOPHEN 325 MG TABLET. PO PRN (21:30)
--- NOTE | 2020-04-28 21:33 | PDOC1 ---
History and Physical Date of Admission Date of Admission DATE: 04/28/20 TIME: 21:29 Identification/Chief Complaint Chief Complaint BRBPR Source Source: Patient History of Present Illness History of Present Illness Mr Medina is a 64 yo M w/ PMHx CAD s/p CABG, PE on Coumadin, COPD on 2L NC, smoker, HTN, HLD, testicular ca s/p right orchiectomy, and chronic diastolic heart failure who p/w grossly bloody stools. He notes bright red blood for his last 5 bowel movements. Last INR was 1.3. Questionable transfusion after his triple bypass. Reports colonoscopy more than 10 years ago due to melena, GI report was concerning for polyps versus hemorrhoids. Only past surgical history was his right orchiectomy 1986. Does complain of exertional dyspnea for the past day. No history of upper GI bleeding or ulcers. EMR reviewed -pt admitted 03/2020 (covid negative 04/05) for acute hypoxic respiratory failure, negative cardiac cath on 10/12/2018. Patient had a VQ scan in March 2020 that showed no perfusion defect. Negative cardiac cath in 2018 as well. EKG shows sinus tachycardia at 109 bpm, no axis deviation, normal intervals, T wave inversion inferior lateral leads V4,5,6, no ST elevations or ST depressions Labs significant for WBC 22.4, Hb 16.8, platelets 201, INR 5, NA 134, K3.5, BUN 16, CR 1.1, glucose 115 CT abdomen/pelvis shows severe long segment descending colonic wall thickening with adjacent inflammatory changes. Admitted for further care. Past Medical History Cardiovascular: CAD, CHF, HTN, Hyperlipidemia Pulmonary: COPD, Other CENTRAL NERVOUS SYSTEM: Other GI: GERD Heme/Onc: Cancer Hepatobiliary: No pertinent hx Psych: Anxiety, Depression Musculoskeletal: low back pain, Osteoarthritis Rheumatologic: No pertinent hx Infectious disease: No pertinent hx Renal/: No pertinent hx Endocrine: No pertinent hx Past Surgical History Past Surgical History: CABG, Other (Right orchiectomy) Family History Family History: Coronary Artery Disease Social History Smoke: 1 pack per day ALCOHOL: none Drugs: None Current Problem List Problem List Problems Medical Problems: (1) Colitis Status: Acute (2) Hematochezia Status: Acute (3) Sepsis Status: Acute (4) Supratherapeutic INR Status: Acute Current Medications Current Medications Current Medications Sodium Chloride 250 ml @ 250 mls/hr 1X ONCE IV Last administered on 04/28/20at 19:21; Start 04/28/20 at 18:45; Stop 04/28/20 at 19:44; Status DC Piperacillin Sod/ Tazobactam Sod 4.5 gm/Sodium Chloride 100 ml @ 200 mls/hr 1X ONCE IV Last administered on 04/28/20at 20:50; Start 04/28/20 at 20:15; Stop 04/28/20 at 20:44; Status DC Vancomycin HCl (Vanco Per Pharmacy) 1 each PRN DAILY PRN MC SEE COMMENTS; Start 04/28/20 at 20:00; Stop 04/28/20 at 20:01; Status DC Vancomycin HCl 2 gm/Sodium Chloride 500 ml @ 250 mls/hr 1X ONCE IV ; Start 04/28/20 at 20:15; Stop 04/28/20 at 22:14 Hydromorphone HCl (Dilaudid) 0.5 mg 1X ONCE IVP Last administered on 04/28/20at 20:50; Start 04/28/20 at 20:15; Stop 04/28/20 at 20:16; Status DC Ondansetron HCl (Zofran) 4 mg PRN Q8HRS PRN IV NAUSEA/VOMITING; Start 04/28/20 at 21:30; Stop 04/29/20 at 21:29 Morphine Sulfate (Morphine Sulfate) 2 mg PRN Q2HR PRN IV PAIN; Start 04/28/20 at 21:30; Stop 04/29/20 at 21:29 Sodium Chloride 1,000 ml @ 100 mls/hr Q10H IV ; Start 04/28/20 at 21:18; Stop 04/29/20 at 21:17 Acetaminophen (Tylenol) 650 mg PRN Q4HRS PRN PO FEVER > 100.3'F; Start 04/28/20 at 21:30; Stop 04/29/20 at 21:29 Active Scripts Active Montelukast Sodium Tablet (Montelukast Sodium) 10 Mg Tablet 10 Mg PO QHS 30 Days Duoneb 0.5-3(2.5) Mg/3 Ml (Albuterol/Ipratropium) 3 Ml Ampul.neb 3 Ml NEB RTQID 30 Days Reported Advair 250-50 Diskus (Fluticasone/Salmeterol) 1 Each Disk.w.dev 1 Puff IH BID Linzess (Linaclotide) 145 Mcg Capsule 145 Mcg PO DAILY07 Aspirin 81 Mg Tab.chew 1 Tab PO DAILY Lasix (Furosemide) 40 Mg Tablet 1 Tab PO DAILY 30 Days Potassium Chloride (Potassium Chloride) 20 Meq Tablet.er 20 Meq PO DAILY Warfarin Sodium 5 Mg Tablet 5 Mg PO DAILY Restart Wednesday 03/07 Metoprolol Tartrate 50 Mg Tablet 1 Tab PO BID Pantoprazole Sodium (Pantoprazole Sodium) 40 Mg Tablet.dr 40 Mg PO BID Crestor (Rosuvastatin Calcium) 5 Mg Tablet 2 Tab PO HS Buspirone Hcl 10 Mg Tablet 1 Tab PO PRN Q8HRS PRN Ms Contin (Morphine Sulfate) 15 Mg Tablet.er 1 Tab PO BID MDD 2 Tablet(s) 5 Days Oxycodone-Acetaminophen 10-325 (Oxycodone Hcl/Acetaminophen) 1 Each Tablet 1 Tab PO PRN Q8HRS PRN Wellbutrin Xl (Bupropion Hcl) 150 Mg Tab.er.24h 150 Mg PO DAILY Amitriptyline Hcl 50 Mg Tablet 2 Tab PO QHS Gemfibrozil 600 Mg Tablet 1 Tab PO BID Isosorbide Mononitrate Er (Isosorbide Mononitrate) 30 Mg Tab.er.24h 1 Tab PO DAILYWBKFT Allergies Allergies: Coded Allergies: Iodinated Contrast Media (Verified Allergy, Intermediate, 03/07/14) ketorolac (Verified Allergy, Intermediate, GI, 12/01/14) tramadol (Verified Allergy, Intermediate, 11/11/15) tolerates oxycodone and morphine venom-honey bee (Verified Allergy, Intermediate, 03/07/14) NSAIDS (Non-Steroidal Anti-Inflamma (Verified Adverse Reaction, Intermediate, GI, 10/09/18) ROS General: YES: Fatigue, Malaise; No: Chills, Night Sweats, Appetite, Other PSYCHOLOGICAL ROS: No: Anxiety, Behavioral Disorder, Concentration difficultie, Decreased libido, Depression, Disorientation, Hallucinations, Hostility, Irrita blity, Memory difficulties, Mood Swings, Obsessive thoughts, Physical abuse, Sexual abuse, Sleep disturbances, Suicidal ideation, Other Eyes: No Blurry vision, No Decreased vision, No Double vision, No Dry eyes, No Excessive tearing, No Eye Pain, No Itchy Eyes, No Loss of vision, No Photophobia, No Scotomata, No Uses contacts, No Uses glasses, No Other HEENT: No: Heacaches, Visual Changes, Hearing change, Nasal congestion, Nasal discharge, Oral lesions, Sinus pain, Sore Throat, Epistaxis, Sneezing, Snoring, Tinnitus, Vertigo, Vocal changes, Other ALLERGY AND IMMUNOLOGY: No: Hives, Insect Bite Sensitivity, Itchy/Watery Eyes, Nasal Congestion, Post Nasal Drip, Seasonal Allergies, Other Hematological and Lymphatic: YES: Bleeding Problems, Blood Clots; No: Blood Transfusions, Brusing, Night Sweats, Pallor, Swollen Lymph Nodes, Other ENDOCRINE: No: Breast Changes, Galactorrhea, Hair Pattern Changes, Hot Flashes, Malaise/lethargy, Mood Swings, Palpitations, Polydipsia/polyuria, Skin Changes, Temperature Intolerance, Unexpected Weight Changes, Other Breast: No New/Changing Breast Lumps, No Nipple changes, No Nipple discharge, No Other Respiratory: No: Cough, Hemoptysis, Orthopnea, Pleuritic Pain, Shortness of breath, SOB with excertion, Sputum Changes, Stridor, Tachypnea, Wheezing, Other Cardiovascular: No Chest Pain, No Palpitations, No Orthopnea, No Paroxysmal Noc. Dyspnea, No Edema, No Lt Headedness, No Other Gastrointestinal: Yes Abdominal Pain, Yes Hematochezia; No Nausea, No Vomiting, No Diarrhea, No Constipation, No Melena, No Other Genitourinary: No Dysuria, No Frequency, No Incontinence, No Hematuria, No Retention, No Discharge, No Urgency, No Pain, No Flank Pain, No Other, No , No , No , No , No , No , No Musculoskeletal: No Gait Disturbance, No Joint Pain, No Joint Stiffness, No Joint Swelling, No Muscle Pain, No Muscular Weakness, No Pain In:, No Swelling In:, No Other Neurological: No Behavorial Changes, No Bowel/Bladder ControlChng, No Confusion, No Dizziness, No Gait Disturbance, No Headaches, No Impaired Coord/balance, No Memory Loss, No Numbness/Tingling, No Seizures, No Speech Problems, No Tremors, No Visual Changes, No Weakness, No Other Skin: No Dry Skin, No Eczema, No Hair Changes, No Lumps, No Mole Changes, No Mottling, No Nail Changes, No Pruritus, No Rash, No Skin Lesion Changes, No Other, No Acne Physical Exam General: Alert, Oriented X3, Cooperative, mild distress HEENT: Atraumatic, PERRLA, EOMI, Mucous membr. moist/pink Lungs: Clear to auscultation, Normal air movement Heart: S1S2, RRR, no thrills, no rubs, no gallops, no murmurs Abdomen: Normal bowel sounds, Soft, No hepatosplenomegaly, No masses, Other (LLQ tender) Extremities: No clubbing, No cyanosis, No edema, Normal pulses, No tenderness/swelling Skin: No rashes, No breakdown, No significant lesion Neuro: Normal gait, Normal speech, Strength at 5/5 X4 ext, Normal tone, Sensation intact, Cranial nerves 3-12 NL, Reflexes 2+ Vitals Vitals Vital Signs Date Time Temp Pulse Resp B/P (MAP) Pulse Ox O2 Delivery O2 Flow Rate FiO2 04/28/20 20:50 16 97 Nasal Cannula 2.0 04/28/20 18:36 111 130/67 (88) 04/28/20 18:14 98.3 98.3 Labs Labs Laboratory Tests Test 04/28/20 18:36 04/28/20 20:14 White Blood Count 22.4 x10^3/uL (4.0-11.0) Red Blood Count 5.44 x10^6/uL (4.30-5.70) Hemoglobin 16.8 g/dL (13.0-17.5) Hematocrit 50.7 % (39.0-53.0) Mean Corpuscular Volume 93 fL (79-100) Mean Corpuscular Hemoglobin 31 pg (25-35) Mean Corpuscular Hemoglobin Concent 33 g/dL (31-37) Red Cell Distribution Width 13.4 % (11.5-14.5) Platelet Count 201 x10^3/uL (140-400) Neutrophils (%) (Auto) 84 % (31-73) Lymphocytes (%) (Auto) 7 % (24-48) Monocytes (%) (Auto) 8 % (0-9) Eosinophils (%) (Auto) 0 % (0-3) Basophils (%) (Auto) 0 % (0-3) Neutrophils # (Auto) 18.8 x10^3/uL (1.8-7.7) Lymphocytes # (Auto) 1.6 x10^3/uL (1.0-4.8) Monocytes # (Auto) 1.8 x10^3/uL (0.0-1.1) Eosinophils # (Auto) 0.1 x10^3/uL (0.0-0.7) Basophils # (Auto) 0.1 x10^3/uL (0.0-0.2) Segmented Neutrophils % 84 % (35-66) Band Neutrophils % 4 % (0-9) Lymphocytes % 9 % (24-48) Monocytes % 2 % (0-10) Eosinophils % 1 % (0-5) Toxic Granulation Mod Platelet Estimate Adequate (ADEQUATE) Prothrombin Time 47.6 SEC (11.7-14.0) Prothromb Time International Ratio 5.0 (0.8-1.1) Activated Partial Thromboplast Time 54 SEC (24-38) Sodium Level 134 mmol/L (136-145) Potassium Level 3.5 mmol/L (3.5-5.1) Chloride Level 95 mmol/L (98-107) Carbon Dioxide Level 31 mmol/L (21-32) Anion Gap 8 (6-14) Blood Urea Nitrogen 16 mg/dL (8-26) Creatinine 1.1 mg/dL (0.7-1.3) Estimated GFR (Cockcroft-Gault) 67.6 BUN/Creatinine Ratio 15 (6-20) Glucose Level 115 mg/dL (70-99) Calcium Level 9.5 mg/dL (8.5-10.1) Total Bilirubin 0.9 mg/dL (0.2-1.0) Aspartate Amino Transf (AST/SGOT) 17 U/L (15-37) Alanine Aminotransferase (ALT/SGPT) 13 U/L (16-63) Alkaline Phosphatase 100 U/L (46-116) Total Protein 7.6 g/dL (6.4-8.2) Albumin 3.4 g/dL (3.4-5.0) Albumin/Globulin Ratio 0.8 (1.0-1.7) Stool Occult Blood Positive (NEG) Laboratory Tests Test 04/28/20 18:36 04/28/20 20:14 White Blood Count 22.4 x10^3/uL (4.0-11.0) Red Blood Count 5.44 x10^6/uL (4.30-5.70) Hemoglobin 16.8 g/dL (13.0-17.5) Hematocrit 50.7 % (39.0-53.0) Mean Corpuscular Volume 93 fL (79-100) Mean Corpuscular Hemoglobin 31 pg (25-35) Mean Corpuscular Hemoglobin Concent 33 g/dL (31-37) Red Cell Distribution Width 13.4 % (11.5-14.5) Platelet Count 201 x10^3/uL (140-400) Neutrophils (%) (Auto) 84 % (31-73) Lymphocytes (%) (Auto) 7 % (24-48) Monocytes (%) (Auto) 8 % (0-9) Eosinophils (%) (Auto) 0 % (0-3) Basophils (%) (Auto) 0 % (0-3) Neutrophils # (Auto) 18.8 x10^3/uL (1.8-7.7) Lymphocytes # (Auto) 1.6 x10^3/uL (1.0-4.8) Monocytes # (Auto) 1.8 x10^3/uL (0.0-1.1) Eosinophils # (Auto) 0.1 x10^3/uL (0.0-0.7) Basophils # (Auto) 0.1 x10^3/uL (0.0-0.2) Segmented Neutrophils % 84 % (35-66) Band Neutrophils % 4 % (0-9) Lymphocytes % 9 % (24-48) Monocytes % 2 % (0-10) Eosinophils % 1 % (0-5) Toxic Granulation Mod Platelet Estimate Adequate (ADEQUATE) Prothrombin Time 47.6 SEC (11.7-14.0) Prothromb Time International Ratio 5.0 (0.8-1.1) Activated Partial Thromboplast Time 54 SEC (24-38) Sodium Level 134 mmol/L (136-145) Potassium Level 3.5 mmol/L (3.5-5.1) Chloride Level 95 mmol/L (98-107) Carbon Dioxide Level 31 mmol/L (21-32) Anion Gap 8 (6-14) Blood Urea Nitrogen 16 mg/dL (8-26) Creatinine 1.1 mg/dL (0.7-1.3) Estimated GFR (Cockcroft-Gault) 67.6 BUN/Creatinine Ratio 15 (6-20) Glucose Level 115 mg/dL (70-99) Calcium Level 9.5 mg/dL (8.5-10.1) Total Bilirubin 0.9 mg/dL (0.2-1.0) Aspartate Amino Transf (AST/SGOT) 17 U/L (15-37) Alanine Aminotransferase (ALT/SGPT) 13 U/L (16-63) Alkaline Phosphatase 100 U/L (46-116) Total Protein 7.6 g/dL (6.4-8.2) Albumin 3.4 g/dL (3.4-5.0) Albumin/Globulin Ratio 0.8 (1.0-1.7) Stool Occult Blood Positive (NEG) Images Images Head CT: No intracranial hemorrhage. No mass effect. No hydrocephalus. Mild brain parenchymal volume loss. Mild foci of decreased attenuation within the hemispheric white matter, most often due to chronic microvascular ischemia. Imaged orbits are unremarkable. Imaged paranasal sinuses and mastoid air cells are clear. No acute calvarial fracture. Cervical spine CT: Posterior stabilization and decompression C3-C7 Normal vertebral body height. No fracture. Multilevel degenerative disc changes. Large left posterior osteophyte C3-C4. Multilevel neuroforaminal narrowing. No high-grade canal narrowing. Soft tissues unremarkable. Impression: Head CT: 1. No acute intracranial abnormality. Cervical spine CT: 1. No acute fracture or subluxation of the cervical spine. 2. Extensive postoperative changes of the cervical spine. CT abdomen/pelvis: Lower chest: No consolidation or pleural effusion. Abdomen and pelvis: The liver and spleen are unremarkable. Bilateral adrenal adenomas, unchanged. Pancreatic fatty infiltration. Contracted gallbladder. Unremarkable noncontrast appearance of the kidneys. No hydronephrosis. Severe long segment descending colonic wall thickening with adjacent inflammatory changes. No perforation or pneumatosis. No abscess. Normal appendix. No evidence of bowel obstruction. No pathologic lymphadenopathy. No ascites. Calcified plaque throughout the aorta with focal ectasia distally. Bones: Postoperative changes L4-5 and L5-S1. Multilevel lumbar spondylosis most prominent L3-L4 with canal narrowing. Neuroforaminal narrowing most prominent and L2-L3 and L3-L4. Impression: 1. Severe long segment descending colonic wall thickening with adjacent inflammatory changes, may represent infectious or inflammatory colitis and ischemic colitis is possible in the appropriate clinical setting. 2. Postoperative changes lumbar spine with superior junctional spondylosis contributing canal narrowing at L3-L4. VTE Prophylaxis Ordered VTE Prophylaxis Devices: Yes VTE Pharmacological Prophylaxi: Contraindicated Assessment/Plan Assessment/Plan A/P: Hematochezia - with elevated INR, will hold coumadin. Consult GI. Sepsis - 2/2 colitis, on zosyn, flagyl. Fluids per sepsis protocol Supratherapeutic INR - will hold, monitor daily INR Colitis - will cont on antibiotics CAD s/p CABG - cont cardiac meds PE on Coumadin - will hold until INR therapeutic COPD on 2L NC - will wean O2 as tolerated, nebs Smoker - counseled on cessation HTN - cont meds HLD - statin H/o testicular ca s/p right orchiectomy - stable Chronic diastolic heart failure - euvolemic or even hypovolemic currently. Will monitor fluid status FEN - NPO PPX - SCDs FULL CODE Dispo - inpatient CVC at least 2 midnights Justifications for Admission Other Justification HIGINIO MEJÍA MD Apr 28, 2020 21:33
[2020-04-28 22:39] LABS: BILIRUBIN,URINE SMALL (NEG); CLARITY,URINE CLEAR; COLOR,URINE DK YELLOW
[2020-04-28 22:40] LABS: NITRITE,URINE NEGATIVE (NEG); PH,URINE 5.5 (<5.0-8.0); PROTEIN,URINE NEGATIVE (NEG-TRACE)
[2020-04-28 22:42] LABS: BACTERIA,URINE 0 /HPF (0-FEW); RBC,URINE 0 /HPF (0-2); WBC,URINE 0 /HPF (0-4)
[2020-04-28 22:43] LABS: HYALINE CASTS, URINE OCCASIONAL /HPF
[2020-04-28 22:45] VITALS: BP 130/71
[2020-04-28] MEDS: IV NORMAL SALINE 1000ML BAG 1,000 ML IV SCH (22:48)
[2020-04-28] MEDS ORDERED: busPIRone 10 MG TABLET. PO PRN (23:00)
--- NOTE | 2020-04-28 23:10 | NUR ---
Pt arrived to room 263 per cart, pt assisted to bed with assist, pt oriented to surroundings tele monitor applied poc explained pt c/o pain to llq of abdomen and chronic pain. Assessment completed call light placed in reach will resume care and continue to monitor pt.
[2020-04-28] MEDS ORDERED: POTASSIUM BICARB 10 MEQ EFFERVESCENT TABLET. PO ONE (23:15)
[2020-04-28] MEDS: MORPHINE SULFATE 2 MG/ML VIAL. IV PRN (23:45)
[2020-04-29] MEDS: oxyCODONE/APAP 10/325 1 TAB TABLET PO PRN ×2 (01:14→11:05)
[2020-04-29 03:18] VITALS: BP 104/53
[2020-04-29 04:26] LABS: BASO # 0.1 x10^3/uL (0.0-0.2); BASO % 0 % (0-3); EOS # 0.2 x10^3/uL (0.0-0.7); EOS % 1 % (0-3); HEMATOCRIT 45.7 % (39.0-53.0); HEMOGLOBIN 15.3 g/dL (13.0-17.5); LYMPH # 1.4 x10^3/uL (1.0-4.8); LYMPH % 8 % (24-48); MEAN CORPUSCULAR HEMOGLOBIN 31 pg (25-35); MEAN CORPUSCULAR HGB CONC 34 g/dL (31-37); MEAN CORPUSCULAR VOLUME 94 fL (79-100); MONO # 1.5 x10^3/uL (0.0-1.1); MONO % 9 % (0-9); NEUT # 13.7 x10^3/uL (1.8-7.7); NEUT % 82 % (31-73); PLATELET COUNT 156 x10^3/uL (140-400); RED BLOOD COUNT 4.88 x10^6/uL (4.30-5.70); RED CELL DISTRIBUTION WIDTH 13.5 % (11.5-14.5); WHITE BLOOD COUNT 16.8 x10^3/uL (4.0-11.0)
[2020-04-29 04:35] LABS: PROTHROMBIN TIME PATIENT 35.1 SEC (11.7-14.0)
[2020-04-29] MEDS: PIPERACILLIN/TAZOBACTAM 3.375 GM in IV NORMAL SALINE 50ML 50 ML IV SCH ×4 (05:02→23:17)
[2020-04-29 05:30] LABS: ALBUMIN/GLOBULIN RATIO 0.8 (1.0-1.7); CALCIUM 8.7 mg/dL (8.5-10.1); GFR 75.5; POTASSIUM 3.9 mmol/L (3.5-5.1); TOTAL BILIRUBIN 1.2 mg/dL (0.2-1.0); TOTAL PROTEIN 6.6 g/dL (6.4-8.2)
[2020-04-29] MEDS: PANTOPRAZOLE 40 MG TABLET.DR. PO SCH ×3 (06:12→07:30)
--- NOTE | 2020-04-29 06:16 | NUR ---
Pt refused protonix after medication opened, pt stated it does not work for him and he do not want it.
[2020-04-29 07:00] VITALS: BP 101/50
[2020-04-29] MEDS: ALBUTEROL SULFATE 2.5 MG/3 ML NEBU. NEB SCH ×5 (08:00→20:17)
[2020-04-29] MEDS: IPRATRPIUM/ALBUTEROL 0.5/2.5MG 3 ML NEBU. NEB SCH ×4 (08:09→20:21)
[2020-04-29] MEDS: BUDESONIDE 0.5 MG/2 ML NEBU. NEB SCH ×2 (08:09→20:17)
[2020-04-29] MEDS: ISOSORBIDE MONONITRATE ER 30 MG TAB.ER.24H PO SCH (08:55)
[2020-04-29] MEDS: buPROPion XL 150 MG TAB.ER.24H. PO SCH (08:55)
[2020-04-29] MEDS: GEMFIBROZIL 600 MG TABLET. PO SCH ×2 (08:55→21:15)
[2020-04-29] MEDS: METOPROLOL TART IMMED RELEASE 50 MG TABLET. PO SCH ×2 (08:56→21:20)
[2020-04-29] MEDS: POTASSIUM CHLORIDE 20 MEQ TABLET.ER. PO SCH (08:56)
[2020-04-29] MEDS: MORPHINE ER 15 MG TABLET.ER PO SCH ×2 (08:57→21:15)
[2020-04-29] MEDS ORDERED: NON FORMULARY ITEM (Fluticasone/Salmeterol (Advair 250-50 Diskus) 1 PUFF) IH SCH (09:00)
--- NOTE | 2020-04-29 09:22 | EKG ---
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
[2020-04-29 11:00] VITALS: BP 128/61
--- NOTE | 2020-04-29 11:09 | PDOC ---
[employer] PROGRESS NOTE Date of Service DOS: DATE: 04/29/20 TIME: 11:08 Chief Complaint Chief Complaint Sepsis Inflammatory colitis CAD CHF HTN COPD Hx of PE Tobacco use History of Present Illness History of Present Illness HPI: Mr Medina is a 64 yo M w/ PMHx CAD s/p CABG, PE on Coumadin, COPD on 2L NC, smoker, HTN, HLD, testicular ca s/p right orchiectomy, and chronic diastolic heart failure who p/w grossly bloody stools. He notes bright red blood for his last 5 bowel movements. Last INR was 1.3. Questionable transfusion after his triple bypass. Reports colonoscopy more than 10 years ago due to melena, GI report was concerning for polyps versus hemorrhoids. Only past surgical history was his right orchiectomy 1986. Does complain of exertional dyspnea for the past day. No history of upper GI bleeding or ulcers. EMR reviewed -pt admitted 03/2020 (covid negative 04/05) for acute hypoxic respiratory failure, negative cardiac cath on 10/12/2018. Patient had a VQ scan in March 2020 that showed no perfusion defect. Negative cardiac cath in 2018 as well. EKG shows sinus tachycardia at 109 bpm, no axis deviation, normal intervals, T wave inversion inferior lateral leads V4,5,6, no ST elevations or ST depressions Labs significant for WBC 22.4, Hb 16.8, platelets 201, INR 5, NA 134, K3.5, BUN 16, CR 1.1, glucose 115 CT abdomen/pelvis shows severe long segment descending colonic wall thickening with adjacent inflammatory changes. 04/29/2020 Pt seen and examined DW RN DW case management GI consulted Vitals/I&O Vitals/I&O: Vital Signs Date Time Temp Pulse Resp B/P (MAP) Pulse Ox O2 Delivery O2 Flow Rate FiO2 04/29/20 11:05 Nasal Cannula 04/29/20 08:57 2.0 04/29/20 08:56 83 101/50 04/29/20 08:12 94 04/29/20 07:00 98.0 19 98.0 I & O 04/28/20 04/28/20 04/29/20 15:00 23:00 07:00 Intake Total 350 ml 240 ml Balance 350 ml 240 ml Physical Exam General: Alert, Oriented X3, Cooperative, mild distress Heart: Regular rate, Normal S1, Normal S2 Lungs: Clear Abdomen: Normal bowel sounds, Soft, No hepatosplenomegaly, No masses, Other (LLQ tender) Extremities: No clubbing, No cyanosis, No edema, Normal pulses, No tenderness/swelling Skin: No rashes, No breakdown, No significant lesion Labs Labs: Laboratory Tests Test 04/28/20 18:36 04/28/20 20:14 04/28/20 22:25 04/29/20 00:27 White Blood Count 22.4 x10^3/uL (4.0-11.0) Red Blood Count 5.44 x10^6/uL (4.30-5.70) Hemoglobin 16.8 g/dL (13.0-17.5) Hematocrit 50.7 % (39.0-53.0) Mean Corpuscular Volume 93 fL (79-100) Mean Corpuscular Hemoglobin 31 pg (25-35) Mean Corpuscular Hemoglobin Concent 33 g/dL (31-37) Red Cell Distribution Width 13.4 % (11.5-14.5) Platelet Count 201 x10^3/uL (140-400) Neutrophils (%) (Auto) 84 % (31-73) Lymphocytes (%) (Auto) 7 % (24-48) Monocytes (%) (Auto) 8 % (0-9) Eosinophils (%) (Auto) 0 % (0-3) Basophils (%) (Auto) 0 % (0-3) Neutrophils # (Auto) 18.8 x10^3/uL (1.8-7.7) Lymphocytes # (Auto) 1.6 x10^3/uL (1.0-4.8) Monocytes # (Auto) 1.8 x10^3/uL (0.0-1.1) Eosinophils # (Auto) 0.1 x10^3/uL (0.0-0.7) Basophils # (Auto) 0.1 x10^3/uL (0.0-0.2) Segmented Neutrophils % 84 % (35-66) Band Neutrophils % 4 % (0-9) Lymphocytes % 9 % (24-48) Monocytes % 2 % (0-10) Eosinophils % 1 % (0-5) Toxic Granulation Mod Platelet Estimate Adequate (ADEQUATE) Prothrombin Time 47.6 SEC (11.7-14.0) Prothromb Time International Ratio 5.0 (0.8-1.1) Activated Partial Thromboplast Time 54 SEC (24-38) Sodium Level 134 mmol/L (136-145) Potassium Level 3.5 mmol/L (3.5-5.1) Chloride Level 95 mmol/L (98-107) Carbon Dioxide Level 31 mmol/L (21-32) Anion Gap 8 (6-14) Blood Urea Nitrogen 16 mg/dL (8-26) Creatinine 1.1 mg/dL (0.7-1.3) Estimated GFR (Cockcroft-Gault) 67.6 BUN/Creatinine Ratio 15 (6-20) Glucose Level 115 mg/dL (70-99) Calcium Level 9.5 mg/dL (8.5-10.1) Total Bilirubin 0.9 mg/dL (0.2-1.0) Aspartate Amino Transf (AST/SGOT) 17 U/L (15-37) Alanine Aminotransferase (ALT/SGPT) 13 U/L (16-63) Alkaline Phosphatase 100 U/L (46-116) Total Protein 7.6 g/dL (6.4-8.2) Albumin 3.4 g/dL (3.4-5.0) Albumin/Globulin Ratio 0.8 (1.0-1.7) Stool Occult Blood Positive (NEG) Urine Collection Type Unknown Urine Color Dk yellow Urine Clarity Clear Urine pH 5.5 (<5.0-8.0) Urine Specific [place] 1.020 (1.000-1.030) Urine Protein Negative mg/dL (NEG-TRACE) Urine Glucose (UA) Negative mg/dL (NEG) Urine Ketones (Stick) Negative mg/dL (NEG) Urine Blood Negative (NEG) Urine Nitrite Negative (NEG) Urine Bilirubin Small (NEG) Urine Urobilinogen Dipstick 2.0 mg/dL (0.2 mg/dL) Urine Leukocyte Esterase Negative (NEG) Urine RBC 0 /HPF (0-2) Urine WBC 0 /HPF (0-4) Urine Squamous Epithelial Cells Few /LPF Urine Bacteria 0 /HPF (0-FEW) Urine Hyaline Casts Occasional /HPF Urine Mucus Slight /LPF Lactic Acid Level 1.2 mmol/L (0.4-2.0) Test 04/29/20 03:55 White Blood Count 16.8 x10^3/uL (4.0-11.0) Red Blood Count 4.88 x10^6/uL (4.30-5.70) Hemoglobin 15.3 g/dL (13.0-17.5) Hematocrit 45.7 % (39.0-53.0) Mean Corpuscular Volume 94 fL (79-100) Mean Corpuscular Hemoglobin 31 pg (25-35) Mean Corpuscular Hemoglobin Concent 34 g/dL (31-37) Red Cell Distribution Width 13.5 % (11.5-14.5) Platelet Count 156 x10^3/uL (140-400) Neutrophils (%) (Auto) 82 % (31-73) Lymphocytes (%) (Auto) 8 % (24-48) Monocytes (%) (Auto) 9 % (0-9) Eosinophils (%) (Auto) 1 % (0-3) Basophils (%) (Auto) 0 % (0-3) Neutrophils # (Auto) 13.7 x10^3/uL (1.8-7.7) Lymphocytes # (Auto) 1.4 x10^3/uL (1.0-4.8) Monocytes # (Auto) 1.5 x10^3/uL (0.0-1.1) Eosinophils # (Auto) 0.2 x10^3/uL (0.0-0.7) Basophils # (Auto) 0.1 x10^3/uL (0.0-0.2) Prothrombin Time 35.1 SEC (11.7-14.0) Prothromb Time International Ratio 3.5 (0.8-1.1) Sodium Level 136 mmol/L (136-145) Potassium Level 3.9 mmol/L (3.5-5.1) Chloride Level 99 mmol/L (98-107) Carbon Dioxide Level 31 mmol/L (21-32) Anion Gap 6 (6-14) Blood Urea Nitrogen 13 mg/dL (8-26) Creatinine 1.0 mg/dL (0.7-1.3) Estimated GFR (Cockcroft-Gault) 75.5 BUN/Creatinine Ratio 13 (6-20) Glucose Level 101 mg/dL (70-99) Calcium Level 8.7 mg/dL (8.5-10.1) Total Bilirubin 1.2 mg/dL (0.2-1.0) Aspartate Amino Transf (AST/SGOT) 15 U/L (15-37) Alanine Aminotransferase (ALT/SGPT) 12 U/L (16-63) Alkaline Phosphatase 80 U/L (46-116) Total Protein 6.6 g/dL (6.4-8.2) Albumin 3.0 g/dL (3.4-5.0) Albumin/Globulin Ratio 0.8 (1.0-1.7) Review of Systems Review of Systems: Denies CASTELAN Denies CP Assessment and Plan Assessmemt and Plan Problems Medical Problems: (1) Colitis Status: Acute (2) Gastritis and duodenitis Status: Acute (3) Hematochezia Status: Acute (4) Sepsis Status: Acute (5) Supratherapeutic INR Status: Acute Assessment: Sepsis Inflammatory colitis CAD CHF HTN COPD Hx of PE Tobacco use Plan: Appreciate GI input Fluids for sepsis IV ABX Holding warfarin Wean O2 as tolerated Full code Trend labs Home meds Smoking cessation Comment Review of Relevant I have reviewed the following items arya (where applicable) has been applied. Medications: Current Medications Medications (Trade) Dose Ordered Sig/Adan Route PRN Reason Start Time Stop Time Status Last Admin Dose Admin Sodium Chloride 250 ml @ 250 mls/hr 1X ONCE IV 04/28/20 18:45 04/28/20 19:44 DC 04/28/20 19:21 Piperacillin Sod/ Tazobactam Sod 4.5 gm/Sodium Chloride 100 ml @ 200 mls/hr 1X ONCE IV 04/28/20 20:15 04/28/20 20:44 DC 04/28/20 20:50 Vancomycin HCl 2 gm/Sodium Chloride 500 ml @ 250 mls/hr 1X ONCE IV 04/28/20 20:15 04/28/20 22:14 DC 04/28/20 22:52 Hydromorphone HCl (Dilaudid) 0.5 mg 1X ONCE IVP 04/28/20 20:15 04/28/20 20:16 DC 04/28/20 20:50 Morphine Sulfate (Morphine Sulfate) 2 mg PRN Q2HR PRN IV PAIN 04/28/20 21:30 04/28/20 23:45 Sodium Chloride 1,000 ml @ 100 mls/hr Q10H IV 04/28/20 21:18 04/29/20 21:17 04/28/20 22:48 Bupropion HCl (Wellbutrin Xl) 150 mg DAILY PO 04/29/20 09:00 04/29/20 08:55 Gemfibrozil (Lopid) 600 mg BID PO 04/29/20 09:00 04/29/20 08:55 Albuterol/ Ipratropium (Duoneb) 3 ml RTQID NEB 04/29/20 08:00 04/29/20 08:09 Isosorbide Mononitrate (Imdur) 30 mg DAILYWBKFT PO 04/29/20 08:00 04/29/20 08:55 Metoprolol Tartrate (Lopressor) 50 mg BID PO 04/29/20 09:00 04/29/20 08:56 Morphine Sulfate (Ms Contin) 15 mg BID PO 04/29/20 09:00 04/29/20 08:57 Oxycodone/ Acetaminophen (Percocet 10/325) 1 tab PRN Q8HRS PRN PO PAIN 04/28/20 23:00 04/29/20 11:05 Potassium Chloride (Klor-Con) 20 meq DAILYWBKFT PO 04/29/20 08:00 04/29/20 08:56 Potassium Bicarbonate (Potassium Effervescent Tablet) 40 meq 1X ONCE PO 04/28/20 23:15 04/28/20 23:16 DC 04/28/20 23:46 Metronidazole 100 ml @ 100 mls/hr Q8HRS IV 04/28/20 23:00 04/29/20 06:12 Piperacillin Sod/ Tazobactam Sod 3.375 gm/Sodium Chloride 50 ml @ 100 mls/hr Q6HRS IV 04/29/20 06:00 04/29/20 05:02 Budesonide (Pulmicort) 0.5 mg RTBID NEB 04/29/20 08:00 04/29/20 08:09 Justifications for Admission Other Justification TRENT MASTERS III DO Apr 29, 2020 11:09
--- NOTE | 2020-04-29 11:23 | PDOC2 ---
GI CONSULT Date of Service: DATE: 04/29/20 TIME: 11:05 Reason For Consult: Rectal bleeding/"colitis" on CT. HPI: HPI: 64 year old male with onset painless blood in stool Friday. Passed with stool. This continued to some extent on . Friday had syncopal episode and after seemingly more blood with little stool. More pain/cramping with this. Presented to ER with INR of 5. Imaging shows mural thickening along descending colon (I think maybe some in transverse as well). No fever or vomiting. Had colonoscopy >10 years ago with hemorrhoids noted and maybe some polyps (says [facility]ogo did/not in our EMR). Typically no diarrhea or constipation. No GIFH. Occasional nausea better after a Sprite; no emesis. H/o NCCP/GERD taking omeprazole daily at home. EGD 2013 with low-grade esophagitis. No PUD, GB, liver or pancreatic history. Former smoker. No alcohol use. Takes warfarin daily after repair of some congenital aortic problem (coarctation sounds familiar to him). PMH: PMH: CAD, CHF, HTN, HLP, COPD, testicular cancer, OA. S/p CABG, repair coarct?, orchiectomy. Social History: Smoke: Quit ALCOHOL: none Drugs: None ROS: GEN: Denies fevers, chills, sweats HEENT: Denies blurred vision, sore throat CV: Denies chest pain RESP: Denies shortness of air, cough GI: Per HPI : Denies hematuria, dysuria ENDO: Denies weight changes NEURO: Denies confusion, dizziness MSK: Denies weakness, joint pain/swelling SKIN: Denies jaundice, pruritus Vitals: Vitals: Vital Signs Date Time Temp Pulse Resp B/P (MAP) Pulse Ox O2 Delivery O2 Flow Rate FiO2 04/29/20 08:57 Nasal Cannula 2.0 04/29/20 08:56 83 101/50 04/29/20 08:12 94 04/29/20 07:00 98.0 19 98.0 Labs: Labs: Laboratory Tests Test 04/28/20 18:36 04/28/20 20:14 04/28/20 22:25 04/29/20 00:27 White Blood Count 22.4 x10^3/uL (4.0-11.0) Red Blood Count 5.44 x10^6/uL (4.30-5.70) Hemoglobin 16.8 g/dL (13.0-17.5) Hematocrit 50.7 % (39.0-53.0) Mean Corpuscular Volume 93 fL (79-100) Mean Corpuscular Hemoglobin 31 pg (25-35) Mean Corpuscular Hemoglobin Concent 33 g/dL (31-37) Red Cell Distribution Width 13.4 % (11.5-14.5) Platelet Count 201 x10^3/uL (140-400) Neutrophils (%) (Auto) 84 % (31-73) Lymphocytes (%) (Auto) 7 % (24-48) Monocytes (%) (Auto) 8 % (0-9) Eosinophils (%) (Auto) 0 % (0-3) Basophils (%) (Auto) 0 % (0-3) Neutrophils # (Auto) 18.8 x10^3/uL (1.8-7.7) Lymphocytes # (Auto) 1.6 x10^3/uL (1.0-4.8) Monocytes # (Auto) 1.8 x10^3/uL (0.0-1.1) Eosinophils # (Auto) 0.1 x10^3/uL (0.0-0.7) Basophils # (Auto) 0.1 x10^3/uL (0.0-0.2) Segmented Neutrophils % 84 % (35-66) Band Neutrophils % 4 % (0-9) Lymphocytes % 9 % (24-48) Monocytes % 2 % (0-10) Eosinophils % 1 % (0-5) Toxic Granulation Mod Platelet Estimate Adequate (ADEQUATE) Prothrombin Time 47.6 SEC (11.7-14.0) Prothromb Time International Ratio 5.0 (0.8-1.1) Activated Partial Thromboplast Time 54 SEC (24-38) Sodium Level 134 mmol/L (136-145) Potassium Level 3.5 mmol/L (3.5-5.1) Chloride Level 95 mmol/L (98-107) Carbon Dioxide Level 31 mmol/L (21-32) Anion Gap 8 (6-14) Blood Urea Nitrogen 16 mg/dL (8-26) Creatinine 1.1 mg/dL (0.7-1.3) Estimated GFR (Cockcroft-Gault) 67.6 BUN/Creatinine Ratio 15 (6-20) Glucose Level 115 mg/dL (70-99) Calcium Level 9.5 mg/dL (8.5-10.1) Total Bilirubin 0.9 mg/dL (0.2-1.0) Aspartate Amino Transf (AST/SGOT) 17 U/L (15-37) Alanine Aminotransferase (ALT/SGPT) 13 U/L (16-63) Alkaline Phosphatase 100 U/L (46-116) Total Protein 7.6 g/dL (6.4-8.2) Albumin 3.4 g/dL (3.4-5.0) Albumin/Globulin Ratio 0.8 (1.0-1.7) Stool Occult Blood Positive (NEG) Urine Collection Type Unknown Urine Color Dk yellow Urine Clarity Clear Urine pH 5.5 (<5.0-8.0) Urine Specific [place] 1.020 (1.000-1.030) Urine Protein Negative mg/dL (NEG-TRACE) Urine Glucose (UA) Negative mg/dL (NEG) Urine Ketones (Stick) Negative mg/dL (NEG) Urine Blood Negative (NEG) Urine Nitrite Negative (NEG) Urine Bilirubin Small (NEG) Urine Urobilinogen Dipstick 2.0 mg/dL (0.2 mg/dL) Urine Leukocyte Esterase Negative (NEG) Urine RBC 0 /HPF (0-2) Urine WBC 0 /HPF (0-4) Urine Squamous Epithelial Cells Few /LPF Urine Bacteria 0 /HPF (0-FEW) Urine Hyaline Casts Occasional /HPF Urine Mucus Slight /LPF Lactic Acid Level 1.2 mmol/L (0.4-2.0) Test 04/29/20 03:55 White Blood Count 16.8 x10^3/uL (4.0-11.0) Red Blood Count 4.88 x10^6/uL (4.30-5.70) Hemoglobin 15.3 g/dL (13.0-17.5) Hematocrit 45.7 % (39.0-53.0) Mean Corpuscular Volume 94 fL (79-100) Mean Corpuscular Hemoglobin 31 pg (25-35) Mean Corpuscular Hemoglobin Concent 34 g/dL (31-37) Red Cell Distribution Width 13.5 % (11.5-14.5) Platelet Count 156 x10^3/uL (140-400) Neutrophils (%) (Auto) 82 % (31-73) Lymphocytes (%) (Auto) 8 % (24-48) Monocytes (%) (Auto) 9 % (0-9) Eosinophils (%) (Auto) 1 % (0-3) Basophils (%) (Auto) 0 % (0-3) Neutrophils # (Auto) 13.7 x10^3/uL (1.8-7.7) Lymphocytes # (Auto) 1.4 x10^3/uL (1.0-4.8) Monocytes # (Auto) 1.5 x10^3/uL (0.0-1.1) Eosinophils # (Auto) 0.2 x10^3/uL (0.0-0.7) Basophils # (Auto) 0.1 x10^3/uL (0.0-0.2) Prothrombin Time 35.1 SEC (11.7-14.0) Prothromb Time International Ratio 3.5 (0.8-1.1) Sodium Level 136 mmol/L (136-145) Potassium Level 3.9 mmol/L (3.5-5.1) Chloride Level 99 mmol/L (98-107) Carbon Dioxide Level 31 mmol/L (21-32) Anion Gap 6 (6-14) Blood Urea Nitrogen 13 mg/dL (8-26) Creatinine 1.0 mg/dL (0.7-1.3) Estimated GFR (Cockcroft-Gault) 75.5 BUN/Creatinine Ratio 13 (6-20) Glucose Level 101 mg/dL (70-99) Calcium Level 8.7 mg/dL (8.5-10.1) Total Bilirubin 1.2 mg/dL (0.2-1.0) Aspartate Amino Transf (AST/SGOT) 15 U/L (15-37) Alanine Aminotransferase (ALT/SGPT) 12 U/L (16-63) Alkaline Phosphatase 80 U/L (46-116) Total Protein 6.6 g/dL (6.4-8.2) Albumin 3.0 g/dL (3.4-5.0) Albumin/Globulin Ratio 0.8 (1.0-1.7) Allergies: Coded Allergies: Iodinated Contrast Media (Verified Allergy, Intermediate, 03/07/14) ketorolac (Verified Allergy, Intermediate, GI, 12/01/14) tramadol (Verified Allergy, Intermediate, 11/11/15) tolerates oxycodone and morphine venom-honey bee (Verified Allergy, Intermediate, 03/07/14) NSAIDS (Non-Steroidal Anti-Inflamma (Verified Adverse Reaction, Intermediate, GI, 10/09/18) Medications: Current Medications Medications (Trade) Dose Ordered Sig/Adan Route PRN Reason Start Time Stop Time Status Last Admin Dose Admin Sodium Chloride 250 ml @ 250 mls/hr 1X ONCE IV 04/28/20 18:45 04/28/20 19:44 DC 04/28/20 19:21 Piperacillin Sod/ Tazobactam Sod 4.5 gm/Sodium Chloride 100 ml @ 200 mls/hr 1X ONCE IV 04/28/20 20:15 04/28/20 20:44 DC 04/28/20 20:50 Vancomycin HCl 2 gm/Sodium Chloride 500 ml @ 250 mls/hr 1X ONCE IV 04/28/20 20:15 04/28/20 22:14 DC 04/28/20 22:52 Hydromorphone HCl (Dilaudid) 0.5 mg 1X ONCE IVP 04/28/20 20:15 04/28/20 20:16 DC 04/28/20 20:50 Morphine Sulfate (Morphine Sulfate) 2 mg PRN Q2HR PRN IV PAIN 04/28/20 21:30 04/28/20 23:45 Sodium Chloride 1,000 ml @ 100 mls/hr Q10H IV 04/28/20 21:18 04/29/20 21:17 04/28/20 22:48 Bupropion HCl (Wellbutrin Xl) 150 mg DAILY PO 04/29/20 09:00 04/29/20 08:55 Gemfibrozil (Lopid) 600 mg BID PO 04/29/20 09:00 04/29/20 08:55 Albuterol/ Ipratropium (Duoneb) 3 ml RTQID NEB 04/29/20 08:00 04/29/20 08:09 Isosorbide Mononitrate (Imdur) 30 mg DAILYWBKFT PO 04/29/20 08:00 04/29/20 08:55 Metoprolol Tartrate (Lopressor) 50 mg BID PO 04/29/20 09:00 04/29/20 08:56 Morphine Sulfate (Ms Contin) 15 mg BID PO 04/29/20 09:00 04/29/20 08:57 Oxycodone/ Acetaminophen (Percocet 10/325) 1 tab PRN Q8HRS PRN PO PAIN 04/28/20 23:00 04/29/20 01:14 Potassium Chloride (Klor-Con) 20 meq DAILYWBKFT PO 04/29/20 08:00 04/29/20 08:56 Potassium Bicarbonate (Potassium Effervescent Tablet) 40 meq 1X ONCE PO 04/28/20 23:15 04/28/20 23:16 DC 04/28/20 23:46 Metronidazole 100 ml @ 100 mls/hr Q8HRS IV 04/28/20 23:00 04/29/20 06:12 Piperacillin Sod/ Tazobactam Sod 3.375 gm/Sodium Chloride 50 ml @ 100 mls/hr Q6HRS IV 04/29/20 06:00 04/29/20 05:02 Budesonide (Pulmicort) 0.5 mg RTBID NEB 04/29/20 08:00 04/29/20 08:09 Imaging: Imaging: On CT: Impression: 1. Severe long segment descending colonic wall thickening with adjacent inflammatory changes, may represent infectious or inflammatory colitis and ischemic colitis is possible in the appropriate clinical setting. 2. Postoperative changes lumbar spine with superior junctional spondylosis contributing canal narrowing at L3-L4. --no mention of diverticular disease. PE: GEN: NAD HEENT: Atraumatic, PERRLA LUNGS: CTAB HEART: RRR, no murmurs ABD: NABS, S/ND/tender left abdomen and LLQ, no masses EXTREMITY: No edema SKIN: No rashes, no jaundice NEURO/PSYCH: A & O 3 A/P: A/P: IMP: Hematochezia; amount seemed to change after syncopal episode. No fever or other associated symptoms. Suspect what may have started as hemorrhoidal bleeding is now ischemic colitis from the syncopal episode. GERD/NCCP History of polyps. REC: Allow INR to drop holding warfarin. Does he need this for the aortic repair (or is there some indication I'm not aware of). Antibiotics optional. Some experts do recommend for ischemic issues. Clear liquid diet. Monitor for more bleeding and/or pain; on occasion deep enough injury to result in perf. Should consider outpatient colonoscopy. If not done, will check enteric stool panel and C.diff. Apparently will not take pantoprazole; will try lansoprazole. Thanks. SHERINE LEMUS MD Apr 29, 2020 11:23
[2020-04-29] MEDS: IV NORMAL SALINE 1000ML BAG 1,000 ML IV SCH (14:55)
[2020-04-29 15:00] VITALS: BP 99/44
[2020-04-29] MEDS: MORPHINE SULFATE 2 MG/ML VIAL. IV PRN (19:25)
--- NOTE | 2020-04-29 19:25 | NUR ---
Assessment completed vss poc explained pt c/o pain will resume care and continue to monitor pt. Call light in reach.
[2020-04-29 19:26] VITALS: BP 92/43
[2020-04-29] MEDS: ATORVASTATIN CALCIUM 40 MG TABLET. PO SCH (21:15)
[2020-04-29] MEDS: MONTELUKAST SODIUM 10 MG TABLET. PO SCH (21:15)
[2020-04-29 22:48] VITALS: BP 100/48
[2020-04-30] MEDS: oxyCODONE/APAP 10/325 1 TAB TABLET PO PRN ×2 (03:22→12:33)
[2020-04-30 03:25] VITALS: BP 117/53
[2020-04-30] MEDS: IV NORMAL SALINE 1000ML BAG 1,000 ML IV SCH (03:30)
[2020-04-30] MEDS: PIPERACILLIN/TAZOBACTAM 3.375 GM in IV NORMAL SALINE 50ML 50 ML IV SCH ×4 (05:23→21:08)
[2020-04-30] MEDS: LANSOPRAZOLE 30 MG TAB.RAP.DR FT SCH ×2 (06:17→16:34)
[2020-04-30 07:00] VITALS: BP 109/53
[2020-04-30] MEDS: BUDESONIDE 0.5 MG/2 ML NEBU. NEB SCH ×2 (07:51→21:00)
[2020-04-30] MEDS: IPRATRPIUM/ALBUTEROL 0.5/2.5MG 3 ML NEBU. NEB SCH ×4 (07:52→21:00)
[2020-04-30] MEDS: ALBUTEROL SULFATE 2.5 MG/3 ML NEBU. NEB SCH ×4 (07:52→20:00)
[2020-04-30] MEDS: GEMFIBROZIL 600 MG TABLET. PO SCH ×2 (08:54→21:06)
[2020-04-30] MEDS: METOPROLOL TART IMMED RELEASE 50 MG TABLET. PO SCH ×2 (08:54→21:00)
[2020-04-30] MEDS: ISOSORBIDE MONONITRATE ER 30 MG TAB.ER.24H PO SCH (08:54)
[2020-04-30] MEDS: POTASSIUM CHLORIDE 20 MEQ TABLET.ER. PO SCH (08:55)
[2020-04-30] MEDS: MORPHINE ER 15 MG TABLET.ER PO SCH ×2 (09:02→21:07)
[2020-04-30] MEDS: buPROPion XL 150 MG TAB.ER.24H. PO SCH (09:03)
[2020-04-30 09:08] LABS: BASO # 0.1 x10^3/uL (0.0-0.2); BASO % 1 % (0-3); EOS # 0.2 x10^3/uL (0.0-0.7); EOS % 2 % (0-3); HEMATOCRIT 42.1 % (39.0-53.0); LYMPH # 1.6 x10^3/uL (1.0-4.8); LYMPH % 18 % (24-48); MEAN CORPUSCULAR HEMOGLOBIN 32 pg (25-35); MEAN CORPUSCULAR HGB CONC 33 g/dL (31-37); MEAN CORPUSCULAR VOLUME 95 fL (79-100); MONO % 11 % (0-9); NEUT # 6.2 x10^3/uL (1.8-7.7); NEUT % 68 % (31-73); PLATELET COUNT 165 x10^3/uL (140-400); RED BLOOD COUNT 4.45 x10^6/uL (4.30-5.70); RED CELL DISTRIBUTION WIDTH 13.6 % (11.5-14.5)
[2020-04-30 09:17] LABS: CALCIUM 8.6 mg/dL (8.5-10.1); CREATININE 0.9 mg/dL (0.7-1.3); GFR 85.2
[2020-04-30 09:20] LABS: PROTHROMBIN TIME PATIENT 28.2 SEC (11.7-14.0)
[2020-04-30 11:00] VITALS: BP 106/47
--- NOTE | 2020-04-30 12:16 | PDOC ---
[employer] PROGRESS NOTE Date of Service DOS: DATE: 04/30/20 TIME: 12:13 Chief Complaint Chief Complaint Sepsis Inflammatory colitis CAD CHF HTN COPD Hx of PE Tobacco use History of Present Illness History of Present Illness HPI: Mr Medina is a 64 yo M w/ PMHx CAD s/p CABG, PE on Coumadin, COPD on 2L NC, smoker, HTN, HLD, testicular ca s/p right orchiectomy, and chronic diastolic heart failure who p/w grossly bloody stools. He notes bright red blood for his last 5 bowel movements. Last INR was 1.3. Questionable transfusion after his triple bypass. Reports colonoscopy more than 10 years ago due to melena, GI report was concerning for polyps versus hemorrhoids. Only past surgical history was his right orchiectomy 1986. Does complain of exertional dyspnea for the past day. No history of upper GI bleeding or ulcers. EMR reviewed -pt admitted 03/2020 (covid negative 04/05) for acute hypoxic respiratory failure, negative cardiac cath on 10/12/2018. Patient had a VQ scan in March 2020 that showed no perfusion defect. Negative cardiac cath in 2018 as well. EKG shows sinus tachycardia at 109 bpm, no axis deviation, normal intervals, T wave inversion inferior lateral leads V4,5,6, no ST elevations or ST depressions Labs significant for WBC 22.4, Hb 16.8, platelets 201, INR 5, NA 134, K3.5, BUN 16, CR 1.1, glucose 115 CT abdomen/pelvis shows severe long segment descending colonic wall thickening with adjacent inflammatory changes. 04/30/20 pt seen and examined. He was up and ambulating around the halls with his nurse. MINNA RN MINNA case management 04/29/2020 Pt seen and examined MINNA RN MINNA case management GI consulted Vitals/I&O Vitals/I&O: Vital Signs Date Time Temp Pulse Resp B/P (MAP) Pulse Ox O2 Delivery O2 Flow Rate FiO2 04/30/20 11:00 97.9 73 19 106/47 (66) 97 Nasal Cannula 2.0 97.9 I & O 04/29/20 04/29/20 04/30/20 15:00 23:00 07:00 Intake Total 400 ml 700 ml 100 ml Output Total 350 ml 550 ml 800 ml Balance 50 ml 150 ml -700 ml Physical Exam General: Alert, Oriented X3, Cooperative, mild distress Heart: Regular rate, Normal S1, Normal S2 Lungs: Clear, Other (denies wheezing or crackles) Abdomen: Normal bowel sounds, Soft, No hepatosplenomegaly, No masses, Other (LLQ tender) Extremities: No clubbing, No cyanosis, No edema, Normal pulses, No tenderness/swelling Skin: No rashes, No breakdown, No significant lesion Labs Labs: Laboratory Tests Test 04/30/20 08:20 White Blood Count 9.0 x10^3/uL (4.0-11.0) Red Blood Count 4.45 x10^6/uL (4.30-5.70) Hemoglobin 14.0 g/dL (13.0-17.5) Hematocrit 42.1 % (39.0-53.0) Mean Corpuscular Volume 95 fL (79-100) Mean Corpuscular Hemoglobin 32 pg (25-35) Mean Corpuscular Hemoglobin Concent 33 g/dL (31-37) Red Cell Distribution Width 13.6 % (11.5-14.5) Platelet Count 165 x10^3/uL (140-400) Neutrophils (%) (Auto) 68 % (31-73) Lymphocytes (%) (Auto) 18 % (24-48) Monocytes (%) (Auto) 11 % (0-9) Eosinophils (%) (Auto) 2 % (0-3) Basophils (%) (Auto) 1 % (0-3) Neutrophils # (Auto) 6.2 x10^3/uL (1.8-7.7) Lymphocytes # (Auto) 1.6 x10^3/uL (1.0-4.8) Monocytes # (Auto) 1.0 x10^3/uL (0.0-1.1) Eosinophils # (Auto) 0.2 x10^3/uL (0.0-0.7) Basophils # (Auto) 0.1 x10^3/uL (0.0-0.2) Prothrombin Time 28.2 SEC (11.7-14.0) Prothromb Time International Ratio 2.6 (0.8-1.1) Sodium Level 140 mmol/L (136-145) Potassium Level 4.0 mmol/L (3.5-5.1) Chloride Level 103 mmol/L (98-107) Carbon Dioxide Level 32 mmol/L (21-32) Anion Gap 5 (6-14) Blood Urea Nitrogen 4 mg/dL (8-26) Creatinine 0.9 mg/dL (0.7-1.3) Estimated GFR (Cockcroft-Gault) 85.2 Glucose Level 109 mg/dL (70-99) Calcium Level 8.6 mg/dL (8.5-10.1) Review of Systems Review of Systems: denies chest pain co fatigue Assessment and Plan Assessmemt and Plan Problems Medical Problems: (1) Colitis Status: Acute (2) Gastritis and duodenitis Status: Acute (3) Hematochezia Status: Acute (4) Sepsis Status: Acute (5) Supratherapeutic INR Status: Acute Assessment: Sepsis Inflammatory colitis CAD CHF HTN COPD Hx of PE Tobacco use Plan: Cardiac monitoring ptot PRN pain meds Fluids for sepsis IV ABX Holding warfarin Wean O2 as tolerated Full code Trend labs Home meds Smoking cessation Appreciate subspecialty input Comment Review of Relevant I have reviewed the following items arya (where applicable) has been applied. Medications: Current Medications Medications (Trade) Dose Ordered Sig/Adan Route PRN Reason Start Time Stop Time Status Last Admin Dose Admin Montelukast Sodium (Singulair) 10 mg QHS PO 04/29/20 21:00 04/29/20 21:15 Atorvastatin Calcium (Lipitor) 40 mg HS PO 04/29/20 21:00 04/29/20 21:15 Lansoprazole (Prevacid) 30 mg BIDBFRMEAL FT 04/30/20 07:30 04/30/20 06:17 Justifications for Admission Other Justification TRENT MASTERS III DO Apr 30, 2020 12:16
--- NOTE | 2020-04-30 13:24 | PDOC ---
G I PROGRESS NOTE Subjective Denies further bleeding or diarrhea. Eating well. Physical Exam Lungs clear. RRR Abdomen soft, not tender nor distended. Review of Relevant I have reviewed the following items aray (where applicable) has been applied. Labs Laboratory Tests Test 04/28/20 18:36 04/28/20 20:14 04/28/20 22:25 04/29/20 00:27 White Blood Count 22.4 x10^3/uL (4.0-11.0) Red Blood Count 5.44 x10^6/uL (4.30-5.70) Hemoglobin 16.8 g/dL (13.0-17.5) Hematocrit 50.7 % (39.0-53.0) Mean Corpuscular Volume 93 fL (79-100) Mean Corpuscular Hemoglobin 31 pg (25-35) Mean Corpuscular Hemoglobin Concent 33 g/dL (31-37) Red Cell Distribution Width 13.4 % (11.5-14.5) Platelet Count 201 x10^3/uL (140-400) Neutrophils (%) (Auto) 84 % (31-73) Lymphocytes (%) (Auto) 7 % (24-48) Monocytes (%) (Auto) 8 % (0-9) Eosinophils (%) (Auto) 0 % (0-3) Basophils (%) (Auto) 0 % (0-3) Neutrophils # (Auto) 18.8 x10^3/uL (1.8-7.7) Lymphocytes # (Auto) 1.6 x10^3/uL (1.0-4.8) Monocytes # (Auto) 1.8 x10^3/uL (0.0-1.1) Eosinophils # (Auto) 0.1 x10^3/uL (0.0-0.7) Basophils # (Auto) 0.1 x10^3/uL (0.0-0.2) Segmented Neutrophils % 84 % (35-66) Band Neutrophils % 4 % (0-9) Lymphocytes % 9 % (24-48) Monocytes % 2 % (0-10) Eosinophils % 1 % (0-5) Toxic Granulation Mod Platelet Estimate Adequate (ADEQUATE) Prothrombin Time 47.6 SEC (11.7-14.0) Prothromb Time International Ratio 5.0 (0.8-1.1) Activated Partial Thromboplast Time 54 SEC (24-38) Sodium Level 134 mmol/L (136-145) Potassium Level 3.5 mmol/L (3.5-5.1) Chloride Level 95 mmol/L (98-107) Carbon Dioxide Level 31 mmol/L (21-32) Anion Gap 8 (6-14) Blood Urea Nitrogen 16 mg/dL (8-26) Creatinine 1.1 mg/dL (0.7-1.3) Estimated GFR (Cockcroft-Gault) 67.6 BUN/Creatinine Ratio 15 (6-20) Glucose Level 115 mg/dL (70-99) Calcium Level 9.5 mg/dL (8.5-10.1) Total Bilirubin 0.9 mg/dL (0.2-1.0) Aspartate Amino Transf (AST/SGOT) 17 U/L (15-37) Alanine Aminotransferase (ALT/SGPT) 13 U/L (16-63) Alkaline Phosphatase 100 U/L (46-116) Total Protein 7.6 g/dL (6.4-8.2) Albumin 3.4 g/dL (3.4-5.0) Albumin/Globulin Ratio 0.8 (1.0-1.7) Stool Occult Blood Positive (NEG) Urine Collection Type Unknown Urine Color Dk yellow Urine Clarity Clear Urine pH 5.5 (<5.0-8.0) Urine Specific [place] 1.020 (1.000-1.030) Urine Protein Negative mg/dL (NEG-TRACE) Urine Glucose (UA) Negative mg/dL (NEG) Urine Ketones (Stick) Negative mg/dL (NEG) Urine Blood Negative (NEG) Urine Nitrite Negative (NEG) Urine Bilirubin Small (NEG) Urine Urobilinogen Dipstick 2.0 mg/dL (0.2 mg/dL) Urine Leukocyte Esterase Negative (NEG) Urine RBC 0 /HPF (0-2) Urine WBC 0 /HPF (0-4) Urine Squamous Epithelial Cells Few /LPF Urine Bacteria 0 /HPF (0-FEW) Urine Hyaline Casts Occasional /HPF Urine Mucus Slight /LPF Lactic Acid Level 1.2 mmol/L (0.4-2.0) Test 04/29/20 03:55 04/30/20 08:20 White Blood Count 16.8 x10^3/uL (4.0-11.0) 9.0 x10^3/uL (4.0-11.0) Red Blood Count 4.88 x10^6/uL (4.30-5.70) 4.45 x10^6/uL (4.30-5.70) Hemoglobin 15.3 g/dL (13.0-17.5) 14.0 g/dL (13.0-17.5) Hematocrit 45.7 % (39.0-53.0) 42.1 % (39.0-53.0) Mean Corpuscular Volume 94 fL (79-100) 95 fL (79-100) Mean Corpuscular Hemoglobin 31 pg (25-35) 32 pg (25-35) Mean Corpuscular Hemoglobin Concent 34 g/dL (31-37) 33 g/dL (31-37) Red Cell Distribution Width 13.5 % (11.5-14.5) 13.6 % (11.5-14.5) Platelet Count 156 x10^3/uL (140-400) 165 x10^3/uL (140-400) Neutrophils (%) (Auto) 82 % (31-73) 68 % (31-73) Lymphocytes (%) (Auto) 8 % (24-48) 18 % (24-48) Monocytes (%) (Auto) 9 % (0-9) 11 % (0-9) Eosinophils (%) (Auto) 1 % (0-3) 2 % (0-3) Basophils (%) (Auto) 0 % (0-3) 1 % (0-3) Neutrophils # (Auto) 13.7 x10^3/uL (1.8-7.7) 6.2 x10^3/uL (1.8-7.7) Lymphocytes # (Auto) 1.4 x10^3/uL (1.0-4.8) 1.6 x10^3/uL (1.0-4.8) Monocytes # (Auto) 1.5 x10^3/uL (0.0-1.1) 1.0 x10^3/uL (0.0-1.1) Eosinophils # (Auto) 0.2 x10^3/uL (0.0-0.7) 0.2 x10^3/uL (0.0-0.7) Basophils # (Auto) 0.1 x10^3/uL (0.0-0.2) 0.1 x10^3/uL (0.0-0.2) Prothrombin Time 35.1 SEC (11.7-14.0) 28.2 SEC (11.7-14.0) Prothromb Time International Ratio 3.5 (0.8-1.1) 2.6 (0.8-1.1) Sodium Level 136 mmol/L (136-145) 140 mmol/L (136-145) Potassium Level 3.9 mmol/L (3.5-5.1) 4.0 mmol/L (3.5-5.1) Chloride Level 99 mmol/L (98-107) 103 mmol/L (98-107) Carbon Dioxide Level 31 mmol/L (21-32) 32 mmol/L (21-32) Anion Gap 6 (6-14) 5 (6-14) Blood Urea Nitrogen 13 mg/dL (8-26) 4 mg/dL (8-26) Creatinine 1.0 mg/dL (0.7-1.3) 0.9 mg/dL (0.7-1.3) Estimated GFR (Cockcroft-Gault) 75.5 85.2 BUN/Creatinine Ratio 13 (6-20) Glucose Level 101 mg/dL (70-99) 109 mg/dL (70-99) Calcium Level 8.7 mg/dL (8.5-10.1) 8.6 mg/dL (8.5-10.1) Total Bilirubin 1.2 mg/dL (0.2-1.0) Aspartate Amino Transf (AST/SGOT) 15 U/L (15-37) Alanine Aminotransferase (ALT/SGPT) 12 U/L (16-63) Alkaline Phosphatase 80 U/L (46-116) Total Protein 6.6 g/dL (6.4-8.2) Albumin 3.0 g/dL (3.4-5.0) Albumin/Globulin Ratio 0.8 (1.0-1.7) Laboratory Tests Test 04/30/20 08:20 White Blood Count 9.0 x10^3/uL (4.0-11.0) Red Blood Count 4.45 x10^6/uL (4.30-5.70) Hemoglobin 14.0 g/dL (13.0-17.5) Hematocrit 42.1 % (39.0-53.0) Mean Corpuscular Volume 95 fL (79-100) Mean Corpuscular Hemoglobin 32 pg (25-35) Mean Corpuscular Hemoglobin Concent 33 g/dL (31-37) Red Cell Distribution Width 13.6 % (11.5-14.5) Platelet Count 165 x10^3/uL (140-400) Neutrophils (%) (Auto) 68 % (31-73) Lymphocytes (%) (Auto) 18 % (24-48) Monocytes (%) (Auto) 11 % (0-9) Eosinophils (%) (Auto) 2 % (0-3) Basophils (%) (Auto) 1 % (0-3) Neutrophils # (Auto) 6.2 x10^3/uL (1.8-7.7) Lymphocytes # (Auto) 1.6 x10^3/uL (1.0-4.8) Monocytes # (Auto) 1.0 x10^3/uL (0.0-1.1) Eosinophils # (Auto) 0.2 x10^3/uL (0.0-0.7) Basophils # (Auto) 0.1 x10^3/uL (0.0-0.2) Prothrombin Time 28.2 SEC (11.7-14.0) Prothromb Time International Ratio 2.6 (0.8-1.1) Sodium Level 140 mmol/L (136-145) Potassium Level 4.0 mmol/L (3.5-5.1) Chloride Level 103 mmol/L (98-107) Carbon Dioxide Level 32 mmol/L (21-32) Anion Gap 5 (6-14) Blood Urea Nitrogen 4 mg/dL (8-26) Creatinine 0.9 mg/dL (0.7-1.3) Estimated GFR (Cockcroft-Gault) 85.2 Glucose Level 109 mg/dL (70-99) Calcium Level 8.6 mg/dL (8.5-10.1) Microbiology 04/28/20 Blood Culture - Preliminary, Resulted NO GROWTH AFTER 1 DAY Hemoglobin with minor fall. Last INR 2+ Vitals/I & O Vital Sign - Last 24 Hours 04/29/20 04/29/20 04/29/20 04/29/20 15:00 15:52 19:25 19:25 Temp 98.7 98.7 Pulse 77 Resp 19 18 B/P (MAP) 99/44 (62) Pulse Ox 94 96 O2 Delivery Nasal Cannula Nasal Cannula Nasal Cannula Nasal Cannula O2 Flow Rate 2.0 2.0 2.0 2.0 04/29/20 04/29/20 04/29/20 04/29/20 19:26 19:55 20:22 20:25 Temp 98.1 98.1 Pulse 79 Resp 18 18 B/P (MAP) 92/43 (59) Pulse Ox 95 94 94 94 O2 Delivery Nasal Cannula Nasal Cannula Nasal Cannula Nasal Cannula O2 Flow Rate 2.0 2.0 2.0 2.0 04/29/20 04/29/20 04/29/20 04/30/20 21:15 21:20 22:48 01:15 Temp 98.5 98.5 Pulse 79 71 Resp 18 18 16 B/P (MAP) 95/48 100/48 (65) Pulse Ox 94 97 4 O2 Delivery Nasal Cannula Nasal Cannula Nasal Cannula O2 Flow Rate 2.0 2.0 2.0 04/30/20 04/30/20 04/30/20 04/30/20 03:22 03:25 04:23 07:00 Temp 97.9 97.5 97.9 97.5 Pulse 72 69 Resp 16 18 2 18 B/P (MAP) 117/53 (74) 109/53 (71) Pulse Ox 95 98 94 97 O2 Delivery Nasal Cannula Nasal Cannula Nasal Cannula Nasal Cannula O2 Flow Rate 2.0 2.0 04/30/20 04/30/20 04/30/20 04/30/20 07:52 08:54 08:54 09:02 Pulse 69 69 B/P (MAP) 109/53 109/53 O2 Delivery Nasal Cannula Nasal Cannula O2 Flow Rate 2.0 04/30/20 04/30/20 11:00 12:33 Temp 97.9 97.9 Pulse 73 Resp 19 B/P (MAP) 106/47 (66) Pulse Ox 97 O2 Delivery Nasal Cannula Nasal Cannula O2 Flow Rate 2.0 2.0 Intake and Output 04/29/20 04/29/20 04/30/20 15:00 23:00 07:00 Intake Total 400 ml 700 ml 100 ml Output Total 350 ml 550 ml 800 ml Balance 50 ml 150 ml -700 ml Problem List Problems Medical Problems: (1) Colitis Status: Acute (2) Gastritis and duodenitis Status: Acute (3) Hematochezia Status: Acute (4) Sepsis Status: Acute (5) Supratherapeutic INR Status: Acute Assessment Suspect ischemic colitis, bleeding aggravated by high INR. Plan of Care Note Continue as now and observe. Needs outpatient colonoscopy under better circumstances. Justicifation of Admission Dx: Justifications for Admission: Justification of Admission Dx: Yes Angina: [place] Worsening of Sym SHERINE LEMUS MD Apr 30, 2020 13:24
[2020-04-30] MEDS ORDERED: DIAZ5TAB4 PO (14:37)
[2020-04-30 15:00] VITALS: BP 83/41
[2020-04-30] MEDS: diazePAM 5 MG TABLET PO PRN ×2 (16:34→21:06)
[2020-04-30 19:50] VITALS: BP 99/46
[2020-04-30] MEDS: MONTELUKAST SODIUM 10 MG TABLET. PO SCH (21:06)
[2020-04-30] MEDS: ATORVASTATIN CALCIUM 40 MG TABLET. PO SCH (21:06)
[2020-04-30 23:30] VITALS: BP 108/54
[2020-05-01 03:50] VITALS: BP 111/58
[2020-05-01] MEDS: oxyCODONE/APAP 10/325 1 TAB TABLET PO PRN ×3 (04:34→22:28)
[2020-05-01] MEDS: PIPERACILLIN/TAZOBACTAM 3.375 GM in IV NORMAL SALINE 50ML 50 ML IV SCH ×4 (05:52→19:49)
[2020-05-01 07:26] LABS: BASO % 1 % (0-3); EOS # 0.2 x10^3/uL (0.0-0.7); EOS % 3 % (0-3); HEMATOCRIT 41.5 % (39.0-53.0); HEMOGLOBIN 13.7 g/dL (13.0-17.5); LYMPH # 0.7 x10^3/uL (1.0-4.8); LYMPH % 8 % (24-48); MEAN CORPUSCULAR HEMOGLOBIN 31 pg (25-35); MEAN CORPUSCULAR HGB CONC 33 g/dL (31-37); MEAN CORPUSCULAR VOLUME 95 fL (79-100); MONO # 0.8 x10^3/uL (0.0-1.1); MONO % 9 % (0-9); NEUT # 6.9 x10^3/uL (1.8-7.7); NEUT % 81 % (31-73); PLATELET COUNT 191 x10^3/uL (140-400); RED BLOOD COUNT 4.36 x10^6/uL (4.30-5.70); RED CELL DISTRIBUTION WIDTH 13.7 % (11.5-14.5); WHITE BLOOD COUNT 8.5 x10^3/uL (4.0-11.0)
[2020-05-01 07:30] LABS: CALCIUM 8.6 mg/dL (8.5-10.1); CREATININE 0.8 mg/dL (0.7-1.3); GFR 97.6; POTASSIUM 4.6 mmol/L (3.5-5.1)
[2020-05-01 07:31] VITALS: BP 127/41
[2020-05-01 07:39] LABS: PROTHROMBIN TIME PATIENT 26.3 SEC (11.7-14.0)
[2020-05-01] MEDS: BUDESONIDE 0.5 MG/2 ML NEBU. NEB SCH ×2 (07:48→20:03)
[2020-05-01] MEDS: IPRATRPIUM/ALBUTEROL 0.5/2.5MG 3 ML NEBU. NEB SCH ×4 (07:48→20:03)
[2020-05-01] MEDS: ALBUTEROL SULFATE 2.5 MG/3 ML NEBU. NEB SCH ×4 (08:00→20:00)
[2020-05-01] MEDS: LANSOPRAZOLE 30 MG TAB.RAP.DR FT SCH ×2 (08:30→16:39)
[2020-05-01] MEDS: buPROPion XL 150 MG TAB.ER.24H. PO SCH (08:30)
[2020-05-01] MEDS: METOPROLOL TART IMMED RELEASE 50 MG TABLET. PO SCH ×2 (08:30→22:28)
[2020-05-01] MEDS: MORPHINE ER 15 MG TABLET.ER PO SCH ×2 (08:31→19:46)
[2020-05-01] MEDS: GEMFIBROZIL 600 MG TABLET. PO SCH ×2 (08:32→19:46)
[2020-05-01] MEDS: ISOSORBIDE MONONITRATE ER 30 MG TAB.ER.24H PO SCH (08:32)
[2020-05-01] MEDS: POTASSIUM CHLORIDE 20 MEQ TABLET.ER. PO SCH (08:32)
--- NOTE | 2020-05-01 10:06 | PDOC ---
PROGRESS NOTES Date of Service: DATE: 05/01/20 TIME: 10:04 Chief Complaint Chief Complaint impression Sepsis supratherapeutic INR on admit Inflammatory colitis, OCCULT STOOL POS Hematochezia/diarrhea - better? - ischemic colitis suspected, C Diff and enteric panel ordered Severe long segment descending colonic wall thickening with adjacent inflammatory changes, may represent infectious or inflammatory colitis and isch emic colitis CAD CHF HTN COPD, O2 DEPENDENT Hx of PE inr =2.4 Tobacco use d/w RN History of Present Illness History of Present Illness HPI: Mr Medina is a 64 yo M w/ PMHx CAD s/p CABG, PE on Coumadin, COPD on 2L NC, smoker, HTN, HLD, testicular ca s/p right orchiectomy, and chronic diastolic heart failure who p/w grossly bloody stools. He notes bright red blood for his last 5 bowel movements. Last INR was 1.3. Questionable transfusion after his triple bypass. Reports colonoscopy more than 10 years ago due to melena, GI report was concerning for polyps versus hemorrhoids. Only past surgical history was his right orchiectomy 1986. Does complain of exertional dyspnea for the past day. No history of upper GI bleeding or ulcers. EMR reviewed -pt admitted 03/2020 (covid negative 04/05) for acute hypoxic respiratory failure, negative cardiac cath on 10/12/2018. Patient had a VQ scan in March 2020 that showed no perfusion defect. Negative cardiac cath in 2018 as well. EKG shows sinus tachycardia at 109 bpm, no axis deviation, normal intervals, T wave inversion inferior lateral leads V4,5,6, no ST elevations or ST depressions Labs significant for WBC 22.4, Hb 16.8, platelets 201, INR 5, NA 134, K3.5, BUN 16, CR 1.1, glucose 115 CT abdomen/pelvis shows severe long segment descending colonic wall thickening with adjacent inflammatory changes. 04/30/20 pt seen and examined. He was up and ambulating around the halls with his nurse. MINNA RN MINNA case management 04/29/2020 Pt seen and examined MINNA RN MINNA case management GI consulted Vitals Vitals Vital Signs Date Time Temp Pulse Resp B/P (MAP) Pulse Ox O2 Delivery O2 Flow Rate FiO2 05/01/20 08:32 82 127/41 05/01/20 07:49 95 Nasal Cannula 2.0 05/01/20 07:31 98.1 20 98.1 Physical Exam General: Alert, Oriented X3, Cooperative, mild distress Heart: Regular rate, Normal S1, Normal S2 Lungs: Clear, Other (denies wheezing or crackles) Abdomen: Normal bowel sounds, Soft, No hepatosplenomegaly, No masses, Other (LLQ tender) Extremities: No clubbing, No cyanosis, No edema, Normal pulses, No tenderness/swelling Skin: No rashes, No breakdown, No significant lesion Labs LABS CT ABDOMEN PELVIS WO CONTRAST History: Reason: llq pain / Spl. Instructions: / History: Technique: Noncontrast examination of the abdomen and pelvis. Coronal and sagittal reconstructions were performed. Exposure: One or more of the following individualized dose reduction techniques were utilized for this examination: 1. Automated exposure control 2. Adjustment of the mA and/or kV according to patient size 3. Use of iterative reconstruction technique. Comparison: May 17, 2015 Findings: Lower chest: No consolidation or pleural effusion. Abdomen and pelvis: The liver and spleen are unremarkable. Bilateral adrenal adenomas, unchanged. Pancreatic fatty infiltration. Contracted gallbladder. Unremarkable noncontrast appearance of the kidneys. No hydronephrosis. Severe long segment descending colonic wall thickening with adjacent inflammatory changes. No perforation or pneumatosis. No abscess. Normal appendix. No evidence of bowel obstruction. No pathologic lymphadenopathy. No ascites. Calcified plaque throughout the aorta with focal ectasia distally. Bones: Postoperative changes L4-5 and L5-S1. Multilevel lumbar spondylosis most prominent L3-L4 with canal narrowing. Neuroforaminal narrowing most prominent and L2-L3 and L3-L4. Impression: 1. Severe long segment descending colonic wall thickening with adjacent inflammatory changes, may represent infectious or inflammatory colitis and ischemic colitis is possible in the appropriate clinical setting. 2. Postoperative changes lumbar spine with superior junctional spondylosis contributing canal narrowing at L3-L4. Electronically signed by: Bo Marti DO (04/28/2020 8:23 PM) [facility] DICTATED and SIGNED BY: BO MARTI DO DATE: 04/28/202022 Laboratory Tests Test 05/01/20 06:35 White Blood Count 8.5 x10^3/uL (4.0-11.0) Red Blood Count 4.36 x10^6/uL (4.30-5.70) Hemoglobin 13.7 g/dL (13.0-17.5) Hematocrit 41.5 % (39.0-53.0) Mean Corpuscular Volume 95 fL (79-100) Mean Corpuscular Hemoglobin 31 pg (25-35) Mean Corpuscular Hemoglobin Concent 33 g/dL (31-37) Red Cell Distribution Width 13.7 % (11.5-14.5) Platelet Count 191 x10^3/uL (140-400) Neutrophils (%) (Auto) 81 % (31-73) Lymphocytes (%) (Auto) 8 % (24-48) Monocytes (%) (Auto) 9 % (0-9) Eosinophils (%) (Auto) 3 % (0-3) Basophils (%) (Auto) 1 % (0-3) Neutrophils # (Auto) 6.9 x10^3/uL (1.8-7.7) Lymphocytes # (Auto) 0.7 x10^3/uL (1.0-4.8) Monocytes # (Auto) 0.8 x10^3/uL (0.0-1.1) Eosinophils # (Auto) 0.2 x10^3/uL (0.0-0.7) Basophils # (Auto) 0.0 x10^3/uL (0.0-0.2) Prothrombin Time 26.3 SEC (11.7-14.0) Prothromb Time International Ratio 2.4 (0.8-1.1) Sodium Level 139 mmol/L (136-145) Potassium Level 4.6 mmol/L (3.5-5.1) Chloride Level 104 mmol/L (98-107) Carbon Dioxide Level 30 mmol/L (21-32) Anion Gap 5 (6-14) Blood Urea Nitrogen 3 mg/dL (8-26) Creatinine 0.8 mg/dL (0.7-1.3) Estimated GFR (Cockcroft-Gault) 97.6 Glucose Level 121 mg/dL (70-99) Calcium Level 8.6 mg/dL (8.5-10.1) Assessment and Plan Assessmemt and Plan Problems Medical Problems: (1) Colitis Status: Acute (2) Gastritis and duodenitis Status: Acute (3) Hematochezia Status: Acute (4) Sepsis Status: Acute (5) Supratherapeutic INR Status: Acute Comment Review of Relevant I have reviewed the following items arya (where applicable) has been applied. Labs Laboratory Tests Test 04/30/20 08:20 05/01/20 06:35 White Blood Count 9.0 x10^3/uL (4.0-11.0) 8.5 x10^3/uL (4.0-11.0) Red Blood Count 4.45 x10^6/uL (4.30-5.70) 4.36 x10^6/uL (4.30-5.70) Hemoglobin 14.0 g/dL (13.0-17.5) 13.7 g/dL (13.0-17.5) Hematocrit 42.1 % (39.0-53.0) 41.5 % (39.0-53.0) Mean Corpuscular Volume 95 fL (79-100) 95 fL (79-100) Mean Corpuscular Hemoglobin 32 pg (25-35) 31 pg (25-35) Mean Corpuscular Hemoglobin Concent 33 g/dL (31-37) 33 g/dL (31-37) Red Cell Distribution Width 13.6 % (11.5-14.5) 13.7 % (11.5-14.5) Platelet Count 165 x10^3/uL (140-400) 191 x10^3/uL (140-400) Neutrophils (%) (Auto) 68 % (31-73) 81 % (31-73) Lymphocytes (%) (Auto) 18 % (24-48) 8 % (24-48) Monocytes (%) (Auto) 11 % (0-9) 9 % (0-9) Eosinophils (%) (Auto) 2 % (0-3) 3 % (0-3) Basophils (%) (Auto) 1 % (0-3) 1 % (0-3) Neutrophils # (Auto) 6.2 x10^3/uL (1.8-7.7) 6.9 x10^3/uL (1.8-7.7) Lymphocytes # (Auto) 1.6 x10^3/uL (1.0-4.8) 0.7 x10^3/uL (1.0-4.8) Monocytes # (Auto) 1.0 x10^3/uL (0.0-1.1) 0.8 x10^3/uL (0.0-1.1) Eosinophils # (Auto) 0.2 x10^3/uL (0.0-0.7) 0.2 x10^3/uL (0.0-0.7) Basophils # (Auto) 0.1 x10^3/uL (0.0-0.2) 0.0 x10^3/uL (0.0-0.2) Prothrombin Time 28.2 SEC (11.7-14.0) 26.3 SEC (11.7-14.0) Prothromb Time International Ratio 2.6 (0.8-1.1) 2.4 (0.8-1.1) Sodium Level 140 mmol/L (136-145) 139 mmol/L (136-145) Potassium Level 4.0 mmol/L (3.5-5.1) 4.6 mmol/L (3.5-5.1) Chloride Level 103 mmol/L (98-107) 104 mmol/L (98-107) Carbon Dioxide Level 32 mmol/L (21-32) 30 mmol/L (21-32) Anion Gap 5 (6-14) 5 (6-14) Blood Urea Nitrogen 4 mg/dL (8-26) 3 mg/dL (8-26) Creatinine 0.9 mg/dL (0.7-1.3) 0.8 mg/dL (0.7-1.3) Estimated GFR (Cockcroft-Gault) 85.2 97.6 Glucose Level 109 mg/dL (70-99) 121 mg/dL (70-99) Calcium Level 8.6 mg/dL (8.5-10.1) 8.6 mg/dL (8.5-10.1) Laboratory Tests Test 05/01/20 06:35 White Blood Count 8.5 x10^3/uL (4.0-11.0) Red Blood Count 4.36 x10^6/uL (4.30-5.70) Hemoglobin 13.7 g/dL (13.0-17.5) Hematocrit 41.5 % (39.0-53.0) Mean Corpuscular Volume 95 fL (79-100) Mean Corpuscular Hemoglobin 31 pg (25-35) Mean Corpuscular Hemoglobin Concent 33 g/dL (31-37) Red Cell Distribution Width 13.7 % (11.5-14.5) Platelet Count 191 x10^3/uL (140-400) Neutrophils (%) (Auto) 81 % (31-73) Lymphocytes (%) (Auto) 8 % (24-48) Monocytes (%) (Auto) 9 % (0-9) Eosinophils (%) (Auto) 3 % (0-3) Basophils (%) (Auto) 1 % (0-3) Neutrophils # (Auto) 6.9 x10^3/uL (1.8-7.7) Lymphocytes # (Auto) 0.7 x10^3/uL (1.0-4.8) Monocytes # (Auto) 0.8 x10^3/uL (0.0-1.1) Eosinophils # (Auto) 0.2 x10^3/uL (0.0-0.7) Basophils # (Auto) 0.0 x10^3/uL (0.0-0.2) Prothrombin Time 26.3 SEC (11.7-14.0) Prothromb Time International Ratio 2.4 (0.8-1.1) Sodium Level 139 mmol/L (136-145) Potassium Level 4.6 mmol/L (3.5-5.1) Chloride Level 104 mmol/L (98-107) Carbon Dioxide Level 30 mmol/L (21-32) Anion Gap 5 (6-14) Blood Urea Nitrogen 3 mg/dL (8-26) Creatinine 0.8 mg/dL (0.7-1.3) Estimated GFR (Cockcroft-Gault) 97.6 Glucose Level 121 mg/dL (70-99) Calcium Level 8.6 mg/dL (8.5-10.1) Microbiology 04/28/20 Blood Culture - Preliminary, Resulted NO GROWTH AFTER 2 DAYS Medications Current Medications Sodium Chloride 250 ml @ 250 mls/hr 1X ONCE IV Last administered on 04/28/20at 19:21; Start 04/28/20 at 18:45; Stop 04/28/20 at 19:44; Status DC Piperacillin Sod/ Tazobactam Sod 4.5 gm/Sodium Chloride 100 ml @ 200 mls/hr 1X ONCE IV Last administered on 04/28/20at 20:50; Start 04/28/20 at 20:15; Stop 04/28/20 at 20:44; Status DC Vancomycin HCl (Vanco Per Pharmacy) 1 each PRN DAILY PRN MC SEE COMMENTS; Start 04/28/20 at 20:00; Stop 04/28/20 at 20:01; Status DC Vancomycin HCl 2 gm/Sodium Chloride 500 ml @ 250 mls/hr 1X ONCE IV Last administered on 04/28/20at 22:52; Start 04/28/20 at 20:15; Stop 04/28/20 at 22:14; Status DC Hydromorphone HCl (Dilaudid) 0.5 mg 1X ONCE IVP Last administered on 04/28/20at 20:50; Start 04/28/20 at 20:15; Stop 04/28/20 at 20:16; Status DC Ondansetron HCl (Zofran) 4 mg PRN Q8HRS PRN IV NAUSEA/VOMITING; Start 04/28/20 at 21:30; Stop 04/28/20 at 21:33; Status DC Morphine Sulfate (Morphine Sulfate) 2 mg PRN Q2HR PRN IV PAIN Last administered on 04/29/20at 19:25; Start 04/28/20 at 21:30 Sodium Chloride 1,000 ml @ 100 mls/hr Q10H IV Last administered on 04/30/20at 03:30; Start 04/28/20 at 21:18; Stop 04/29/20 at 21:17; Status DC Acetaminophen (Tylenol) 650 mg PRN Q4HRS PRN PO FEVER > 100.3'F; Start 0 at 21:30 Ondansetron HCl (Zofran) 4 mg PRN Q4HRS PRN IV NAUSEA/VOMITING; Start 04/28/20 at 21:45 Bupropion HCl (Wellbutrin Xl) 150 mg DAILY PO Last administered on 05/01/20at 08:30; Start 04/29/20 at 09:00 Buspirone HCl (Buspar) 10 mg PRN Q8HRS PRN PO ANXIETY / AGITATION; Start 04/28/20 at 23:00 Gemfibrozil (Lopid) 600 mg BID PO Last administered on 05/01/20at 08:32; Start 04/29/20 at 09:00 Albuterol/ Ipratropium (Duoneb) 3 ml RTQID NEB Last administered on 05/01/20at 07:48; Start 04/29/20 at 08:00 Isosorbide Mononitrate (Imdur) 30 mg DAILYWBKFT PO Last administered on 05/01/20at 08:32; Start 04/29/20 at 08:00 Metoprolol Tartrate (Lopressor) 50 mg BID PO Last administered on 05/01/20at 08:30; Start 04/29/20 at 09:00 Montelukast Sodium (Singulair) 10 mg QHS PO Last administered on 04/30/20at 21:06; Start 04/29/20 at 21:00 Morphine Sulfate (Ms Contin) 15 mg BID PO Last administered on 05/01/20at 08:31; Start 04/29/20 at 09:00 Oxycodone/ Acetaminophen (Percocet 10/325) 1 tab PRN Q8HRS PRN PO PAIN Last administered on 05/01/20at 04:34; Start 04/28/20 at 23:00 Pantoprazole Sodium (Protonix) 40 mg BIDAC PO ; Start 04/29/20 at 07:30; Stop 04/30/20 at 05:29; Status DC Potassium Chloride (Klor-Con) 20 meq DAILYWBKFT PO Last administered on at 08:32; Start 04/29/20 at 08:00 Non-Formulary Medication (Fluticasone/ Salmeterol (Advair 250-50 Diskus)) 1 puff BID IH ; Start 04/29/20 at 09:00; Status UNV Atorvastatin Calcium (Lipitor) 40 mg HS PO Last administered on 04/30/20at 21:06; Start 04/29/20 at 21:00 Potassium Bicarbonate (Potassium Effervescent Tablet) 40 meq 1X ONCE PO Last administered on 04/28/20at 23:46; Start 04/28/20 at 23:15; Stop 04/28/20 at 23:16; Status DC Metronidazole 100 ml @ 100 mls/hr Q8HRS IV Last administered on 05/01/20at 05:52; Start 04/28/20 at 23:00 Piperacillin Sod/ Tazobactam Sod 3.375 gm/Sodium Chloride 50 ml @ 100 mls/hr Q6 HRS IV Last administered on 05/01/20at 05:52; Start 04/29/20 at 06:00 Budesonide (Pulmicort) 0.5 mg RTBID NEB Last administered on 05/01/20at 07:48; Start 04/29/20 at 08:00 Albuterol Sulfate (Ventolin Neb Soln) 2.5 mg RTQID NEB Last administered on at 20:00; Start 04/29/20 at 08:00 Lansoprazole (Prevacid) 30 mg BIDBFRMEAL FT Last administered on 05/01/20at 08:30; Start 04/30/20 at 07:30 Diazepam (Valium) 5 mg PRN BID PRN PO muscle relaxer Last administered on 04/30/20at 21:06; Start 04/30/20 at 16:15 Active Scripts Active Montelukast Sodium Tablet (Montelukast Sodium) 10 Mg Tablet 10 Mg PO QHS 30 Days Duoneb 0.5-3(2.5) Mg/3 Ml (Albuterol/Ipratropium) 3 Ml Ampul.neb 3 Ml NEB RTQID 30 Days Reported Diazepam 5 Mg Tablet 5 Mg PO PRN BID PRN Advair 250-50 Diskus (Fluticasone/Salmeterol) 1 Each Disk.w.dev 1 Puff IH BID Linzess (Linaclotide) 145 Mcg Capsule 145 Mcg PO DAILY07 Aspirin 81 Mg Tab.chew 1 Tab PO DAILY Lasix (Furosemide) 40 Mg Tablet 1 Tab PO DAILY 30 Days Potassium Chloride (Potassium Chloride) 20 Meq Tablet.er 20 Meq PO DAILY Warfarin Sodium 5 Mg Tablet 5 Mg PO DAILY Restart Wednesday 03/07 Metoprolol Tartrate 50 Mg Tablet 1 Tab PO BID Pantoprazole Sodium (Pantoprazole Sodium) 40 Mg Tablet.dr 40 Mg PO BID Crestor (Rosuvastatin Calcium) 5 Mg Tablet 2 Tab PO HS Buspirone Hcl 10 Mg Tablet 1 Tab PO PRN Q8HRS PRN Ms Contin (Morphine Sulfate) 15 Mg Tablet.er 1 Tab PO BID MDD 2 Tablet(s) 5 Days Oxycodone-Acetaminophen 10-325 (Oxycodone Hcl/Acetaminophen) 1 Each Tablet 1 Tab PO PRN Q8HRS PRN Wellbutrin Xl (Bupropion Hcl) 150 Mg Tab.er.24h 150 Mg PO DAILY Amitriptyline Hcl 50 Mg Tablet 2 Tab PO QHS Gemfibrozil 600 Mg Tablet 1 Tab PO BID Isosorbide Mononitrate Er (Isosorbide Mononitrate) 30 Mg Tab.er.24h 1 Tab PO DAILYWBKFT Vitals/I & O Vital Sign - Last 24 Hours 04/30/20 04/30/20 04/30/20 04/30/20 11:00 12:33 13:02 13:33 Temp 97.9 97.9 Pulse 73 Resp 19 B/P (MAP) 106/47 (66) Pulse Ox 97 O2 Delivery Nasal Cannula Nasal Cannula Nasal Cannula Nasal Cannula O2 Flow Rate 2.0 2.0 2.0 04/30/20 04/30/20 04/30/20 04/30/20 15:00 19:50 20:00 21:07 Temp 97.8 98.1 97.8 98.1 Pulse 68 74 Resp 19 20 18 B/P (MAP) 83/41 (55) 99/46 (63) Pulse Ox 97 97 97 O2 Delivery Nasal Cannula Nasal Cannula Nasal Cannula Nasal Cannula O2 Flow Rate 2.0 2.0 2.0 2.0 04/30/20 04/30/20 04/30/20 05/01/20 21:07 23:30 23:40 01:07 Temp 98.0 98.0 Pulse 62 Resp 20 18 B/P (MAP) 108/54 (72) Pulse Ox 95 90 96 96 O2 Delivery Nasal Cannula Room Air Nasal Cannula Nasal Cannula O2 Flow Rate 2.0 2.0 2.0 05/01/20 05/01/20 05/01/20 05/01/20 03:50 04:34 05:36 07:31 Temp 98.4 98.1 98.4 98.1 Pulse 82 82 Resp 20 18 18 20 B/P (MAP) 111/58 (75) 127/41 (69) Pulse Ox 95 96 96 90 O2 Delivery Nasal Cannula Nasal Cannula Nasal Cannula Room Air O2 Flow Rate 2.0 2.0 2.0 05/01/20 05/01/20 05/01/20 07:49 08:30 08:32 Pulse 82 82 B/P (MAP) 127/41 127/41 Pulse Ox 95 O2 Delivery Nasal Cannula O2 Flow Rate 2.0 Intake and Output 04/30/20 04/30/20 05/01/20 15:00 23:00 07:00 Intake Total 595 ml 500 ml 600 ml Output Total 900 ml 700 ml Balance 595 ml -400 ml -100 ml Justicifation of Admission Dx: Justifications for Admission: Justification of Admission Dx: Yes Angina: [place] Worsening of Sym AMARJIT TERRY MD May 01, 2020 10:06
[2020-05-01 10:46] VITALS: BP 105/52
--- NOTE | 2020-05-01 13:09 | PDOC ---
Date of Service: DATE: 05/01/20 TIME: 13:04 Subjective: Subjective: Bleeding has slowed but stools this morning "looked like a beautiful [place] sunrise." Also had enough stool to overflow the hat in the toilet - "my cup runneth over." Had some LLQ pain yesterday that has mostly resolved - says there was a bruise there last week that went away. Tolerating diet. Objective: Vital Signs: Vital Signs Date Time Temp Pulse Resp B/P (MAP) Pulse Ox O2 Delivery O2 Flow Rate FiO2 05/01/20 12:39 95 Nasal Cannula 2.0 05/01/20 10:46 97.4 78 20 105/52 (69) 97.4 Labs: Laboratory Tests Test 05/01/20 06:35 White Blood Count 8.5 x10^3/uL Red Blood Count 4.36 x10^6/uL Hemoglobin 13.7 g/dL Hematocrit 41.5 % Mean Corpuscular Volume 95 fL Mean Corpuscular Hemoglobin 31 pg Mean Corpuscular Hemoglobin Concent 33 g/dL Red Cell Distribution Width 13.7 % Platelet Count 191 x10^3/uL Neutrophils (%) (Auto) 81 % Lymphocytes (%) (Auto) 8 % Monocytes (%) (Auto) 9 % Eosinophils (%) (Auto) 3 % Basophils (%) (Auto) 1 % Neutrophils # (Auto) 6.9 x10^3/uL Lymphocytes # (Auto) 0.7 x10^3/uL Monocytes # (Auto) 0.8 x10^3/uL Eosinophils # (Auto) 0.2 x10^3/uL Basophils # (Auto) 0.0 x10^3/uL Prothrombin Time 26.3 SEC Prothromb Time International Ratio 2.4 Sodium Level 139 mmol/L Potassium Level 4.6 mmol/L Chloride Level 104 mmol/L Carbon Dioxide Level 30 mmol/L Anion Gap 5 Blood Urea Nitrogen 3 mg/dL Creatinine 0.8 mg/dL Estimated GFR (Cockcroft-Gault) 97.6 Glucose Level 121 mg/dL Calcium Level 8.6 mg/dL PE: GEN: NAD LUNGS: CTAB HEART: RRR, ABD: hyperactive BS, soft, non-tender except pinpoint area quite laterally to left NEURO/PSYCH: A & O 3 A/P: Hematochezia/diarrhea - better? - ischemic colitis suspected, C Diff and enteric panel ordered Coumadin coagulopathy - better -- Seems improved. Stool tests pending. Needs outpt colonoscopy. Justicifation of Admission Dx: Justifications for Admission: Justification of Admission Dx: Yes Angina: Cresendo Worsening of Sym TOMÁS DUNN May 01, 2020 13:09
--- NOTE | 2020-05-01 14:17 | NUR ---
SS following for discharge planning. SS reviewed pt chart and discussed with pt RN. Pt is from home with spouse and is currently requiring oxygen. Pt on IV Zosyn. PT/OT recommended home independent. Per RN, pt having liquid bloody stools today. SS will continue to follow for discharge planning.
[2020-05-01 14:49] VITALS: BP 93/37
[2020-05-01] MEDS: diazePAM 5 MG TABLET PO PRN (16:42)
[2020-05-01] MEDS: MONTELUKAST SODIUM 10 MG TABLET. PO SCH (19:46)
[2020-05-01] MEDS: ATORVASTATIN CALCIUM 40 MG TABLET. PO SCH (19:46)
[2020-05-01 19:50] VITALS: BP 109/50
[2020-05-01 22:50] VITALS: BP 116/71
[2020-05-02] MEDS: diazePAM 5 MG TABLET PO PRN ×2 (01:57→16:18)
[2020-05-02] MEDS: MORPHINE SULFATE 2 MG/ML VIAL. IV PRN ×2 (01:57→15:04)
[2020-05-02 03:15] VITALS: BP 110/67
[2020-05-02] MEDS: PIPERACILLIN/TAZOBACTAM 3.375 GM in IV NORMAL SALINE 50ML 50 ML IV SCH ×4 (04:10→21:32)
[2020-05-02 07:00] VITALS: BP 120/61
[2020-05-02] MEDS: LANSOPRAZOLE 30 MG TAB.RAP.DR FT SCH ×2 (07:30→16:18)
[2020-05-02] MEDS: IPRATRPIUM/ALBUTEROL 0.5/2.5MG 3 ML NEBU. NEB SCH ×2 (08:00→11:27)
[2020-05-02] MEDS: GEMFIBROZIL 600 MG TABLET. PO SCH ×2 (08:20→21:27)
[2020-05-02] MEDS: METOPROLOL TART IMMED RELEASE 50 MG TABLET. PO SCH ×2 (08:20→21:28)
[2020-05-02] MEDS: buPROPion XL 150 MG TAB.ER.24H. PO SCH (08:20)
[2020-05-02] MEDS: ISOSORBIDE MONONITRATE ER 30 MG TAB.ER.24H PO SCH (08:20)
[2020-05-02] MEDS: POTASSIUM CHLORIDE 20 MEQ TABLET.ER. PO SCH (08:21)
[2020-05-02] MEDS: MORPHINE ER 15 MG TABLET.ER PO SCH ×2 (08:21→21:28)
--- NOTE | 2020-05-02 10:26 | PDOC ---
Date of Service: DATE: 05/02/20 TIME: 10:24 Subjective: Subjective: Says he's "ornery but still legal." Tolerating diet, slept well last night, has diarrhea but was without blood this morning, left side pain is better. Sneezed last night and some blood come out - thinks because nose is dry from nasal canula. Objective: Vital Signs: Vital Signs Date Time Temp Pulse Resp B/P (MAP) Pulse Ox O2 Delivery O2 Flow Rate FiO2 05/02/20 08:21 18 93 Nasal Cannula 2.0 05/02/20 08:20 81 120/61 05/02/20 07:00 97.5 97.5 Labs: BLOOD CULTURE Preliminary NO GROWTH AFTER 3 DAYS PE: GEN: NAD - watching a [employer] movie LUNGS: CTAB HEART: RRR ABD: S/ND/NT NEURO/PSYCH: A & O 3 A/P: Hematochezia/diarrhea - resolving - ischemic colitis suspected, C Diff and enteric panel pending Coumadin coagulopathy - better -- ?DC soon Follow-up for outpt colonoscopy. Justicifation of Admission Dx: Justifications for Admission: Justification of Admission Dx: Yes Angina: Cresendo Worsening of Sym TOMÁS DUNN May 02, 2020 10:26
[2020-05-02 10:57] VITALS: BP 137/57
--- NOTE | 2020-05-02 11:23 | PDOC ---
PROGRESS NOTES Date of Service: DATE: 05/02/20 TIME: 11:18 Chief Complaint Chief Complaint impression Sepsis supratherapeutic INR on admit Inflammatory colitis, OCCULT STOOL POS Hematochezia/diarrhea - better? - ischemic colitis suspected, C Diff and enteric panel ordered Severe long segment descending colonic wall thickening with adjacent inflammatory changes, may represent infectious or inflammatory colitis and isch emic colitis CAD CHF HTN COPD, O2 DEPENDENT Hx of PE inr =2.4 Tobacco use C Diff and enteric panel pending d/w RN History of Present Illness History of Present Illness HPI: Mr Medina is a 64 yo M w/ PMHx CAD s/p CABG, PE on Coumadin, COPD on 2L NC, smoker, HTN, HLD, testicular ca s/p right orchiectomy, and chronic diastolic heart failure who p/w grossly bloody stools. He notes bright red blood for his last 5 bowel movements. Last INR was 1.3. Questionable transfusion after his triple bypass. Reports colonoscopy more than 10 years ago due to melena, GI report was concerning for polyps versus hemorrhoids. Only past surgical history was his right orchiectomy 1986. Does complain of exertional dyspnea for the past day. No history of upper GI bleeding or ulcers. EMR reviewed -pt admitted 03/2020 (covid negative 04/05) for acute hypoxic respiratory failure, negative cardiac cath on 10/12/2018. Patient had a VQ scan in March 2020 that showed no perfusion defect. Negative cardiac cath in 2018 as well. EKG shows sinus tachycardia at 109 bpm, no axis deviation, normal intervals, T wave inversion inferior lateral leads V4,5,6, no ST elevations or ST depressions Labs significant for WBC 22.4, Hb 16.8, platelets 201, INR 5, NA 134, K3.5, BUN 16, CR 1.1, glucose 115 CT abdomen/pelvis shows severe long segment descending colonic wall thickening with adjacent inflammatory changes. 04/30/20 pt seen and examined. He was up and ambulating around the halls with his nurse. MINNA RN MINNA case management 04/29/2020 Pt seen and examined MINNA RN MINNA case management GI consulted Vitals Vitals Vital Signs Date Time Temp Pulse Resp B/P (MAP) Pulse Ox O2 Delivery O2 Flow Rate FiO2 05/02/20 10:57 98.2 68 18 137/57 (83) 97 Nasal Cannula 2.0 98.2 Physical Exam General: Alert, Oriented X3, Cooperative, No acute distress Heart: Regular rate, Normal S1, Normal S2 Lungs: Clear, Other (denies wheezing or crackles) Abdomen: Normal bowel sounds, Soft, No hepatosplenomegaly, No masses, Other (, LESS) Extremities: No clubbing, No cyanosis, No edema, Normal pulses, No tender ness/swelling Skin: No rashes, No breakdown, No significant lesion Assessment and Plan Assessmemt and Plan Problems Medical Problems: (1) Colitis Status: Acute (2) Gastritis and duodenitis Status: Acute (3) Hematochezia Status: Acute (4) Sepsis Status: Acute (5) Supratherapeutic INR Status: Acute Comment Review of Relevant I have reviewed the following items arya (where applicable) has been applied. Labs Laboratory Tests Test 05/01/20 06:35 White Blood Count 8.5 x10^3/uL (4.0-11.0) Red Blood Count 4.36 x10^6/uL (4.30-5.70) Hemoglobin 13.7 g/dL (13.0-17.5) Hematocrit 41.5 % (39.0-53.0) Mean Corpuscular Volume 95 fL (79-100) Mean Corpuscular Hemoglobin 31 pg (25-35) Mean Corpuscular Hemoglobin Concent 33 g/dL (31-37) Red Cell Distribution Width 13.7 % (11.5-14.5) Platelet Count 191 x10^3/uL (140-400) Neutrophils (%) (Auto) 81 % (31-73) Lymphocytes (%) (Auto) 8 % (24-48) Monocytes (%) (Auto) 9 % (0-9) Eosinophils (%) (Auto) 3 % (0-3) Basophils (%) (Auto) 1 % (0-3) Neutrophils # (Auto) 6.9 x10^3/uL (1.8-7.7) Lymphocytes # (Auto) 0.7 x10^3/uL (1.0-4.8) Monocytes # (Auto) 0.8 x10^3/uL (0.0-1.1) Eosinophils # (Auto) 0.2 x10^3/uL (0.0-0.7) Basophils # (Auto) 0.0 x10^3/uL (0.0-0.2) Prothrombin Time 26.3 SEC (11.7-14.0) Prothromb Time International Ratio 2.4 (0.8-1.1) Sodium Level 139 mmol/L (136-145) Potassium Level 4.6 mmol/L (3.5-5.1) Chloride Level 104 mmol/L (98-107) Carbon Dioxide Level 30 mmol/L (21-32) Anion Gap 5 (6-14) Blood Urea Nitrogen 3 mg/dL (8-26) Creatinine 0.8 mg/dL (0.7-1.3) Estimated GFR (Cockcroft-Gault) 97.6 Glucose Level 121 mg/dL (70-99) Calcium Level 8.6 mg/dL (8.5-10.1) Microbiology 04/28/20 Blood Culture - Preliminary, Resulted NO GROWTH AFTER 3 DAYS Medications Current Medications Sodium Chloride 250 ml @ 250 mls/hr 1X ONCE IV Last administered on 04/28/20at 19:21; Start 04/28/20 at 18:45; Stop 04/28/20 at 19:44; Status DC Piperacillin Sod/ Tazobactam Sod 4.5 gm/Sodium Chloride 100 ml @ 200 mls/hr 1X ONCE IV Last administered on 04/28/20at 20:50; Start 04/28/20 at 20:15; Stop 04/28/20 at 20:44; Status DC Vancomycin HCl (Vanco Per Pharmacy) 1 each PRN DAILY PRN MC SEE COMMENTS; Start 04/28/20 at 20:00; Stop 04/28/20 at 20:01; Status DC Vancomycin HCl 2 gm/Sodium Chloride 500 ml @ 250 mls/hr 1X ONCE IV Last administered on 04/28/20at 22:52; Start 04/28/20 at 20:15; Stop 04/28/20 at 22:14; Status DC Hydromorphone HCl (Dilaudid) 0.5 mg 1X ONCE IVP Last administered on 04/28/20at 20:50; Start 04/28/20 at 20:15; Stop 04/28/20 at 20:16; Status DC Ondansetron HCl (Zofran) 4 mg PRN Q8HRS PRN IV NAUSEA/VOMITING; Start 04/28/20 at 21:30; Stop 04/28/20 at 21:33; Status DC Morphine Sulfate (Morphine Sulfate) 2 mg PRN Q2HR PRN IV PAIN Last administered on 05/02/20at 01:57; Start 04/28/20 at 21:30 Sodium Chloride 1,000 ml @ 100 mls/hr Q10H IV Last administered on 04/30/20at 03:30; Start 04/28/20 at 21:18; Stop 04/29/20 at 21:17; Status DC Acetaminophen (Tylenol) 650 mg PRN Q4HRS PRN PO FEVER > 100.3'F; Start 04/28/20 at 21:30 Ondansetron HCl (Zofran) 4 mg PRN Q4HRS PRN IV NAUSEA/VOMITING; Start 04/28/20 at 21:45 Bupropion HCl (Wellbutrin Xl) 150 mg DAILY PO Last administered on 05/02/20at 08:20; Start 04/29/20 at 09:00 Buspirone HCl (Buspar) 10 mg PRN Q8HRS PRN PO ANXIETY / AGITATION; Start 04/28/20 at 23:00 Gemfibrozil (Lopid) 600 mg BID PO Last administered on 05/02/20at 08:20; Start 04/29/20 at 09:00 Albuterol/ Ipratropium (Duoneb) 3 ml RTQID NEB Last administered on 05/01/20at 20:03; Start 04/29/20 at 08:00 Isosorbide Mononitrate (Imdur) 30 mg DAILYWBKFT PO Last administered on 05/02/20at 08:20; Start 04/29/20 at 08:00 Metoprolol Tartrate (Lopressor) 50 mg BID PO Last administered on 05/02/20at 08:20; Start 04/29/20 at 09:00 Montelukast Sodium (Singulair) 10 mg QHS PO Last administered on 05/01/20at 19:46; Start 04/29/20 at 21:00 Morphine Sulfate (Ms Contin) 15 mg BID PO Last administered on 05/02/20at 08:21; Start 04/29/20 at 09:00 Oxycodone/ Acetaminophen (Percocet 10/325) 1 tab PRN Q8HRS PRN PO PAIN Last administered on 05/01/20at 22:28; Start 04/28/20 at 23:00 Pantoprazole Sodium (Protonix) 40 mg BIDAC PO ; Start 04/29/20 at 07:30; Stop 04/30/20 at 05:29; Status DC Potassium Chloride (Klor-Con) 20 meq DAILYWBKFT PO Last administered on 05/02/20at 08:21; Start 04/29/20 at 08:00 Non-Formulary Medication (Fluticasone/ Salmeterol (Advair 250-50 Diskus)) 1 puff BID IH ; Start 04/29/20 at 09:00; Status UNV Atorvastatin Calcium (Lipitor) 40 mg HS PO Last administered on 05/01/20at 19:46; Start 04/29/20 at 21:00 Potassium Bicarbonate (Potassium Effervescent Tablet) 40 meq 1X ONCE PO Last administered on 04/28/20at 23:46; Start 04/28/20 at 23:15; Stop 04/28/20 at 23:16; Status DC Metronidazole 100 ml @ 100 mls/hr Q8HRS IV Last administered on 05/02/20at 04:10; Start 04/28/20 at 23:00 Piperacillin Sod/ Tazobactam Sod 3.375 gm/Sodium Chloride 50 ml @ 100 mls/hr Q6HRS IV Last administered on 05/02/20at 04:10; Start 04/29/20 at 06:00 Budesonide (Pulmicort) 0.5 mg RTBID NEB Last administered on 05/01/20at 20:03; Start 04/29/20 at 08:00 Albuterol Sulfate (Ventolin Neb Soln) 2.5 mg RTQID NEB Last administered on 04/30/20at 20:00; Start 04/29/20 at 08:00 Lansoprazole (Prevacid) 30 mg BIDBFRMEAL FT Last administered on 05/01/20at 16:39; Start 04/30/20 at 07:30 Diazepam (Valium) 5 mg PRN BID PRN PO muscle relaxer Last administered on 05/02/20at 01:57; Start 04/30/20 at 16:15 Active Scripts Active Montelukast Sodium Tablet (Montelukast Sodium) 10 Mg Tablet 10 Mg PO QHS 30 Days Duoneb 0.5-3(2.5) Mg/3 Ml (Albuterol/Ipratropium) 3 Ml Ampul.neb 3 Ml NEB RTQID 30 Days Reported Diazepam 5 Mg Tablet 5 Mg PO PRN BID PRN Advair 250-50 Diskus (Fluticasone/Salmeterol) 1 Each Disk.w.dev 1 Puff IH BID Linzess (Linaclotide) 145 Mcg Capsule 145 Mcg PO DAILY07 Aspirin 81 Mg Tab.chew 1 Tab PO DAILY Lasix (Furosemide) 40 Mg Tablet 1 Tab PO DAILY 30 Days Potassium Chloride (Potassium Chloride) 20 Meq Tablet.er 20 Meq PO DAILY Warfarin Sodium 5 Mg Tablet 5 Mg PO DAILY Restart Wednesday 03/07 Metoprolol Tartrate 50 Mg Tablet 1 Tab PO BID Pantoprazole Sodium (Pantoprazole Sodium) 40 Mg Tablet.dr 40 Mg PO BID Crestor (Rosuvastatin Calcium) 5 Mg Tablet 2 Tab PO HS Buspirone Hcl 10 Mg Tablet 1 Tab PO PRN Q8HRS PRN Ms Contin (Morphine Sulfate) 15 Mg Tablet.er 1 Tab PO BID MDD 2 Tablet(s) 5 Days Oxycodone-Acetaminophen 10-325 (Oxycodone Hcl/Acetaminophen) 1 Each Tablet 1 Tab PO PRN Q8HRS PRN Wellbutrin Xl (Bupropion Hcl) 150 Mg Tab.er.24h 150 Mg PO DAILY Amitriptyline Hcl 50 Mg Tablet 2 Tab PO QHS Gemfibrozil 600 Mg Tablet 1 Tab PO BID Isosorbide Mononitrate Er (Isosorbide Mononitrate) 30 Mg Tab.er.24h 1 Tab PO DAILYWBKFT Vitals/I & O Vital Sign - Last 24 Hours 05/01/20 05/01/20 05/01/20 05/01/20 12:39 13:35 14:00 14:00 Pulse Ox 95 95 95 O2 Delivery Nasal Cannula Nasal Cannula Nasal Cannula Nasal Cannula O2 Flow Rate 2.0 2.0 2.0 2.0 05/01/20 05/01/20 05/01/20 05/01/20 14:49 16:43 19:46 19:50 Temp 97.6 97.6 97.6 97.6 Pulse 70 75 Resp 20 18 20 B/P (MAP) 93/37 (55) 109/50 (69) Pulse Ox 94 94 98 O2 Delivery Nasal Cannula Nasal Cannula Nasal Cannula Nasal Cannula O2 Flow Rate 2.0 2.0 2.0 2.0 05/01/20 05/01/20 05/01/20 05/01/20 20:00 20:04 20:07 22:28 Pulse 75 B/P (MAP) 109/50 Pulse Ox 98 98 O2 Delivery Nasal Cannula Nasal Cannula Nasal Cannula O2 Flow Rate 2.0 2.0 2.0 05/01/20 05/01/20 05/01/20 05/01/20 22:28 22:50 23:28 23:46 Temp 98.4 98.4 Pulse 83 Resp 18 18 18 18 B/P (MAP) 116/71 (86) Pulse Ox 98 97 97 97 O2 Delivery Nasal Cannula Nasal Cannula Nasal Cannula Nasal Cannula O2 Flow Rate 2.0 2.0 2.0 2.0 05/02/20 05/02/20 05/02/20 05/02/20 01:57 02:27 03:15 07:00 Temp 97.7 97.5 97.7 97.5 Pulse 66 81 Resp 18 18 18 18 B/P (MAP) 110/67 (81) 120/61 (80) Pulse Ox 97 97 96 93 O2 Delivery Nasal Cannula Nasal Cannula Nasal Cannula Nasal Cannula O2 Flow Rate 2.0 2.0 2.0 2.0 05/02/20 05/02/20 05/02/20 05/02/20 08:20 08:20 08:21 10:57 Temp 98.2 98.2 Pulse 81 81 68 Resp 18 18 B/P (MAP) 120/61 120/61 137/57 (83) Pulse Ox 93 97 O2 Delivery Nasal Cannula Nasal Cannula O2 Flow Rate 2.0 2.0 Intake and Output 05/01/20 05/01/20 05/02/20 15:00 23:00 07:00 Intake Total 595 ml 1600 ml Output Total 350 ml 1000 ml Balance 245 ml 1600 ml -1000 ml Justicifation of Admission Dx: Justifications for Admission: Justification of Admission Dx: Yes Angina: Cresendo Worsening of Sym AMARJIT TERRY MD May 02, 2020 11:23
[2020-05-02] MEDS: BUDESONIDE 0.5 MG/2 ML NEBU. NEB SCH ×2 (11:27→21:00)
[2020-05-02 11:37] LABS: BASO % 0 % (0-3); EOS # 0.2 x10^3/uL (0.0-0.7); EOS % 3 % (0-3); HEMATOCRIT 42.2 % (39.0-53.0); HEMOGLOBIN 13.7 g/dL (13.0-17.5); LYMPH # 0.8 x10^3/uL (1.0-4.8); LYMPH % 11 % (24-48); MEAN CORPUSCULAR HEMOGLOBIN 31 pg (25-35); MEAN CORPUSCULAR HGB CONC 32 g/dL (31-37); MEAN CORPUSCULAR VOLUME 96 fL (79-100); MONO # 0.8 x10^3/uL (0.0-1.1); MONO % 11 % (0-9); NEUT # 5.7 x10^3/uL (1.8-7.7); NEUT % 75 % (31-73); PLATELET COUNT 216 x10^3/uL (140-400); RED BLOOD COUNT 4.41 x10^6/uL (4.30-5.70); RED CELL DISTRIBUTION WIDTH 13.9 % (11.5-14.5); WHITE BLOOD COUNT 7.6 x10^3/uL (4.0-11.0)
[2020-05-02 11:46] LABS: CALCIUM 8.7 mg/dL (8.5-10.1); CREATININE 0.9 mg/dL (0.7-1.3); GFR 85.2; POTASSIUM 4.6 mmol/L (3.5-5.1)
[2020-05-02] MEDS: oxyCODONE/APAP 10/325 1 TAB TABLET PO PRN (11:56)
[2020-05-02] MEDS ORDERED: ALBUTEROL SULFATE 2.5 MG/3 ML NEBU. NEB PRN (13:15)
[2020-05-02 14:43] VITALS: BP 113/48
[2020-05-02] MEDS: ALBUTEROL SULFATE 2.5 MG/3 ML NEBU. NEB SCH ×2 (16:00→21:00)
--- NOTE | 2020-05-02 16:35 | NUR ---
SS following up with discharge planning. SS reviewed pt chart and discussed with pt RN. Pt is currently requiring oxygen. Pt has home oxygen at home PT/O recommended home. Pt on IV Zosyn. Discharge plan is to home when medically stable. SS will continue to follow for discharge planning.
[2020-05-02 19:45] VITALS: BP 144/71
[2020-05-02] MEDS: MONTELUKAST SODIUM 10 MG TABLET. PO SCH (21:28)
[2020-05-02] MEDS: ATORVASTATIN CALCIUM 40 MG TABLET. PO SCH (21:28)
[2020-05-02 23:40] VITALS: BP 143/59
[2020-05-03] MEDS: oxyCODONE/APAP 10/325 1 TAB TABLET PO PRN (01:45)
[2020-05-03 03:45] VITALS: BP 128/78
[2020-05-03] MEDS: PIPERACILLIN/TAZOBACTAM 3.375 GM in IV NORMAL SALINE 50ML 50 ML IV SCH ×2 (04:23→12:00)
[2020-05-03] MEDS: MORPHINE SULFATE 2 MG/ML VIAL. IV PRN (04:24)
[2020-05-03] MEDS: BUDESONIDE 0.5 MG/2 ML NEBU. NEB SCH (05:55)
[2020-05-03] MEDS: ALBUTEROL SULFATE 2.5 MG/3 ML NEBU. NEB SCH ×2 (05:55→12:01)
--- NOTE | 2020-05-03 06:11 | PDOC ---
PROGRESS NOTES Date of Service: DATE: 05/03/20 TIME: 06:11 Chief Complaint Chief Complaint DISCHARGE DX Sepsis supratherapeutic INR on admit Inflammatory colitis, OCCULT STOOL POS Hematochezia/diarrhea - better? - ischemic colitis suspected, C Diff and enteric panel ordered Severe long segment descending colonic wall thickening with adjacent inflammatory changes, may represent infectious or inflammatory colitis and i schemic colitis CAD CHF HTN COPD, O2 DEPENDENT Hx of PE inr =2.4 Tobacco use C Diff neg and enteric panel pending gi ok with discharge today d/c planning 33 min d/w RN History of Present Illness History of Present Illness HPI: Mr Medina is a 64 yo M w/ PMHx CAD s/p CABG, PE on Coumadin, COPD on 2L NC, smoker, HTN, HLD, testicular ca s/p right orchiectomy, and chronic diastolic heart failure who p/w grossly bloody stools. He notes bright red blood for his last 5 bowel movements. Last INR was 1.3. Questionable transfusion after his triple bypass. Reports colonoscopy more than 10 years ago due to melena, GI report was concerning for polyps versus hemorrhoids. Only past surgical history was his right orchiectomy 1986. Does complain of exertional dyspnea for the past day. No history of upper GI bleeding or ulcers. EMR reviewed -pt admitted 03/2020 (covid negative 04/05) for acute hypoxic respiratory failure, negative cardiac cath on 10/12/2018. Patient had a VQ scan in March 2020 that showed no perfusion defect. Negative cardiac cath in 2018 as well. EKG shows sinus tachycardia at 109 bpm, no axis deviation, normal intervals, T wave inversion inferior lateral leads V4,5,6, no ST elevations or ST depressions Labs significant for WBC 22.4, Hb 16.8, platelets 201, INR 5, NA 134, K3.5, BUN 16, CR 1.1, glucose 115 CT abdomen/pelvis shows severe long segment descending colonic wall thickening with adjacent inflammatory changes. 04/30/20 pt seen and examined. He was up and ambulating around the halls with his nurse. MINNA RN MINNA case management 04/29/2020 Pt seen and examined MINNA RN MINNA case management GI consulted Vitals Vitals Vital Signs Date Time Temp Pulse Resp B/P (MAP) Pulse Ox O2 Delivery O2 Flow Rate FiO2 05/03/20 04:54 20 97 Nasal Cannula 2.0 05/03/20 03:45 98.5 70 128/78 (95) 98.5 Physical Exam General: Alert, Oriented X3, Cooperative, No acute distress Heart: Regular rate, Normal S1, Normal S2 Lungs: Clear, Other (denies wheezing or crackles) Abdomen: Normal bowel sounds, Soft, No hepatosplenomegaly, No masses, Other (, NO TENDERNESS) Extremities: No clubbing, No cyanosis, No edema, Normal pulses, No tenderness/swelling Skin: No rashes, No breakdown, No significant lesion Labs LABS Laboratory Tests Test 05/02/20 11:25 White Blood Count 7.6 x10^3/uL (4.0-11.0) Red Blood Count 4.41 x10^6/uL (4.30-5.70) Hemoglobin 13.7 g/dL (13.0-17.5) Hematocrit 42.2 % (39.0-53.0) Mean Corpuscular Volume 96 fL (79-100) Mean Corpuscular Hemoglobin 31 pg (25-35) Mean Corpuscular Hemoglobin Concent 32 g/dL (31-37) Red Cell Distribution Width 13.9 % (11.5-14.5) Platelet Count 216 x10^3/uL (140-400) Neutrophils (%) (Auto) 75 % (31-73) Lymphocytes (%) (Auto) 11 % (24-48) Monocytes (%) (Auto) 11 % (0-9) Eosinophils (%) (Auto) 3 % (0-3) Basophils (%) (Auto) 0 % (0-3) Neutrophils # (Auto) 5.7 x10^3/uL (1.8-7.7) Lymphocytes # (Auto) 0.8 x10^3/uL (1.0-4.8) Monocytes # (Auto) 0.8 x10^3/uL (0.0-1.1) Eosinophils # (Auto) 0.2 x10^3/uL (0.0-0.7) Basophils # (Auto) 0.0 x10^3/uL (0.0-0.2) Sodium Level 140 mmol/L (136-145) Potassium Level 4.6 mmol/L (3.5-5.1) Chloride Level 105 mmol/L (98-107) Carbon Dioxide Level 34 mmol/L (21-32) Anion Gap 1 (6-14) Blood Urea Nitrogen 2 mg/dL (8-26) Creatinine 0.9 mg/dL (0.7-1.3) Estimated GFR (Cockcroft-Gault) 85.2 Glucose Level 148 mg/dL (70-99) Calcium Level 8.7 mg/dL (8.5-10.1) Assessment and Plan Assessmemt and Plan Problems Medical Problems: (1) Colitis Status: Acute (2) Gastritis and duodenitis Status: Acute (3) Hematochezia Status: Acute (4) Sepsis Status: Acute (5) Supratherapeutic INR Status: Acute Comment Review of Relevant I have reviewed the following items arya (where applicable) has been applied. Labs Laboratory Tests Test 05/01/20 06:35 05/02/20 11:25 White Blood Count 8.5 x10^3/uL (4.0-11.0) 7.6 x10^3/uL (4.0-11.0) Red Blood Count 4.36 x10^6/uL (4.30-5.70) 4.41 x10^6/uL (4.30-5.70) Hemoglobin 13.7 g/dL (13.0-17.5) 13.7 g/dL (13.0-17.5) Hematocrit 41.5 % (39.0-53.0) 42.2 % (39.0-53.0) Mean Corpuscular Volume 95 fL (79-100) 96 fL (79-100) Mean Corpuscular Hemoglobin 31 pg (25-35) 31 pg (25-35) Mean Corpuscular Hemoglobin Concent 33 g/dL (31-37) 32 g/dL (31-37) Red Cell Distribution Width 13.7 % (11.5-14.5) 13.9 % (11.5-14.5) Platelet Count 191 x10^3/uL (140-400) 216 x10^3/uL (140-400) Neutrophils (%) (Auto) 81 % (31-73) 75 % (31-73) Lymphocytes (%) (Auto) 8 % (24-48) 11 % (24-48) Monocytes (%) (Auto) 9 % (0-9) 11 % (0-9) Eosinophils (%) (Auto) 3 % (0-3) 3 % (0-3) Basophils (%) (Auto) 1 % (0-3) 0 % (0-3) Neutrophils # (Auto) 6.9 x10^3/uL (1.8-7.7) 5.7 x10^3/uL (1.8-7.7) Lymphocytes # (Auto) 0.7 x10^3/uL (1.0-4.8) 0.8 x10^3/uL (1.0-4.8) Monocytes # (Auto) 0.8 x10^3/uL (0.0-1.1) 0.8 x10^3/uL (0.0-1.1) Eosinophils # (Auto) 0.2 x10^3/uL (0.0-0.7) 0.2 x10^3/uL (0.0-0.7) Basophils # (Auto) 0.0 x10^3/uL (0.0-0.2) 0.0 x10^3/uL (0.0-0.2) Prothrombin Time 26.3 SEC (11.7-14.0) Prothromb Time International Ratio 2.4 (0.8-1.1) Sodium Level 139 mmol/L (136-145) 140 mmol/L (136-145) Potassium Level 4.6 mmol/L (3.5-5.1) 4.6 mmol/L (3.5-5.1) Chloride Level 104 mmol/L (98-107) 105 mmol/L (98-107) Carbon Dioxide Level 30 mmol/L (21-32) 34 mmol/L (21-32) Anion Gap 5 (6-14) 1 (6-14) Blood Urea Nitrogen 3 mg/dL (8-26) 2 mg/dL (8-26) Creatinine 0.8 mg/dL (0.7-1.3) 0.9 mg/dL (0.7-1.3) Estimated GFR (Cockcroft-Gault) 97.6 85.2 Glucose Level 121 mg/dL (70-99) 148 mg/dL (70-99) Calcium Level 8.6 mg/dL (8.5-10.1) 8.7 mg/dL (8.5-10.1) Laboratory Tests Test 05/02/20 11:25 White Blood Count 7.6 x10^3/uL (4.0-11.0) Red Blood Count 4.41 x10^6/uL (4.30-5.70) Hemoglobin 13.7 g/dL (13.0-17.5) Hematocrit 42.2 % (39.0-53.0) Mean Corpuscular Volume 96 fL (79-100) Mean Corpuscular Hemoglobin 31 pg (25-35) Mean Corpuscular Hemoglobin Concent 32 g/dL (31-37) Red Cell Distribution Width 13.9 % (11.5-14.5) Platelet Count 216 x10^3/uL (140-400) Neutrophils (%) (Auto) 75 % (31-73) Lymphocytes (%) (Auto) 11 % (24-48) Monocytes (%) (Auto) 11 % (0-9) Eosinophils (%) (Auto) 3 % (0-3) Basophils (%) (Auto) 0 % (0-3) Neutrophils # (Auto) 5.7 x10^3/uL (1.8-7.7) Lymphocytes # (Auto) 0.8 x10^3/uL (1.0-4.8) Monocytes # (Auto) 0.8 x10^3/uL (0.0-1.1) Eosinophils # (Auto) 0.2 x10^3/uL (0.0-0.7) Basophils # (Auto) 0.0 x10^3/uL (0.0-0.2) Sodium Level 140 mmol/L (136-145) Potassium Level 4.6 mmol/L (3.5-5.1) Chloride Level 105 mmol/L (98-107) Carbon Dioxide Level 34 mmol/L (21-32) Anion Gap 1 (6-14) Blood Urea Nitrogen 2 mg/dL (8-26) Creatinine 0.9 mg/dL (0.7-1.3) Estimated GFR (Cockcroft-Gault) 85.2 Glucose Level 148 mg/dL (70-99) Calcium Level 8.7 mg/dL (8.5-10.1) Microbiology 04/28/20 Blood Culture - Preliminary, Resulted NO GROWTH AFTER 4 DAYS Medications Current Medications Sodium Chloride 250 ml @ 250 mls/hr 1X ONCE IV Last administered on 04/28/20at 19:21; Start 04/28/20 at 18:45; Stop 04/28/20 at 19:44; Status DC Piperacillin Sod/ Tazobactam Sod 4.5 gm/Sodium Chloride 100 ml @ 200 mls/hr 1X ONCE IV Last administered on 04/28/20at 20:50; Start 04/28/20 at 20:15; Stop 04/28/20 at 20:44; Status DC Vancomycin HCl (Vanco Per Pharmacy) 1 each PRN DAILY PRN MC SEE COMMENTS; Start 04/28/20 at 20:00; Stop 04/28/20 at 20:01; Status DC Vancomycin HCl 2 gm/Sodium Chloride 500 ml @ 250 mls/hr 1X ONCE IV Last administered on 04/28/20at 22:52; Start 04/28/20 at 20:15; Stop 04/28/20 at 22:14; Status DC Hydromorphone HCl (Dilaudid) 0.5 mg 1X ONCE IVP Last administered on 04/28/20at 20:50; Start 04/28/20 at 20:15; Stop 04/28/20 at 20:16; Status DC Ondansetron HCl (Zofran) 4 mg PRN Q8HRS PRN IV NAUSEA/VOMITING; Start 04/28/20 at 21:30; Stop 04/28/20 at 21:33; Status DC Morphine Sulfate (Morphine Sulfate) 2 mg PRN Q2HR PRN IV PAIN Last administered on 05/03/20at 04:24; Start 04/28/20 at 21:30 Sodium Chloride 1,000 ml @ 100 mls/hr Q10H IV Last administered on 04/30/20at 03:30; Start 04/28/20 at 21:18; Stop 04/29/20 at 21:17; Status DC Acetaminophen (Tylenol) 650 mg PRN Q4HRS PRN PO FEVER > 100.3'F; Start 04/28/20 at 21:30 Ondansetron HCl (Zofran) 4 mg PRN Q4HRS PRN IV NAUSEA/VOMITING; Start 10/16/20 at 21:45 Bupropion HCl (Wellbutrin Xl) 150 mg DAILY PO Last administered on 05/02/20at 08:20; Start 04/29/20 at 09:00 Buspirone HCl (Buspar) 10 mg PRN Q8HRS PRN PO ANXIETY / AGITATION; Start 04/28/20 at 23:00 Gemfibrozil (Lopid) 600 mg BID PO Last administered on 05/02/20at 21:27; Start 04/29/20 at 09:00 Albuterol/ Ipratropium (Duoneb) 3 ml RTQID NEB Last administered on 05/02/20at 11:27; Start 04/29/20 at 08:00; Stop 05/02/20 at 12:59; Status DC Isosorbide Mononitrate (Imdur) 30 mg DAILYWBKFT PO Last administered on 05/02/20at 08:20; Start 04/29/20 at 08:00 Metoprolol Tartrate (Lopressor) 50 mg BID PO Last administered on 05/02/20at 21:28; Start 04/29/20 at 09:00 Montelukast Sodium (Singulair) 10 mg QHS PO Last administered on 05/02/20at 21:28; Start 04/29/20 at 21:00 Morphine Sulfate (Ms Contin) 15 mg BID PO Last administered on 05/02/20at 21:28; Start 04/29/20 at 09:00 Oxycodone/ Acetaminophen (Percocet 10/325) 1 tab PRN Q8HRS PRN PO PAIN Last administered on 05/03/20at 01:45; Start 04/28/20 at 23:00 Pantoprazole Sodium (Protonix) 40 mg BIDAC PO ; Start 04/29/20 at 07:30; Stop 04/30/20 at 05:29; Status DC Potassium Chloride (Klor-Con) 20 meq DAILYWBKFT PO Last administered on 05/02/20at 08:21; Start 04/29/20 at 08:00 Non-Formulary Medication (Fluticasone/ Salmeterol (Advair 250-50 Diskus)) 1 puff BID IH ; Start 04/29/20 at 09:00; Status UNV Atorvastatin Calcium (Lipitor) 40 mg HS PO Last administered on 10/20/20at 21:28; Start 04/29/20 at 21:00 Potassium Bicarbonate (Potassium Effervescent Tablet) 40 meq 1X ONCE PO Last administered on 04/28/20at 23:46; Start 04/28/20 at 23:15; Stop 04/28/20 at 23:16; Status DC Metronidazole 100 ml @ 100 mls/hr Q8HRS IV Last administered on 05/03/20at 04:23; Start 04/28/20 at 23:00 Piperacillin Sod/ Tazobactam Sod 3.375 gm/Sodium Chloride 50 ml @ 100 mls/hr Q6HRS IV Last administered on 05/03/20at 04:23; Start 04/29/20 at 06:00 Budesonide (Pulmicort) 0.5 mg RTBID NEB Last administered on 05/02/20at 11:27; Start 04/29/20 at 08:00 Albuterol Sulfate (Ventolin Neb Soln) 2.5 mg RTQID NEB Last administered on 04/30/20at 20:00; Start 04/29/20 at 08:00 Lansoprazole (Prevacid) 30 mg BIDBFRMEAL FT Last administered on 05/02/20at 16:18; Start 04/30/20 at 07:30 Diazepam (Valium) 5 mg PRN BID PRN PO muscle relaxer Last administered on 05/02/20at 16:18; Start 04/30/20 at 16:15 Albuterol Sulfate (Ventolin Neb Soln) 2.5 mg PRN QID PRN NEB SHORTNESS OF BREATH; Start 05/02/20 at 13:15 Active Scripts Active Montelukast Sodium Tablet (Montelukast Sodium) 10 Mg Tablet 10 Mg PO QHS 30 Days Duoneb 0.5-3(2.5) Mg/3 Ml (Albuterol/Ipratropium) 3 Ml Ampul.neb 3 Ml NEB RTQID 30 Days Reported Diazepam 5 Mg Tablet 5 Mg PO PRN BID PRN Advair 250-50 Diskus (Fluticasone/Salmeterol) 1 Each Disk.w.dev 1 Puff IH BID Linzess (Linaclotide) 145 Mcg Capsule 145 Mcg PO DAILY07 Aspirin 81 Mg Tab.chew 1 Tab PO DAILY Lasix (Furosemide) 40 Mg Tablet 1 Tab PO DAILY 30 Days Potassium Chloride (Potassium Chloride) 20 Meq Tablet.er 20 Meq PO DAILY Warfarin Sodium 5 Mg Tablet 5 Mg PO DAILY Restart Wednesday 03/07 Metoprolol Tartrate 50 Mg Tablet 1 Tab PO BID Pantoprazole Sodium (Pantoprazole Sodium) 40 Mg Tablet.dr 40 Mg PO BID Crestor (Rosuvastatin Calcium) 5 Mg Tablet 2 Tab PO HS Buspirone Hcl 10 Mg Tablet 1 Tab PO PRN Q8HRS PRN Ms Contin (Morphine Sulfate) 15 Mg Tablet.er 1 Tab PO BID MDD 2 Tablet(s) 5 Days Oxycodone-Acetaminophen 10-325 (Oxycodone Hcl/Acetaminophen) 1 Each Tablet 1 Tab PO PRN Q8HRS PRN Wellbutrin Xl (Bupropion Hcl) 150 Mg Tab.er.24h 150 Mg PO DAILY Amitriptyline Hcl 50 Mg Tablet 2 Tab PO QHS Gemfibrozil 600 Mg Tablet 1 Tab PO BID Isosorbide Mononitrate Er (Isosorbide Mononitrate) 30 Mg Tab.er.24h 1 Tab PO DAILYWBKFT Vitals/I & O Vital Sign - Last 24 Hours 05/02/20 05/02/20 05/02/20 05/02/20 07:00 08:00 08:20 08:20 Temp 97.5 97.5 Pulse 81 81 81 Resp 18 B/P (MAP) 120/61 (80) 120/61 120/61 Pulse Ox 93 O2 Delivery Nasal Cannula Nasal Cannula O2 Flow Rate 2.0 2.0 05/02/20 05/02/20 05/02/20 05/02/20 08:21 10:57 11:28 11:56 Temp 98.2 98.2 Pulse 68 Resp 18 18 18 B/P (MAP) 137/57 (83) Pulse Ox 93 97 95 95 O2 Delivery Nasal Cannula Nasal Cannula Nasal Cannula Nasal Cannula O2 Flow Rate 2.0 2.0 2.0 2.0 05/02/20 05/02/20 05/02/20 05/02/20 12:25 12:56 14:43 15:04 Temp 97.6 97.6 Pulse 70 Resp 19 18 18 19 B/P (MAP) 113/48 (69) Pulse Ox 96 96 96 96 O2 Delivery Nasal Cannula Nasal Cannula Nasal Cannula Nasal Cannula O2 Flow Rate 2.0 2.0 2.0 2.0 05/02/20 05/02/20 05/02/20 05/02/20 15:35 19:45 20:00 21:28 Temp 97.9 97.9 Pulse 75 75 Resp 17 18 B/P (MAP) 144/71 (95) 144/71 Pulse Ox 96 97 O2 Delivery Nasal Cannula Nasal Cannula Nasal Cannula O2 Flow Rate 2.0 2.0 2.0 05/02/20 05/02/20 05/03/20 05/03/20 21:28 23:40 01:28 01:45 Temp 98.5 98.5 Pulse 73 Resp 18 20 18 18 B/P (MAP) 143/59 (87) Pulse Ox 97 97 97 97 O2 Delivery Nasal Cannula Nasal Cannula Nasal Cannula Nasal Cannula O2 Flow Rate 2.0 2.0 2.0 2.0 05/03/20 05/03/20 05/03/20 05/03/20 02:45 03:45 04:24 04:54 Temp 98.5 98.5 Pulse 70 Resp 18 20 18 20 B/P (MAP) 128/78 (95) Pulse Ox 97 96 97 97 O2 Delivery Nasal Cannula Nasal Cannula Nasal Cannula Nasal Cannula O2 Flow Rate 2.0 2.0 2.0 2.0 Intake and Output 05/02/20 05/02/20 05/03/20 15:00 23:00 07:00 Intake Total 675 ml 1600 ml 200 ml Output Total 1000 ml 1300 ml Balance 675 ml 600 ml -1100 ml Justicifation of Admission Dx: Justifications for Admission: Justification of Admission Dx: Yes Angina: Cresendo Worsening of Sym AMARJIT TERRY MD May 03, 2020 06:11
[2020-05-03 07:00] VITALS: BP 124/59
[2020-05-03 08:12] LABS: CREATININE 0.7 mg/dL (0.7-1.3); GFR 113.9; POTASSIUM 4.2 mmol/L (3.5-5.1)
[2020-05-03 08:26] LABS: C-REACTIVE PROTEIN 18.3 mg/L (0-3.3)
[2020-05-03 08:28] LABS: BASO % 0 % (0-3); EOS # 0.3 x10^3/uL (0.0-0.7); EOS % 3 % (0-3); HEMATOCRIT 41.9 % (39.0-53.0); HEMOGLOBIN 13.6 g/dL (13.0-17.5); LYMPH # 1.1 x10^3/uL (1.0-4.8); LYMPH % 14 % (24-48); MEAN CORPUSCULAR HEMOGLOBIN 31 pg (25-35); MEAN CORPUSCULAR HGB CONC 32 g/dL (31-37); MEAN CORPUSCULAR VOLUME 95 fL (79-100); MONO # 0.8 x10^3/uL (0.0-1.1); MONO % 10 % (0-9); NEUT # 5.5 x10^3/uL (1.8-7.7); NEUT % 72 % (31-73); PLATELET COUNT 236 x10^3/uL (140-400); RED BLOOD COUNT 4.41 x10^6/uL (4.30-5.70); RED CELL DISTRIBUTION WIDTH 13.6 % (11.5-14.5); WHITE BLOOD COUNT 7.7 x10^3/uL (4.0-11.0)
[2020-05-03 08:43] LABS: PROTHROMBIN TIME PATIENT 16.6 SEC (11.7-14.0)
[2020-05-03] MEDS: METOPROLOL TART IMMED RELEASE 50 MG TABLET. PO SCH (09:01)
[2020-05-03] MEDS: ISOSORBIDE MONONITRATE ER 30 MG TAB.ER.24H PO SCH (09:01)
[2020-05-03] MEDS: LANSOPRAZOLE 30 MG TAB.RAP.DR FT SCH (09:01)
[2020-05-03] MEDS: buPROPion XL 150 MG TAB.ER.24H. PO SCH (09:02)
[2020-05-03] MEDS: POTASSIUM CHLORIDE 20 MEQ TABLET.ER. PO SCH (09:02)
[2020-05-03] MEDS: GEMFIBROZIL 600 MG TABLET. PO SCH (09:02)
[2020-05-03] MEDS: MORPHINE ER 15 MG TABLET.ER PO SCH (09:02)
--- NOTE | 2020-05-03 09:32 | PDOC ---
Date of Service: DATE: 05/03/20 TIME: 09:29 Subjective: Subjective: I asked "how you doin?" and he said "anyone I can... which is zero..." Stooled w/o blood. Says Dr. Garcia kept him in the hospital but indicated possible DC today? Objective: Vital Signs: Vital Signs Date Time Temp Pulse Resp B/P (MAP) Pulse Ox O2 Delivery O2 Flow Rate FiO2 05/03/20 09:01 68 124/59 05/03/20 08:30 Nasal Cannula 2.0 05/03/20 07:00 98.1 20 92 98.1 Labs: Laboratory Tests Test 05/02/20 11:25 05/03/20 07:40 White Blood Count 7.6 x10^3/uL 7.7 x10^3/uL Red Blood Count 4.41 x10^6/uL 4.41 x10^6/uL Hemoglobin 13.7 g/dL 13.6 g/dL Hematocrit 42.2 % 41.9 % Mean Corpuscular Volume 96 fL 95 fL Mean Corpuscular Hemoglobin 31 pg 31 pg Mean Corpuscular Hemoglobin Concent 32 g/dL 32 g/dL Red Cell Distribution Width 13.9 % 13.6 % Platelet Count 216 x10^3/uL 236 x10^3/uL Neutrophils (%) (Auto) 75 % 72 % Lymphocytes (%) (Auto) 11 % 14 % Monocytes (%) (Auto) 11 % 10 % Eosinophils (%) (Auto) 3 % 3 % Basophils (%) (Auto) 0 % 0 % Neutrophils # (Auto) 5.7 x10^3/uL 5.5 x10^3/uL Lymphocytes # (Auto) 0.8 x10^3/uL 1.1 x10^3/uL Monocytes # (Auto) 0.8 x10^3/uL 0.8 x10^3/uL Eosinophils # (Auto) 0.2 x10^3/uL 0.3 x10^3/uL Basophils # (Auto) 0.0 x10^3/uL 0.0 x10^3/uL Sodium Level 140 mmol/L 139 mmol/L Potassium Level 4.6 mmol/L 4.2 mmol/L Chloride Level 105 mmol/L 101 mmol/L Carbon Dioxide Level 34 mmol/L 33 mmol/L Anion Gap 1 5 Blood Urea Nitrogen 2 mg/dL 2 mg/dL Creatinine 0.9 mg/dL 0.7 mg/dL Estimated GFR (Cockcroft-Gault) 85.2 113.9 Glucose Level 148 mg/dL 88 mg/dL Calcium Level 8.7 mg/dL 9.0 mg/dL Prothrombin Time 16.6 SEC Prothromb Time International Ratio 1.4 C-Reactive Protein, Quantitative 18.3 mg/L BLOOD CULTURE Preliminary NO GROWTH AFTER 4 DAYS PE: GEN: NAD - breakfast tray 100% consumed LUNGS: CTAB HEART: RRR ABD: NABS, S/ND/NT NEURO/PSYCH: A & O 3 A/P: Hematochezia/diarrhea - resolving - ischemic colitis suspected, C Diff negative and enteric panel pending Coumadin coagulopathy - better - INR 1.4, Coumadin held -- Dc per primary. Outpt colonoscopy. Justicifation of Admission Dx: Justifications for Admission: Justification of Admission Dx: Yes Angina: Cresendo Worsening of Sym TOMÁS DUNN May 03, 2020 09:32
--- NOTE | 2020-05-03 09:37 | PDOC3 ---
Discharge Summary Date of Admission: Apr 28, 2020 Date of Discharge: May 03, 2020 Follow-Up: 3-5 days Admitting Diagnosis comment: DISCHARGE DX Sepsis supratherapeutic INR on admit Inflammatory colitis, OCCULT STOOL POS Hematochezia/diarrhea - better? - ischemic colitis suspected, C Diff and enteric panel ordered Severe long segment descending colonic wall thickening with adjacent inflam matory changes, may represent infectious or inflammatory colitis and ischemic colitis CAD CHF HTN COPD, O2 DEPENDENT Hx of PE inr =2.4 Tobacco use C Diff neg and enteric panel pending gi ok with discharge today d/c planning 33 min d/w RN History of Present Illness History of Present Illness HPI: Mr Medina is a 64 yo M w/ PMHx CAD s/p CABG, PE on Coumadin, COPD on 2L NC, smoker, HTN, HLD, testicular ca s/p right orchiectomy, and chronic diastolic heart failure who p/w grossly bloody stools. He notes bright red blood for his last 5 bowel movements. Last INR was 1.3. Questionable transfusion after his triple bypass. Reports colonoscopy more than 10 years ago due to melena, GI report was concerning for polyps versus hemorrhoids. Only past surgical history was his right orchiectomy 1986. Does complain of exertional dyspnea for the past day. No history of upper GI bleeding or ulcers. EMR reviewed -pt admitted 03/2020 (covid negative 04/05) for acute hypoxic respiratory failure, negative cardiac cath on 10/12/2018. Patient had a VQ scan in March 2020 that showed no perfusion defect. Negative cardiac cath in 2018 as well. EKG shows sinus tachycardia at 109 bpm, no axis deviation, normal intervals, T wave inversion inferior lateral leads V4,5,6, no ST elevations or ST depressions Labs significant for WBC 22.4, Hb 16.8, platelets 201, INR 5, NA 134, K3.5, BUN 16, CR 1.1, glucose 115 CT abdomen/pelvis shows severe long segment descending colonic wall thickening with adjacent inflammatory changes. 04/30/20 pt seen and examined. He was up and ambulating around the halls with his nurse. MINNA RN MINNA case management 04/29/2020 Pt seen and examined MINNA RN MINNA case management GI consulted FINAL DIAGNOSIS Problems Medical Problems: (1) Colitis Status: Acute (2) Gastritis and duodenitis Status: Acute (3) Hematochezia Status: Acute (4) Sepsis Status: Acute (5) Supratherapeutic INR Status: Acute Brief Hospital Course Mr. Medina is a 64 old [sex] who presented with [ ACUTE COLITIS] CONDITION AT DISCHARGE: Improved Discharge Medications Current Medications Sodium Chloride 250 ml @ 250 mls/hr 1X ONCE IV Last administered on 04/28/20at 19:21; Start 04/28/20 at 18:45; Stop 04/28/20 at 19:44; Status DC Piperacillin Sod/ Tazobactam Sod 4.5 gm/Sodium Chloride 100 ml @ 200 mls/hr 1X ONCE IV Last administered on 04/28/20at 20:50; Start 04/28/20 at 20:15; Stop 04/28/20 at 20:44; Status DC Vancomycin HCl (Vanco Per Pharmacy) 1 each PRN DAILY PRN MC SEE COMMENTS; Start 04/28/20 at 20:00; Stop 04/28/20 at 20:01; Status DC Vancomycin HCl 2 gm/Sodium Chloride 500 ml @ 250 mls/hr 1X ONCE IV Last administered on 04/28/20at 22:52; Start 04/28/20 at 20:15; Stop 04/28/20 at 22:14; Status DC Hydromorphone HCl (Dilaudid) 0.5 mg 1X ONCE IVP Last administered on 04/28/20 at 20:50; Start 04/28/20 at 20:15; Stop 04/28/20 at 20:16; Status DC Ondansetron HCl (Zofran) 4 mg PRN Q8HRS PRN IV NAUSEA/VOMITING; Start 04/28/20 at 21:30; Stop 04/28/20 at 21:33; Status DC Morphine Sulfate (Morphine Sulfate) 2 mg PRN Q2HR PRN IV PAIN Last administered on 05/03/20at 04:24; Start 04/28/20 at 21:30 Sodium Chloride 1,000 ml @ 100 mls/hr Q10H IV Last administered on 04/30/20at 03:30; Start 04/28/20 at 21:18; Stop 04/29/20 at 21:17; Status DC Acetaminophen (Tylenol) 650 mg PRN Q4HRS PRN PO FEVER > 100.3'F; Start 04/28/20 at 21:30 Ondansetron HCl (Zofran) 4 mg PRN Q4HRS PRN IV NAUSEA/VOMITING; Start 04/28/20 at 21:45 Bupropion HCl (Wellbutrin Xl) 150 mg DAILY PO Last administered on 05/03/20at 09:02; Start 04/29/20 at 09:00 Buspirone HCl (Buspar) 10 mg PRN Q8HRS PRN PO ANXIETY / AGITATION; Start 04/28/20 at 23:00 Gemfibrozil (Lopid) 600 mg BID PO Last administered on 05/03/20at 09:02; Start 04/29/20 at 09:00 Albuterol/ Ipratropium (Duoneb) 3 ml RTQID NEB Last administered on 05/02/20at 11:27; Start 04/29/20 at 08:00; Stop 05/02/20 at 12:59; Status DC Isosorbide Mononitrate (Imdur) 30 mg DAILYWBKFT PO Last administered on 05/03/20at 09:01; Start 04/29/20 at 08:00 Metoprolol Tartrate (Lopressor) 50 mg BID PO Last administered on 05/03/20at 09:01; Start 04/29/20 at 09:00 Montelukast Sodium (Singulair) 10 mg QHS PO Last administered on 05/02/20at 21:28; Start 04/29/20 at 21:00 Morphine Sulfate (Ms Contin) 15 mg BID PO Last administered on 05/03/20at 09:02; Start 04/29/20 at 09:00 Oxycodone/ Acetaminophen (Percocet 10/325) 1 tab PRN Q8HRS PRN PO PAIN Last administered on 05/03/20at 01:45; Start 04/28/20 at 23:00 Pantoprazole Sodium (Protonix) 40 mg BIDAC PO ; Start 04/29/20 at 07:30; Stop 04/30/20 at 05:29; Status DC Potassium Chloride (Klor-Con) 20 meq DAILYWBKFT PO Last administered on 05/03/20at 09:02; Start 04/29/20 at 08:00 Non-Formulary Medication (Fluticasone/ Salmeterol (Advair 250-50 Diskus)) 1 puff BID IH ; Start 04/29/20 at 09:00; Status UNV Atorvastatin Calcium (Lipitor) 40 mg HS PO Last administered on 05/02/20at 21:28; Start 04/29/20 at 21:00 Potassium Bicarbonate (Potassium Effervescent Tablet) 40 meq 1X ONCE PO Last administered on 04/28/20at 23:46; Start 04/28/20 at 23:15; Stop 04/28/20 at 23:16; Status DC Metronidazole 100 ml @ 100 mls/hr Q8HRS IV Last administered on 05/03/20at 04:23; Start 04/28/20 at 23:00 Piperacillin Sod/ Tazobactam Sod 3.375 gm/Sodium Chloride 50 ml @ 100 mls/hr Q6HRS IV Last administered on 05/03/20at 04:23; Start 04/29/20 at 06:00 Budesonide (Pulmicort) 0.5 mg RTBID NEB Last administered on 05/02/20at 11:27; Start 04/29/20 at 08:00 Albuterol Sulfate (Ventolin Neb Soln) 2.5 mg RTQID NEB Last administered on 04/30/20at 20:00; Start 04/29/20 at 08:00 Lansoprazole (Prevacid) 30 mg BIDBFRMEAL FT Last administered on 05/03/20at 09:01; Start 04/30/20 at 07:30 Diazepam (Valium) 5 mg PRN BID PRN PO muscle relaxer Last administered on 05/02/20at 16:18; Start 04/30/20 at 16:15 Albuterol Sulfate (Ventolin Neb Soln) 2.5 mg PRN QID PRN NEB SHORTNESS OF BREATH; Start 05/02/20 at 13:15 Active Scripts Active Montelukast Sodium Tablet (Montelukast Sodium) 10 Mg Tablet 10 Mg PO QHS 30 Days Duoneb 0.5-3(2.5) Mg/3 Ml (Albuterol/Ipratropium) 3 Ml Ampul.neb 3 Ml NEB RTQID 30 Days Reported Diazepam 5 Mg Tablet 5 Mg PO PRN BID PRN Advair 250-50 Diskus (Fluticasone/Salmeterol) 1 Each Disk.w.dev 1 Puff IH BID Linzess (Linaclotide) 145 Mcg Capsule 145 Mcg PO DAILY07 Aspirin 81 Mg Tab.chew 1 Tab PO DAILY Lasix (Furosemide) 40 Mg Tablet 1 Tab PO DAILY 30 Days Potassium Chloride (Potassium Chloride) 20 Meq Tablet.er 20 Meq PO DAILY Warfarin Sodium 5 Mg Tablet 5 Mg PO DAILY Restart Wednesday 03/07 Metoprolol Tartrate 50 Mg Tablet 1 Tab PO BID Pantoprazole Sodium (Pantoprazole Sodium) 40 Mg Tablet.dr 40 Mg PO BID Crestor (Rosuvastatin Calcium) 5 Mg Tablet 2 Tab PO HS Buspirone Hcl 10 Mg Tablet 1 Tab PO PRN Q8HRS PRN Ms Contin (Morphine Sulfate) 15 Mg Tablet.er 1 Tab PO BID MDD 2 Tablet(s) 5 Days Oxycodone-Acetaminophen 10-325 (Oxycodone Hcl/Acetaminophen) 1 Each Tablet 1 Tab PO PRN Q8HRS PRN Wellbutrin Xl (Bupropion Hcl) 150 Mg Tab.er.24h 150 Mg PO DAILY Amitriptyline Hcl 50 Mg Tablet 2 Tab PO QHS Gemfibrozil 600 Mg Tablet 1 Tab PO BID Isosorbide Mononitrate Er (Isosorbide Mononitrate) 30 Mg Tab.er.24h 1 Tab PO DAILYWBKFT Vital Signs Vital Signs Date Time Temp Pulse Resp B/P (MAP) Pulse Ox O2 Delivery O2 Flow Rate FiO2 05/03/20 09:01 68 124/59 05/03/20 08:30 Nasal Cannula 2.0 05/03/20 07:00 98.1 20 92 98.1 Labs Laboratory Tests Test 05/02/20 11:25 05/03/20 07:40 White Blood Count 7.6 x10^3/uL (4.0-11.0) 7.7 x10^3/uL (4.0-11.0) Red Blood Count 4.41 x10^6/uL (4.30-5.70) 4.41 x10^6/uL (4.30-5.70) Hemoglobin 13.7 g/dL (13.0-17.5) 13.6 g/dL (13.0-17.5) Hematocrit 42.2 % (39.0-53.0) 41.9 % (39.0-53.0) Mean Corpuscular Volume 96 fL (79-100) 95 fL (79-100) Mean Corpuscular Hemoglobin 31 pg (25-35) 31 pg (25-35) Mean Corpuscular Hemoglobin Concent 32 g/dL (31-37) 32 g/dL (31-37) Red Cell Distribution Width 13.9 % (11.5-14.5) 13.6 % (11.5-14.5) Platelet Count 216 x10^3/uL (140-400) 236 x10^3/uL (140-400) Neutrophils (%) (Auto) 75 % (31-73) 72 % (31-73) Lymphocytes (%) (Auto) 11 % (24-48) 14 % (24-48) Monocytes (%) (Auto) 11 % (0-9) 10 % (0-9) Eosinophils (%) (Auto) 3 % (0-3) 3 % (0-3) Basophils (%) (Auto) 0 % (0-3) 0 % (0-3) Neutrophils # (Auto) 5.7 x10^3/uL (1.8-7.7) 5.5 x10^3/uL (1.8-7.7) Lymphocytes # (Auto) 0.8 x10^3/uL (1.0-4.8) 1.1 x10^3/uL (1.0-4.8) Monocytes # (Auto) 0.8 x10^3/uL (0.0-1.1) 0.8 x10^3/uL (0.0-1.1) Eosinophils # (Auto) 0.2 x10^3/uL (0.0-0.7) 0.3 x10^3/uL (0.0-0.7) Basophils # (Auto) 0.0 x10^3/uL (0.0-0.2) 0.0 x10^3/uL (0.0-0.2) Sodium Level 140 mmol/L (136-145) 139 mmol/L (136-145) Potassium Level 4.6 mmol/L (3.5-5.1) 4.2 mmol/L (3.5-5.1) Chloride Level 105 mmol/L (98-107) 101 mmol/L (98-107) Carbon Dioxide Level 34 mmol/L (21-32) 33 mmol/L (21-32) Anion Gap 1 (6-14) 5 (6-14) Blood Urea Nitrogen 2 mg/dL (8-26) 2 mg/dL (8-26) Creatinine 0.9 mg/dL (0.7-1.3) 0.7 mg/dL (0.7-1.3) Estimated GFR (Cockcroft-Gault) 85.2 113.9 Glucose Level 148 mg/dL (70-99) 88 mg/dL (70-99) Calcium Level 8.7 mg/dL (8.5-10.1) 9.0 mg/dL (8.5-10.1) Prothrombin Time 16.6 SEC (11.7-14.0) Prothromb Time International Ratio 1.4 (0.8-1.1) C-Reactive Protein, Quantitative 18.3 mg/L (0-3.3) Laboratory Tests Test 05/02/20 11:25 05/03/20 07:40 White Blood Count 7.6 x10^3/uL (4.0-11.0) 7.7 x10^3/uL (4.0-11.0) Red Blood Count 4.41 x10^6/uL (4.30-5.70) 4.41 x10^6/uL (4.30-5.70) Hemoglobin 13.7 g/dL (13.0-17.5) 13.6 g/dL (13.0-17.5) Hematocrit 42.2 % (39.0-53.0) 41.9 % (39.0-53.0) Mean Corpuscular Volume 96 fL (79-100) 95 fL (79-100) Mean Corpuscular Hemoglobin 31 pg (25-35) 31 pg (25-35) Mean Corpuscular Hemoglobin Concent 32 g/dL (31-37) 32 g/dL (31-37) Red Cell Distribution Width 13.9 % (11.5-14.5) 13.6 % (11.5-14.5) Platelet Count 216 x10^3/uL (140-400) 236 x10^3/uL (140-400) Neutrophils (%) (Auto) 75 % (31-73) 72 % (31-73) Lymphocytes (%) (Auto) 11 % (24-48) 14 % (24-48) Monocytes (%) (Auto) 11 % (0-9) 10 % (0-9) Eosinophils (%) (Auto) 3 % (0-3) 3 % (0-3) Basophils (%) (Auto) 0 % (0-3) 0 % (0-3) Neutrophils # (Auto) 5.7 x10^3/uL (1.8-7.7) 5.5 x10^3/uL (1.8-7.7) Lymphocytes # (Auto) 0.8 x10^3/uL (1.0-4.8) 1.1 x10^3/uL (1.0-4.8) Monocytes # (Auto) 0.8 x10^3/uL (0.0-1.1) 0.8 x10^3/uL (0.0-1.1) Eosinophils # (Auto) 0.2 x10^3/uL (0.0-0.7) 0.3 x10^3/uL (0.0-0.7) Basophils # (Auto) 0.0 x10^3/uL (0.0-0.2) 0.0 x10^3/uL (0.0-0.2) Sodium Level 140 mmol/L (136-145) 139 mmol/L (136-145) Potassium Level 4.6 mmol/L (3.5-5.1) 4.2 mmol/L (3.5-5.1) Chloride Level 105 mmol/L (98-107) 101 mmol/L (98-107) Carbon Dioxide Level 34 mmol/L (21-32) 33 mmol/L (21-32) Anion Gap 1 (6-14) 5 (6-14) Blood Urea Nitrogen 2 mg/dL (8-26) 2 mg/dL (8-26) Creatinine 0.9 mg/dL (0.7-1.3) 0.7 mg/dL (0.7-1.3) Estimated GFR (Cockcroft-Gault) 85.2 113.9 Glucose Level 148 mg/dL (70-99) 88 mg/dL (70-99) Calcium Level 8.7 mg/dL (8.5-10.1) 9.0 mg/dL (8.5-10.1) Prothrombin Time 16.6 SEC (11.7-14.0) Prothromb Time International Ratio 1.4 (0.8-1.1) C-Reactive Protein, Quantitative 18.3 mg/L (0-3.3) Allergies Allergies Coded Allergies Type Severity Reaction Last Updated Verified Iodinated Contrast Media Allergy Intermediate 03/07/14 Yes ketorolac Allergy Intermediate GI 12/01/14 Yes tramadol Allergy Intermediate 11/11/15 Yes venom-honey bee Allergy Intermediate 03/07/14 Yes NSAIDS (Non-Steroidal Anti-Inflamma Adverse Reaction Intermediate GI 10/09/18 Yes Disposition/Orders: D/C to Home Justicifation of Admission Dx: Justifications for Admission: Justification of Admission Dx: Yes Angina: [place] Worsening of Sym AMARJIT TERRY MD May 03, 2020 09:37
[2020-05-03] MEDS ORDERED: WARF-31 PO (09:44)
[2020-05-03] MEDS ORDERED: ACET325T9 PO (09:44)
[2020-05-03] MEDS ORDERED: METR500T PO (09:45)
--- NOTE | 2020-05-03 09:46 | DISCH ---
DISCHARGE INSTRUCTIONS Condition on Discharge Condition on Discharge: Stable Activity After Discharge Activity Instructions for Disc: No restrictions Bathing Instructions: No Tub Bath until see Lifting Instructions after Dis: No heavy lifting, No pulling or pushing, Do not lift >10 pounds Exercise Instruction after Dis: Progress as tolerated Driving Instructions after Dis: Do not drive Weight Bearing Status after Di: No restrictions Diet after Discharge Diet after Discharge: Cardiac Diet Texture: Regular Liquid Texture: Thin Liquid Swallowing Supervision: None needed Wound Incision Care Wound/Incision Care: Keep wound/cast CDI Checks after Discharge Checks after discharge: Check blood press - daily, Check your Temp as needed, Weigh Yourself Daily Contacting the DRShweta after DC Call your doctor for: If your condition worsens Treatment/Equipment after DC Adaptive Equipment Issued: Cane Discharge Respiratory Equipmen: Oxygen, Nebulizer Warfarin Follow-Up Warfarin Follow UP: see pcp this week, daily inr x 4 days AMARJIT TERRY MD May 03, 2020 09:46
[2020-05-03 11:20] VITALS: BP 123/64
--- NOTE | 2020-05-03 12:09 | NUR ---
SS following up with discharge planning. SS reviewed pt chart and discussed with pt RN. Pt is currently requiring oxygen. Pt has home oxygen. PT/OT recommended home independent. GI signed off. Discharge order on the chart for home with self care.
[2020-05-03] MEDS: diazePAM 5 MG TABLET PO PRN (12:48)
--- NOTE | 2020-05-03 13:03 | NUR ---
Pt left unit at approx 1500 by wheelchair via transportation. IV removed without complication, VSS. Discharge paperwork and follow-up discussed and sent with pt at time of discharge. Addendum: 05/03/20 at 1324 by EUGENIO PEPPER RN Adjust previous note: Pt left unit at approx 1300
== END 2020-05-03 13:13 | disposition home or self-care (01) | DRG 872 ==
LOC: ER 17:51 → 2 SOUTH 21:56
PROVIDERS: ADMIT Internal Medicine; ATTEND Internal Medicine
DX: A41.9 Sepsis, unspecified organism (principal); I50.42 Chronic combined systolic (congestive) and diastolic (congestive) heart failure; K55.9 Vascular disorder of intestine, unspecified; A04.72 Enterocolitis due to Clostridium difficile, not specified as recurrent; E78.5 Hyperlipidemia, unspecified; C62.90 Malignant neoplasm of unspecified testis, unspecified whether descended or undescended; D35.01 Benign neoplasm of right adrenal gland; D35.02 Benign neoplasm of left adrenal gland; E78.00 Pure hypercholesterolemia, unspecified; F17.210 Nicotine dependence, cigarettes, uncomplicated; I11.0 Hypertensive heart disease with heart failure; I25.119 Atherosclerotic heart disease of native coronary artery with unspecified angina pectoris; J44.9 Chronic obstructive pulmonary disease, unspecified; K21.00 Gastro-esophageal reflux disease with esophagitis, without bleeding; K29.70 Gastritis, unspecified, without bleeding; K29.80 Duodenitis without bleeding; K64.9 Unspecified hemorrhoids; M47.816 Spondylosis without myelopathy or radiculopathy, lumbar region; M48.061 Spinal stenosis, lumbar region without neurogenic claudication; R79.1 Abnormal coagulation profile; T45.515A Adverse effect of anticoagulants, initial encounter; Z79.01 Long term (current) use of anticoagulants; Z82.49 Family history of ischemic heart disease and other diseases of the circulatory system; Z85.47 Personal history of malignant neoplasm of testis; Z86.711 Personal history of pulmonary embolism; Z95.1 Presence of aortocoronary bypass graft; Z95.5 Presence of coronary angioplasty implant and graft; Z99.81 Dependence on supplemental oxygen; F32.9 Major depressive disorder, single episode, unspecified; F41.9 Anxiety disorder, unspecified; G89.29 Other chronic pain; I25.2 Old myocardial infarction
CPT/HCPCS: 36415; 70450; 71045; 72125; 74176; 80048; 80053; 81001; 82274; 83605; 85007; 85025; 85610; 85730; 86140; 86850; 86900; 86901; 87040; 87493; 87505; 93005; 94640; 94760; 96361; 96365; 96366; 96375; 99291; J1170; J2270; J2543; J3370; J3490; J7030; J7040; J7050; G0378; J7613; J7626

== ENCOUNTER 2021-05-07 12:51 | Observation (INO) | payer OTHER ==
[~2021-05-07] VITALS: Ht 170.2 cm; Wt 83.5 kg
[~2021-05-07 12:51] MED LIST changes: +ACET325T9 PO; +DIAZ5TAB4 PO; -DOXY100C2 PO; +DOXY100C3 PO; +GEMF600T20 PO; -GEMF600T8 PO; -ISOS30TA4 PO; +ISOS30TA68 PO; +METR500T PO; -MORP10DI10 PO; +MORP10SY6 PO; -OMEP40CA45 PO; +OMEP40CA7 PO
--- NOTE | 2021-05-07 13:11 | PHYS DOC ---
Past Medical History Past Medical History: CAD, Cancer, COPD, High Cholesterol, Heart Disease, Hypertension, TN, Other Additional Past Medical Histor: TESTICLE CANCER, chronic back pain, PE Past Surgical History: Coronary Bypass Surgery, Other Additional Past Surgical Histo: ORECECTOMY,BACK, JAW, cardiac stents Smoking Status: Current Some Day Smoker Alcohol Use: None Drug Use: None General Adult EDM: Chief Complaint: CHEST PAIN HPI: HPI: Patient is a 65 year old male presents with report of chest pain, which actual ly began yesterday, but progressed today. He describes precordial pressure, which occasionally radiates to his left shoulder. He reports dyspnea. He has a chronic, dry, unchanged cough. Denies purulent sputum or hemoptysis. Denies nausea or vomiting. Denies dizziness or diaphoresis. He reports having a fever 1 or 2 days ago, no antipyretics have been taken, he is afebrile here. He does report having some chills and diffuse body aches. He has a history of TN, coronary disease. He is unable to articulate if these particular symptoms he is having today are similar at all to his previous TN symptoms. He has chronic neck and back pain, for which he takes oral morphine twice a day. He reports that he is taking this as directed. He took 2 sublingual nitroglycerin, prior to arrival, which did help somewhat. He has not had aspirin yet. He reports that he has COPD but quit smoking within the last week. Review of Systems: Review of Systems: Constitutional: Reports one episode of fever and chills within the last 48 hours. None currently. Eyes: Denies change in visual acuity. [] HENT: Denies nasal congestion or sore throat. [] Respiratory: Reports dry, chronic, unchanged cough. Reports shortness of breath. Cardiovascular: Reports chest pain. Denies peripheral edema. GI: Denies abdominal pain, nausea, vomiting, bloody stools or diarrhea. [] : Denies urinary symptoms. Musculoskeletal: He reports chronic but unchanged neck and back pain. No specific joint pain or swelling. Integument: Denies rash. [] Neurologic: Denies headache, focal weakness or sensory changes. [] Endocrine: Denies polyuria or polydipsia. [] Lymphatic: Denies swollen glands. [] Psychiatric: Denies depression or anxiety. [] Heart Score: C/O Chest Pain: Yes HEART Score for Chest Pain: HEART Score for Chest Pain Response (Comments) Value History Moderately Suspicious 1 ECG Nonspecific Repolarizatio 1 Age >45 - < 65 1 Risk Factors >3 Risk Factors or Hx CAD 2 Troponin < Normal Limit 0 Total 5 Risk Factors: Risk Factors: DM, Current or recent (<one month) smoker, HTN, HLP, family history of CAD, obesity. Risk Scores: Score 0 - 3: 2.5% MACE over next 6 weeks - Discharge Home Score 4 - 6: 20.3% MACE over next 6 weeks - Admit for Clinical Observation Score 7 - 10: 72.7% MACE over next 6 weeks - Early Invasive Strategies Allergies: Allergies: Allergies Coded Allergies Type Severity Reaction Last Updated Verified Iodinated Contrast Media Allergy Intermediate 03/07/14 Yes ketorolac Allergy Intermediate GI 12/01/14 Yes tramadol Allergy Intermediate 11/11/15 Yes venom-honey bee Allergy Intermediate 03/07/14 Yes NSAIDS (Non-Steroidal Anti-Inflamma Adverse Reaction Intermediate GI 10/09/18 Yes Physical Exam: PE: Constitutional: Well developed, well nourished, no acute distress, non-toxic appearance. He is chronically ill-appearing, but does not appear to be acutely ill. HENT: Normocephalic, atraumatic, mucous membranes are moist. Eyes: Sclera are clear and anicteric. Neck: Normal range of motion, no tenderness, supple, trachea is midline. Cardiovascular: Tachycardic in the low 100s, regular, +2 radial and dorsalis pedis pulses bilaterally. Lungs & Thorax: Bilateral breath sounds clear to auscultation, mildly diminished in bilateral bases, no rales, rhonchi or wheezes. No stridor. No evidence of distress. Abdomen: Bowel sounds normal, soft, no tenderness, no masses, no pulsatile masses. [] Skin: Warm, dry, no erythema, no rash. [] Back: No tenderness, no CVA tenderness. [] Extremities: No tenderness, no cyanosis, no clubbing, ROM intact, no edema. No calf tenderness. Neurologic: Alert and oriented X 3, normal motor function, normal sensory function, no focal deficits noted. [] Psychologic: He is jovial, somewhat bizarre, though he is cooperative. EKG: EKG: EKG is interpreted at 1256 Rhythm is sinus tachycardia Rate is 116 bpm [place] is normal Nonspecific ST/T-segment changes No STEMI Radiology/Procedures: Radiology/Procedures: IMAGING REPORT Signed PATIENT: JOHN AVILA ACCOUNT: [id number] : 1955 LOCATION: ER AGE: 65 SEX: M EXAM STATUS: PRE ER ORD. PHYSICIAN: AGUSTÍN MCDERMOTT DO REASON: chest pain PROCEDURE: PORTABLE CHEST 1V Single view of the chest. 05/07/2021 1:16 PM Indication: Reason: chest pain / Spl. Instructions: / History: Comparison: Chest radiograph April 28, 2020 Findings: Heart size is normal. Prior median sternotomy noted. Postoperative changes to the cervical spine noted. No pneumothorax or pleural effusion is seen. No focal infiltrate is seen. Mild interstitial coarsening is similar. No acute osseous changes are identified. IMPRESSION: No radiographic evidence of acute cardiopulmonary process Electronically signed by: David Landry MD (05/07/2021 1:33 PM) [id number] DICTATED and SIGNED BY: DAVID LANDRY MD DATE: 05/07/21 [id number] 0 IMAGING REPORT Signed PATIENT: OJHN AVILA ACCOUNT: [id number] : 1955 LOCATION: ER AGE: 65 SEX: M EXAM STATUS: REG ER ORD. PHYSICIAN: AGUSTÍN MCDERMOTT DO REASON: chest pain PROCEDURE: CT CHEST WO CONTRAST CT of the chest without contrast Indication: [Chest pain] Comparison study: [Chest radiograph earlier today] Technique: Multidetector CT imaging of the chest was performed without the administration of contrast Findings: Heart is normal in size. No pericardial effusion is seen.. No significant pericardial effusion is seen. No pathologic mediastinal adenopathy is identified. No focal consolidation or infiltrate is seen. No pneumothorax or pleural effusion is seen. No acute osseous abnormality is identified. Limited visualization of the upper abdomen demonstrates no acute abnormality. Impression: No evidence of acute cardiopulmonary process is identified. CT DOSING PQRS STATEMENT: One or more of the following individualized dose reduction techniques were utilized for this examination: 1. Automated exposure control 2. Adjustment of the mA and/or kV according to patient size 3. Use of iterative reconstruction technique Electronically signed by: David Landry MD (05/07/2021 2:54 PM) [id number] DICTATED and SIGNED BY: DAVID LANDRY MD DATE: 05/07/21 [id number] 0 Course & Med Decision Making: Course & Med Decision Making Pertinent Labs and Imaging studies reviewed. (See chart for details) The patient is given aspirin and another sublingual nitroglycerin, as well as IV morphine and Zofran. He now reports having no chest pain. IV fluid boluses given. He has continued but unchanged neck and back pain, no different than his usual. His tachycardia has resolved. He has remained afebrile here. Rapid Covid antigen is negative. Blood cultures and lactic acid are obtained. I have discussed all of the findings, differential diagnosis and plan of care with him. I have recommended admission, and he is comfortable with this plan. He is accepted for admission by Dr. Ferrari. Porsche Disclaimer: Porsche Disclaimer: This electronic medical record was generated, in whole or in part, using a voice recognition dictation system. Departure Departure Impression: Primary Impression: Chest pain Additional Impressions: Coronary artery disease Elevated lactic acid level History of fever Disposition: ADMITTED INPATIENT Admitting Physician: AMBIKA Condition: STABLE Referrals: UNKNOWN PCP NAME (PCP) AGUSTÍN MCDERMOTT DO May 07, 2021 13:11
[2021-05-07] MEDS ORDERED: NITROGLYCERIN SUBLINGUAL 0.4 MG BOTTLE OF 25. SL ONE (13:12)
[2021-05-07] MEDS ORDERED: ASPIRIN CHEWABLE 81 MG TABLET. PO ONE (13:15)
[2021-05-07] MEDS ORDERED: NITROGLYCERIN SUBLINGUAL 0.4 MG BOTTLE OF 25. SL PRN (13:15)
--- NOTE | 2021-05-07 13:23 | EKG ---
[facility] [address] [place] [address] Test Date: 2021-05-07 Test Time: 12:54:51 Pat Name: JOHN AVILA Department: Room: Gender: M Ambulatory Technologist: : 1955 Requested By: AGUSTÍN MCDERMOTT Order Number: [id number] Reading MD: Esteban Ding Measurements Intervals [place] Rate: 116 P: 71 AL: 148 QRS: 58 QRSD: 110 T: -44 QT: 306 QTc: 431 Interpretive Statements SINUS TACHYCARDIA LEFT ATRIAL ABNORMALITY QRS(T) CONTOUR ABNORMALITY CONSIDER ANTEROSEPTAL MYOCARDIAL DAMAGE CONSISTENT WITH INFERIOR INFARCT AGE UNDETERMINED T ABNORMALITY IN ANTEROLATERAL LEADS ABNORMAL ECG RI6.01 Compared to ECG 04/28/2020 18:49:51 No significant changes Electronically Signed On 05-07-2021 14:34:04 CDT by Esteban Ding
[2021-05-07 13:24] LABS: BASO % 0 % (0-3); EOS % 0 % (0-3); HEMATOCRIT 54.4 % (39.0-53.0); HEMOGLOBIN 18.3 g/dL (13.0-17.5); LYMPH % 8 % (24-48); MEAN CORPUSCULAR HEMOGLOBIN 31 pg (25-35); MEAN CORPUSCULAR HGB CONC 34 g/dL (31-37); MEAN CORPUSCULAR VOLUME 92 fL (79-100); MONO # 0.5 x10^3/uL (0.0-1.1); MONO % 4 % (0-9); NEUT # 11.2 x10^3/uL (1.8-7.7); NEUT % 88 % (31-73); PLATELET COUNT 282 x10^3/uL (140-400); RED BLOOD COUNT 5.91 x10^6/uL (4.30-5.70); RED CELL DISTRIBUTION WIDTH 13.1 % (11.5-14.5); WHITE BLOOD COUNT 12.8 x10^3/uL (4.0-11.0)
[2021-05-07] MEDS ORDERED: MORPHINE SULFATE 4 MG/ML INJ. IVP ONE ×2 (13:30→14:00)
[2021-05-07] MEDS ORDERED: ONDANSETRON PF 4 MG/2 ML VIAL. IVP ONE (13:30)
--- NOTE | 2021-05-07 13:35 | RAD ---
Single view of the chest. 05/07/2021 1:16 PM Indication: Reason: chest pain / Spl. Instructions: / History: Comparison: Chest radiograph April 28, 2020 Findings: Heart size is normal. Prior median sternotomy noted. Postoperative changes to the cervical spine noted. No pneumothorax or pleural effusion is seen. No focal infiltrate is seen. Mild interstit ial coarsening is similar. No acute osseous changes are identified. IMPRESSION: No radiographic evidence of acute cardiopulmonary process Electronically signed by: David Harper MD (05/07/2021 1:33 PM) [id number]
[2021-05-07 13:41] LABS: CALCIUM 10.2 mg/dL (8.5-10.1); CREATININE 1.2 mg/dL (0.7-1.3); POTASSIUM 3.8 mmol/L (3.5-5.1)
[2021-05-07 13:48] LABS: ALBUMIN 4.4 g/dL (3.4-5.0); ALBUMIN/GLOBULIN RATIO 0.9 (1.0-1.7); MAGNESIUM 1.9 mg/dL (1.8-2.4); TOTAL BILIRUBIN 0.6 mg/dL (0.2-1.0); TOTAL PROTEIN 9.2 g/dL (6.4-8.2)
[2021-05-07] MEDS ORDERED: IV NORMAL SALINE 1000ML BAG 1,000 ML IV ONE (14:45)
--- NOTE | 2021-05-07 14:57 | RAD ---
CT of the chest without contrast Indication: [Chest pain] Comparison study: [Chest radiograph earlier today] Technique: Multidetector CT imaging of the chest was performed without the administration of contrast Findings: Heart is normal in size. No pericardial effusion is seen.. No significant pericardial effusion is see n. No pathologic mediastinal adenopathy is identified. No focal consolidation or infiltrate is seen. No pneumothorax or pleural effusion is seen. No acute osseous abnormality is identified. Limited visu alization of the upper abdomen demonstrates no acute abnormality. Impression: No evidence of acute cardiopulmonary process is identified. CT DOSING PQRS STATEMENT: One or more of the following individualized dose reduction techniques were utilized for this examinat ion: 1. Automated exposure control 2. Adjustment of the mA and/or kV according to patient size 3. Use of iterative reconstruction technique Electronically signed by: David Harper MD (05/07/2021 2:54 PM) [id number]
[2021-05-07] MEDS ORDERED: ONDANSETRON PF 4 MG/2 ML VIAL. IVP PRN (16:45)
--- NOTE | 2021-05-07 16:47 | PDOC1 ---
History and Physical Date of Admission Date of Admission DATE: 05/07/21 TIME: 16:43 Identification/Chief Complaint Chief Complaint Chest pain Source Source: Patient History of Present Illness History of Present Illness Mr Medina is a 64 yo M w/ PMHx CAD s/p CABG, PE on Coumadin, COPD on 2L NC, smoker, HTN, HLD, testicular ca s/p right orchiectomy, and chronic diastolic heart failure who p/w chest pain. Notes left-sided chest pain that started today 0300 today, 05/07/2021. Pain radiates into his left neck as well as his right chest and shoulder. He took 2 sublingual nitroglycerin with no significant improvement. He also noted some nausea and diarrhea shortness of breath chills and cough he also notes that he thinks his temperature was 102 F at home. He is up-to-date on his COVID-19 vaccinations. He does note that he recently had his opioid dosing changed outpatient for his chronic pain and it has been more than a month since he had his pro time checked notes he has been on 2 mg of warfarin as opposed to his prior 4 mg of warfarin 1 year ago his last pro time INR was 1.4 about 4 weeks ago He did get some relief with NTG and morphine in ED. He was afebrile. Did not take acetaminophen. Reports colonoscopy more than 10 years ago due to melena, GI report was concerning for polyps versus hemorrhoids. Only past surgical history was his right orchiectomy 1986. Does complain of exertional dyspnea for the past day. No history of upper GI bleeding or ulcers. EMR reviewed -pt admitted 03/2020 (covid negative 04/05) for acute hypoxic respiratory failure, negative cardiac cath on 10/12/2018. Patient had a VQ scan in March 2020 that showed no perfusion defect. Negative cardiac cath in 2019 as well. Admitted in April 2020 for GI bleed EKG sinus tachycardia rate 116 bpm, QTC 431, no axis deviation, normal intervals, T wave inversion inferior lateral leads V4,5,6, no ST elevations or ST depressions, anterior lateral T flattening and unchanged from prior Labs significant for WBC 22.4, Hb 16.8, platelets 201, INR 5, NA 134, K3.5, BUN 16, CR 1.1, glucose [address] chest with no acute abnormalities Labs with WBC 12.8, Hb 18.3, platelets 282, NA 135, K3.8, BUN 18, CR 1.2, glucose 171, calcium 10.2, magnesium 1.9, LFTs within normal laboratory limits lipase 100, NT proBNP 483, troponin 0, lactic acid 2.1, TSH 0.202. His pain was relieved with ASA and nitroglycerin. Admitted for further care. Past Medical History Cardiovascular: CAD, CHF, HTN, Hyperlipidemia Pulmonary: COPD, Other CENTRAL NERVOUS SYSTEM: Other GI: GERD Heme/Onc: Cancer Hepatobiliary: No pertinent hx Psych: Anxiety, Depression Musculoskeletal: low back pain, Osteoarthritis Rheumatologic: No pertinent hx Infectious disease: No pertinent hx Renal/: No pertinent hx Endocrine: No pertinent hx Past Surgical History Past Surgical History: CABG, Other Family History Family History: Coronary Artery Disease Social History Smoke: <1 pack per day ALCOHOL: none Drugs: None Current Medications Current Medications Current Medications Nitroglycerin (Nitrostat) 0.4 mg STK-MED ONCE SL ; Start 05/07/21 at 13:12; Stop 05/07/21 at 13:12; Status DC Aspirin (Aspirin Chewable) 324 mg 1X ONCE PO Last administered on 05/07/21at 13:19; Start 05/07/21 at 13:15; Stop 05/07/21 at 13:16; Status DC Nitroglycerin (Nitrostat) 0.4 mg PRN Q5MIN PRN SL CHEST PAIN Last administered on 05/07/21at 13:19; Start 05/07/21 at 13:15 Morphine Sulfate (Morphine Sulfate) 4 mg 1X ONCE IVP Last administered on 05/07/21at 13:32; Start 05/07/21 at 13:30; Stop 05/07/21 at 13:31; Status DC Ondansetron HCl (Zofran) 4 mg 1X ONCE IVP Last administered on 05/07/21at 13:34; Start 05/07/21 at 13:30; Stop 05/07/21 at 13:31; Status DC Morphine Sulfate (Morphine Sulfate) 4 mg 1X ONCE IVP Last administered on 05/07/21at 14:14; Start 05/07/21 at 14:00; Stop 05/07/21 at 14:01; Status DC Sodium Chloride 1,000 ml @ 1,000 mls/hr 1X ONCE IV Last administered on 05/07/21at 14:45; Start 05/07/21 at 14:45; Stop 05/07/21 at 15:44; Status DC Ondansetron HCl (Zofran) 4 mg PRN Q8HRS PRN IVP NAUSEA/VOMITING; Start 05/07/21 at 16:45; Stop 05/08/21 at 16:44; Status UNV Active Scripts Active Flagyl (Metronidazole) 500 Mg Tablet 500 Mg PO TID 10 Days Tylenol (Acetaminophen) 325 Mg Tablet 650 Mg PO PRN Q4HRS PRN 28 Days Warfarin Sodium 5 Mg Tablet 4 Mg PO DAILY MDD 4 mg based on inr 30 Days Restart Wednesday 03/07 Montelukast Sodium Tablet (Montelukast Sodium) 10 Mg Tablet 10 Mg PO QHS 30 Days Duoneb 0.5-3(2.5) Mg/3 Ml (Albuterol/Ipratropium) 3 Ml Ampul.neb 3 Ml NEB RTQID 30 Days Reported Diazepam 5 Mg Tablet 5 Mg PO PRN BID PRN Advair 250-50 Diskus (Fluticasone/Salmeterol) 1 Each Disk.w.dev 1 Puff IH BID Aspirin 81 Mg Tab.chew 1 Tab PO DAILY Potassium Chloride (Potassium Chloride) 20 Meq Tablet.er 20 Meq PO DAILY Metoprolol Tartrate 50 Mg Tablet 1 Tab PO BID Pantoprazole Sodium (Pantoprazole Sodium) 40 Mg Tablet.dr 40 Mg PO BID Crestor (Rosuvastatin Calcium) 5 Mg Tablet 2 Tab PO HS Buspirone Hcl 10 Mg Tablet 1 Tab PO PRN Q8HRS PRN Ms Contin (Morphine Sulfate) 15 Mg Tablet.er 1 Tab PO BID MDD 2 Tablet(s) 5 Days Oxycodone-Acetaminophen 10-325 (Oxycodone Hcl/Acetaminophen) 1 Each Tablet 1 Tab PO PRN Q8HRS PRN Wellbutrin Xl (Bupropion Hcl) 150 Mg Tab.er.24h 150 Mg PO DAILY Gemfibrozil 600 Mg Tablet 1 Tab PO BID Isosorbide Mononitrate Er (Isosorbide Mononitrate) 30 Mg Tab.er.24h 1 Tab PO DAILYWBKFT Allergies Allergies: Coded Allergies: Iodinated Contrast Media (Verified Allergy, Intermediate, 03/07/14) ketorolac (Verified Allergy, Intermediate, GI, 12/01/14) tramadol (Verified Allergy, Intermediate, 11/11/15) tolerates oxycodone and morphine venom-honey bee (Verified Allergy, Intermediate, 03/07/14) NSAIDS (Non-Steroidal Anti-Inflamma (Verified Adverse Reaction, Intermediate, GI, 10/09/18) ROS General: YES: Fatigue, Malaise, Appetite; No: Chills, Night Sweats, Other PSYCHOLOGICAL ROS: YES: Anxiety; No: Behavioral Disorder, Concentration difficultie, Decreased libido, Depression, Disorientation, Hallucinations, Hostility, Irritablity, Memory difficulties, Mood Swings, Obsessive thoughts, Physical abuse, Sexual abuse, Sleep disturbances, Suicidal ideation, Other Eyes: No Blurry vision, No Decreased vision, No Double vision, No Dry eyes, No Excessive tearing, No Eye Pain, No Itchy Eyes, No Loss of vision, No Photophobia, No Scotomata, No Uses contacts, No Uses glasses, No Other HEENT: No: Heacaches, Visual Changes, Hearing change, Nasal congestion, Nasal discharge, Oral lesions, Sinus pain, Sore Throat, Epistaxis, Sneezing, Snoring, Tinnitus, Vertigo, Vocal changes, Other Hematological and Lymphatic: No: Bleeding Problems, Blood Clots, Blood Transfusions, Brusing, Night Sweats, Pallor, Swollen Lymph Nodes, Other ENDOCRINE: No: Breast Changes, Galactorrhea, Hair Pattern Changes, Hot Flashes, Malaise/lethargy, Mood Swings, Palpitations, Polydipsia/polyuria, Skin Changes, Temperature Intolerance, Unexpected Weight Changes, Other Breast: No New/Changing Breast Lumps, No Nipple changes, No Nipple discharge, No Other Respiratory: YES: Shortness of breath; No: Cough, Hemoptysis, Orthopnea, Pleuritic Pain, SOB with excertion, Sputum Changes, Stridor, Tachypnea, Wheezing, Other Cardiovascular: yes Chest Pain; No Palpitations, No Orthopnea, No Paroxysmal Noc. Dyspnea, No Edema, No Lt Headedness, No Other Gastrointestinal: Yes Nausea; No Vomiting, No Abdominal Pain, No Diarrhea, No Constipation, No Melena, No Hematochezia, No Other Genitourinary: No Dysuria, No Frequency, No Incontinence, No Hematuria, No Retention, No Discharge, No Urgency, No Pain, No Flank Pain, No Other, No , No , No , No , No , No , No Musculoskeletal: No Gait Disturbance, No Joint Pain, No Joint Stiffness, No Joint Swelling, No Muscle Pain, No Muscular Weakness, No Pain In:, No Swelling In:, No Other Neurological: No Behavorial Changes, No Bowel/Bladder ControlChng, No Confusion, No Dizziness, No Gait Disturbance, No Headaches, No Impaired Coord/balance, No Memory Loss, No Numbness/Tingling, No Seizures, No Speech Problems, No Tremors, No Visual Changes, No Weakness, No Other Skin: No Dry Skin, No Eczema, No Hair Changes, No Lumps, No Mole Changes, No Mottling, No Nail Changes, No Pruritus, No Rash, No Skin Lesion Changes, No Other, No Acne Physical Exam General: Alert, Oriented X3, Cooperative, moderate distress HEENT: Atraumatic, PERRLA, EOMI, Mucous membr. moist/pink Lungs: Clear to auscultation, Normal air movement Heart: S1S2, RRR, no thrills, no rubs, no gallops, no murmurs Abdomen: Normal bowel sounds, Soft, No tenderness, No hepatosplenomegaly, No masses Rectal Exam: not examined Extremities: No clubbing, No cyanosis, No edema, Normal pulses, No tenderness/s welling Skin: No rashes, No breakdown, No significant lesion Neuro: Normal speech, Strength at 5/5 X4 ext, Normal tone, Sensation intact, Cranial nerves 3-12 NL, Reflexes 2+ Psych/Mental Status: Mental status NL, Mood NL Vitals Vitals Vital Signs Date Time Temp Pulse Resp B/P (MAP) Pulse Ox O2 Delivery O2 Flow Rate FiO2 05/07/21 14:14 16 94 05/07/21 13:32 Room Air 05/07/21 13:19 115 164/102 05/07/21 12:54 99.2 99.2 Labs Labs Laboratory Tests Test 05/07/21 13:00 05/07/21 13:21 White Blood Count 12.8 x10^3/uL (4.0-11.0) Red Blood Count 5.91 x10^6/uL (4.30-5.70) Hemoglobin 18.3 g/dL (13.0-17.5) Hematocrit 54.4 % (39.0-53.0) Mean Corpuscular Volume 92 fL (79-100) Mean Corpuscular Hemoglobin 31 pg (25-35) Mean Corpuscular Hemoglobin Concent 34 g/dL (31-37) Red Cell Distribution Width 13.1 % (11.5-14.5) Platelet Count 282 x10^3/uL (140-400) Neutrophils (%) (Auto) 88 % (31-73) Lymphocytes (%) (Auto) 8 % (24-48) Monocytes (%) (Auto) 4 % (0-9) Eosinophils (%) (Auto) 0 % (0-3) Basophils (%) (Auto) 0 % (0-3) Neutrophils # (Auto) 11.2 x10^3/uL (1.8-7.7) Lymphocytes # (Auto) 1.0 x10^3/uL (1.0-4.8) Monocytes # (Auto) 0.5 x10^3/uL (0.0-1.1) Eosinophils # (Auto) 0.0 x10^3/uL (0.0-0.7) Basophils # (Auto) 0.0 x10^3/uL (0.0-0.2) Sodium Level 135 mmol/L (136-145) Potassium Level 3.8 mmol/L (3.5-5.1) Chloride Level 94 mmol/L (98-107) Carbon Dioxide Level 29 mmol/L (21-32) Anion Gap 12 (6-14) Blood Urea Nitrogen 18 mg/dL (8-26) Creatinine 1.2 mg/dL (0.7-1.3) Estimated GFR (Cockcroft-Gault) 61.0 BUN/Creatinine Ratio 15 (6-20) Glucose Level 171 mg/dL (70-99) Lactic Acid Level 2.1 mmol/L (0.4-2.0) Calcium Level 10.2 mg/dL (8.5-10.1) Magnesium Level 1.9 mg/dL (1.8-2.4) Total Bilirubin 0.6 mg/dL (0.2-1.0) Aspartate Amino Transf (AST/SGOT) 28 U/L (15-37) Alanine Aminotransferase (ALT/SGPT) 26 U/L (16-63) Alkaline Phosphatase 124 U/L (46-116) Troponin I Quantitative < 0.017 ng/mL (0.000-0.055) KL-Hfq-S-Type Natriuretic Peptide 483 pg/mL (0-124) Total Protein 9.2 g/dL (6.4-8.2) Albumin 4.4 g/dL (3.4-5.0) Albumin/Globulin Ratio 0.9 (1.0-1.7) Lipase 100 U/L (73-393) Thyroid Stimulating Hormone (TSH) 0.202 uIU/mL (0.358-3.74) SARS-CoV-2 Antigen (Rapid) Negative (NEGATIVE) Laboratory Tests Test 05/07/21 13:00 05/07/21 13:21 White Blood Count 12.8 x10^3/uL (4.0-11.0) Red Blood Count 5.91 x10^6/uL (4.30-5.70) Hemoglobin 18.3 g/dL (13.0-17.5) Hematocrit 54.4 % (39.0-53.0) Mean Corpuscular Volume 92 fL (79-100) Mean Corpuscular Hemoglobin 31 pg (25-35) Mean Corpuscular Hemoglobin Concent 34 g/dL (31-37) Red Cell Distribution Width 13.1 % (11.5-14.5) Platelet Count 282 x10^3/uL (140-400) Neutrophils (%) (Auto) 88 % (31-73) Lymphocytes (%) (Auto) 8 % (24-48) Monocytes (%) (Auto) 4 % (0-9) Eosinophils (%) (Auto) 0 % (0-3) Basophils (%) (Auto) 0 % (0-3) Neutrophils # (Auto) 11.2 x10^3/uL (1.8-7.7) Lymphocytes # (Auto) 1.0 x10^3/uL (1.0-4.8) Monocytes # (Auto) 0.5 x10^3/uL (0.0-1.1) Eosinophils # (Auto) 0.0 x10^3/uL (0.0-0.7) Basophils # (Auto) 0.0 x10^3/uL (0.0-0.2) Sodium Level 135 mmol/L (136-145) Potassium Level 3.8 mmol/L (3.5-5.1) Chloride Level 94 mmol/L (98-107) Carbon Dioxide Level 29 mmol/L (21-32) Anion Gap 12 (6-14) Blood Urea Nitrogen 18 mg/dL (8-26) Creatinine 1.2 mg/dL (0.7-1.3) Estimated GFR (Cockcroft-Gault) 61.0 BUN/Creatinine Ratio 15 (6-20) Glucose Level 171 mg/dL (70-99) Lactic Acid Level 2.1 mmol/L (0.4-2.0) Calcium Level 10.2 mg/dL (8.5-10.1) Magnesium Level 1.9 mg/dL (1.8-2.4) Total Bilirubin 0.6 mg/dL (0.2-1.0) Aspartate Amino Transf (AST/SGOT) 28 U/L (15-37) Alanine Aminotransferase (ALT/SGPT) 26 U/L (16-63) Alkaline Phosphatase 124 U/L (46-116) Troponin I Quantitative < 0.017 ng/mL (0.000-0.055) MZ-Uax-D-Type Natriuretic Peptide 483 pg/mL (0-124) Total Protein 9.2 g/dL (6.4-8.2) Albumin 4.4 g/dL (3.4-5.0) Albumin/Globulin Ratio 0.9 (1.0-1.7) Lipase 100 U/L (73-393) Thyroid Stimulating Hormone (TSH) 0.202 uIU/mL (0.358-3.74) SARS-CoV-2 Antigen (Rapid) Negative (NEGATIVE) Images Images Chest radiograph: Heart size is normal. Prior median sternotomy noted. Postoperative changes to the cervical spine noted. No pneumothorax or pleural effusion is seen. No focal infiltrate is seen. Mild interstitial coarsening is similar. No acute osseous c hanges are identified. IMPRESSION: No radiographic evidence of acute cardiopulmonary process CT imaging of the chest was performed without the administration of contrast: Heart is normal in size. No pericardial effusion is seen.. No significant pericardial effusion is seen. No pathologic mediastinal adenopathy is identified. No focal consolidation or infiltrate is seen. No pneumothorax or pleural effusion is seen. No acute osseous abnormality is identified. Limited visualization of the upper abdomen demonstrates no acute abnormality. Impression: No evidence of acute cardiopulmonary process is identified. VTE Prophylaxis Ordered VTE Prophylaxis Devices: Contraindicated VTE Pharmacological Prophylaxi: Contraindicated Assessment/Plan Assessment/Plan A/P: Chest pain - likely GI (GERD), but is very high risk for cardiac vs recurrence of PE given his subtherapeutic INR. Telemetry, trend troponins. Cardiology consulted. Subtherapeutic INR - will cont warfarin 4mg Leukocytosis - may be due to hemoconcentration. Will monitor, no clear infectious source Hypercalcemia - likely due to hemoconcentration. Will monitor CAD s/p CABG - cont cardiac meds H/o PE on Coumadin - will continue until INR therapeutic COPD on 2L NC - will wean O2 as tolerated, nebs Smoker - counseled on cessation HTN - cont meds HLD - statin H/o testicular ca s/p right orchiectomy - stable Chronic diastolic heart failure - euvolemic or even hypovolemic currently. Will monitor fluid status Chronic back pain - on extended release morphine FEN - Cardiac PPX - SCDs FULL CODE Dispo - inpatient CVC at least 2 midnights Justifications for Admission Other Justification HIGINIO MEJÍA MD May 07, 2021 16:47
[2021-05-07 17:29] LABS: PROTHROMBIN TIME PATIENT 12.6 SEC (11.7-14.0)
[2021-05-07 17:55] VITALS: BP 141/79
[2021-05-07] MEDS ORDERED: WARFARIN 4 MG TABLET. PO SCH (18:00)
[2021-05-07] MEDS ORDERED: ALBUTEROL SULFATE 2.5 MG/3 ML NEBU. NEB PRN (18:30)
[2021-05-07 19:00] VITALS: BP 103/60
--- NOTE | 2021-05-07 19:35 | NUR ---
Pt in bed assessment completed vss poc explained pt c/o abd. pain will medicate pt and continue to monitor pt. Call light placed ion pt reach.
[2021-05-07] MEDS: BUDESONIDE 0.5 MG/2 ML NEBU. NEB SCH (20:00)
[2021-05-07] MEDS ORDERED: IPRATRPIUM/ALBUTEROL 0.5/2.5MG 3 ML NEBU. NEB SCH (20:00)
[2021-05-07] MEDS ORDERED: OMEP20TA63 PO (20:53)
[2021-05-07] MEDS ORDERED: WARF2TAB96 PO (20:53)
[2021-05-07] MEDS ORDERED: FURO-68 PO (20:56)
[2021-05-07] MEDS ORDERED: AMIT100T PO (20:57)
[2021-05-07] MEDS ORDERED: POTA-163 PO (20:57)
[2021-05-07] MEDS ORDERED: WARFARIN 2 MG TABLET. PO SCH (21:00)
[2021-05-07] MEDS ORDERED: ATORVASTATIN CALCIUM 40 MG TABLET. PO SCH (21:00)
[2021-05-07] MEDS ORDERED: MONTELUKAST SODIUM 10 MG TABLET. PO SCH (21:00)
[2021-05-07] MEDS ORDERED: ALBUTEROL SULFATE 8GM INHALER. INH PRN (21:00)
[2021-05-07] MEDS: FLUTICASONE/VILANTEROL 100/25 INHALER. INH SCH (21:57)
[2021-05-07] MEDS: PANTOPRAZOLE 40 MG TABLET.DR. PO SCH (21:59)
[2021-05-07] MEDS: oxyCODONE/APAP 10/325 1 TAB TABLET PO PRN (22:00)
[2021-05-07] MEDS: MORPHINE SULFATE 4 MG/ML INJ. IVP PRN (22:04)
[2021-05-07] MEDS: METOPROLOL TART IMMED RELEASE 50 MG TABLET. PO SCH (22:04)
[2021-05-07 23:32] VITALS: BP 113/62
[2021-05-08] MEDS: MORPHINE SULFATE 4 MG/ML INJ. IVP PRN ×2 (02:39→07:19)
[2021-05-08 02:54] VITALS: BP 96/61
[2021-05-08 05:36] LABS: BASO # 0.1 x10^3/uL (0.0-0.2); BASO % 1 % (0-3); EOS # 0.1 x10^3/uL (0.0-0.7); EOS % 2 % (0-3); HEMATOCRIT 42.4 % (39.0-53.0); LYMPH # 2.4 x10^3/uL (1.0-4.8); LYMPH % 30 % (24-48); MEAN CORPUSCULAR HEMOGLOBIN 31 pg (25-35); MEAN CORPUSCULAR HGB CONC 33 g/dL (31-37); MEAN CORPUSCULAR VOLUME 93 fL (79-100); MONO # 0.7 x10^3/uL (0.0-1.1); MONO % 9 % (0-9); NEUT # 4.7 x10^3/uL (1.8-7.7); NEUT % 59 % (31-73); PLATELET COUNT 198 x10^3/uL (140-400); RED BLOOD COUNT 4.55 x10^6/uL (4.30-5.70); RED CELL DISTRIBUTION WIDTH 13.4 % (11.5-14.5); WHITE BLOOD COUNT 7.9 x10^3/uL (4.0-11.0)
[2021-05-08] MEDS: PANTOPRAZOLE 40 MG TABLET.DR. PO SCH (06:01)
[2021-05-08 06:11] LABS: CALCIUM 8.8 mg/dL (8.5-10.1); CREATININE 0.9 mg/dL (0.7-1.3); POTASSIUM 3.5 mmol/L (3.5-5.1)
[2021-05-08 06:25] LABS: PROTHROMBIN TIME PATIENT 13.2 SEC (11.7-14.0)
[2021-05-08 07:00] VITALS: BP 100/52
[2021-05-08] MEDS: BUDESONIDE 0.5 MG/2 ML NEBU. NEB SCH (07:07)
[2021-05-08] MEDS ORDERED: ASPIRIN ENTERIC COATED 81 MG TABLET.DR. PO SCH (08:00)
[2021-05-08] MEDS ORDERED: ISOSORBIDE MONONITRATE ER 30 MG TAB.ER.24H PO SCH (08:00)
[2021-05-08] MEDS ORDERED: buPROPion XL 150 MG TAB.ER.24H. PO SCH (09:00)
[2021-05-08] MEDS: METOPROLOL TART IMMED RELEASE 50 MG TABLET. PO SCH (09:00)
[2021-05-08] MEDS: oxyCODONE/APAP 10/325 1 TAB TABLET PO PRN (09:14)
[2021-05-08] MEDS: FLUTICASONE/VILANTEROL 100/25 INHALER. INH SCH (09:14)
--- NOTE | 2021-05-08 09:23 | PDOC2 ---
FABIÁN CROW STOREROOM CLERK 05/08/21 0923: CARDIAC CONSULT DATE OF CONSULT Date of Consult DATE: 05/08/21 TIME: 09:05 REASON FOR CONSULT Reason for Consult: Chest pain REFERRING PHYSICIAN Referring Physician: Claudio SOURCE Source: Chart review, Patient HISTORY OF PRESENT ILLNESS HISTORY OF PRESENT ILLNESS This is a pleasant 65 yo male admitted for complains of chest pain. He has been having heartburn daily despite prilosec. Last night he stepped on his cat and fell and landed on his bottom. After which he had his chest pain which he described as sharp to midchest and then went up to the base of his left neck. He does have hx of cervical surgery. No SOA but he did have some vomiting and diarrheal episode. No fever or chills and he has been vaccinated for covid-19. Upon admission his BP was noted to be high. He took 2 NTG at home. Currently denies any symptoms. PAST MEDICAL HISTORY Cardiovascular: CAD, HTN, Hyperlipidemia Pulmonary: COPD, Pulmonary embolus (2005) CENTRAL NERVOUS SYSTEM: Other (No pertinent history) GI: GERD Heme/Onc: Cancer (testicular) Hepatobiliary: No pertinent hx Psych: No pertinent hx Musculoskeletal: Osteoarthritis Rheumatologic: No pertinent hx Infectious disease: No pertinent hx Renal/: No pertinent hx Endocrine: Hyperparathyroidism Dermatology: No pertinent hx PAST SURGICAL HISTORY Past Surgical History: CABG, Other (TMJ repair, right orchiectomy) FAMILY HISTORY Family History: Coronary Artery Disease SOCIAL HISTORY Smoke: <1 pack per day ALCOHOL: none Drugs: None Lives: with Family CURRENT MEDICATIONS CURRENT MEDICATIONS Current Medications Medications (Trade) Dose Ordered Sig/Adan Route PRN Reason Start Time Stop Time Status Last Admin Dose Admin Aspirin (Aspirin Chewable) 324 mg 1X ONCE PO 05/07/21 13:15 05/07/21 13:16 DC 05/07/21 13:19 Nitroglycerin (Nitrostat) 0.4 mg PRN Q5MIN PRN SL CHEST PAIN 05/07/21 13:15 05/07/21 13:19 Morphine Sulfate (Morphine Sulfate) 4 mg 1X ONCE IVP 05/07/21 13:30 05/07/21 13:31 DC 05/07/21 13:32 Ondansetron HCl (Zofran) 4 mg 1X ONCE IVP 05/07/21 13:30 05/07/21 13:31 DC 05/07/21 13:34 Morphine Sulfate (Morphine Sulfate) 4 mg 1X ONCE IVP 05/07/21 14:00 05/07/21 14:01 DC 05/07/21 14:14 Sodium Chloride 1,000 ml @ 1,000 mls/hr 1X ONCE IV 05/07/21 14:45 05/07/21 15:44 DC 05/07/21 14:45 Metoprolol Tartrate (Lopressor) 50 mg BID PO 05/07/21 21:00 05/07/21 22:04 Montelukast Sodium (Singulair) 10 mg QHS PO 05/07/21 21:00 05/07/21 21:59 Pantoprazole Sodium (Protonix) 40 mg BIDAC PO 05/07/21 21:00 05/08/21 06:01 Atorvastatin Calcium (Lipitor) 40 mg QHS PO 05/07/21 21:00 05/07/21 21:58 Morphine Sulfate (Morphine Sulfate) 4 mg PRN Q3HRS PRN IVP SEVERE PAIN 7-10 05/07/21 17:15 05/08/21 07:19 Oxycodone/ Acetaminophen (Percocet 10/325) 1 tab PRN Q8HRS PRN PO PAIN 05/07/21 17:15 05/07/21 22:00 Warfarin Sodium (Coumadin Per Physician) 1 each PRN DAILY PRN MC SEE COMMENTS 05/07/21 18:00 05/08/21 07:54 Fluticasone/ Vilanterol (Breo Ellipta 100-25 Mcg) 1 puff DAILY INH 05/07/21 21:00 05/07/21 21:57 Warfarin Sodium (Coumadin) 2 mg DAILY16 PO 05/07/21 21:00 05/08/21 07:50 DC 05/07/21 21:58 ALLERGIES ALLERGIES: Coded Allergies: Iodinated Contrast Media (Verified Allergy, Intermediate, 03/07/14) ketorolac (Verified Allergy, Intermediate, GI, 12/01/14) tramadol (Verified Allergy, Intermediate, 11/11/15) tolerates oxycodone and morphine venom-honey bee (Verified Allergy, Intermediate, 03/07/14) NSAIDS (Non-Steroidal Anti-Inflamma (Verified Adverse Reaction, Intermediate, GI, 10/09/18) ROS Review of System 14 point ROS evaluated with pertinent positives noted per HPI PHYSICAL EXAM General: Alert, Oriented X3, Cooperative, No acute distress HEENT: Atraumatic, Mucous membr. moist/pink Lungs: Clear to auscultation, Normal air movement Heart: Regular rate (SR/SB), Normal S1, Normal S2, No murmurs Abdomen: Soft, No tenderness Extremities: No cyanosis, No edema Skin: No breakdown, No significant lesion Neuro: Normal speech, Sensation intact Psych/Mental Status: Mental status NL, Mood NL MUSCULOSKELETAL: Osteoarthritic changes both hands VITALS/I&O VITALS/I&O: Vital Signs Date Time Temp Pulse Resp B/P (MAP) Pulse Ox O2 Delivery O2 Flow Rate FiO2 05/08/21 07:49 96 Room Air 05/08/21 07:19 16 05/08/21 07:00 97.7 63 100/52 (68) 97.7 I & O 05/07/21 05/07/21 05/08/21 15:00 23:00 07:00 Intake Total 100 ml Output Total 200 ml Balance -100 ml LABS Lab: Laboratory Tests Test 05/07/21 13:00 05/07/21 13:21 05/07/21 17:14 05/07/21 19:30 White Blood Count 12.8 x10^3/uL (4.0-11.0) H Red Blood Count 5.91 x10^6/uL (4.30-5.70) H Hemoglobin 18.3 g/dL (13.0-17.5) H Hematocrit 54.4 % (39.0-53.0) H Mean Corpuscular Volume 92 fL (79-100) Mean Corpuscular Hemoglobin 31 pg (25-35) Mean Corpuscular Hemoglobin Concent 34 g/dL (31-37) Red Cell Distribution Width 13.1 % (11.5-14.5) Platelet Count 282 x10^3/uL (140-400) Neutrophils (%) (Auto) 88 % (31-73) H Lymphocytes (%) (Auto) 8 % (24-48) L Monocytes (%) (Auto) 4 % (0-9) Eosinophils (%) (Auto) 0 % (0-3) Basophils (%) (Auto) 0 % (0-3) Neutrophils # (Auto) 11.2 x10^3/uL (1.8-7.7) H Lymphocytes # (Auto) 1.0 x10^3/uL (1.0-4.8) Monocytes # (Auto) 0.5 x10^3/uL (0.0-1.1) Eosinophils # (Auto) 0.0 x10^3/uL (0.0-0.7) Basophils # (Auto) 0.0 x10^3/uL (0.0-0.2) Prothrombin Time 12.6 SEC (11.7-14.0) Prothrombin Time INR 0.9 (0.8-1.1) Sodium Level 135 mmol/L (136-145) L Potassium Level 3.8 mmol/L (3.5-5.1) Chloride Level 94 mmol/L (98-107) L Carbon Dioxide Level 29 mmol/L (21-32) Anion Gap 12 (6-14) Blood Urea Nitrogen 18 mg/dL (8-26) Creatinine 1.2 mg/dL (0.7-1.3) Estimated GFR (Cockcroft-Gault) 61.0 BUN/Creatinine Ratio 15 (6-20) Glucose Level 171 mg/dL (70-99) H Lactic Acid Level 2.1 mmol/L (0.4-2.0) H 1.0 mmol/L (0.4-2.0) Calcium Level 10.2 mg/dL (8.5-10.1) H Magnesium Level 1.9 mg/dL (1.8-2.4) Total Bilirubin 0.6 mg/dL (0.2-1.0) Aspartate Amino Transferase (AST) 28 U/L (15-37) Alanine Aminotransferase (ALT) 26 U/L (16-63) Alkaline Phosphatase 124 U/L (46-116) H Troponin I Quantitative < 0.017 ng/mL (0.000-0.055) 0.020 ng/mL (0.000-0.055) 0.027 ng/mL (0.000-0.055) UW-Lfn-P-Type Natriuretic Peptide 483 pg/mL (0-124) H Total Protein 9.2 g/dL (6.4-8.2) H Albumin 4.4 g/dL (3.4-5.0) Albumin/Globulin Ratio 0.9 (1.0-1.7) L Lipase 100 U/L (73-393) Thyroid Stimulating Hormone (TSH) 0.202 uIU/mL (0.358-3.74) L SARS-CoV-2 Antigen (Rapid) Negative (NEGATIVE) Test 05/07/21 22:45 05/08/21 04:40 Troponin I Quantitative 0.028 ng/mL (0.000-0.055) White Blood Count 7.9 x10^3/uL (4.0-11.0) Red Blood Count 4.55 x10^6/uL (4.30-5.70) Hemoglobin 14.0 g/dL (13.0-17.5) Hematocrit 42.4 % (39.0-53.0) Mean Corpuscular Volume 93 fL (79-100) Mean Corpuscular Hemoglobin 31 pg (25-35) Mean Corpuscular Hemoglobin Concent 33 g/dL (31-37) Red Cell Distribution Width 13.4 % (11.5-14.5) Platelet Count 198 x10^3/uL (140-400) Neutrophils (%) (Auto) 59 % (31-73) Lymphocytes (%) (Auto) 30 % (24-48) Monocytes (%) (Auto) 9 % (0-9) Eosinophils (%) (Auto) 2 % (0-3) Basophils (%) (Auto) 1 % (0-3) Neutrophils # (Auto) 4.7 x10^3/uL (1.8-7.7) Lymphocytes # (Auto) 2.4 x10^3/uL (1.0-4.8) Monocytes # (Auto) 0.7 x10^3/uL (0.0-1.1) Eosinophils # (Auto) 0.1 x10^3/uL (0.0-0.7) Basophils # (Auto) 0.1 x10^3/uL (0.0-0.2) Prothrombin Time 13.2 SEC (11.7-14.0) Prothrombin Time INR 1.0 (0.8-1.1) Sodium Level 136 mmol/L (136-145) Potassium Level 3.5 mmol/L (3.5-5.1) Chloride Level 100 mmol/L (98-107) Carbon Dioxide Level 30 mmol/L (21-32) Anion Gap 6 (6-14) Blood Urea Nitrogen 17 mg/dL (8-26) Creatinine 0.9 mg/dL (0.7-1.3) Estimated GFR (Cockcroft-Gault) 85.0 Glucose Level 90 mg/dL (70-99) Calcium Level 8.8 mg/dL (8.5-10.1) Laboratory Tests 05/07/21 13:00 05/08/21 04:40 Laboratory Tests 05/07/21 13:00 05/08/21 04:40 ASSESSMENT/PLAN ASSESSMENT/PLAN 1. Atypical chest pain 2. CAD: past CABG and stents 3. HTN urgency: better 4. HLP 5. COPD: recently quit tobacco 6. Hx of PE: on coumadin. INR 1 7. Vomiting/diarrhea: 4 bouts of diarrhea 8. PUI Recommendations 1. Repeat trop. TTE if no significant changes then will plan for outpt ischemic w/u 2. Continue secondary prevention measures 3. Restart home PPI OSVALDO SERNA MD 05/08/21 1420: CARDIAC CONSULT ASSESSMENT/PLAN ASSESSMENT/PLAN Patient seen and examined. Agree with PATIENT FINANCIAL SPECIALIST's assessment and plan. Chest pain with atypical features. Myocardial infarction has been ruled out. Agree with 2D echo to assess LV systolic function and rule out wall motion abnormalities. Plan ischemic evaluation as an outpatient. Blood pressure better controlled since admission. Thank you for your consultation. FABIÁN CROW APRN May 08, 2021 09:23 OSVALDO SERNA MD May 08, 2021 14:20
[2021-05-08 09:26] LABS: CHOLESTEROL/HDL RATIO 4.3
--- NOTE | 2021-05-08 11:28 | PDOC ---
[employer] PROGRESS NOTE Date of Service DOS: DATE: 05/08/21 TIME: 11:27 Chief Complaint Chief Complaint Chest pain History of coronary artery bypass grafting History of PE Chronic anticoagulation Chronic pain CAD, CHF, HTN, Hyperlipidemia COPD GERD Depression Osteoarthritis History of cancer History of Present Illness History of Present Illness 05/08/2021 Patient seen and examined [place] discussed with RN Chart reviewed He keeps asking for pain medication? (Wants OxyContin MS Contin and IV morphine all 3) Vitals/I&O Vitals/I&O: Vital Signs Date Time Temp Pulse Resp B/P (MAP) Pulse Ox O2 Delivery O2 Flow Rate FiO2 05/08/21 09:44 96 Room Air 05/08/21 09:00 55 100/52 05/08/21 07:19 16 05/08/21 07:00 97.7 97.7 I & O 05/07/21 05/07/21 05/08/21 15:00 23:00 07:00 Intake Total 100 ml Output Total 200 ml Balance -100 ml Physical Exam General: Alert, Oriented X3, Cooperative, No acute distress Heart: Regular rate (SR/SB), Normal S1, Normal S2, No murmurs Lungs: Clear, Other Abdomen: Soft, No tenderness Extremities: No cyanosis, No edema Skin: No breakdown, No significant lesion Labs Labs: Laboratory Tests Test 05/07/21 13:00 05/07/21 13:21 05/07/21 17:14 05/07/21 19:30 White Blood Count 12.8 x10^3/uL (4.0-11.0) Red Blood Count 5.91 x10^6/uL (4.30-5.70) Hemoglobin 18.3 g/dL (13.0-17.5) Hematocrit 54.4 % (39.0-53.0) Mean Corpuscular Volume 92 fL (79-100) Mean Corpuscular Hemoglobin 31 pg (25-35) Mean Corpuscular Hemoglobin Concent 34 g/dL (31-37) Red Cell Distribution Width 13.1 % (11.5-14.5) Platelet Count 282 x10^3/uL (140-400) Neutrophils (%) (Auto) 88 % (31-73) Lymphocytes (%) (Auto) 8 % (24-48) Monocytes (%) (Auto) 4 % (0-9) Eosinophils (%) (Auto) 0 % (0-3) Basophils (%) (Auto) 0 % (0-3) Neutrophils # (Auto) 11.2 x10^3/uL (1.8-7.7) Lymphocytes # (Auto) 1.0 x10^3/uL (1.0-4.8) Monocytes # (Auto) 0.5 x10^3/uL (0.0-1.1) Eosinophils # (Auto) 0.0 x10^3/uL (0.0-0.7) Basophils # (Auto) 0.0 x10^3/uL (0.0-0.2) Prothrombin Time 12.6 SEC (11.7-14.0) Prothromb Time International Ratio 0.9 (0.8-1.1) Sodium Level 135 mmol/L (136-145) Potassium Level 3.8 mmol/L (3.5-5.1) Chloride Level 94 mmol/L (98-107) Carbon Dioxide Level 29 mmol/L (21-32) Anion Gap 12 (6-14) Blood Urea Nitrogen 18 mg/dL (8-26) Creatinine 1.2 mg/dL (0.7-1.3) Estimated GFR (Cockcroft-Gault) 61.0 BUN/Creatinine Ratio 15 (6-20) Glucose Level 171 mg/dL (70-99) Lactic Acid Level 2.1 mmol/L (0.4-2.0) 1.0 mmol/L (0.4-2.0) Calcium Level 10.2 mg/dL (8.5-10.1) Magnesium Level 1.9 mg/dL (1.8-2.4) Total Bilirubin 0.6 mg/dL (0.2-1.0) Aspartate Amino Transf (AST/SGOT) 28 U/L (15-37) Alanine Aminotransferase (ALT/SGPT) 26 U/L (16-63) Alkaline Phosphatase 124 U/L (46-116) Troponin I Quantitative < 0.017 ng/mL (0.000-0.055) 0.020 ng/mL (0.000-0.055) 0.027 ng/mL (0.000-0.055) TW-Ufa-Z-Type Natriuretic Peptide 483 pg/mL (0-124) Total Protein 9.2 g/dL (6.4-8.2) Albumin 4.4 g/dL (3.4-5.0) Albumin/Globulin Ratio 0.9 (1.0-1.7) Lipase 100 U/L (73-393) Thyroid Stimulating Hormone (TSH) 0.202 uIU/mL (0.358-3.74) SARS-CoV-2 RNA (BRE) Negative (Negative) SARS-CoV-2 Antigen (Rapid) Negative (NEGATIVE) Test 05/07/21 22:45 05/08/21 04:40 Troponin I Quantitative 0.028 ng/mL (0.000-0.055) 0.025 ng/mL (0.000-0.055) White Blood Count 7.9 x10^3/uL (4.0-11.0) Red Blood Count 4.55 x10^6/uL (4.30-5.70) Hemoglobin 14.0 g/dL (13.0-17.5) Hematocrit 42.4 % (39.0-53.0) Mean Corpuscular Volume 93 fL (79-100) Mean Corpuscular Hemoglobin 31 pg (25-35) Mean Corpuscular Hemoglobin Concent 33 g/dL (31-37) Red Cell Distribution Width 13.4 % (11.5-14.5) Platelet Count 198 x10^3/uL (140-400) Neutrophils (%) (Auto) 59 % (31-73) Lymphocytes (%) (Auto) 30 % (24-48) Monocytes (%) (Auto) 9 % (0-9) Eosinophils (%) (Auto) 2 % (0-3) Basophils (%) (Auto) 1 % (0-3) Neutrophils # (Auto) 4.7 x10^3/uL (1.8-7.7) Lymphocytes # (Auto) 2.4 x10^3/uL (1.0-4.8) Monocytes # (Auto) 0.7 x10^3/uL (0.0-1.1) Eosinophils # (Auto) 0.1 x10^3/uL (0.0-0.7) Basophils # (Auto) 0.1 x10^3/uL (0.0-0.2) Prothrombin Time 13.2 SEC (11.7-14.0) Prothromb Time International Ratio 1.0 (0.8-1.1) Sodium Level 136 mmol/L (136-145) Potassium Level 3.5 mmol/L (3.5-5.1) Chloride Level 100 mmol/L (98-107) Carbon Dioxide Level 30 mmol/L (21-32) Anion Gap 6 (6-14) Blood Urea Nitrogen 17 mg/dL (8-26) Creatinine 0.9 mg/dL (0.7-1.3) Estimated GFR (Cockcroft-Gault) 85.0 Glucose Level 90 mg/dL (70-99) Calcium Level 8.8 mg/dL (8.5-10.1) Triglycerides Level 161 mg/dL (0-150) Cholesterol Level 116 mg/dL (0-200) LDL Cholesterol, Calculated 57 mg/dL (0-100) VLDL Cholesterol, Calculated 32 mg/dL (0-40) Non-HDL Cholesterol Calculated 89 mg/dL (0-129) HDL Cholesterol 27 mg/dL (40-60) Cholesterol/HDL Ratio 4.3 Assessment and Plan Assessmemt and Plan Problems Medical Problems: (1) Chest pain Status: Acute (2) Coronary artery disease Status: Acute (3) Elevated lactic acid level Status: Acute (4) History of fever Status: Acute Chest pain History of coronary artery bypass grafting History of PE Chronic anticoagulation Chronic pain CAD, CHF, HTN, Hyperlipidemia COPD GERD Depression Osteoarthritis History of cancer Plan Cardiac monitoring Serial enzymes Serial EKGs Echocardiogram Consult cardiology Home meds DVT prophylaxis Full code Discharge when okay with cardiology if work-up is negative Comment Review of Relevant I have reviewed the following items arya (where applicable) has been applied. Medications: Current Medications Medications (Trade) Dose Ordered Sig/Adan Route PRN Reason Start Time Stop Time Status Last Admin Dose Admin Aspirin (Aspirin Chewable) 324 mg 1X ONCE PO 05/07/21 13:15 05/07/21 13:16 DC 05/07/21 13:19 Nitroglycerin (Nitrostat) 0.4 mg PRN Q5MIN PRN SL CHEST PAIN 05/07/21 13:15 05/07/21 13:19 Morphine Sulfate (Morphine Sulfate) 4 mg 1X ONCE IVP 05/07/21 13:30 05/07/21 13:31 DC 05/07/21 13:32 Ondansetron HCl (Zofran) 4 mg 1X ONCE IVP 05/07/21 13:30 05/07/21 13:31 DC 05/07/21 13:34 Morphine Sulfate (Morphine Sulfate) 4 mg 1X ONCE IVP 05/07/21 14:00 05/07/21 14:01 DC 05/07/21 14:14 Sodium Chloride 1,000 ml @ 1,000 mls/hr 1X ONCE IV 05/07/21 14:45 05/07/21 15:44 DC 05/07/21 14:45 Bupropion HCl (Wellbutrin Xl) 150 mg DAILY PO 05/08/21 09:00 05/08/21 09:14 Metoprolol Tartrate (Lopressor) 50 mg BID PO 05/07/21 21:00 05/07/21 22:04 Montelukast Sodium (Singulair) 10 mg QHS PO 05/07/21 21:00 05/07/21 21:59 Pantoprazole Sodium (Protonix) 40 mg BIDAC PO 05/07/21 21:00 05/08/21 06:01 Atorvastatin Calcium (Lipitor) 40 mg QHS PO 05/07/21 21:00 05/07/21 21:58 Aspirin (Ecotrin) 81 mg DAILYWBKFT PO 05/08/21 08:00 05/08/21 09:14 Morphine Sulfate (Morphine Sulfate) 4 mg PRN Q3HRS PRN IVP SEVERE PAIN 7-10 05/07/21 17:15 05/08/21 07:19 Oxycodone/ Acetaminophen (Percocet 10/325) 1 tab PRN Q8HRS PRN PO PAIN 05/07/21 17:15 05/08/21 09:14 Warfarin Sodium (Coumadin Per Physician) 1 each PRN DAILY PRN MC SEE COMMENTS 05/07/21 18:00 05/08/21 07:54 Fluticasone/ Vilanterol (Breo Ellipta 100-25 Mcg) 1 puff DAILY INH 05/07/21 21:00 05/08/21 09:14 Warfarin Sodium (Coumadin) 2 mg DAILY16 PO 05/07/21 21:00 05/08/21 07:50 DC 05/07/21 21:58 Justifications for Admission Other Justification TRENT MASTERS III DO May 08, 2021 11:28
[2021-05-08] MEDS ORDERED: NITR0.4T24 SL (11:32)
[2021-05-08] MEDS ORDERED: MORP15TA80 PO (11:32)
[2021-05-08] MEDS ORDERED: OXYC1TAB20 PO (11:32)
[2021-05-08] MEDS ORDERED: BUDE0.5A NEB (11:32)
[2021-05-08] MEDS ORDERED: OMEPRAZOLE MAGNESIUM PO SCH (12:00)
[2021-05-08] MEDS ORDERED: diazePAM 5 MG TABLET PO PRN (12:15)
--- NOTE | 2021-05-08 12:54 | CARD ---
MR#: [id number] Date of Study: 05/08/2021 Ordering Physician: FABIÁN CROW, Referring Physician: FABIÁN CROW, Tech: Yanique Patino [facility] APPROVED REPORT EXAM: Two-dimensional and M-mode echocardiogram with Doppler and color Doppler. Other Information Quality : AverageHR: 66bpm Technically limited study due to body habitus. INDICATION COPD Aortic Valve Disease Cardiac Disease: CAD Chest Pain Surgery/Intervention CABG: Date: 2005 Site: [place] RISK FACTORS Hypertension Hyperlipidemia 2D DIMENSIONS RVDd3.3 (2.9-3.5cm)Left Atrium(2D)3.7 (1.6-4.0cm) IVSd1.1 (0.7-1.1cm)Aortic Root(2D)3.0 (2.0-3.7cm) LVDd5.2 (3.9-5.9cm)LVOT Diameter2.0 (1.8-2.4cm) PWd1.1 (0.7-1.1cm)LVDs1.9 (2.5-4.0cm) FS (%) 63.5 %SV119.6 ml LVEF(%)61.4 (>50%) Aortic Valve AoV Peak Andrés.189.9cm/sAoV VTI40.3cm AO Peak GR.14.4mmHgLVOT Peak Andrés.146.9cm/s LVOT VTI 32.45cmAO Mean GR.8mmHg KHOI (VMAX)1.49lg3TNH (VTI)2.59cm2 Mitral Valve MV E Obtfofsl964.6cm/sMV DECEL SHCC352se MV A Tpgxyxlu510.6cm/sMV E Mean Gr.2mmHg MV WZG65opJ/A Ratio1.0 MVA (PHT)3.25cm2 TDI E/Lateral E'8.9E/Medial E'9.6 Pulmonary Valve PV Peak Dgamqqcy985.7cm/sPV Peak Grad.4mmHg Tricuspid Valve TR P. Eunxbxst008kp/sRAP UTUVGQHA5bmRo TR Peak Gr.75bfIpECHA10afKp Pulmonary Vein S1 Elyhmhkf69.1cm/sD2 Uvtydtgm70.9cm/s PVa nrgwpknh320pmoo LEFT VENTRICLE The left ventricle is normal size. There is mild concentric left ventricular hypertrophy. The left ve ntricular systolic function is normal and the ejection fraction is within normal range. The Ejection Fraction is 55-60%. Septal motion consistent with conduction abnormality/prior CABG. Otherwise, gross ly normal wall motion. Technically limited images. Transmitral Doppler flow pattern is Grade II-pseud onormal filling dynamics. RIGHT VENTRICLE The right ventricle is mildly dilated. There is normal right ventricular wall thickness. The right ve ntricular systolic function is normal. ATRIA The left atrium size is normal. The right atrium size is normal. The interatrial septum is intact wit h no evidence for an atrial septal defect or patent foramen ovale as noted on 2-D or Doppler imaging. AORTIC VALVE The aortic valve is mildly to moderately calciified with restricted leaflet motion. Doppler and Color Flow revealed trace aortic regurgitation. Calculated aortic valve area is 2.02 cm2 with maximum pres sure gradient of 21 mmHg and mean pressure gradient of 10 mmHg. There is an appearance of mild aortic stenosis. MITRAL VALVE The mitral valve is normal in structure and function. Mitral annular calcification is mild. There is no evidence of mitral valve prolapse. There is no mitral valve stenosis. Doppler and Color-flow revea led trace mitral regurgitation. TRICUSPID VALVE The tricuspid valve is normal in structure and function. Doppler and Color Flow revealed trace tricus pid regurgitation with an estimated PAP of 37 mmHg. There is no tricuspid valve stenosis. PULMONIC VALVE The pulmonic valve is not well visualized. Doppler and Color Flow revealed trace pulmonic valvular re gurgitation. There is no pulmonic valvular stenosis. GREAT VESSELS The aortic root is normal in size. The ascending aorta is mildly dilated measuring 3.5 cm. The IVC is normal in size and collapses >50% with inspiration. PERICARDIAL EFFUSION There is no evidence of significant pericardial effusion. Critical Notification Critical Value: No <Conclusion> The left ventricular systolic function is normal and the ejection fraction is within normal range. Th e Ejection Fraction is 55-60%. Septal motion consistent with conduction abnormality/prior CABG. Otherwise, grossly normal wall motio n. Technically limited images. The right ventricle is mildly dilated. Calculated aortic valve area is 2.02 cm2 with maximum pressure gradient of 21 mmHg and mean pressure gradient of 10 mmHg. There is an appearance of mild aortic stenosis. The ascending aorta is mildly dilated measuring 3.5 cm. Signed by : Yandel Marsh, Electronically Approved : 05/08/2021 12:53:55
[2021-05-08 15:00] VITALS: BP 137/67
--- NOTE | 2021-05-08 15:17 | NUR ---
SS following for discharge planning. SS reviewed pt chart and discussed with pt RN. Pt is from home with spouse and is currently on room air. COVID19 negative. Discharge order on the chart for home with self care.
[2021-05-08] MEDS ORDERED: WARFARIN 4 MG TABLET. PO SCH (16:00)
--- NOTE | 2021-05-08 16:45 | NUR ---
Discharge Note: JOHN AVILA [facility] [facility] Discharge instructions and discharge home medications reviewed with Patient and a copy given. All questions have been answered and understanding verbalized. The following instructions and handouts were given: chest pain IV's discontinued, no complications. Patient discharged to home with self care. All belongings taken home with patient.
[2021-05-09] MEDS ORDERED: PANTOPRAZOLE 40 MG TABLET.DR. PO SCH (07:30)
== END 2021-05-08 16:15 | disposition home or self-care (01) ==
LOC: ER 12:51 → 6 SOUTH 19:42
PROVIDERS: ADMIT Internal Medicine; ATTEND Internal Medicine
DX: R07.89 Other chest pain (principal); Z20.822 Contact with and (suspected) exposure to COVID-19; I25.10 Atherosclerotic heart disease of native coronary artery without angina pectoris; D72.829 Elevated white blood cell count, unspecified; E83.52 Hypercalcemia; I11.0 Hypertensive heart disease with heart failure; I50.32 Chronic diastolic (congestive) heart failure; J44.9 Chronic obstructive pulmonary disease, unspecified; E78.5 Hyperlipidemia, unspecified; R79.1 Abnormal coagulation profile; M54.9 Dorsalgia, unspecified; G89.29 Other chronic pain; R74.02 Elevation of levels of lactic acid dehydrogenase [LDH]; C62.90 Malignant neoplasm of unspecified testis, unspecified whether descended or undescended; E78.00 Pure hypercholesterolemia, unspecified; I16.0 Hypertensive urgency; I25.2 Old myocardial infarction; K21.9 Gastro-esophageal reflux disease without esophagitis; M19.90 Unspecified osteoarthritis, unspecified site; F17.210 Nicotine dependence, cigarettes, uncomplicated; F32.A Depression, unspecified; Z86.711 Personal history of pulmonary embolism; Z95.1 Presence of aortocoronary bypass graft; Z79.899 Other long term (current) drug therapy; Z98.890 Other specified postprocedural states; Z79.01 Long term (current) use of anticoagulants; Z85.47 Personal history of malignant neoplasm of testis; Z95.5 Presence of coronary angioplasty implant and graft; W19.XXXA Unspecified fall, initial encounter; Y92.89 Other specified places as the place of occurrence of the external cause; Y93.89 Activity, other specified; Y99.8 Other external cause status
CPT/HCPCS: 36415; 71045; 71250; 80048; 80053; 80061; 83605; 83690; 83735; 83880; 84443; 84484; 85025; 85610; 87040; 87426; 93005; 93306; 96374; 96375; 96376; 99285; G0378; J2270; J2405; J7030; U0003; U0005; G0379

== ENCOUNTER 2021-07-08 19:39 | Observation (INO) | payer OTHER, MEDICARE ==
[~2021-07-08] VITALS: Ht 172.7 cm; Wt 99.1 kg
[~2021-07-08 19:39] MED LIST changes: +BUDE0.5A NEB; +NITR0.4T24 SL; +POTA-163 PO; +WARF2TAB96 PO
--- NOTE | 2021-07-08 20:28 | PHYS DOC ---
Past Medical History Past Medical History: CAD, Cancer, COPD, High Cholesterol, Heart Disease, Hypertension, SC, Other Additional Past Medical Histor: TESTICLE CANCER, chronic back pain, PE, aortic aneurysm Past Surgical History: Coronary Bypass Surgery, Other Additional Past Surgical Histo: ORECECTOMY,BACK, JAW, cardiac stents Smoking Status: Former Smoker Alcohol Use: None Drug Use: None General Adult HPI: HPI: Patient is a 66 year old male here with chest pain since this morning. The pain is been constant, radiates to his back. The pain is sharp, and he also describes pressure. He reports having a "cold." He reports some nasal congestion and cough with clear sputum. He denies hemoptysis. He denies fevers or chills. He reports mild dyspnea. He denies abdominal pain. He reports mild nausea, no vomiting. He reports mild dizziness. No syncope or near syncope. No exertional pain. He reports being fully vaccinated against Covid. He denies recent travel, surgery, hospitalization. 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 He took multiple doses of aspirin at home, he indicates that he took around 8 tablets of aspirin at home in total today. He took 4 sublingual nitroglycerin, and he reports very little relief in his chest pain after the nitroglycerin. He reports being compliant with all of his antihypertensive medications. He was recently taken off of his oral opioid medication, and he is supposed to see pain management. He has previously taken scheduled oral morphine and oxycodone. He is frustrated about this. Review of Systems: Review of Systems: Constitutional: Denies fever or chills. [] Eyes: Denies change in visual acuity. [] HENT: Nasal congestion. Denies sore throat Respiratory: Cough, dyspnea Cardiovascular: Chest pain. No peripheral edema. GI: Denies abdominal pain, nausea, vomiting Musculoskeletal: Denies back pain or joint pain. [] Integument: Denies rash. [] Neurologic: Denies headache, focal weakness or sensory changes. [] Psychiatric: Denies depression or anxiety. [] Heart Score: C/O Chest Pain: Yes HEART Score for Chest Pain: HEART Score for Chest Pain Response (Comments) Value History Moderately Suspicious 1 ECG Nonspecific Repolarizatio 1 Age > 65 2 Risk Factors >3 Risk Factors or Hx CAD 2 Total 6 Risk Factors: Risk Factors: DM, Current or recent (<one month) smoker, HTN, HLP, family history of CAD, obesity. Risk Scores: Score 0 - 3: 2.5% MACE over next 6 weeks - Discharge Home Score 4 - 6: 20.3% MACE over next 6 weeks - Admit for Clinical Observation Score 7 - 10: 72.7% MACE over next 6 weeks - Early Invasive Strategies Allergies: Allergies: Allergies Coded Allergies Type Severity Reaction Last Updated Verified Iodinated Contrast Media Allergy Intermediate 03/07/14 Yes ketorolac Allergy Intermediate GI 12/01/14 Yes tramadol Allergy Intermediate 11/11/15 Yes venom-honey bee Allergy Intermediate 03/07/14 Yes NSAIDS (Non-Steroidal Anti-Inflamma Adverse Reaction Intermediate GI 10/09/18 Yes Physical Exam: PE: Constitutional: Well developed, well nourished, no acute distress, non-toxic appearance. [] HENT: Normocephalic, atraumatic Eyes: Sclera are clear and anicteric Neck: Trachea is midline, no JVD, neck is supple and nontender Cardiovascular:Heart rate regular rhythm, +2 radial and +2 posterior tibial pulses bilaterally Lungs & Thorax: Diminished breath sounds in bilateral bases. Fine rales bilateral bases noted. Mid and upper lung kent are clear to auscultation bilaterally. No evidence of distress. No wheezing, no stridor. Speaks in full and clear sentences. Abdomen: Abdomen is obese, soft, nondistended and nontender to palpation Skin: Warm, dry, no erythema, no rash. [] Back: No tenderness, no CVA tenderness. [] Extremities: No tenderness, no cyanosis, no clubbing, ROM intact, no edema. No calf tenderness. Neurologic: Alert and oriented X 3, normal motor function, normal sensory function, no focal deficits noted. [] Psychologic: Affect normal, judgement normal, mood normal. [] EKG: EKG: EKG is interpreted at 2030 Rhythm is sinus tachycardia Rate is 115 bpm No STEMI Radiology/Procedures: Radiology/Procedures: [] Course & Med Decision Making: Course & Med Decision Making Pertinent Labs and Imaging studies reviewed. (See chart for details) The patient is given topical Nitropaste. He is given multiple doses of IV morphine, as well as IV Dilaudid for pain. No aspirin will be given since he already took more than a therapeutic dose prior to arrival. His blood pressure still markedly elevated, came he is complaining of continued pain. He is given a dose of IV labetalol. Blood pressure is markedly improved and stable. Heart rate is stable as well. I have discussed the findings, differential diagnosis and plan of care with the patient. I do recommend mission to the hospital. He should see cardiology services. I do suspect there may be a component of underlying chronic opioid dependence and chronic generalized musculoskeletal pain, though with his past medical history and cardiac history, he warrants further evaluation. He is accepted for admission by Dr. Villela. Porsche Disclaimer: Porsche Disclaimer: This electronic medical record was generated, in whole or in part, using a voice recognition dictation system. Departure Departure Impression: Primary Impression: Chest pain Additional Impressions: Coronary artery disease Hypertensive emergency Disposition: 09 ADMITTED INPATIENT Admitting Physician: AMBIKA Condition: STABLE (Dr. Villela) Referrals: YUE OZUNA-Alma (PCP) AGUSTÍN MCDERMOTT DO Jul 08, 2021 20:28
[2021-07-08] MEDS ORDERED: NITROGLYCERIN OINT 1 GM PACKET. TP ONE (20:45)
[2021-07-08] MEDS ORDERED: MORPHINE SULFATE 4 MG/ML INJ. IVP ONE ×2 (20:45→22:00)
[2021-07-08 20:56] LABS: BASO # 0.1 x10^3/uL (0.0-0.2); BASO % 1 % (0-3); EOS # 0.2 x10^3/uL (0.0-0.7); EOS % 2 % (0-3); HEMATOCRIT 45.8 % (39.0-53.0); HEMOGLOBIN 15.7 g/dL (13.0-17.5); LYMPH # 1.7 x10^3/uL (1.0-4.8); LYMPH % 20 % (24-48); MEAN CORPUSCULAR HEMOGLOBIN 32 pg (25-35); MEAN CORPUSCULAR HGB CONC 34 g/dL (31-37); MEAN CORPUSCULAR VOLUME 94 fL (79-100); MONO # 0.6 x10^3/uL (0.0-1.1); MONO % 7 % (0-9); NEUT % 71 % (31-73); PLATELET COUNT 277 x10^3/uL (140-400); RED BLOOD COUNT 4.85 x10^6/uL (4.30-5.70); RED CELL DISTRIBUTION WIDTH 13.5 % (11.5-14.5); WHITE BLOOD COUNT 8.5 x10^3/uL (4.0-11.0)
[2021-07-08 20:59] LABS: BILIRUBIN,URINE NEGATIVE (NEG); CLARITY,URINE CLEAR; COLOR,URINE YELLOW; NITRITE,URINE NEGATIVE (NEG); PROTEIN,URINE NEGATIVE (NEG-TRACE)
[2021-07-08 21:15] LABS: BACTERIA,URINE 0 /HPF (0-FEW); RBC,URINE 0 /HPF (0-2); WBC,URINE 0 /HPF (0-4)
[2021-07-08 21:22] LABS: CALCIUM 9.4 mg/dL (8.5-10.1); CREATININE 0.8 mg/dL (0.7-1.3); POTASSIUM 3.4 mmol/L (3.5-5.1); SALIC 3.3 mg/dL (2.8-20.0)
[2021-07-08 21:29] LABS: ALBUMIN 3.8 g/dL (3.4-5.0); ALBUMIN/GLOBULIN RATIO 0.8 (1.0-1.7); MAGNESIUM 2.1 mg/dL (1.8-2.4); TOTAL BILIRUBIN 0.5 mg/dL (0.2-1.0); TOTAL PROTEIN 8.5 g/dL (6.4-8.2)
[2021-07-08 21:36] LABS: INFLUENZA A PATIENT NEGATIVE (NEGATIVE); INFLUENZA B PATIENT NEGATIVE (NEGATIVE)
[2021-07-08] MEDS ORDERED: LABETALOL 20 MG/4 ML DISP.SYRIN. IVP ONE (22:00)
[2021-07-08] MEDS ORDERED: ONDANSETRON PF 4 MG/2 ML VIAL. IVP PRN (22:30)
[2021-07-08] MEDS ORDERED: diazePAM 5 MG TABLET PO ONE (23:15)
[2021-07-09] MEDS: MORPHINE SULFATE 4 MG/ML INJ. IVP PRN ×3 (00:27→06:47)
[2021-07-09] MEDS ORDERED: HYDROmorphone 2 MG/ML VIAL IVP ONE (00:45)
--- NOTE | 2021-07-09 03:30 | NUR ---
ADMISSION NOTE Pt admitted to room 578 from ER. Pt moved self over from cart to bed. Pt is pleasant, A/Ox4, c/o pain 7/10 in chest that radiates to his back, reports that the dilaudid he was given in ER lasted much longer than the morphine he had received. Pt reports that he has taken morphine tablets for years and might be tolerant to it. Pt also reports that his doctor/SULPHATE TESTER, took him off of his pain meds (oxycodone and MS contin) that he was taking for chronic back pain. Informed pt that morphine was the only pain med ordered for him at this time. Pts belongings with him in room and documented. Call light given to pt, instructed on use. Bed alarm on, fall precautions explained to pt, pt gabby. Home meds and admission information completed at this time. Will monitor.
[2021-07-09 04:00] VITALS: BP 167/64
[2021-07-09 07:00] VITALS: BP 108/56
--- NOTE | 2021-07-09 07:20 | RAD ---
EXAMINATION: Chest radiograph. VIEWS: 1 COMPARISON: None INDICATION:66 years, Male, chest pain. FINDINGS: Normal cardiomediastinal silhouette. No focal consolidation. No pleural effusion or pneumothorax. No acute osseous process. Median sternotomy wires. Posterior hardware fusion in the cervical spine. IMPRESSION: No acute cardiopulmonary process. Electronically signed by: Laurent Tirado MD (07/09/2021 7:18 AM) [id number]
[2021-07-09] MEDS ORDERED: busPIRone 10 MG TABLET. PO PRN (08:15)
[2021-07-09] MEDS ORDERED: diazePAM 5 MG TABLET PO PRN (08:15)
[2021-07-09] MEDS ORDERED: NITROGLYCERIN SUBLINGUAL 0.4 MG BOTTLE OF 25. SL PRN (08:15)
[2021-07-09] MEDS ORDERED: ACETAMINOPHEN 325 MG TABLET. PO PRN (08:15)
--- NOTE | 2021-07-09 08:52 | PDOC1 ---
History and Physical Date of Admission Date of Admission DATE: 07/09/21 TIME: 08:46 Source Source: Chart review, Patient History of Present Illness History of Present Illness Mr. Medina, is a 66 year old male here with chest pain overnight, severe pain, was 15/10, now 8/10, his goal is 6 . The pain was constant, mid left sternal, small area and radiated to his back. Better after IV morphine x3, he has been recently taken off his pain meds due to a UA at Dr. Pena office. they suspected he wasnst taking his meds and was selling them. He asks "how is that possible" where is my wendy? where are my 2 women? implying that he would be very wealthy selling PO morphine. sharp pain with pressure. He denies hemoptysis. He denies fevers or chills. He reports mild dyspnea. He denies abdominal pain. He reports mild nausea, no vomiting. He reports mild dizziness. No syncope or near syncope. No exertional pain. He reports being fully vaccinated against Covid. He denies recent travel, surgery, hospitalizat ion. 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 He took multiple doses of aspirin at home, he indicates that he took around 8 tablets of aspirin at home in total today. He took 4 sublingual nitroglycerin, and he reports very little relief in his chest pain after the nitroglycerin. He reports being compliant with all of his antihypertensive medications. Past Medical History Cardiovascular: CAD, HTN, Hyperlipidemia Pulmonary: COPD, Pulmonary embolus CENTRAL NERVOUS SYSTEM: Other GI: GERD Heme/Onc: Cancer Hepatobiliary: No pertinent hx Psych: No pertinent hx Musculoskeletal: Osteoarthritis Rheumatologic: No pertinent hx Infectious disease: No pertinent hx Renal/: No pertinent hx Endocrine: Hyperparathyroidism Past Surgical History Past Surgical History: CABG, Other Family History Family History: Coronary Artery Disease Social History Smoke: No ALCOHOL: none Drugs: None Current Problem List Problem List Problems Medical Problems: (1) Chest pain Status: Acute (2) Coronary artery disease Status: Acute Current Medications Current Medications Current Medications Nitroglycerin (Nitro-Bid Oint) 1 inch 1X ONCE TP Last administered on at 21:00; Start 07/08/21 at 20:45; Stop 07/08/21 at 20:59; Status DC Morphine Sulfate (Morphine Sulfate) 4 mg 1X ONCE IVP Last administered on 07/08/21at 20:59; Start 07/08/21 at 20:45; Stop 07/08/21 at 20:59; Status DC Labetalol HCl (Normodyne Iv Push) 10 mg 1X ONCE IVP Last administered on 07/08/21at 22:07; Start 07/08/21 at 22:00; Stop 07/08/21 at 22:02; Status DC Morphine Sulfate (Morphine Sulfate) 4 mg 1X ONCE IVP Last administered on 07/08/21at 22:08; Start 07/08/21 at 22:00; Stop 07/08/21 at 22:02; Status DC Ondansetron HCl (Zofran) 4 mg PRN Q8HRS PRN IVP NAUSEA/VOMITING; Start 07/08/21 at 22:30; Stop 07/09/21 at 22:29 Morphine Sulfate (Morphine Sulfate) 4 mg PRN Q2HRS PRN IVP chest pain Last administered on 07/09/21at 06:47; Start 07/08/21 at 22:30 Diazepam (Valium) 5 mg 1X ONCE PO Last administered on 07/09/21at 00:26; Start 07/08/21 at 23:15; Stop 07/08/21 at 23:17; Status DC Hydromorphone HCl (Dilaudid) 1 mg 1X ONCE IVP Last administered on 07/09/21at 01:12; Start 07/09/21 at 00:45; Stop 07/09/21 at 00:50; Status DC Acetaminophen (Tylenol) 650 mg PRN Q4HRS PRN PO FEVER > 100.3'F; Start 07/09/21 at 08:15 Aspirin (Aspirin Chewable) 81 mg HS PO ; Start 07/09/21 at 21:00 Bupropion HCl (Wellbutrin Xl) 150 mg DAILY PO ; Start 07/09/21 at 09:00 Buspirone HCl (Buspar) 10 mg PRN Q8HRS PRN PO ANXIETY / AGITATION; Start 07/09/21 at 08:15 Diazepam (Valium) 5 mg PRN BID PRN PO muscle relaxer; Start 07/09/21 at 08:15 Furosemide (Lasix) 40 mg DAILY PO ; Start 07/09/21 at 09:00 Gemfibrozil (Lopid) 600 mg BID PO ; Start 07/09/21 at 09:00 Albuterol/ Ipratropium (Duoneb) 3 ml RTQID NEB ; Start 07/09/21 at 12:00 Isosorbide Mononitrate (Imdur) 30 mg DAILYWBKFT PO ; Start 07/09/21 at 08:00 Metoprolol Tartrate (Lopressor) 50 mg BID PO ; Start 07/09/21 at 09:00 Montelukast Sodium (Singulair) 10 mg QHS PO ; Start 07/09/21 at 21:00 Nitroglycerin (Nitrostat) 0.4 mg PRN Q5MIN PRN SL CHEST PAIN; Start 07/09/21 at 08:15 Potassium Chloride (Klor-Con) 20 meq DAILY PO ; Start 07/09/21 at 09:00 Warfarin Sodium (Coumadin) 2 mg DAILY16 PO ; Start 07/09/21 at 16:00; Status UNV Amitriptyline HCl (Elavil) 100 mg QHS PO ; Start 07/09/21 at 21:00 Atorvastatin Calcium (Lipitor) 40 mg HS PO ; Start 07/09/21 at 21:00 Famotidine (Pepcid) 20 mg BID PO ; Start 07/09/21 at 09:00 Morphine Sulfate (Morphine Ir) 15 mg Q6HRS PRN PO PAIN; Start 07/09/21 at 08:45; Status UNV Acetaminophen (Tylenol) 650 mg 1X ONCE PO ; Start 07/09/21 at 08:45; Stop 07/09/21 at 08:46; Status UNV Active Scripts Active Nitrostat (Nitroglycerin) 0.4 Mg Tab.subl 0.4 Mg SL PRN Q5MIN PRN 28 Days Ms Contin (Morphine Sulfate) 15 Mg Tablet.er 1 Tab PO BID MDD 2 Tablet(s) 10 Days Oxycodone-Acetaminophen 10-325 (Oxycodone Hcl/Acetaminophen) 1 Each Tablet 1 Tab PO PRN Q8HRS PRN 1 Days Tylenol (Acetaminophen) 325 Mg Tablet 650 Mg PO PRN Q4HRS PRN 28 Days Montelukast Sodium Tablet (Montelukast Sodium) 10 Mg Tablet 10 Mg PO QHS 30 Days Duoneb 0.5-3(2.5) Mg/3 Ml (Albuterol/Ipratropium) 3 Ml Ampul.neb 3 Ml NEB RTQID 30 Days Reported Amitriptyline Hcl 100 Mg Tablet 1 Tab PO QHS Lasix (Furosemide) 40 Mg Tablet 1 Tab PO DAILY 30 Days Prilosec Otc (Omeprazole Magnesium) 20 Mg Tablet.dr 30 Mg PO NOON Warfarin Sodium 2 Mg Tablet 2 Mg PO DAILY Diazepam 5 Mg Tablet 5 Mg PO PRN BID PRN Advair 250-50 Diskus (Fluticasone/Salmeterol) 1 Each Disk.w.dev 1 Puff IH BID Aspirin 81 Mg Tab.chew 1 Tab PO HS Potassium Chloride (Potassium Chloride) 20 Meq Tablet.er 20 Meq PO DAILY Metoprolol Tartrate 50 Mg Tablet 1 Tab PO BID Crestor (Rosuvastatin Calcium) 5 Mg Tablet 2 Tab PO HS Buspirone Hcl 10 Mg Tablet 1 Tab PO PRN Q8HRS PRN Wellbutrin Xl (Bupropion Hcl) 150 Mg Tab.er.24h 150 Mg PO DAILY Gemfibrozil 600 Mg Tablet 1 Tab PO BID Isosorbide Mononitrate Er (Isosorbide Mononitrate) 30 Mg Tab.er.24h 1 Tab PO DAILYWBKFT Allergies Allergies: Coded Allergies: Iodinated Contrast Media (Verified Allergy, Intermediate, 03/07/14) ketorolac (Verified Allergy, Intermediate, GI, 12/01/14) tramadol (Verified Allergy, Intermediate, 11/11/15) tolerates oxycodone and morphine venom-honey bee (Verified Allergy, Intermediate, 03/07/14) NSAIDS (Non-Steroidal Anti-Inflamma (Verified Adverse Reaction, Intermediate, GI, 10/09/18) ROS General: YES: Fatigue PSYCHOLOGICAL ROS: YES: Depression, Sleep disturbances; No: Anxiety, Behavioral Disorder, Concentration difficultie, Decreased libido, Disorientation, Hallucinations, Hostility, Irritablity, Memory difficulties, Mood Swings, Obsessive thoughts, Physical abuse, Sexual abuse, Suicidal ideation, Other Eyes: No Blurry vision, No Decreased vision, No Double vision, No Dry eyes, No Excessive tearing, No Eye Pain, No Itchy Eyes, No Loss of vision, No Photophobia, No Scotomata, No Uses contacts, No Uses glasses, No Other HEENT: YES: Heacaches Respiratory: No: Cough, Hemoptysis, Orthopnea, Pleuritic Pain, Shortness of breath, SOB with excertion, Sputum Changes, Stridor, Tachypnea, Wheezing, Other Cardiovascular: yes Chest Pain Gastrointestinal: No Nausea, No Vomiting, No Abdominal Pain, No Diarrhea, No Constipation, No Melena, No Hematochezia, No Other Genitourinary: No Dysuria, No Frequency, No Incontinence, No Hematuria, No Retention, No Discharge, No Urgency, No Pain, No Flank Pain, No Other, No , No , No , No , No , No , No Musculoskeletal: Yes Joint Pain, Yes Joint Stiffness, Yes Pain In: (back); No Gait Disturbance, No Joint Swelling, No Muscle Pain, No Muscular Weakness, No Swelling In:, No Other Neurological: No Behavorial Changes, No Bowel/Bladder ControlChng, No Confusion, No Dizziness, No Gait Disturbance, No Headaches, No Impaired Coord/balance, No Memory Loss, No Numbness/Tingling, No Seizures, No Speech Problems, No Tremors, No Visual Changes, No Weakness, No Other Skin: No Dry Skin, No Eczema, No Hair Changes, No Lumps, No Mole Changes, No Mottling, No Nail Changes, No Pruritus, No Rash, No Skin Lesion Changes, No Other, No Acne Physical Exam General: Alert, Oriented X3, Cooperative, mild distress HEENT: Atraumatic Lungs: Clear to auscultation Heart: S1S2 Abdomen: Soft (obese) PELVIC: Nml ext uterus Extremities: Normal pulses, Other (1+ edema ) Skin: No breakdown, No significant lesion Neuro: Normal speech, Sensation intact Psych/Mental Status: Mental status NL, Mood NL Vitals Vitals Vital Signs Date Time Temp Pulse Resp B/P (MAP) Pulse Ox O2 Delivery O2 Flow Rate FiO2 07/09/21 07:17 20 Room Air 07/09/21 04:00 98.1 90 167/64 (98) 94 98.1 Labs Labs Laboratory Tests Test 07/08/21 20:30 07/08/21 20:47 07/08/21 20:57 07/08/21 23:50 Urine Collection Type Unknown Urine Color Yellow Urine Clarity Clear Urine pH 6.0 (<5.0-8.0) Urine Specific [place] <=1.005 (1.000-1.030) Urine Protein Negative mg/dL (NEG-TRACE) Urine Glucose (UA) Negative mg/dL (NEG) Urine Ketones (Stick) Negative mg/dL (NEG) Urine Blood Negative (NEG) Urine Nitrite Negative (NEG) Urine Bilirubin Negative (NEG) Urine Urobilinogen Dipstick 1.0 mg/dL (0.2 mg/dL) Urine Leukocyte Esterase Negative (NEG) Urine RBC 0 /HPF (0-2) Urine WBC 0 /HPF (0-4) Urine Bacteria 0 /HPF (0-FEW) White Blood Count 8.5 x10^3/uL (4.0-11.0) Red Blood Count 4.85 x10^6/uL (4.30-5.70) Hemoglobin 15.7 g/dL (13.0-17.5) Hematocrit 45.8 % (39.0-53.0) Mean Corpuscular Volume 94 fL (79-100) Mean Corpuscular Hemoglobin 32 pg (25-35) Mean Corpuscular Hemoglobin Concent 34 g/dL (31-37) Red Cell Distribution Width 13.5 % (11.5-14.5) Platelet Count 277 x10^3/uL (140-400) Neutrophils (%) (Auto) 71 % (31-73) Lymphocytes (%) (Auto) 20 % (24-48) Monocytes (%) (Auto) 7 % (0-9) Eosinophils (%) (Auto) 2 % (0-3) Basophils (%) (Auto) 1 % (0-3) Neutrophils # (Auto) 6.0 x10^3/uL (1.8-7.7) Lymphocytes # (Auto) 1.7 x10^3/uL (1.0-4.8) Monocytes # (Auto) 0.6 x10^3/uL (0.0-1.1) Eosinophils # (Auto) 0.2 x10^3/uL (0.0-0.7) Basophils # (Auto) 0.1 x10^3/uL (0.0-0.2) Sodium Level 138 mmol/L (136-145) Potassium Level 3.4 mmol/L (3.5-5.1) Chloride Level 102 mmol/L (98-107) Carbon Dioxide Level 28 mmol/L (21-32) Anion Gap 8 (6-14) Blood Urea Nitrogen 7 mg/dL (8-26) Creatinine 0.8 mg/dL (0.7-1.3) Estimated GFR (Cockcroft-Gault) 97.0 BUN/Creatinine Ratio 9 (6-20) Glucose Level 113 mg/dL (70-99) Calcium Level 9.4 mg/dL (8.5-10.1) Magnesium Level 2.1 mg/dL (1.8-2.4) Total Bilirubin 0.5 mg/dL (0.2-1.0) Aspartate Amino Transf (AST/SGOT) 26 U/L (15-37) Alanine Aminotransferase (ALT/SGPT) 32 U/L (16-63) Alkaline Phosphatase 102 U/L (46-116) Troponin I High Sensitivity 60 ng/L (4-75) 56 ng/L (4-75) KV-Xkn-X-Type Natriuretic Peptide 247 pg/mL (0-124) Total Protein 8.5 g/dL (6.4-8.2) Albumin 3.8 g/dL (3.4-5.0) Albumin/Globulin Ratio 0.8 (1.0-1.7) Lipase 56 U/L (73-393) Salicylates Level 3.3 mg/dL (2.8-20.0) Salicylate Last Dose Date Unk Salicylate Last Dose Time Unk Influenza Type A Antigen Negative (NEGATIVE) Influenza Type B Antigen Negative (NEGATIVE) SARS-CoV-2 Antigen (Rapid) Negative (NEGATIVE) Test 07/09/21 02:40 Troponin I High Sensitivity 51 ng/L (4-75) Laboratory Tests Test 07/08/21 20:30 07/08/21 20:47 07/08/21 20:57 07/08/21 23:50 Urine Collection Type Unknown Urine Color Yellow Urine Clarity Clear Urine pH 6.0 (<5.0-8.0) Urine Specific [place] <=1.005 (1.000-1.030) Urine Protein Negative mg/dL (NEG-TRACE) Urine Glucose (UA) Negative mg/dL (NEG) Urine Ketones (Stick) Negative mg/dL (NEG) Urine Blood Negative (NEG) Urine Nitrite Negative (NEG) Urine Bilirubin Negative (NEG) Urine Urobilinogen Dipstick 1.0 mg/dL (0.2 mg/dL) Urine Leukocyte Esterase Negative (NEG) Urine RBC 0 /HPF (0-2) Urine WBC 0 /HPF (0-4) Urine Bacteria 0 /HPF (0-FEW) White Blood Count 8.5 x10^3/uL (4.0-11.0) Red Blood Count 4.85 x10^6/uL (4.30-5.70) Hemoglobin 15.7 g/dL (13.0-17.5) Hematocrit 45.8 % (39.0-53.0) Mean Corpuscular Volume 94 fL (79-100) Mean Corpuscular Hemoglobin 32 pg (25-35) Mean Corpuscular Hemoglobin Concent 34 g/dL (31-37) Red Cell Distribution Width 13.5 % (11.5-14.5) Platelet Count 277 x10^3/uL (140-400) Neutrophils (%) (Auto) 71 % (31-73) Lymphocytes (%) (Auto) 20 % (24-48) Monocytes (%) (Auto) 7 % (0-9) Eosinophils (%) (Auto) 2 % (0-3) Basophils (%) (Auto) 1 % (0-3) Neutrophils # (Auto) 6.0 x10^3/uL (1.8-7.7) Lymphocytes # (Auto) 1.7 x10^3/uL (1.0-4.8) Monocytes # (Auto) 0.6 x10^3/uL (0.0-1.1) Eosinophils # (Auto) 0.2 x10^3/uL (0.0-0.7) Basophils # (Auto) 0.1 x10^3/uL (0.0-0.2) Sodium Level 138 mmol/L (136-145) Potassium Level 3.4 mmol/L (3.5-5.1) Chloride Level 102 mmol/L (98-107) Carbon Dioxide Level 28 mmol/L (21-32) Anion Gap 8 (6-14) Blood Urea Nitrogen 7 mg/dL (8-26) Creatinine 0.8 mg/dL (0.7-1.3) Estimated GFR (Cockcroft-Gault) 97.0 BUN/Creatinine Ratio 9 (6-20) Glucose Level 113 mg/dL (70-99) Calcium Level 9.4 mg/dL (8.5-10.1) Magnesium Level 2.1 mg/dL (1.8-2.4) Total Bilirubin 0.5 mg/dL (0.2-1.0) Aspartate Amino Transf (AST/SGOT) 26 U/L (15-37) Alanine Aminotransferase (ALT/SGPT) 32 U/L (16-63) Alkaline Phosphatase 102 U/L (46-116) Troponin I High Sensitivity 60 ng/L (4-75) 56 ng/L (4-75) JN-Ooc-N-Type Natriuretic Peptide 247 pg/mL (0-124) Total Protein 8.5 g/dL (6.4-8.2) Albumin 3.8 g/dL (3.4-5.0) Albumin/Globulin Ratio 0.8 (1.0-1.7) Lipase 56 U/L (73-393) Salicylates Level 3.3 mg/dL (2.8-20.0) Salicylate Last Dose Date Unk Salicylate Last Dose Time Unk Influenza Type A Antigen Negative (NEGATIVE) Influenza Type B Antigen Negative (NEGATIVE) SARS-CoV-2 Antigen (Rapid) Negative (NEGATIVE) Test 07/09/21 02:40 Troponin I High Sensitivity 51 ng/L (4-75) VTE Prophylaxis Ordered VTE Prophylaxis Devices: No VTE Pharmacological Prophylaxi: Yes Assessment/Plan Assessment/Plan CHEST PAIN, angina, r/o ACS, trop neg hx CAD 29 years ago CABG x3 obese, BMI 32 acute on chronic pain disorder, his primary care stopped his pain meds recently when UA neg for morphine when she was writign for morphine GERD, start pepcid, prior esophagitis chronic pain, opioid dependent, I asked him to refer to Methadone or Suboxone clinic Justifications for Admission Other Justification SHELBI JOHN MD Jul 09, 2021 08:51
[2021-07-09] MEDS ORDERED: ACETAMINOPHEN 325 MG TABLET. PO ONE (09:15)
[2021-07-09] MEDS: GEMFIBROZIL 600 MG TABLET. PO SCH ×2 (09:51→20:51)
[2021-07-09] MEDS: buPROPion XL 150 MG TAB.ER.24H. PO SCH (09:51)
[2021-07-09] MEDS: METOPROLOL TART IMMED RELEASE 50 MG TABLET. PO SCH ×2 (09:51→20:51)
[2021-07-09] MEDS: ISOSORBIDE MONONITRATE ER 30 MG TAB.ER.24H PO SCH (09:52)
[2021-07-09] MEDS: POTASSIUM CHLORIDE 20 MEQ TABLET.ER. PO SCH (09:52)
[2021-07-09] MEDS: FUROSEMIDE 40 MG TABLET. PO SCH (09:52)
[2021-07-09] MEDS: FAMOTIDINE 20 MG TABLET. PO SCH ×2 (09:57→20:51)
[2021-07-09] MEDS: MORPHINE IR 15 MG TABLET PO PRN ×2 (10:09→16:55)
[2021-07-09 11:00] VITALS: BP 100/51
--- NOTE | 2021-07-09 11:07 | PDOC2 ---
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 Snyder SOURCE Source: Chart review, Patient HISTORY OF PRESENT ILLNESS HISTORY OF PRESENT ILLNESS This is a 66 yo male who presented secondary to chest pain and back pain. Patient reports chronic back pain from injury in 1994. Has been maintained on morphine and oxycodone. Reports his primary care provider accused him of selling his narcotic pain meds of the street and these were discontinued a couple of months ago. Is supposed to see pain management. Patient reports poor management of pain since this point. Has developed pain in his central chest. Describes as aching. Also pain in his back, for which he reports as chronic. Seems to be worse with certain movements. No associated shortness of breath, dizziness, diaphoresis, or nausea/vomiting. PAST MEDICAL HISTORY Past Medical History Cardiovascular: CAD, HTN, Hyperlipidemia Pulmonary: COPD, Pulmonary embolus (2005) CENTRAL NERVOUS SYSTEM: Other (No pertinent history) GI: GERD Heme/Onc: Cancer (testicular) Hepatobiliary: No pertinent hx Psych: No pertinent hx Musculoskeletal: Osteoarthritis Rheumatologic: No pertinent hx Infectious disease: No pertinent hx Renal/: No pertinent hx Endocrine: Hyperparathyroidism Dermatology: No pertinent hx PAST SURGICAL HISTORY Past Surgical History CABG, Other (TMJ repair, right orchiectomy) FAMILY HISTORY Family History: Heart Disease SOCIAL HISTORY Social History ALCOHOL: none Drugs: None Lives: with Family CURRENT MEDICATIONS CURRENT MEDICATIONS Current Medications Medications (Trade) Dose Ordered Sig/Adan Route PRN Reason Start Time Stop Time Status Last Admin Dose Admin Nitroglycerin (Nitro-Bid Oint) 1 inch 1X ONCE TP 07/08/21 20:45 07/08/21 20:59 DC 07/08/21 21:00 Morphine Sulfate (Morphine Sulfate) 4 mg 1X ONCE IVP 07/08/21 20:45 07/08/21 20:59 DC 07/08/21 20:59 Labetalol HCl (Normodyne Iv Push) 10 mg 1X ONCE IVP 07/08/21 22:00 07/08/21 22:02 DC 07/08/21 22:07 Morphine Sulfate (Morphine Sulfate) 4 mg 1X ONCE IVP 07/08/21 22:00 07/08/21 22:02 DC 07/08/21 22:08 Morphine Sulfate (Morphine Sulfate) 4 mg PRN Q2HRS PRN IVP chest pain 07/08/21 22:30 07/09/21 06:47 Diazepam (Valium) 5 mg 1X ONCE PO 07/08/21 23:15 07/08/21 23:17 DC 07/09/21 00:26 Hydromorphone HCl (Dilaudid) 1 mg 1X ONCE IVP 07/09/21 00:45 07/09/21 00:50 DC 07/09/21 01:12 Bupropion HCl (Wellbutrin Xl) 150 mg DAILY PO 07/09/21 09:00 07/09/21 09:51 Furosemide (Lasix) 40 mg DAILY PO 07/09/21 09:00 07/09/21 09:52 Gemfibrozil (Lopid) 600 mg BID PO 07/09/21 09:00 07/09/21 09:51 Isosorbide Mononitrate (Imdur) 30 mg DAILYWBKFT PO 07/09/21 08:00 07/09/21 09:52 Metoprolol Tartrate (Lopressor) 50 mg BID PO 07/09/21 09:00 07/09/21 09:51 Potassium Chloride (Klor-Con) 20 meq DAILY PO 07/09/21 09:00 07/09/21 09:52 Famotidine (Pepcid) 20 mg BID PO 07/09/21 09:00 07/09/21 09:57 Morphine Sulfate (Morphine Ir) 15 mg PRN Q6HRS PRN PO PAIN 07/09/21 08:45 07/09/21 10:09 Acetaminophen (Tylenol) 650 mg 1X ONCE PO 07/09/21 09:15 07/09/21 09:16 DC 07/09/21 09:58 ALLERGIES ALLERGIES: Coded Allergies: Iodinated Contrast Media (Verified Allergy, Intermediate, 03/07/14) ketorolac (Verified Allergy, Intermediate, GI, 12/01/14) tramadol (Verified Allergy, Intermediate, 11/11/15) tolerates oxycodone and morphine venom-honey bee (Verified Allergy, Intermediate, 03/07/14) NSAIDS (Non-Steroidal Anti-Inflamma (Verified Adverse Reaction, Intermediate, GI, 10/09/18) ROS Review of System 14 point ROS conducted with pertinent positives noted above in HPI PHYSICAL EXAM PHYSICAL EXAM General: Alert, Oriented X3, Cooperative, No acute distress HEENT: Atraumatic, Mucous membr. moist/pink Lungs: Clear to auscultation, Normal air movement Heart: Regular rate (SR), Normal S1, Normal S2, No murmurs Abdomen: Soft, No tenderness Extremities: No cyanosis, No edema Skin: No breakdown, No significant lesion Neuro: Normal speech, Sensation intact Psych/Mental Status: Mental status NL, Mood NL MUSCULOSKELETAL: Osteoarthritic changes both hands VITALS/I&O VITALS/I&O: Vital Signs Date Time Temp Pulse Resp B/P (MAP) Pulse Ox O2 Delivery O2 Flow Rate FiO2 07/09/21 10:09 92 Room Air 07/09/21 09:52 63 108/56 07/09/21 07:17 20 07/09/21 07:00 98.0 98.0 I & O 07/08/21 07/08/21 07/09/21 15:00 23:00 07:00 Intake Total 240 ml Output Total 300 ml Balance -60 ml LABS Lab: Laboratory Tests Test 07/08/21 20:30 07/08/21 20:47 07/08/21 20:57 07/08/21 23:50 Urine Collection Type Unknown Urine Color Yellow Urine Clarity Clear Urine pH 6.0 (<5.0-8.0) Urine Specific [place] <=1.005 (1.000-1.030) Urine Protein Negative mg/dL (NEG-TRACE) Urine Glucose (UA) Negative mg/dL (NEG) Urine Ketones (Stick) Negative mg/dL (NEG) Urine Blood Negative (NEG) Urine Nitrite Negative (NEG) Urine Bilirubin Negative (NEG) Urine Urobilinogen Dipstick 1.0 mg/dL (0.2 mg/dL) Urine Leukocyte Esterase Negative (NEG) Urine RBC 0 /HPF (0-2) Urine WBC 0 /HPF (0-4) Urine Bacteria 0 /HPF (0-FEW) White Blood Count 8.5 x10^3/uL (4.0-11.0) Red Blood Count 4.85 x10^6/uL (4.30-5.70) Hemoglobin 15.7 g/dL (13.0-17.5) Hematocrit 45.8 % (39.0-53.0) Mean Corpuscular Volume 94 fL (79-100) Mean Corpuscular Hemoglobin 32 pg (25-35) Mean Corpuscular Hemoglobin Concent 34 g/dL (31-37) Red Cell Distribution Width 13.5 % (11.5-14.5) Platelet Count 277 x10^3/uL (140-400) Neutrophils (%) (Auto) 71 % (31-73) Lymphocytes (%) (Auto) 20 % (24-48) L Monocytes (%) (Auto) 7 % (0-9) Eosinophils (%) (Auto) 2 % (0-3) Basophils (%) (Auto) 1 % (0-3) Neutrophils # (Auto) 6.0 x10^3/uL (1.8-7.7) Lymphocytes # (Auto) 1.7 x10^3/uL (1.0-4.8) Monocytes # (Auto) 0.6 x10^3/uL (0.0-1.1) Eosinophils # (Auto) 0.2 x10^3/uL (0.0-0.7) Basophils # (Auto) 0.1 x10^3/uL (0.0-0.2) Sodium Level 138 mmol/L (136-145) Potassium Level 3.4 mmol/L (3.5-5.1) L Chloride Level 102 mmol/L (98-107) Carbon Dioxide Level 28 mmol/L (21-32) Anion Gap 8 (6-14) Blood Urea Nitrogen 7 mg/dL (8-26) L Creatinine 0.8 mg/dL (0.7-1.3) Estimated GFR (Cockcroft-Gault) 97.0 BUN/Creatinine Ratio 9 (6-20) Glucose Level 113 mg/dL (70-99) H Calcium Level 9.4 mg/dL (8.5-10.1) Magnesium Level 2.1 mg/dL (1.8-2.4) Total Bilirubin 0.5 mg/dL (0.2-1.0) Aspartate Amino Transferase (AST) 26 U/L (15-37) Alanine Aminotransferase (ALT) 32 U/L (16-63) Alkaline Phosphatase 102 U/L (46-116) Troponin I High Sensitivity 60 ng/L (4-75) 56 ng/L (4-75) LY-Uoy-E-Type Natriuretic Peptide 247 pg/mL (0-124) H Total Protein 8.5 g/dL (6.4-8.2) H Albumin 3.8 g/dL (3.4-5.0) Albumin/Globulin Ratio 0.8 (1.0-1.7) L Lipase 56 U/L (73-393) L Salicylates Level 3.3 mg/dL (2.8-20.0) Salicylate Last Dose Date Unk Salicylate Last Dose Time Unk Influenza Type A Antigen Negative (NEGATIVE) Influenza Type B Antigen Negative (NEGATIVE) SARS-CoV-2 RNA (BRE) Negative (Negative) SARS-CoV-2 Antigen (Rapid) Negative (NEGATIVE) Test 07/09/21 02:40 Troponin I High Sensitivity 51 ng/L (4-75) Laboratory Tests 07/08/21 20:47 Laboratory Tests 07/08/21 20:47 ECHOCARDIOGRAM ECHOCARDIOGRAM <Conclusion> The left ventricular systolic function is normal and the ejection fraction is within normal range. The Ejection Fraction is 55-60%. Septal motion consistent with conduction abnormality/prior CABG. Otherwise, grossly normal wall motion. Technically limited images. The right ventricle is mildly dilated. Calculated aortic valve area is 2.02 cm2 with maximum pressure gradient of 21 mmHg and mean pressure gradient of 10 mmHg. There is an appearance of mild aortic stenosis. The ascending aorta is mildly dilated measuring 3.5 cm. DATE: 05/08/21 [id number] STRESS TEST STRESS TEST Conclusion 1. Regadenoson cardioisotope stress test did not show any evidence of ischemia or infarct. 2. Normal left ventricular systolic function with ejection fraction calculated at 56%. 3. Low risk for cardiac events. DATE: 05/27/18 1306 HEART CATH HEART CATH FINDINGS 1. The left main coronary artery arose from the left sinus of Valsalva, gave rise to the left anterior descending and left circumflex arteries and did not show any significant stenosis. 2. The left anterior descending artery showed 100% chronic occlusion in the midsegment. The first diagonal branch which is a moderate caliber vessel did not show any significant stenosis. 3. The left circumflex artery showed 100% chronic total occlusion in the midsegment. The first obtuse marginal branch showed 40-50% stenosis in the proximal segment. 4. The right coronary artery arose from the right sinus of Valsalva and showed 90% stenosis in the proximal segment followed by 100% chronic total occlusion in the proximal to midsegment. There is distal reconstitution of the posterior descending and posterior lateral branches from left to right collaterals. 5. The left internal mammary artery graft to the left anterior descending artery was widely patent. Distal to the anastomosis, the [place] left anterior descending artery did not show any significant stenosis. 6. The saphenous vein grafts to the right coronary artery and also the second diagonal branch of LAD were known to be occluded from prior cardiac catheteri zations. 7. LVEDP 20 mmHg. No pullback gradient across the aortic valve. Conclusion Severe [place] vessel coronary artery disease s/p CABG with patent BRUCE to LAD. The vein grafts to the right coronary artery and the second diagonal branch were known to be occluded from prior cardiac catheterization. No significant lesions needing intervention were noted. Recommendations Patient's non-STEMI is most probably type 2/demand ischemia. Recommend medical management. DATE: 10/12/18 0959 ASSESSMENT/PLAN ASSESSMENT/PLAN 1. Chest pain, atypical; AMI ruled out 2. CAD: past CABG and stents 3. HTN urgency: now controlled 4. HLP; statin 5. COPD: 6. Hx of PE: on coumadin. Recommendations Continue secondary prevention measures BP control Check INR Will plan for outpatient ischemic evaluation Supportive care OSVALDO SERNA MD 07/09/21 1540: CARDIAC CONSULT ASSESSMENT/PLAN ASSESSMENT/PLAN Patient seen and examined. Agree with [employer] LOOKOUT's assessment and plan. Chest pain with atypical features and most probably musculoskeletal. Myocardial infarction has been ruled out. CAD s/p CABG with last cardiac catheterization results noted above Blood pressure better controlled since admission Continue Coumadin for history of PE Plan ischemic evaluation outpatient Thank you for your consultation QUYEN STEVE APRN Jul 09, 2021 11:07 OSVALDO SERNA MD Jul 09, 2021 15:40
[2021-07-09 11:29] LABS: PROTHROMBIN TIME PATIENT 12.6 SEC (11.7-14.0)
[2021-07-09] MEDS: IPRATRPIUM/ALBUTEROL 0.5/2.5MG 3 ML NEBU. NEB SCH ×3 (12:00→18:38)
--- NOTE | 2021-07-09 12:53 | NUR ---
SW following. Discussed with RN, pt from home, room air, cardiac diet. Flu and Rapid COVID-19 negative. Cardiology following. RN advised no SW needs, anticipates discharge in the next day or so. SW will continue to follow.
[2021-07-09 15:00] VITALS: BP 94/47
--- NOTE | 2021-07-09 15:53 | EKG ---
[facility] [address] [place] [address] Test Date: 2021-07-08 Test Time: 20:31:50 Pat Name: JOHN AVILA Department: Room: Gender: M Database Tester: : 1955 Requested By: AGUSTÍN MCDERMOTT Order Number: [id number] Reading MD: Yandel Marsh MD Measurements Intervals [place] Rate: 115 P: 32 WI: 152 QRS: 48 QRSD: 106 T: -51 QT: 310 QTc: 431 Interpretive Statements SINUS TACHYCARDIA CONSIDER PRIOR INFERIOR INFARCT Electronically Signed On 07-09-2021 15:53:15 SECURITY INCIDENT RESPONSE SPECIALIST by Yandel Marsh MD
[2021-07-09] MEDS ORDERED: WARFARIN 4 MG TABLET. PO ONE (16:00)
[2021-07-09] MEDS ORDERED: WARFARIN 2 MG TABLET. PO SCH (16:00)
[2021-07-09 19:00] VITALS: BP 104/51
[2021-07-09] MEDS ORDERED: ATORVASTATIN CALCIUM 40 MG TABLET. PO SCH (21:00)
[2021-07-09] MEDS ORDERED: ASPIRIN CHEWABLE 81 MG TABLET. PO SCH (21:00)
[2021-07-09] MEDS ORDERED: MONTELUKAST SODIUM 10 MG TABLET. PO SCH (21:00)
[2021-07-09] MEDS ORDERED: AMITRIPTYLINE HCL 25 MG TABLET. PO SCH (21:00)
[2021-07-09 23:00] VITALS: BP 122/57
[2021-07-10] MEDS: MORPHINE IR 15 MG TABLET PO PRN ×2 (01:22→08:59)
[2021-07-10 03:00] VITALS: BP 141/57
[2021-07-10 05:07] LABS: PROTHROMBIN TIME PATIENT 12.2 SEC (11.7-14.0)
[2021-07-10] MEDS: IPRATRPIUM/ALBUTEROL 0.5/2.5MG 3 ML NEBU. NEB SCH (05:57)
[2021-07-10 07:30] VITALS: BP 108/57
[2021-07-10] MEDS ORDERED: APIX5TAB PO (08:47)
[2021-07-10] MEDS ORDERED: OXYC1TAB15 PO (08:47)
--- NOTE | 2021-07-10 08:53 | PDOC3 ---
Discharge Summary Visit Information Date of Admission: Jul 08, 2021 Date of Discharge: Jul 10, 2021 Final Diagnosis CHEST PAIN, angina, r/o ACS done trop neg hx CAD 29 years ago CABG x3 obese, BMI 32 acute on chronic pain disorder, his primary care stopped his pain meds GERD, started pepcid, prior esophagitis chronic pain, opioid dependent, I asked him to refer to Methadone or Suboxone clinic Problems Medical Problems: (1) Chest pain Status: Acute (2) Coronary artery disease Status: Acute Brief Hospital Course Allergies Allergies Coded Allergies Type Severity Reaction Last Updated Verified Iodinated Contrast Media Allergy Intermediate 03/07/14 Yes tramadol Allergy Intermediate 11/11/15 Yes venom-honey bee Allergy Intermediate 03/07/14 Yes NSAIDS (Non-Steroidal Anti-Inflamma Adverse Reaction Intermediate GI 10/09/18 Yes ketorolac Adverse Reaction Intermediate GI 07/10/21 Yes Vital Signs Vital Signs Date Time Temp Pulse Resp B/P (MAP) Pulse Ox O2 Delivery O2 Flow Rate FiO2 07/10/21 07:30 97.9 62 18 108/57 (74) 92 Room Air 97.9 Lab Results Laboratory Tests Test 07/08/21 20:30 07/08/21 20:47 07/08/21 20:57 07/08/21 23:50 Urine Collection Type Unknown Urine Color Yellow Urine Clarity Clear Urine pH 6.0 (<5.0-8.0) Urine Specific [place] <=1.005 (1.000-1.030) Urine Protein Negative mg/dL (NEG-TRACE) Urine Glucose (UA) Negative mg/dL (NEG) Urine Ketones (Stick) Negative mg/dL (NEG) Urine Blood Negative (NEG) Urine Nitrite Negative (NEG) Urine Bilirubin Negative (NEG) Urine Urobilinogen Dipstick 1.0 mg/dL (0.2 mg/dL) Urine Leukocyte Esterase Negative (NEG) Urine RBC 0 /HPF (0-2) Urine WBC 0 /HPF (0-4) Urine Bacteria 0 /HPF (0-FEW) White Blood Count 8.5 x10^3/uL (4.0-11.0) Red Blood Count 4.85 x10^6/uL (4.30-5.70) Hemoglobin 15.7 g/dL (13.0-17.5) Hematocrit 45.8 % (39.0-53.0) Mean Corpuscular Volume 94 fL (79-100) Mean Corpuscular Hemoglobin 32 pg (25-35) Mean Corpuscular Hemoglobin Concent 34 g/dL (31-37) Red Cell Distribution Width 13.5 % (11.5-14.5) Platelet Count 277 x10^3/uL (140-400) Neutrophils (%) (Auto) 71 % (31-73) Lymphocytes (%) (Auto) 20 % (24-48) Monocytes (%) (Auto) 7 % (0-9) Eosinophils (%) (Auto) 2 % (0-3) Basophils (%) (Auto) 1 % (0-3) Neutrophils # (Auto) 6.0 x10^3/uL (1.8-7.7) Lymphocytes # (Auto) 1.7 x10^3/uL (1.0-4.8) Monocytes # (Auto) 0.6 x10^3/uL (0.0-1.1) Eosinophils # (Auto) 0.2 x10^3/uL (0.0-0.7) Basophils # (Auto) 0.1 x10^3/uL (0.0-0.2) Sodium Level 138 mmol/L (136-145) Potassium Level 3.4 mmol/L (3.5-5.1) Chloride Level 102 mmol/L (98-107) Carbon Dioxide Level 28 mmol/L (21-32) Anion Gap 8 (6-14) Blood Urea Nitrogen 7 mg/dL (8-26) Creatinine 0.8 mg/dL (0.7-1.3) Estimated GFR (Cockcroft-Gault) 97.0 BUN/Creatinine Ratio 9 (6-20) Glucose Level 113 mg/dL (70-99) Calcium Level 9.4 mg/dL (8.5-10.1) Magnesium Level 2.1 mg/dL (1.8-2.4) Total Bilirubin 0.5 mg/dL (0.2-1.0) Aspartate Amino Transf (AST/SGOT) 26 U/L (15-37) Alanine Aminotransferase (ALT/SGPT) 32 U/L (16-63) Alkaline Phosphatase 102 U/L (46-116) Troponin I High Sensitivity 60 ng/L (4-75) 56 ng/L (4-75) ZB-Gyz-E-Type Natriuretic Peptide 247 pg/mL (0-124) Total Protein 8.5 g/dL (6.4-8.2) Albumin 3.8 g/dL (3.4-5.0) Albumin/Globulin Ratio 0.8 (1.0-1.7) Lipase 56 U/L (73-393) Salicylates Level 3.3 mg/dL (2.8-20.0) Salicylate Last Dose Date Unk Salicylate Last Dose Time Unk Influenza Type A Antigen Negative (NEGATIVE) Influenza Type B Antigen Negative (NEGATIVE) SARS-CoV-2 RNA (BRE) Negative (Negative) SARS-CoV-2 Antigen (Rapid) Negative (NEGATIVE) Test 07/09/21 02:40 07/09/21 10:35 07/10/21 03:05 Troponin I High Sensitivity 51 ng/L (4-75) Prothrombin Time 12.6 SEC (11.7-14.0) 12.2 SEC (11.7-14.0) Prothromb Time International Ratio 0.9 (0.8-1.1) 0.9 (0.8-1.1) Laboratory Tests Test 07/09/21 10:35 07/10/21 03:05 Prothrombin Time 12.6 SEC (11.7-14.0) 12.2 SEC (11.7-14.0) Prothromb Time International Ratio 0.9 (0.8-1.1) 0.9 (0.8-1.1) Brief Hospital Course Mr. Medina is a 66 old male, admit with chest pain, stable priro angina, has had pain meds stopped outpatient, prob withdfrawl, IV meds given in ER when ACS considered, taper started recommend pain clinicn, suboxone clinic prob best for him, opioid dependence Discharge Information Condition at Discharge: Improved Follow Up: Weeks Disposition/Orders: D/C to Home, D/C to Another Facility Scheduled Amitriptyline Hcl (Amitriptyline Hcl) 100 Mg Tablet, 1 TAB PO QHS for , #30 Ref 1 (Reported) Entered as Reported by: Graciela Reese on 05/07/212056 Last Action: Converted on 07/09/21820 by SHELBI JOHN Apixaban (Eliquis) 5 Mg Tablet, 5 MG PO BID for Hx PE, #60 Ref 1 Prescribed by: SHELBI JOHN on 07/10/21846 Aspirin (Aspirin) 81 Mg Tab.chew, 1 TAB PO HS for rx, #30 Ref 3 (Reported) Entered as Reported by: MYRON SANTIAGO on 03/06/20850 Last Action: Continued on 07/09/21820 by SHELBI JOHN Bupropion Hcl (Wellbutrin Xl) 150 Mg Tab.er.24h, 150 MG PO DAILY for anxiety, (Reported) Entered as Reported by: LOU DOVE on 05/25/18812 Last Action: Continued on 07/09/21820 by SHELBI JOHN Fluticasone/Salmeterol (Advair 250-50 Diskus) 1 Each Disk.w.dev, 1 PUFF IH BID for COPD, #3 Ref 3 (Reported) Entered as Reported by: MYRON SANTIAGO on 03/06/20850 Last Action: Reviewed on 07/09/21551 by LILLY SOLORIO Furosemide (Lasix) 40 Mg Tablet, 1 TAB PO DAILY for for 30 Days, #30 Ref 0 (Reported) Entered as Reported by: Graciela Reese on 05/07/212055 Last Action: Continued on 07/09/21820 by SHELBI JOHN Gemfibrozil (Gemfibrozil) 600 Mg Tablet, 1 TAB PO BID, #60 Ref 5 (Reported) Entered as Reported by: Graciela Reese on 05/08/18 0035 Last Action: Continued on 07/09/21820 by SHELBI JOHN Ipratropium/Albuterol Sulfate (Duoneb 0.5-3(2.5) Mg/3 Ml) 3 Ml Ampul.neb, 3 ML NEB RTQID for copd for 30 Days, #120 Prescribed by: AMARJIT TERRY MD on 10/06/18 1631 Last Action: Continued on 07/09/21820 by SHELBI JOHN Isosorbide Mononitrate (Isosorbide Mononitrate Er) 30 Mg Tab.er.24h, 1 TAB PO DAILYWBKFT, #30 Ref 5 (Reported) Entered as Reported by: KELLI PAGAN on 04/15/17 1750 Last Action: Continued on 07/09/21820 by SHELBI JOHN Metoprolol Tartrate (Metoprolol Tartrate) 50 Mg Tablet, 1 TAB PO BID for BP, #60 Ref 5 (Reported) Entered as Reported by: MYRON SANTIAGO on 03/06/20850 Last Action: Continued on 07/09/21820 by SHELBI JOHN Montelukast Sodium (Montelukast Sodium Tablet ) 10 Mg Tablet, 10 MG PO QHS for reactive airway disease for 30 Days, #30 Prescribed by: JANINA FERNANDEZ MD on 10/13/18 1606 Last Action: Continued on 07/09/21820 by SHELBI JOHN Morphine Sulfate Er (Ms Contin) 15 Mg Tablet.er, 1 TAB PO BID for pain MDD 2 Tablet(s) for 10 Days, #20 Ref 0 Prescribed by: TRENT MASTERS on 05/08/211132 Last Action: HELD on 07/09/21820 by SHELBI JOHN Omeprazole Magnesium (Prilosec Otc) 20 Mg Tablet.dr, 30 MG PO NOON for , (Reported) Entered as Reported by: Graciela Reese on 05/07/212052 Last Action: Reviewed on 07/09/21551 by LILLY SOLORIO Potassium Chloride (Potassium Chloride ) 20 Meq Tablet.er, 20 MEQ PO DAILY for SUPPLEMENT, (Reported) Entered as Reported by: MYRON SANTIAGO on 03/06/20850 Last Action: Continued on 07/09/21820 by SHELBI JOHN Rosuvastatin Calcium (Crestor) 5 Mg Tablet, 2 TAB PO HS for cholesterol, #30 Ref 5 (Reported) Entered as Reported by: MYRON SANTIAGO on 03/06/20850 Last Action: Converted on 07/09/21820 by SHELBI JOHN Scheduled PRN Acetaminophen (Tylenol) 325 Mg Tablet, 650 MG PO PRN Q4HRS PRN for FEVER > 100.3'F for 28 Days, #60 Prescribed by: AMARJIT TERRY MD on 05/03/20943 Last Action: Continued on 07/09/21820 by SHLEBI JOHN Buspirone Hcl (Buspirone Hcl) 10 Mg Tablet, 1 TAB PO PRN Q8HRS PRN for ANXIETY / AGITATION, #60 Ref 1 (Reported) Entered as Reported by: MYRON SANTIAGO on 03/06/20850 Last Action: Continued on 07/09/21820 by SHELBI JOHN Diazepam (Diazepam) 5 Mg Tablet, 5 MG PO PRN BID PRN for muscle relaxer, (Reported) Entered as Reported by: Brian Case on 04/30/20 1437 Last Action: Continued on 07/09/21820 by SHELBI JOHN Nitroglycerin (Nitrostat) 0.4 Mg Tab.subl, 0.4 MG SL PRN Q5MIN PRN for CHEST PAIN for 28 Days, #20 Prescribed by: TRENT MASTERS on 05/08/211131 Last Action: Continued on 07/09/21820 by SHELBI JOHN Oxycodone/Apap 5-325 (Percocet 5-325 Mg Tablet ) 1 Each Tablet, 1 TAB PO PRN BID PRN for CHEST PAIN MDD 2 Tablet(s) for 7 Days, #20 Ref 0 Prescribed by: SHELBI JOHN on 07/10/2148 Discontinued Medications Oxycodone Hcl/Acetaminophen (Oxycodone-Acetaminophen 10-325) 1 Each Tablet, 1 TAB PO PRN Q8HRS PRN for PAIN for 1 Days, #20 Ref 0 Prescribed by: TRENT MASTERS on 05/08/211132 Last Action: HELD on 07/09/21820 by SHELBI JOHN Warfarin Sodium (Warfarin Sodium) 2 Mg Tablet, 2 MG PO DAILY for , #30 (Reported) Entered as Reported by: Graciela Reese on 05/07/212052 Last Action: Continued on 07/09/21820 by SHELBI JOHN Patient Instructions Patient Instructions face to face 42 total minutes coordination, discussed when he frist got pain meds, and how he has used a lot of them small scrpit given to bride back to primay care, taper, discussed plan to wean off at lenght Justicifation of Admission Dx: Justifications for Admission: Justification of Admission Dx: Yes Angina: Cresendo Worsening of Sym SHELBI JOHN MD Jul 10, 2021 08:53
[2021-07-10] MEDS: buPROPion XL 150 MG TAB.ER.24H. PO SCH (08:58)
[2021-07-10] MEDS: FAMOTIDINE 20 MG TABLET. PO SCH (08:58)
[2021-07-10] MEDS: POTASSIUM CHLORIDE 20 MEQ TABLET.ER. PO SCH (08:58)
[2021-07-10] MEDS: GEMFIBROZIL 600 MG TABLET. PO SCH (08:58)
[2021-07-10] MEDS: FUROSEMIDE 40 MG TABLET. PO SCH (08:58)
[2021-07-10 08:59] VITALS: BP 108/57
[2021-07-10] MEDS: ISOSORBIDE MONONITRATE ER 30 MG TAB.ER.24H PO SCH (08:59)
[2021-07-10] MEDS: METOPROLOL TART IMMED RELEASE 50 MG TABLET. PO SCH (08:59)
--- NOTE | 2021-07-10 10:35 | NUR ---
Discharge Note: JOHN AVILA [address] [place] [address] Discharge instructions and discharge home medications reviewed with Patient and a copy given. All questions have been answered and understanding verbalized. The following instructions and handouts were given: f/u with pcp within two weeks. Discontinued lines and drains: Peripheral IV intact. Patient discharged to Home or Self Care with Self via Wheelchair by [employer].
--- NOTE | 2021-07-10 11:38 | NUR ---
SW following. Discussed with RN, discharge order for home with self care. RN advised no SW needs.
== END 2021-07-10 10:35 | disposition home or self-care (01) ==
LOC: ER 19:39 → ED HOLD 22:00 → 5 SOUTH 07-09 03:30
PROVIDERS: ADMIT Internal Medicine; ATTEND Internal Medicine
DX: R07.89 Other chest pain (principal); Z20.822 Contact with and (suspected) exposure to COVID-19; I25.10 Atherosclerotic heart disease of native coronary artery without angina pectoris; E66.9 Obesity, unspecified; E78.00 Pure hypercholesterolemia, unspecified; E78.5 Hyperlipidemia, unspecified; K21.9 Gastro-esophageal reflux disease without esophagitis; I16.1 Hypertensive emergency; I25.119 Atherosclerotic heart disease of native coronary artery with unspecified angina pectoris; F11.20 Opioid dependence, uncomplicated; G89.29 Other chronic pain; J44.9 Chronic obstructive pulmonary disease, unspecified; M19.90 Unspecified osteoarthritis, unspecified site; E21.3 Hyperparathyroidism, unspecified; Z68.32 Body mass index [BMI] 32.0-32.9, adult; Z79.01 Long term (current) use of anticoagulants; Z82.49 Family history of ischemic heart disease and other diseases of the circulatory system; Z85.47 Personal history of malignant neoplasm of testis; Z86.711 Personal history of pulmonary embolism; Z87.891 Personal history of nicotine dependence; Z95.1 Presence of aortocoronary bypass graft; Z95.5 Presence of coronary angioplasty implant and graft; Z79.82 Long term (current) use of aspirin; Z79.899 Other long term (current) drug therapy; Z98.890 Other specified postprocedural states
CPT/HCPCS: 36415; 71045; 80053; 80329; 81001; 83690; 83735; 83880; 84484; 85025; 85610; 87426; 87804; 93005; 94640; 94760; 96374; 96375; 96376; 99285; G0378; J1170; J2270; J3490; U0003; U0005; G0379; G0480

== ENCOUNTER 2021-10-21 22:18 | Inpatient (IN) | payer MEDICARE, OTHER ==
[~2021-10-21] VITALS: Ht 170.2 cm; Wt 98.4 kg
[~2021-10-21 22:18] MED LIST changes: +APIX5TAB PO; +OXYC1TAB15 PO
[2021-10-21] MEDS ORDERED: fentaNYL PF VIAL 100 MCG/2 ML VIAL IM ONE (23:30)
--- NOTE | 2021-10-21 23:51 | RAD ---
EXAM: CT lumbar spine without IV contrast CLINICAL HISTORY:Reason: back pain fall COMPARISON: None available. TECHNIQUE: Helical CT was performed through the lumbar spine. Axial, coronal and sagittal reformatted images were generated. PQRS compliance statement - One or more of the following individualized dose reduction techniques wer e utilized for this study: 1. Automated exposure control 2. Adjustment of the mA and/or kV according to patient size 3. Use of iterative reconstruction technique FINDINGS: Vertebral body heights are preserved. No acute fracture. Anterior lumbar interbody fusion L4-5 and L5 -S1 posterolateral fusion L4-5 and L5-S1. Straightening of the lumbar lordosis. No spondylolisthesis. Severe L2-3 and L3-4 disc height loss. Multilevel facet degenerative changes. Multiple disc bulges with small osteophytes at L2-3 and L3-4, with severe central canal stenosis. Aor ta is normal in caliber measuring 2.3 cm. Dense aortobiiliac atherosclerotic calcifications are seen. Low-density adrenal nodules are partially profiled, possibly adenomas. IMPRESSION: 1. No acute fracture or subluxation. 2. Multilevel degenerative changes of the lumbar spine. Severe L2-3 and L3-4 central canal stenosis. Electronically signed by: Salvador Avila MD (10/21/2021 11:48 PM) EDY
--- NOTE | 2021-10-21 23:55 | RAD ---
EXAM: AP pelvis, AP and lateral views right hip DATE: 10/21/2021 11:10 PM INDICATION: Reason: pain fell / Spl. Instructions: / History: . COMPARISON: No Prior FINDINGS/ IMPRESSION: No evidence of acute fracture or dislocation. Atherosclerotic vascular calcifications are seen. Electronically signed by: Salvador Avila MD (10/21/2021 11:52 PM) EDY
[2021-10-22] MEDS ORDERED: ACETAMINOPHEN 325 MG TABLET. PO PRN (00:45)
[2021-10-22] MEDS ORDERED: ONDANSETRON PF 4 MG/2 ML VIAL. IVP PRN (00:45)
--- NOTE | 2021-10-22 00:52 | PHYS DOC ---
Past Medical History Past Medical History: CAD, Cancer, COPD, High Cholesterol, Heart Disease, Hypertension, [place], Other Additional Past Medical Histor: TESTICLE CANCER, chronic back pain, PE, aortic aneurysm Past Surgical History: Cancer Surgery, Coronary Bypass Surgery, Lumbar Laminectomy, Other Additional Past Surgical Histo: Neck surgery Smoking Status: Former Smoker Alcohol Use: None Drug Use: None General Adult EDM: Chief Complaint: MECHANICAL FALL HPI: HPI: Patient is a 66 year old male with history of CAD, hypertension, high cholesterol, [place], who presents the ED today complaining of 10 out of 10 right low back pain radiating to the right lower extremity, patient states the pain is chronic though he reports falling down twice this last week. He states he already walks with a cane due to chronic back pain. Denies any numbness or tingling to bilateral lower extremities, denies any loss of bowel/bladder function. Denies hitting his head on the ground when he fell. He is specifically requesting fentanyl IV stating it works better for his pain. Review of Systems: Review of Systems: Constitutional: Denies fever or chills. [] Eyes: Denies change in visual acuity. [] HENT: Denies nasal congestion or sore throat. [] Respiratory: Denies cough or shortness of breath. [] Cardiovascular: Denies chest pain or edema. [] GI: Denies abdominal pain, nausea, vomiting, bloody stools or diarrhea. [] : Denies dysuria. [] Musculoskeletal: Reports right low back pain radiating to the right lower extremity Integument: Denies rash. [] Neurologic: Denies headache, focal weakness or sensory changes. [] Psychiatric: Denies depression or anxiety. [] Heart Score: C/O Chest Pain: No Risk Factors: Risk Factors: DM, Current or recent (<one month) smoker, HTN, HLP, family history of CAD, obesity. Risk Scores: Score 0 - 3: 2.5% MACE over next 6 weeks - Discharge Home Score 4 - 6: 20.3% MACE over next 6 weeks - Admit for Clinical Observation Score 7 - 10: 72.7% MACE over next 6 weeks - Early Invasive Strategies Current Medications: Current Medications Medications (Trade) Dose Ordered Sig/Adan Start Time Stop Time Status Last Admin Dose Admin Fentanyl Citrate (Fentanyl 2ml Vial) 50 mcg 1X ONCE 10/21/21 23:30 10/21/21 23:31 DC 10/21/21 23:03 50 MCG Allergies: Allergies: Allergies Coded Allergies Type Severity Reaction Last Updated Verified Iodinated Contrast Media Allergy Intermediate 10/21/21 Yes tramadol Allergy Intermediate 10/21/21 Yes venom-honey bee Allergy Intermediate 10/21/21 Yes NSAIDS (Non-Steroidal Anti-Inflamma Adverse Reaction Intermediate GI 10/21/21 Yes ketorolac Adverse Reaction Intermediate GI 10/21/21 Yes Physical Exam: PE: Constitutional: Well developed, well nourished, no acute distress, non-toxic appearance. [] HENT: Normocephalic, atraumatic, bilateral external ears normal, oropharynx moist, no oral exudates, nose normal. [] Eyes: PERRLA, EOMI, conjunctiva normal, no discharge. [] Neck: Normal range of motion, no tenderness, supple, no stridor. [] Cardiovascular:Heart rate regular rhythm, no murmur [] Lungs & Thorax: Bilateral breath sounds clear to auscultation [] Abdomen: Bowel sounds normal, soft, no tenderness, no masses, no pulsatile masses. [] Skin: Warm, dry, no erythema, no rash. [] Back Old healed surgical incision noted midline lumbar spine diffuse paraspinal muscle tenderness of the right lumbar spine no midline lumbar spine tenderness, no CVA tenderness. [] Extremities: No tenderness, no cyanosis, no clubbing, ROM intact, no edema. [] Neurologic: Alert and oriented X 3, normal motor function, normal sensory fun ction, no focal deficits noted. [] Psychologic: Affect normal, judgement normal, mood normal. [] Current Patient Data: Vital Signs: Vital Signs Date Time Temp Pulse Resp B/P (MAP) Pulse Ox O2 Delivery O2 Flow Rate FiO2 10/21/21 23:45 20 95 Room Air 10/21/21 22:20 97.7 90 139/73 (95) 97.7 EKG: EKG: [] Radiology/Procedures: Radiology/Procedures: []PROCEDURE: CT LUMBAR SPINE WO CONTRAST EXAM: CT lumbar spine without IV contrast CLINICAL HISTORY:Reason: back pain fall COMPARISON: None available. TECHNIQUE: Helical CT was performed through the lumbar spine. Axial, coronal and sagittal reformatted images were generated. PQRS compliance statement - One or more of the following individualized dose reduction techniques were utilized for this study: 1. Automated exposure control 2. Adjustment of the mA and/or kV according to patient size 3. Use of iterative reconstruction technique FINDINGS: Vertebral body heights are preserved. No acute fracture. Anterior lumbar i nterbody fusion L4-5 and L5-S1 posterolateral fusion L4-5 and L5-S1. Straightening of the lumbar lordosis. No spondylolisthesis. Severe L2-3 and L3-4 disc height loss. Multilevel facet degenerative changes. Multiple disc bulges with small osteophytes at L2-3 and L3-4, with severe central canal stenosis. Aorta is normal in caliber measuring 2.3 cm. Dense aortobiiliac atherosclerotic calcifications are seen. Low-density adrenal nodules are partially profiled, possibly adenomas. IMPRESSION: 1. No acute fracture or subluxation. 2. Multilevel degenerative changes of the lumbar spine. Severe L2-3 and L3-4 central canal stenosis. Electronically signed by: Salvador Gomez MD (10/21/2021 11:48 PM) EDY DICTATED and SIGNED BY: SALVADOR GOMEZ MD DATE: 10/21/21 1910 PROCEDURE: HIP RIGHT 2V WITH PELVIS EXAM: AP pelvis, AP and lateral views right hip DATE: 10/21/2021 11:10 PM INDICATION: Reason: pain fell / Spl. Instructions: / History: . COMPARISON: No Prior FINDINGS/ IMPRESSION: No evidence of acute fracture or dislocation. Atherosclerotic vascular calcifications are seen. Electronically signed by: Salvador Gomez MD (10/21/2021 11:52 PM) EDY DICTATED and SIGNED BY: SALVADOR GOMEZ MD DATE: 10/21/21 4386 Course & Med Decision Making: Course & Med Decision Making Pertinent Labs and Imaging studies reviewed. (See chart for details) This a 66-year-old male patient presenting to the ED today with low back pain radiating to the right hip into the right lower extremity, symptoms are chronic but states he fell down twice this week. He walks with a cane and states has frequent falls. He is requesting for fentanyl IV, it was offered IM CT of lumbar spine as well as right hip x-rays including pelvis are negative. Informed patient we will discharge him to home. He requested to be admitted, he states he is not able to ambulate. When asked how he has been walking for the last 1 week, he states he uses a cane which is normal. He is requesting also to see Dr. Herrera, he states he needs to be consulted because he see's him for his heart-consult placed. He is also requesting fentanyl IV. Admitted under Dr. Luis Morrell Disclaimer: Porsche Disclaimer: This electronic medical record was generated, in whole or in part, using a voice recognition dictation system. Departure Departure Impression: Primary Impression: Fall Qualified Codes: W19.XXXA - Unspecified fall, initial encounter Additional Impressions: Right hip pain Low back pain Qualified Codes: M54.41 - Lumbago with sciatica, right side Sciatica of right side Disposition: ADMITTED INPATIENT Condition: STABLE Referrals: YUE OZU[facility] HANGER-[facility] (PCP) ADAM DOBBS COATING MIXER TENDER Oct 22, 2021 00:52
[2021-10-22] MEDS ORDERED: diazePAM 5 MG TABLET PO ONE (01:00)
[2021-10-22 01:15] VITALS: BP 113/72
[2021-10-22] MEDS ORDERED: ROSU10TA26 PO (02:51)
[2021-10-22] MEDS ORDERED: TEST200V3 IM (02:51)
[2021-10-22] MEDS ORDERED: HYDR-2767 PO (02:51)
[2021-10-22] MEDS: fentaNYL PF VIAL 100 MCG/2 ML VIAL IVP PRN ×3 (02:59→12:32)
[2021-10-22 03:50] VITALS: BP 136/74
[2021-10-22 07:00] VITALS: BP 134/86
--- NOTE | 2021-10-22 08:25 | PDOC1 ---
History and Physical Date of Service: DOS: DATE: 10/22/21 TIME: 08:20 Chief Complaint: Chief Complain: FALL History of Present Illness: HPI: 66-year-old male with multiple comorbidities including CAD, COPD, dyslipidemia, hypertension, testicular cancer, history of PE, chronic back pain who comes in for 10 out of 10 lower back pain that radiates to the right lower extremity. Patient states that his chronic pain was exacerbated by falling down twice this last week. Patient has to use a cane for mobility. Denies numbness or tingling of the lower extremities or incontinence. Denies LOC or trauma to the head. He is specifically requesting fentanyl IV stating it works better for his pain. Past Medical/Surgical History: PMH/PSH: Past Medical History: CAD, COPD, High Cholesterol, Hypertension, [place], testicular CA, chronic back pain, PE, aortic aneurysm Past Surgical History: Cancer Surgery, Coronary Bypass Surgery, Lumbar Laminectomy, Neck surgery Allergies: Allergies: Coded Allergies: Iodinated Contrast Media (Verified Allergy, Intermediate, 10/21/21) tramadol (Verified Allergy, Intermediate, 10/21/21) tolerates oxycodone and morphine venom-honey bee (Verified Allergy, Intermediate, 10/21/21) NSAIDS (Non-Steroidal Anti-Inflamma (Verified Adverse Reaction, Intermediate, GI, 10/21/21) ketorolac (Verified Adverse Reaction, Intermediate, GI, 10/21/21) Family History: Family History: Reviewed with no relative findings in the chart Social History: Social History: Smoking Status: Former Smoker Alcohol Use: None Drug Use: None Current Medications: Current Medications Current Medications Fentanyl Citrate (Fentanyl 2ml Vial) 50 mcg 1X ONCE IM Last administered on 10/21/21at 23:03; Start 10/21/21 at 23:30; Stop 10/21/21 at 23:31; Status DC Ondansetron HCl (Zofran) 4 mg PRN Q8HRS PRN IVP NAUSEA/VOMITING 1st choice; Start 10/22/21 at 00:45; Stop 10/23/21 at 00:44 Fentanyl Citrate (Fentanyl 2ml Vial) 50 mcg PRN Q3HRS PRN IVP SEVERE PAIN 7-10 Last administered on 10/22/21at 07:32; Start 10/22/21 at 00:45 Acetaminophen (Tylenol) 650 mg PRN Q4HRS PRN PO FEVER > 100.3'F; Start 10/22/21 at 00:45; Stop 10/23/21 at 00:44 Diazepam (Valium) 5 mg 1X ONCE PO Last administered on 10/22/21at 03:00; Start 10/22/21 at 01:00; Stop 10/22/21 at 01:01; Status DC Active Scripts Active Eliquis (Apixaban) 5 Mg Tablet 5 Mg PO BID Nitrostat (Nitroglycerin) 0.4 Mg Tab.subl 0.4 Mg SL PRN Q5MIN PRN 28 Days Tylenol (Acetaminophen) 325 Mg Tablet 650 Mg PO PRN Q4HRS PRN 28 Days Montelukast Sodium Tablet (Montelukast Sodium) 10 Mg Tablet 10 Mg PO QHS 30 Days Duoneb 0.5-3(2.5) Mg/3 Ml (Albuterol/Ipratropium) 3 Ml Ampul.neb 3 Ml NEB RTQID 30 Days Reported Hydrocodone-Acetamin 10-325 mg (Hydrocodone/Acetaminophen) 1 Each Tablet 1 Tab PO PRN Q4HRS PRN Testosterone Cypionate 200 Mg/1 Ml Vial 1 Ml IM Q2WKS Rosuvastatin Calcium 10 Mg Tablet 1 Tab PO QHS Amitriptyline Hcl 100 Mg Tablet 1 Tab PO QHS Lasix (Furosemide) 40 Mg Tablet 1 Tab PO DAILY 30 Days Prilosec Otc (Omeprazole Magnesium) 20 Mg Tablet.dr 20 Mg PO NOON Diazepam 5 Mg Tablet 10 Mg PO PRN Q8HRS PRN Advair 250-50 Diskus (Fluticasone/Salmeterol) 1 Each Disk.w.dev 1 Puff IH BID Aspirin 81 Mg Tab.chew 1 Tab PO HS Potassium Chloride (Potassium Chloride) 20 Meq Tablet.er 20 Meq PO DAILY Metoprolol Tartrate 50 Mg Tablet 1 Tab PO BID Buspirone Hcl 10 Mg Tablet 1 Tab PO PRN Q8HRS PRN Wellbutrin Xl (Bupropion Hcl) 150 Mg Tab.er.24h 150 Mg PO DAILY Gemfibrozil 600 Mg Tablet 1 Tab PO BID Isosorbide Mononitrate Er (Isosorbide Mononitrate) 30 Mg Tab.er.24h 1 Tab PO DAILYWBKFT ROS: Review of Systems Review of System REVIEW OF SYSTEMS: GENERAL: Denies weakness SKIN: No bruising, hair changes or rashes. EYES: No blurred, double or loss of vision. NOSE AND THROAT: No history of nosebleeds, hoarseness or sore throat. HEART: No history of palpitations, chest pain or shortness of breath on exertion. LUNGS: Denies cough, hemoptysis, wheezing or shortness of breath. GASTROINTESTINAL: Denies changes in appetite, nausea, vomiting, diarrhea or constipation. GENITOURINARY: No history of frequency, urgency, hesitancy or nocturia. NEUROLOGIC: Back pain PSYCHIATRIC: No history of panic, anxiety or depression. ENDOCRINE: No history of heat or cold intolerance, polyuria or polydipsia. EXTREMITIES: Denies joint pain, pain on walking or stiffness. Physical Exam: Vital Signs: Vital Signs Date Time Temp Pulse Resp B/P (MAP) Pulse Ox O2 Delivery O2 Flow Rate FiO2 10/22/21 07:32 94 Nasal Cannula 1.0 10/22/21 07:00 98.4 86 20 134/86 (102) 98.4 Physcial Exam: General: Well developed, well nourished, no acute distress, well appearing HEENT: Pupils equally round and reactive to light, EOMI, no discharge, normal conjunctiva Neck: Supple, no nuchal rigidity, no JVD, trachea midline, no tenderness Cardiac: RRR, no murmurs, no gallops, no rubs Chest/Lungs: CTAB, no wheeze, no rhonchi, no crackles Abdomen: soft, non-distended, no guarding, no peritoneal signs, non-tender Back: No step-offs or point tenderness Extremities: no edema, pulses intact, non-tender,capillary refill <3 sec bilateral upper and lower extremities, Neuro: Alert and oriented x 4, no focal deficits, normal speech Labs: Labs: Pending admission labs Images: Images PROCEDURE: CT LUMBAR SPINE WO CONTRAST EXAM: CT lumbar spine without IV contrast CLINICAL HISTORY:Reason: back pain fall COMPARISON: None available. TECHNIQUE: Helical CT was performed through the lumbar spine. Axial, coronal and sagittal reformatted images were generated. PQRS compliance statement - One or more of the following individualized dose reduction techniques were utilized for this study: 1. Automated exposure control 2. Adjustment of the mA and/or kV according to patient size 3. Use of iterative reconstruction technique FINDINGS: Vertebral body heights are preserved. No acute fracture. Anterior lumbar interbody fusion L4-5 and L5-S1 posterolateral fusion L4-5 and L5-S1. Straightening of the lumbar lordosis. No spondylolisthesis. Severe L2-3 and L3-4 disc height loss. Multilevel facet degenerative changes. Multiple disc bulges with small osteophytes at L2-3 and L3-4, with severe central canal stenosis. Aorta is normal in caliber measuring 2.3 cm. Dense aort obiiliac atherosclerotic calcifications are seen. Low-density adrenal nodules are partially profiled, possibly adenomas. IMPRESSION: 1. No acute fracture or subluxation. 2. Multilevel degenerative changes of the lumbar spine. Severe L2-3 and L3-4 central canal stenosis. PROCEDURE: HIP RIGHT 2V WITH PELVIS EXAM: AP pelvis, AP and lateral views right hip DATE: 10/21/2021 11:10 PM INDICATION: Reason: pain fell / Spl. Instructions: / History: . COMPARISON: No Prior FINDINGS/ IMPRESSION: No evidence of acute fracture or dislocation. Atherosclerotic vascular calcifications are seen. Assessment/Plan Assessment/Plan Intractable back pain Debilitation History of CAD status post CABG History of COPD History of dyslipidemia History of hypertension History of chronic back pain History of pulmonary embolism on Eliquis Multiple back surgeries Admit to hospitalist service for further management Continue home pain regimen Continue pain regimen IV for breakthrough pain Eliquis for DVT prophylaxis Omeprazole GI prophylaxis ADA diet CODE STATUS full Discussed with RN and SW Disposition inpatient management as above DPOA: Justifications for Admission Other Justification CORTES HOLGUIN MD Oct 22, 2021 08:25
--- NOTE | 2021-10-22 10:46 | RAD ---
CT LOWER RIGHT EXTREMITY WITHOUT CONTRAST History: Right hip pain. Comparison: None. Technique: CT of the right hip without contrast. Findings: There is normal alignment at the right hip without evidence for fracture. The pubic rami are intact. Degenerative changes of the femoral acetabular joints are mild with asymmetric narrowing and subchond ral cystic change. No significant right hip effusion. Partially visualized postsurgical changes from lumbosacral fusion. Visualized hardware appears well s eated with osseous fusion across the L4-S1 levels. Visualized portions of the abdomen demonstrate atherosclerotic vascular calcifications. Normal append ix is seen. Visualized soft tissues of the hip are unremarkable. Impression: 1. No acute osseous abnormality in the right hip. Mild degenerative changes. ------ Exposure: One or more of the following individualized dose reduction techniques were utilized for thi s examination: 1. Automated exposure control 2. Adjustment of the mA and/or kV according to patient size 3. Use of iterative reconstruction technique. Electronically signed by: Jere Simpson MD (10/22/2021 10:44 AM) [id number]
[2021-10-22 11:00] VITALS: BP 138/75
[2021-10-22] MEDS ORDERED: diazePAM 5 MG TABLET PO PRN (11:30)
[2021-10-22] MEDS ORDERED: HYDROcodone/APAP 10/325 1 TAB TABLET PO PRN (11:30)
[2021-10-22] MEDS ORDERED: buPROPion XL 150 MG TAB.ER.24H. PO SCH (12:00)
[2021-10-22] MEDS ORDERED: GEMFIBROZIL 600 MG TABLET. PO SCH (12:00)
[2021-10-22] MEDS ORDERED: APIXABAN 5 MG TABLET. PO SCH (12:00)
[2021-10-22] MEDS ORDERED: METOPROLOL TART IMMED RELEASE 50 MG TABLET. PO SCH (12:00)
[2021-10-22] MEDS ORDERED: PANTOPRAZOLE 40 MG TABLET.DR. PO SCH (12:00)
[2021-10-22] MEDS ORDERED: IPRATRPIUM/ALBUTEROL 0.5/2.5MG 3 ML NEBU. NEB SCH (12:00)
[2021-10-22] MEDS ORDERED: FUROSEMIDE 40 MG TABLET. PO SCH (12:00)
--- NOTE | 2021-10-22 14:21 | NUR ---
SS following for discharge planning. SS reviewed pt chart and discussed with pt RN. Pt is from home with spouse and is currently requiring oxygen at one liter nasal canula. Pt has home oxygen. Dr. Flor and Ortho consulted. PT/OT ordered. SS will continue to follow for discharge planning.
[2021-10-22 15:00] VITALS: BP 108/56
[2021-10-22] MEDS ORDERED: HYDR-2769 PO (15:30)
--- NOTE | 2021-10-22 15:32 | DISCH ---
DISCHARGE INSTRUCTIONS Condition on Discharge Condition on Discharge: Stable Activity After Discharge Activity Instructions for Disc: No restrictions Bathing Instructions: No Tub Bath until see Lifting Instructions after Dis: No heavy lifting, No pulling or pushing, Do not lift >10 pounds Exercise Instruction after Dis: Progress as tolerated Driving Instructions after Dis: Do not drive today Weight Bearing Status after Di: No restrictions Diet after Discharge Diet after Discharge: Regular Diet Texture: Regular Liquid Texture: Thin Liquid Swallowing Supervision: None needed Wound Incision Care Wound/Incision Care: No wound care needed Checks after Discharge Checks after discharge: Check blood press - daily, Check your Temp as needed, Weigh Yourself Daily Contacting the DRShweta after DC Call your doctor for: If your condition worsens Treatment/Equipment after DC Adaptive Equipment Issued: None Discharge Respiratory Equipmen: Oxygen CORTES HOLGUIN MD Oct 22, 2021 15:32
[2021-10-22] MEDS ORDERED: AMITRIPTYLINE HCL 25 MG TABLET. PO SCH (21:00)
[2021-10-22] MEDS ORDERED: ATORVASTATIN CALCIUM 40 MG TABLET. PO SCH (21:00)
[2021-10-22] MEDS ORDERED: ASPIRIN CHEWABLE 81 MG TABLET. PO SCH (21:00)
--- NOTE | 2021-10-22 22:27 | CONS ---
DATE OF CONSULTATION: 10/22/2021 ATTENDING PHYSICIAN: Dr. Villela. REASON FOR CONSULTATION: The patient was seen at the request of Dr. Villela for rehab evaluation. LOCATION: He is in room 672. HISTORY: This is a 66-year-old right-handed male on disability from chronic lower back pain status post 4 lumbar spine surgeries done, last one by Dr. Noonan in . The patient was admitted through the Emergency Room on 10/22/2021 after he had increased back pain as he fell down on a carpeted floor at home. The patient had CT scan of his lumbar spine and x-rays of his hips, which revealed anterior lumbar interbody fusion, L4-L5, L5-S1, posterolateral fusion at L4-L5, L5-S1, straightening of lumbar lordosis, degenerative disk disease at L2-L3, L3-L4, multilevel facet degenerative changes, multiple disk bulges with small osteophyte at L2-L3, L3-L4 with severe central spinal stenosis and x-rays of his hips failed to reveal any acute lesion. The patient usually takes hydrocodone 10/325 mg 1-2 on as needed basis for pain. He usually gets about 60 of them for months. He ran out of them this week early. The patient would like to go home if he can get some pain medication as he does not have any pain medication at home until next week. The patient denies any trouble with his bowel or bladder control. The patient with known coronary artery disease, status post coronary artery bypass graft, chronic obstructive pulmonary disease, dyslipidemia, hypertension, pulmonary embolism, on Eliquis. HE IS KNOWN ALLERGIC TO IODINATED CONTRAST MEDIA, NONSTEROIDAL ANTI-INFLAMMATORY MEDICATION, KETOROLAC, TRAMADOL, VENOM-HONEY BEES. The patient had states to go to the laundry room railing in place. He lives with his . The patient uses a cane to get around. PHYSICAL EXAMINATION: Today revealed a middle-aged male. He is in no acute distress. He is alert, oriented to time, place, person and circumstance and follows commands appropriately. Moves all 4 extremities voluntarily where he had 4+/5 grade muscle strength. Deep tendon reflexes are decreased overall with absent knee and ankle jerks and he had equal perception of touch and pinprick sensation bilaterally. He had painful limited movements of lumbar spine. Straight leg raising test is negative bilaterally. He had localized tenderness to palpation over right sacroiliac joint area and to some extent over right trochanteric bursa. Some limitation of right hip external rotation. He is independent with bed mobility and transfers. I have not tested his ambulation skills at this time. No obvious lumbar paraspinal muscle spasm was noted at this time. He had well-healed operative scar over the lumbar spine area and over medial aspect of left thigh. ASSESSMENT: A middle-aged male with chronic lower back pain from degenerative disk disease and degenerative joint disease of lumbar vertebrae with radiological evidence of lumbar spinal stenosis. No clinical evidence of ongoing lumbar radiculopathy, clinical evidence of peripheral neuropathy. The patient with coronary artery disease, status post coronary artery bypass graft, chronic obstructive pulmonary disease, dyslipidemia, hypertension, pulmonary embolism, peripheral vascular disease. RECOMMENDATIONS: I have reviewed with him a home program of physical modalities, relax, stretching exercises and reviewed with him proper body mechanics. The patient was advised to avoid any activity that irritates his back. He seems to be taking care of himself. He is not interested in any cortisone injections at present time as he admits even cortisone injection can upset his stomach. Dr. Plummer appreciate asking me to participate in the care of this interesting patient, home with outpatient followup by his family care physician. MICHAEL/ZAINAB/GISELA DR: Whitley TID: [id number] CC: Yenny Loving NP
--- NOTE | 2021-10-23 17:16 | PDOC3 ---
[facility]-Discharge Summary Date of Admission: Date of Admission: Oct 22, 2021 Date of Discharge: Date of Discharge: Oct 22, 2021 Discharge Diagnosis: Discharge Diagnosis: Intractable back pain Debilitation History of CAD status post CABG History of COPD History of dyslipidemia History of hypertension History of chronic back pain History of pulmonary embolism on Eliquis Multiple back surgeries Hospital Course: Hospital Course: 66-year-old male with multiple comorbidities including CAD, COPD, dyslipidemia, hypertension, testicular cancer, history of PE, chronic back pain who comes in for 10 out of 10 lower back pain that radiates to the right lower extremity. Patient states that his chronic pain was exacerbated by falling down twice this last week. Patient has to use a cane for mobility. Denies numbness or tingling of the lower extremities or incontinence. Denies LOC or trauma to the head. Patient's pain improved after receiving IV fentanyl and his [place] regimen. By day of discharge, pt was clinically stable and ready for discharge. Rest of hospital course was uneventful. He refused PT/OT and does not want HH. Disposition: Disposition/Orders: D/C to Home Activity: Activity: Resume previous activity Diet: Diet: Cardiac Medications: Home Meds Active Scripts Hydrocodone Bit/Acetaminophen (HYDROCODONE-APAP 10-325 ) 1 Tab Tablet, 1 TAB PO PRN Q6-8HRS PRN for PAIN for 5 Days, #20 TAB Prov:CORTES HOLGUIN MD 10/22/21 Apixaban (ELIQUIS) 5 Mg Tablet, 5 MG PO BID for Hx PE, #60 TAB 1 Refill Prov:SHELBI JOHN MD 07/10/21 Nitroglycerin (NITROSTAT) 0.4 Mg Tab.subl, 0.4 MG SL PRN Q5MIN PRN for CHEST PAIN for 28 Days, #20 TAB Prov:TRENT MASTERS III DO 05/08/21 Montelukast Sodium (MONTELUKAST SODIUM TABLET ) 10 Mg Tablet, 10 MG PO QHS for reactive airway disease for 30 Days, #30 TAB Prov:JANINA FERNANDEZ MD 10/13/18 Ipratropium/Albuterol Sulfate (DUONEB 0.5-3(2.5) MG/3 ML) 3 Ml Ampul.neb, 3 ML NEB RTQID for copd for 30 Days, #120 EACH Prov:AMARJIT TERRY MD 10/06/18 Reported Medications Testosterone Cypionate (TESTOSTERONE CYPIONATE) 200 Mg/1 Ml Vial, 1 ML IM Q2WKS for replacement 10/22/21 Rosuvastatin Calcium (Rosuvastatin Calcium) 10 Mg Tablet, 1 TAB PO QHS for cholesterol 10/22/21 Amitriptyline Hcl (AMITRIPTYLINE HCL) 100 Mg Tablet, 1 TAB PO QHS for , #30 TAB 1 Refill 05/07/21 Furosemide (LASIX) 40 Mg Tablet, 1 TAB PO DAILY for for 30 Days, #30 TAB 0 Refills 05/07/21 Omeprazole Magnesium (PRILOSEC OTC) 20 Mg Tablet.dr, 20 MG PO NOON for GERD, TAB 05/07/21 Diazepam (DIAZEPAM) 5 Mg Tablet, 10 MG PO PRN Q8HRS PRN for muscle relaxer 04/30/20 Fluticasone/Salmeterol (ADVAIR 250-50 DISKUS) 1 Each Disk.w.dev, 1 PUFF IH BID for COPD, #3 INHALER 3 Refills 03/06/20 Aspirin (ASPIRIN) 81 Mg Tab.chew, 1 TAB PO HS for rx, #30 TAB 3 Refills 03/06/20 Potassium Chloride (POTASSIUM CHLORIDE ) 20 Meq Tablet.er, 20 MEQ PO DAILY for SUPPLEMENT, TAB.SR 03/06/20 Metoprolol Tartrate (METOPROLOL TARTRATE) 50 Mg Tablet, 1 TAB PO BID for BP, #60 TAB 5 Refills 03/06/20 Buspirone Hcl (BUSPIRONE HCL) 10 Mg Tablet, 1 TAB PO PRN Q8HRS PRN for ANXIETY / AGITATION, #60 TAB 1 Refill 03/06/20 Bupropion Hcl (WELLBUTRIN XL) 150 Mg Tab.er.24h, 150 MG PO DAILY for anxiety, TAB.SR 05/25/18 Gemfibrozil (GEMFIBROZIL) 600 Mg Tablet, 1 TAB PO BID, #60 TAB 5 Refills 05/08/18 Isosorbide Mononitrate (ISOSORBIDE MONONITRATE ER) 30 Mg Tab.er.24h, 1 TAB PO DAILYWBKFT, #30 TAB 5 Refills 04/15/17 Discontinued Reported Medications Hydrocodone/Acetaminophen (Hydrocodone-Acetamin 10-325 mg) 1 Each Tablet, 1 TAB PO PRN Q4HRS PRN for PAIN 10/22/21 Discontinued Scripts Acetaminophen (TYLENOL) 325 Mg Tablet, 650 MG PO PRN Q4HRS PRN for FEVER > 100.3'F for 28 Days, #60 TAB Prov:AMARJIT TERRY MD 05/03/20 Scheduled Amitriptyline Hcl (Amitriptyline Hcl), 1 TAB PO QHS, (Reported) Apixaban (Eliquis), 5 MG PO BID Aspirin (Aspirin), 1 TAB PO HS, (Reported) Bupropion Hcl (Wellbutrin Xl), 150 MG PO DAILY, (Reported) Fluticasone/Salmeterol (Advair 250-50 Diskus), 1 PUFF IH BID, (Reported) Furosemide (Lasix), 1 TAB PO DAILY, (Reported) Gemfibrozil (Gemfibrozil), 1 TAB PO BID, (Reported) Ipratropium/Albuterol Sulfate (Duoneb 0.5-3(2.5) Mg/3 Ml), 3 ML NEB RTQID Isosorbide Mononitrate (Isosorbide Mononitrate Er), 1 TAB PO DAILYWBKFT, ( Reported) Metoprolol Tartrate (Metoprolol Tartrate), 1 TAB PO BID, (Reported) Montelukast Sodium (Montelukast Sodium Tablet ), 10 MG PO QHS Omeprazole Magnesium (Prilosec Otc), 20 MG PO NOON, (Reported) Potassium Chloride (Potassium Chloride ), 20 MEQ PO DAILY, (Reported) Rosuvastatin Calcium (Rosuvastatin Calcium), 1 TAB PO QHS, (Reported) Testosterone Cypionate (Testosterone Cypionate), 1 ML IM Q2WKS, (Reported) Scheduled PRN Buspirone Hcl (Buspirone Hcl), 1 TAB PO PRN Q8HRS PRN for ANXIETY / AGITATION, (Reported) Diazepam (Diazepam), 10 MG PO PRN Q8HRS PRN for muscle relaxer, (Reported) Hydrocodone Bit/Acetaminophen (Hydrocodone-Apap 10-325 ), 1 TAB PO PRN Q6- 8HRS PRN for PAIN Nitroglycerin (Nitrostat), 0.4 MG SL PRN Q5MIN PRN for CHEST PAIN Discontinued Medications Acetaminophen (Tylenol), 650 MG PO PRN Q4HRS PRN for FEVER > 100.3'F Hydrocodone/Acetaminophen (Hydrocodone-Acetamin 10-325 mg), 1 TAB PO PRN Q4HRS PRN for PAIN, (Reported) Total Time: Total Time: Total time spent was 32 minutes in preparing scripts and discharge planning with SW and RN. Patient seen and examined on day of Discharge. Justicifation of Admission Dx: Justifications for Admission: Justification of Admission Dx: Yes Angina: Cres[place] Worsening of Sym CORTES HOLGUIN MD Oct 23, 2021 17:16
== END 2021-10-22 16:45 | disposition home or self-care (01) | DRG 552 ==
LOC: ER 22:18 → 6 SOUTH 10-22 00:09
PROVIDERS: ADMIT Internal Medicine; ATTEND Internal Medicine
DX: M51.36 Other intervertebral disc degeneration, lumbar region (principal); M54.40 Lumbago with sciatica, unspecified side; E78.00 Pure hypercholesterolemia, unspecified; E78.5 Hyperlipidemia, unspecified; G89.29 Other chronic pain; I10 Essential (primary) hypertension; I25.10 Atherosclerotic heart disease of native coronary artery without angina pectoris; I73.9 Peripheral vascular disease, unspecified; J44.9 Chronic obstructive pulmonary disease, unspecified; M47.816 Spondylosis without myelopathy or radiculopathy, lumbar region; M48.061 Spinal stenosis, lumbar region without neurogenic claudication; Z53.20 Procedure and treatment not carried out because of patient's decision for unspecified reasons; Z79.01 Long term (current) use of anticoagulants; Z85.47 Personal history of malignant neoplasm of testis; Z86.711 Personal history of pulmonary embolism; Z87.891 Personal history of nicotine dependence; Z91.041 Radiographic dye allergy status; Z95.1 Presence of aortocoronary bypass graft; I25.2 Old myocardial infarction; Z88.8 Allergy status to other drugs, medicaments and biological substances
CPT/HCPCS: 72131; 73502; 73700; 94640; 94760; 96372; J3010; 97535-GO; 99285-25; G0378